=== PATIENT | male | born 1955 | race Caucasian/White ===

== ENCOUNTER 2021-12-18 15:57 | Emergency (ER) | payer OTHER, SELFPAY ==
--- NOTE | ~2021-12-18 | XR_ITS ---
EXAM: XR ankle RT min 3V DATE: 12/18/2021 16:31 HISTORY: twisted right ankle, pain and swelling distal fibula . COMPARISON: None available. FINDINGS: Normal mineralization. No fracture or dislocation. No lytic or blastic lesion. Joint space s are maintained. No erosion or periosteal change. Moderate ankle joint effusion. Lateral soft tissue swelling. IMPRESSION: No acute osseous finding in the right ankle. Reviewed, dictated and finalized at location K.
[2021-12-18 16:17] VITALS: BP 127/89; PULSE 75; RESP 18; TEMP 36.9; O2SAT 99
--- NOTE | 2021-12-18 16:22 | ED.LOWEXIN ---
HPI - Extremity Injury (Lower) General Stated Complaint: fall Time Seen by Provider: 12/18/21 16:33 Source: patient and RN notes reviewed Mode of arrival: ambulatory Limitations: no limitations History of Present Illness HPI Narrative: 66-year-old male presents with concern for right ankle pain and swelling. He reports prior to arrival he was laying on the couch and stood up, his foot was asleep and he rolled the ankle. He reports swelling, pain to the ankle. He denies that the pain radiates to the foot. He denies open skin. He reports he is getting a cardiac stress test tomorrow and he cannot take any medications such as Tylenol or ibuprofen until after that MD complaint: ankle injury Related Data Home Medications Medication Instructions Recorded Confirmed Klonopin 12/18/21 allopurinol 12/18/21 fluoxetine 12/18/21 tamsulosin 12/18/21 Allergies Allergy/AdvReac Type Severity Reaction Status Date / Time morphine Allergy Hallucinati Verified 12/18/21 16:24 ng Review of Systems Review of Systems: CONSTITUTIONAL: Denies malaise, chills, sweats, or fever. SKIN: Denies rash or itching, open skin, laceration, abrasion, redness, warmth MUSCULOSKELETAL: Reports right ankle pain and swelling NEUROLOGIC: Denies numbness, weakness All systems reviewed & are unremarkable except as noted in HPI and below PMFSH Comments At time of signature, agree with nursing past medical, surgical, social and family history. There is no relevant family history pertinent to the presenting complaint Exam Narrative: GENERAL: Well-appearing, well-nourished, and in no acute distress. HEAD: Normocephalic, atraumatic. EYES: PERRLA, conjunctivae clear NECK: Supple. CHEST: Speaks in full sentences. No respiratory distress. HEART: Regular rate and rhythm. Normal and equal peripheral pulses. EXTREMITIES: Right ankle, foot, digits normal strength and sensation, normal range of motion. Moderate ankle edema without erythema, warmth, or ecchymosis. 5/5 strength with ankle and digit flexion and extension. Normal sensation with sensitivity to light touch and pain. Lateral ankle tenderness. No open wounds, no skin tenting, no devitalized tissue or atrophy, no trophic changes, no obvious deformity, alignment normal, nearby joints and structures intact. Distal pulses palpable and equal bilaterally, skin warm, dry, pink. Capillary refill less than 3 seconds. SKIN: Warm, dry, no rash. NEURO: Alert and oriented x3. PSYCH: Normal mood and affect Course Course Emergency Course: Patient is aware of diagnosis, understands and agrees to treatment plan. Anticipatory guidance given. Patient agrees to follow-up as directed and is aware of reasons to seek care at the emergency department. Portions of this record may have been created with voice recognition software Level of Care: Express Care Visit Vital Signs Vital signs: Vital Signs Temperature 98.4 F 12/18/21 16:17 Pulse Rate 75 12/18/21 16:17 Respiratory Rate 18 12/18/21 16:17 Blood Pressure 127/89 12/18/21 16:17 Pulse Oximetry 99 12/18/21 16:17 Oxygen Delivery Room Air 12/18/21 16:17 Temperature 98.4 F 12/18/21 16:17 Pulse Rate 75 12/18/21 16:17 Respiratory Rate 18 12/18/21 16:17 Blood Pressure 127/89 12/18/21 16:17 Pulse Oximetry 99 12/18/21 16:17 Oxygen Delivery Room Air 12/18/21 16:17 Reviewed. MDM - Extremity Injury (Lower) MDM Narrative Medical decision making narrative: Patients injury and pain is consistent with musculoskeletal etiology. No signs of neurological or vascular compromise on exam. Compartments and tissues are soft without signs of compartment syndrome. Pain is felt appropriate for further evaluation on an outpatient basis. Imaging Data My impression: Images reviewed, interpreted by radiologist, agree, see report. Radiologist's impression: EXAM:? XR ankle RT min 3V DATE: 12/18/2021 16:31 HISTORY: twisted right ankle
== END 2021-12-18 16:48 | disposition home or self-care (01) ==
PROVIDERS: Emergency Provider Nurse Practitioner
DX: S93.401A Sprain of unspecified ligament of right ankle, initial encounter (principal); X50.9XXA Other and unspecified overexertion or strenuous movements or postures, initial encounter; I10 Essential (primary) hypertension; M10.9 Gout, unspecified
CPT/HCPCS: 73610; 99213; G0463

== ENCOUNTER 2022-05-06 16:01 | Emergency (ER) | payer MEDICARE, SELFPAY ==
[2022-05-06 16:06] VITALS: BP 127/88; PULSE 114; RESP 20; TEMP 35.4; O2SAT 100
--- NOTE | 2022-05-06 16:14 | ED.WOUNDLAC ---
HPI - Wound/Laceration General Chief Complaint: Wound/Laceration Stated Complaint: unknown Time Seen by Provider: 05/06/22 16:15 Source: patient, RN notes reviewed and old records reviewed Mode of arrival: ambulatory Limitations: no limitations History of Present Illness HPI narrative: 67-year-old male presents to the [facility] with a avulsion of skin to left anterior knee. Patient states that he was using a chainsaw when it caught his pants and cut his leg. Bleeding is controlled unknown last Tdap has full range of motion of the knee, ankle. Positive pedal pulse noted capillary refill under 2 seconds Related Data Home Medications Medication Instructions Recorded Confirmed colchicine 0.6 mg tablet 0.6 mg PO BID 04/07/22 05/06/22 Allergies Allergy/AdvReac Type Severity Reaction Status Date / Time morphine Allergy Hallucinati Verified 04/07/22 08:57 ng Review of Systems Review of Systems: All systems reviewed & are unremarkable except as noted in HPI and below Constitutional: Constitutional: Reports no additional constitutional complaints Eyes: Eyes: Reports no additional eye complaints ENT: Reports system reviewed and no additional complaints, except as documented Cardiovascular: Cardiovascular: Reports no additional cardiovascular complaints, Denies chest pain and Denies dyspnea Respiratory: Respiratory: Reports no additional respiratory complaints, Denies chest congestion, Denies cough and Denies dyspnea Gastrointestinal: Gastrointestinal: Reports no additional gastrointestinal complaints, Denies abdominal pain, Denies nausea and Denies vomiting Musculoskeletal: Musculoskeletal: Reports no additional musculoskeletal complaints Integumentary/Breasts: Skin/Breast: Reports as per HPI Neurologic: Reports system reviewed and no additional complaints, except as documented Psychiatric: Psychiatric: Reports no additional psychiatric complaints Allergic/Immunologic: Allergic/Immunologic: Reports no additional allergic/immunologic complaints [facility] Past Medical History Medical History Anxiety Hypertension Kidney disease Migraine OCD (obsessive compulsive disorder) Family History Family History Father Hypertension Heart disease Social History Social History Smoking status: Never smoker Alcohol intake: never Substance use: unknown Lack of Transportation: No Lack of Food: Never True Current Housing: I Have Housing Concerned About Future Housing: No Difficulty Paying Gas/Electric Bills: No Difficulty Paying for Meds: No Currently Unemployed: No Education: Bachelor's Degree Difficulty w/ Childcare or Family Care: No Comments At the time of my signature, I reviewed and agree with the nursing past medical, surgical, social, and family history. There is no relevant family history pertinent to the patient complaint. Exam Const: General: cooperative, healthy appearing, comfortable, no acute distress, well developed, alert and well nourished Nutritional Appearance: well nourished Orientation/consciousness: patient oriented x3 Limitations: no limitations HENMT: Head: normal to inspection Ears: hearing grossly normal bilaterally and external ears normal Face/Nose/Sinus: Normal external nose present, Normal nares present, Normal nasal mucous membranes and turbinates present and normal facial exam Face and sinus: normal facial exam Mouth: Yes Normal oral and palatal mucosa present, Yes lip normal and Yes moist mucous membranes Eyes: General: appearance normal, both eyes and all related structures Alignment and Position: alignment normal Periorbital: periorbital findings normal Conjunctivae: conjunctivae normal Pupils: Equal, round and reactive pupils present EOM: EOMs intact bilaterally Neck: Neck: norm
[2022-05-06] MEDS: TETANUS/DIPHTHERIA TOXOIDS ADSORB 0.5 ML VIAL (*BKC) IM (16:27)
== END 2022-05-06 16:53 | disposition home or self-care (01) ==
PROVIDERS: Emergency Provider Nurse Practitioner; PCP Internal Medicine
DX: S81.012A Laceration without foreign body, left knee, initial encounter (principal); W29.3XXA Contact with powered garden and outdoor hand tools and machinery, initial encounter; Z23 Encounter for immunization; I10 Essential (primary) hypertension; F41.9 Anxiety disorder, unspecified; F42.9 Obsessive-compulsive disorder, unspecified
CPT/HCPCS: 12001; 90471; 90714; 99212; G0463

== ENCOUNTER 2022-07-26 08:04 | Emergency (ER) | payer MEDICARE, SELFPAY ==
--- NOTE | 2022-07-26 08:15 | ED.GENADULT ---
HPI - General Adult General Chief complaint: Upper Respiratory Infection Stated complaint: . Time Seen by Provider: 07/26/22 08:15 Source: patient Mode of arrival: ambulatory Limitations: no limitations History of Present Illness HPI narrative: 67-year-old male patient presents to the [facility] with complaints of a sore throat, sneezing, runny nose and a mild cough that started about 2 days ago. Denies any fevers, body aches or chills. Denies any nausea, vomiting or diarrhea. Denies any abdominal pain. Denies any chest pain or shortness of breath. Patient states he has taken 1 Zyrtec yesterday has been taking some over the counter DayQuil and NyQuil for his symptoms. Patient states he went to come and get checked out because he is getting ready to leave out of town and will be flying. Patient states he usually does not get sick until usually takes vitamin-C to help prevent illness. Related Data Home Medications Medication Instructions Recorded Confirmed colchicine 0.6 mg tablet 0.6 mg PO BID 04/07/22 07/26/22 Allergies Allergy/AdvReac Type Severity Reaction Status Date / Time morphine Allergy Hallucinati Verified 07/26/22 08:24 ng Review of Systems Review of Systems: CONSTITUTIONAL: Denies fever, chills, or sweats. EYES: Denies visual changes, redness, or discharge. ENT: Positive clear rhinorrhea, congestion, sore throat, denies otalgia. positive sneezing CARDIOVASCULAR: Denies chest pain, palpitations, or edema. RESPIRATORY: positive mild nonproductive cough , denies dyspnea. GASTROINTESTINAL: Denies abdominal pain, nausea, vomiting, or diarrhea. GENITOURINARY: Denies dysuria or hematuria. SKIN: Denies rash or itching. MUSCULOSKELETAL: Denies back pain, joint pain, or myalgia. NEUROLOGIC: Denies headache, numbness, or weakness. PSYCHIATRIC: Denies anxiety or depression. [facility] Past Medical History Medical History Anxiety Hypertension Kidney disease Migraine OCD (obsessive compulsive disorder) Family History Family History Father Hypertension Heart disease Social History Social History Smoking status: Never smoker Alcohol intake: never Substance use: unknown Lack of Transportation: No Lack of Food: Never True Current Housing: I Have Housing Concerned About Future Housing: No Difficulty Paying Gas/Electric Bills: No Difficulty Paying for Meds: No Currently Unemployed: No Education: Bachelor's Degree Difficulty w/ Childcare or Family Care: No Comments At the time of my signature I agree with nursing past medical history, surgical, social, and family history. There is no relevant family history pertinent to the presenting complaint. Exam Narrative: GENERAL: Well-appearing, well-nourished, and in no acute distress. HEAD: Normocephalic, atraumatic. EYES: PERRLA and EOMI. ENT: Nares with erythema edema noted bilaterally, no rhinorrhea or epistaxis. Mucous membranes moist. posterior pharynx with no erythema, tonsillitis mint, exudates or lesions present. Bilateral TMs are clear no erythema or foreign bodies the canal. NECK: Supple. No lymphadenopathy CHEST: Clear to auscultation. No respiratory distress. HEART: Regular rate and rhythm. No murmur heard. Normal peripheral pulses. ABDOMEN: Soft, nontender, nondistended, normal active bowel sounds. EXTREMITIES: Normal range of motion. No edema. SKIN: Warm, dry, no rash. NEURO: No focal deficits. Alert and oriented x3. Course Course Level of Care: Express Care Visit Reevaluation(s) Reevaluation #1: re-evaluated patient notified him that all the swabs came back negative. Discussed with patient I think this is most likely due to some type of virus or most likely allergies. Continue to encourage him to take the Zyrtec daily we will also prescri
[2022-07-26 08:24] VITALS: BP 112/65; PULSE 65; RESP 18; TEMP 36.5; O2SAT 100
[2022-07-26 08:25] VITALS: BP 112/65; PULSE 65; RESP 18; TEMP 36.5; O2SAT 100
== END 2022-07-26 09:18 | disposition home or self-care (01) ==
PROVIDERS: Emergency Provider Nurse Practitioner Family; PCP Physician Assistant
DX: J06.9 Acute upper respiratory infection, unspecified (principal); R05.9 Cough, unspecified; Z20.822 Contact with and (suspected) exposure to COVID-19; F41.9 Anxiety disorder, unspecified; I10 Essential (primary) hypertension
CPT/HCPCS: 87081; 87426; 87804; 87880; 99213; C9803; G0463

== ENCOUNTER 2023-02-01 20:18 | Emergency (ER) | payer MEDICARE, SELFPAY ==
[2023-02-01] VITALS (16 sets, daily range): BP systolic 110–148; BP diastolic 80–112; PULSE 71–98; RESP 12–18; TEMP 36.6–36.8; O2SAT 92–98
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
--- NOTE | ~2023-02-01 | XR_ITS ---
Portable chest x-ray Comparison: 02/01/2023 Clinical History: Chest tube Findings: Right-sided chest tube is in place. Possible minimal residual right apical pneumothorax. T here is minimal right basilar atelectatic change. Left lung clear. Cardiomediastinal silhouette is s table. Bones and soft tissues are unremarkable. Impression: Status post right chest tube placement, with near complete resolution of right pneumothorax. Possible minimal residual right apical pneumothorax. Minimal right basilar atelectatic change. Reviewed, dictated and finalized at location M. HING MACHINE OPERATOR Impression: Status post right chest tube placement, with near complete resolution of right pneumothorax. Possible minimal residual right apical pneumothorax. Minimal right basilar atelectatic change.
--- NOTE | ~2023-02-01 | CT_ITS ---
EXAMINATION: CT brain wo con DATE: 02/01/2023 21:48 INDICATION: Head trauma TECHNIQUE: Computed tomography (CT) of the head was performed without intravenous contrast. Sagittal and coronal reconstructions were performed. The mA was adjusted according to patient size. Iterative reconstruction technique was employed. The dose-length product was 681.00 mGy-cm. COMPARISON: None FINDINGS: No fracture. No acute intracranial hemorrhage, acute infarction or abnormal extra axial fluid collect ion. Symmetric prominence of the sulci consistent with mild age-appropriate diffuse cerebral volume l oss. Ventricles are normal and symmetric. No mass/mass effect. The orbits, paranasal sinuses and mas toid air cells are normal. IMPRESSION: 1. Normal aging brain. No fracture or acute intracranial process. Reviewed, dictated and finalized at location A. ATION CLERK
--- NOTE | ~2023-02-01 | CT_ITS ---
EXAMINATION: CT chest abdomen pelvis w con DATE: 02/01/2023 21:48 INDICATION: Trauma with pneumothorax TECHNIQUE: Computed tomography (CT) of the chest, abdomen, and pelvis was performed with 100 mL Omnip aque-350 intravenous contrast. Automated exposure control and iterative reconstruction technique were employed. The dose-length product was 1065.05 mGy-cm. COMPARISON: None FINDINGS: CHEST CT: There are fractures of the posterior right fourth-11th ribs with moderate displacement of the 11th ri b fracture, mild displacement of the ninth rib fracture and the remaining nondisplaced. There is a sm all associated subpleural chest wall hematoma along with some soft tissue gas along the peripheral ma rgin of the ribs and intercostal spaces. Small low-density left pleural effusion. Groundglass opaciti es in the dependent aspect of the bilateral lower lobes and the right middle lobe and favor atelectas is over pulmonary hemorrhage, aspiration or pneumonia. No left-sided rib fractures, pneumothorax or p leural effusion. Heart size is normal. No pericardial effusion. Thoracic aorta is normal in caliber w ith no dissection or acute traumatic aortic injury. No pneumomediastinum. No pathologically enlarged thoracic lymphadenopathy. Small sliding-type hiatal hernia with suture lines consistent with prior Ni ssen fundoplication. ABDOMEN/PELVIS CT: Small gallstones at the dependent aspect of the normal-appearing gallbladder. Liver, spleen, pancreas and bilateral adrenal glands are normal. Bilateral kidneys are enlarged with numerous renal cysts me asuring up to 10.2 cm and the left kidney consistent with polycystic kidney disease. A few scattered colonic diverticula without adjacent from trace stranding to suggest diverticulitis. Bowels including the appendix are otherwise normal. There is prominent metallic streak artifact related to bilateral total hip arthroplasties which extends across the deep pelvis limiting assessment of the bladder. No evident free intraperitoneal gas or fluid. Postoperative change of prior right inguinal hernia repair . Mild thoracolumbar levoscoliosis with moderate to severe thoracic and severe lumbar spondylosis. IMPRESSION: 1. Posterior right fourth-11th rib fractures with small right pneumothorax and tiny right pleural eff usion. No pneumomediastinum. 2. No acute intra-abdominal/pelvic process. 3. Cholelithiasis. 4. Small sliding-type hiatal hernia with change of likely prior Maurisio fundoplication. 2. Numerous bilateral renal cysts consistent with autosomal dominant polycystic kidney disease. Reviewed, dictated and finalized at location A. CTURAL STEEL WORKER HELPER IMPRESSION: 1. Posterior right fourth-11th rib fractures with small right pneumothorax and tiny right pleural effusion. No pneumomediastinum. 2. No acute intra-abdominal/pelvic process. 3. Cholelithiasis. 4. Small sliding-type hiatal hernia with change of likely prior Maurisio fundopli cation. 2. Numerous bilateral renal cysts consistent with autosomal dominant polycystic kidney disease.
--- NOTE | ~2023-02-01 | XR_ITS ---
EXAMINATION: XR chest 1V portable DATE: 02/01/2023 21:19 INDICATION: Chest pain TECHNIQUE: frontal view of the chest was obtained. COMPARISON: None FINDINGS: Small right pneumothorax with 2 cm maximal pleural separation at the apex. Opacity at the bilateral l gabby bases and favor atelectasis over pneumonia. No pleural effusion or left-sided pneumothorax. The c ardiomediastinal silhouette is within normal limits conifer AP technique and slight rightward rotatio n of the patient. . There are some streaky lucencies projecting over the mediastinum with a curved hilaria cency extending along the aortic knob suspicious for associated pneumomediastinum. There are fracture s of the posterior right 4th-10th ribs. IMPRESSION: 1. Mildly displaced fracture of the right posterior fourth-10th ribs with small right pneumothorax an d likely pneumomediastinum. Dr. Haywood discussed these findings with Dr. Jaime at 9:25 PM. Reviewed, dictated and finalized at location A. K 9 HANDLER/ DEPUTY IMPRESSION: 1. Mildly displaced fracture of the right posterior fourth-10th ribs with small right pneumothorax and likely pneumomediastinum. Dr. Haywood discussed these findings with Dr. Jaime at 9:25 PM.
--- NOTE | 2023-02-01 20:49 | ECG_ITS ---
Measurements Intervals [place] Rate: 100 P: 40 HI: 152 QRS: 4 QRSD: 90 T: -8 QT: 339 QTc: 438 Interpretive Statements SINUS TACHYCARDIA LOW QRS VOLTAGE IN PRECORDIAL LEADS BORDERLINE ST-T WAVE ABNORMALITY- ANTEROLAT/INF LEADS BASELINE WANDER- III, AVR, AVL, AVF BORDERLINE ECG NO PREVIOUS ECG AVAILABLE FOR COMPARISON Electronically Signed On 02-02-2023 6:43:30 STATISTICAL FINANCIAL ANALYST by Freddy Rico D.O.
[2023-02-01] MEDS: HYDROmorphone HCL INJ (*CRX) 1 MG/ML SYR IV PUSH ×2 (21:06→22:35)
[2023-02-01 21:08] LABS: Basophils Absolute Auto 0.1 K/mm3 (0.0-0.1); Basophils Percent Auto 0.4 % (0.2-1.2); Eosinophils Absolute Auto 0.1 K/mm3 (0-0.3); Eosinophils Percent Auto 0.3 % (0-4.4); Hematocrit 53.8 % (42.0-52.0); Hemoglobin 17.1 g/dL (14.0-18.0); Immature Granulocyte Absolute 0.09 K/mm3 (0.00-0.031); Immature Granulocyte Percent A 0.6 % (0-0.5); Lymphocytes Absolute Auto 1.11 K/mm3 (0.9-3.2); Lymphocytes Percent Auto 7.6 % (18.3-44.2); Mean Corpuscular HGB Conc 31.8 g/dl (32-36); Mean Corpuscular Hemoglobin 29.2 pg (26-34); Monocytes Absolute Auto 1.3 K/mm3 (0.1-0.6); Monocytes Percent Auto 8.6 % (2.6-8.5); Neutrophils Percent Auto 82.5 % (45.5-73.1); Platelet Count Result 283 k/mm3 (150-375); Red Blood Count 5.85 M/mm3 (4.6-6.20); Red Cell Distribution Width 14.4 % (11.5-14.5); White Blood Count 14.6 K/mm3 (4.5-10.0)
[2023-02-01 21:19] LABS: Prothrombin Time 13.1 Seconds (11.1-14.7)
[2023-02-01 21:20] LABS: Alanine Aminotransferase 26 U/L (6-50); Albumin Level 4.5 g/dL (3.5-5.1); Alkaline Phosphatase 83 U/L (38-126); Anion Gap 10 mmol/L (8-16); Aspartate Amino Transferase 39 U/L (17-59); Bilirubin,Total 0.8 mg/dL (0.2-1.3); Blood Urea Nitrogen 32 mg/dL (9-20); Calcium 9.6 mg/dL (8.4-10.2); Carbon Dioxide 22 mmol/L (22-30); Chloride 108 mmol/L (98-107); Estimated CRCL calculation 41 ml/min; Estimated Glomerular Filt Rate 38; Glucose 100 mg/dL (65-110); Partial Thromboplastin Time 26.1 SECONDS (22.3-36.8); Potassium 4.5 mmol/L (3.4-5.0); Sodium 140 mmol/L (137-145)
[2023-02-01 21:32] LABS: Troponin I < 0.012 ng/mL (0.000-0.034)
[2023-02-02] VITALS (7 sets, daily range): BP systolic 113–159; BP diastolic 80–96; PULSE 75–82; RESP 12–15; TEMP 36.8; O2SAT 93–98
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
[2023-02-02 00:17] LABS: Appearance Urine Clear (Clear); Bacteria Urine None Seen /hpf; Bilirubin Urine Negative (Negative); Blood Urine Negative (Negative); Color Urine Yellow (Yellow); Glucose Urine UA Negative (Negative); Ketones Urine 1+ mg/dL (Negative); Leukocyte Esterase Ur Negative LEU/UL (Negative); Nitrate Urine Negative (Negative); Protein Urine 1+ mg/dL (Negative); RBC Urine 0-2 /hpf (0-2); Squamous Epithelial Cell Urine None seen /hpf (Few); Urobilinogen Urine 0.2 mg/dL (<2.0); WBC Urine 0-5 /hpf; pH Urine 5.5 (5.0-9.0)
[2023-02-02 00:32] LABS: Specific Grav Ur 1.042 (1.001-1.035)
[2023-02-02 00:33] LABS: Add Urine Microscopic? YES
--- NOTE | 2023-02-02 00:37 | PC.NURSE ---
2340 50 mcg fentanyl administered IV push by this RN. 2343 20 mg etomidate administered IV push by this RN.
--- NOTE | 2023-02-02 00:46 | PC.NURSE ---
2340 50 mcg fentanyl administered IV push by this RN. 2343 10 mg etomidate administered IV push by this RN.
--- NOTE | 2023-02-02 01:10 | PC.NURSE ---
2335 10 ml lidocaine 1% HCL subcutaneous administered by Dr. Fernandez.
[2023-02-02] MEDS: HYDROmorphone HCL INJ (*CRX) 1 MG/ML SYR IV PUSH (01:13)
[2023-02-02] MEDS: HYDROmorphone HCL INJ (*CRX) 1 MG/ML SYR 0.5 MG IV PUSH (01:29)
== END 2023-02-02 01:33 | disposition short-term general hospital (02) ==
PROVIDERS: Emergency Provider Emergency Medicine; PCP Physician Assistant
DX: S27.0XXA Traumatic pneumothorax, initial encounter (principal); S22.41XA Multiple fractures of ribs, right side, initial encounter for closed fracture; I10 Essential (primary) hypertension; W17.89XA Other fall from one level to another, initial encounter; Y93.89 Activity, other specified
CPT/HCPCS: 32551; 36415; 70450; 71045; 71260; 72125; 74177; 80053; 81001; 84484; 85025; 85610; 85730; 93005; 96374; 96376; 99285; C1729; J1170; Q9967

== ENCOUNTER 2023-02-23 08:11 | Emergency (ER) | payer MEDICARE, SELFPAY ==
--- NOTE | ~2023-02-23 | CT_ITS ---
EXAMINATION: CT abdomen pelvis w con DATE: 02/23/2023 12:21 INDICATION: Lower abdomen pain TECHNIQUE: Computed tomography (CT) of the abdomen and pelvis was performed with 100 cc Omnipaque 350 intravenous contrast. The dose-length product was 561.10 mGy-cm. Automated exposure control and iter ative reconstruction technique were employed. COMPARISON: CT dated 02/01/2023. FINDINGS: There is lingular and lower lobe airspace consolidation which may represent atelectasis and /or pneumonia. No pneumothorax identified. Heart size normal. No significant pleural effusion. No per icardial effusion. There is hiatal hernia. There are multiple renal cysts, consistent with autosomal dominant polycystic kidney disease. The liver, spleen, pancreas, adrenal glands are unremarkable. Non obstructive bowel gas pattern. There are bilateral hip arthroplasties. There is a Alexander catheter pres ent in the bladder. There are multiple healing right rib fractures with developing callus formation. Right eighth-11th rib fractures identified. IMPRESSION: 1. Healing right eighth-11th rib fractures visualized. Bibasilar consolidation may represent atelecta sis and/or pneumonia. No definite pneumothorax visualized. 2: Hiatal hernia with changes of prior Maurisio fundoplication. 3: Autosomal dominant polycystic kidney disease. Reviewed, dictated and finalized at location B. S OR SURVEYS INTERVIEWER IMPRESSION: 1. Healing right eighth-11th rib fractures visualized. Bibasilar consolidation may represent atelectasis and/or pneumonia. No definite pneumothorax visualized . 2: Hiatal hernia with changes of prior Maurisio fundoplication. 3: Autosomal dominant polycystic kidney disease.
[2023-02-23 08:15] VITALS: BP 102/81; PULSE 85; RESP 15; TEMP 36.3; O2SAT 97
[2023-02-23] MEDS: LIDOCAINE HCL 2% GEL UROJET 10 ML PKG ×2 (08:23→08:58)
--- NOTE | 2023-02-23 08:25 | PC.NURSE ---
Pt's catheter that was in place [employer] MAKER removed intact
--- NOTE | 2023-02-23 08:48 | PC.NURSE ---
Catheter removed intact, 3 way catheter placed
[2023-02-23 09:02] VITALS: BP 116/73; PULSE 56; RESP 16; O2SAT 99
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
[2023-02-23 10:03] VITALS: BP 109/79; PULSE 58; RESP 16; O2SAT 97
[2023-02-23 10:07] LABS: Basophils Absolute Auto 0.1 K/mm3 (0.0-0.1); Eosinophils Absolute Auto 0.5 K/mm3 (0-0.3); Eosinophils Percent Auto 5.3 % (0-4.4); Hematocrit 48.2 % (42.0-52.0); Hemoglobin 15.1 g/dL (14.0-18.0); Immature Granulocyte Absolute 0.05 K/mm3 (0.00-0.031); Immature Granulocyte Percent A 0.5 % (0-0.5); Lymphocytes Percent Auto 14.5 % (18.3-44.2); Mean Corpuscular HGB Conc 31.3 g/dl (32-36); Mean Corpuscular Hemoglobin 29.2 pg (26-34); Mean Corpuscular Volume 93.1 fl (80-100); Mean Platelet Volume 8.8 fl (7.4-10.4); Monocytes Absolute Auto 0.8 K/mm3 (0.1-0.6); Monocytes Percent Auto 8.2 % (2.6-8.5); Neutrophils Absolute Auto 6.8 K/mm3 (1.3-6.7); Neutrophils Percent Auto 70.5 % (45.5-73.1); Platelet Count Result 363 k/mm3 (150-375); Red Blood Count 5.18 M/mm3 (4.6-6.20); Red Cell Distribution Width 14.1 % (11.5-14.5); White Blood Count 9.7 K/mm3 (4.5-10.0)
[2023-02-23 10:17] LABS: Potassium 4.2 mmol/L (3.4-5.0)
[2023-02-23 10:19] LABS: Alanine Aminotransferase 27 U/L (6-50); Albumin Level 3.6 g/dL (3.5-5.1); Alkaline Phosphatase 130 U/L (38-126); Anion Gap 6 mmol/L (8-16); Aspartate Amino Transferase 33 U/L (17-59); Bilirubin,Total 0.4 mg/dL (0.2-1.3); Blood Urea Nitrogen 30 mg/dL (9-20); Calcium 9.3 mg/dL (8.4-10.2); Carbon Dioxide 25 mmol/L (22-30); Chloride 107 mmol/L (98-107); Estimated CRCL calculation 48 ml/min; Estimated Glomerular Filt Rate 47; Glucose 80 mg/dL (65-110); Sodium 138 mmol/L (137-145)
[2023-02-23 10:56] VITALS: BP 125/89; PULSE 57; RESP 16; O2SAT 100
[2023-02-23 11:46] VITALS: BP 121/89; PULSE 59; RESP 16; O2SAT 99
[2023-02-23 12:51] VITALS: BP 123/94; PULSE 59; RESP 16; O2SAT 99
[2023-02-23] MEDS: PHENAZOPYRIDINE HCL 100 MG TABLET 200 MG PO (13:26)
== END 2023-02-23 13:42 | disposition home or self-care (01) ==
PROVIDERS: Emergency Provider Emergency Medicine; PCP Physician Assistant
DX: T83.091A Other mechanical complication of indwelling urethral catheter, initial encounter (principal); N32.89 Other specified disorders of bladder; S22.41XD Multiple fractures of ribs, right side, subsequent encounter for fracture with routine healing; I10 Essential (primary) hypertension; K44.9 Diaphragmatic hernia without obstruction or gangrene; Q61.2 Polycystic kidney, adult type; Y84.6 Urinary catheterization as the cause of abnormal reaction of the patient, or of later complication, without mention of misadventure at the time of the procedure; X58.XXXD Exposure to other specified factors, subsequent encounter
CPT/HCPCS: 36415; 51700; 74177; 80053; 85025; 99284; A9270; Q9967

== ENCOUNTER 2023-04-16 13:57 | Outpatient (CLI) | payer MEDICARE, SELFPAY ==
[2023-04-16 14:20] LABS: Basophils Absolute Auto 0.1 K/mm3 (0.0-0.1); Basophils Percent Auto 0.9 % (0.2-1.2); Eosinophils Absolute Auto 0.2 K/mm3 (0-0.3); Eosinophils Percent Auto 3.1 % (0-4.4); Hematocrit 49.8 % (42.0-52.0); Hemoglobin 15.8 g/dL (14.0-18.0); Immature Granulocyte Absolute 0.03 K/mm3 (0.00-0.031); Immature Granulocyte Percent A 0.5 % (0-0.5); Lymphocytes Absolute Auto 1.63 K/mm3 (0.9-3.2); Lymphocytes Percent Auto 25.3 % (18.3-44.2); Mean Corpuscular HGB Conc 31.7 g/dl (32-36); Mean Corpuscular Hemoglobin 29.2 pg (26-34); Mean Corpuscular Volume 92.1 fl (80-100); Mean Platelet Volume 9.1 fl (7.4-10.4); Monocytes Absolute Auto 0.5 K/mm3 (0.1-0.6); Monocytes Percent Auto 8.2 % (2.6-8.5); Platelet Count Result 261 k/mm3 (150-375); Red Blood Count 5.41 M/mm3 (4.6-6.20); Red Cell Distribution Width 14.6 % (11.5-14.5); White Blood Count 6.4 K/mm3 (4.5-10.0)
[2023-04-16 16:25] LABS: Alanine Aminotransferase 21 U/L (6-50); Albumin Level 3.8 g/dL (3.5-5.1); Alkaline Phosphatase 89 U/L (38-126); Anion Gap 6 mmol/L (8-16); Aspartate Amino Transferase 29 U/L (17-59); Bilirubin,Total 0.5 mg/dL (0.2-1.3); Blood Urea Nitrogen 31 mg/dL (9-20); Calcium 9.1 mg/dL (8.4-10.2); Carbon Dioxide 24 mmol/L (22-30); Chloride 108 mmol/L (98-107); Cholesterol 132 mg/dL (0-200); Estimated Glomerular Filt Rate 51; Glucose 95 mg/dL (65-110); HDL Direct 60 mg/dL; Potassium 4.4 mmol/L (3.4-5.0); Sodium 138 mmol/L (137-145); Triglycerides 71 mg/dL (<150)
[2023-04-16 16:36] LABS: LDL Cholesterol Direct 52 mg/dL
[2023-04-16 17:52] LABS: Folic Acid > 20.0 ng/mL (2.76->20)
== END 2023-04-16 13:58 | disposition home or self-care (01) ==
LOC: ANHLAB 14:00
PROVIDERS: PCP Physician Assistant; Visit Provider Physician Assistant
DX: E78.5 Hyperlipidemia, unspecified (principal); N28.9 Disorder of kidney and ureter, unspecified; R53.83 Other fatigue; Z12.5 Encounter for screening for malignant neoplasm of prostate
CPT/HCPCS: 36415; 80053; 80061; 82607; 82746; 84153; 84443; 85025; G0103

== ENCOUNTER 2023-04-23 08:42 | Outpatient (CLI) | payer MEDICARE, SELFPAY ==
--- NOTE | ~2023-04-23 | MR_ITS ---
MRI of the lumbar spine Clinical History: Spondylosis Technique: Axial T2-weighted images, and sagittal T1-weighted, T2-weighted, and T2 fat-sat images wer e acquired. Findings: No fracture identified. There is 8mm retrolisthesis of L2 over L3. There is 4 mm retrolisth esis of L5 over S1. No suspicious bone marrow signal abnormality seen. At L1-L2, there is mild to moderate degenerative disc change. No disc bulge or herniation. No spinal canal stenosis or neural foraminal narrowing. At L2-L3, there is mild disc bulge and mild to moderate facet arthropathy. No central canal stenosis. There is moderate left neural foraminal narrowing, and severe right neural foraminal narrowing. At L3-L4, there is minimal disc bulge and moderate facet arthropathy. There is no central canal steno sis. There is mild right neural foraminal narrowing. Left neural foramen preserved. At L4-L5, there is minimal disc bulge and mild to moderate facet arthropathy. No central canal stenos is. There is moderate bilateral neural foraminal narrowing. At L5-S1, there is advanced degenerative disc narrowing. There is minimal disc bulge with mild to mod erate facet arthropathy. No central canal stenosis. There is severe bilateral neural foraminal compro mise. Paravertebral soft tissues are unremarkable. Multiple bilateral renal cysts are partially imaged. Impression: 8 mm retrolisthesis of L2 over L3. 4 mm retrolisthesis of L5 over S1. Moderate degenerative spondylosis, as above. Reviewed, dictated and finalized at [facility]. 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 4 mm retrolisthesis of L5 over S1. Moderate degenerative spondylosis, as above.
--- NOTE | ~2023-04-23 | MR_ITS ---
EXAMINATION: MR thoracic spine wo con DATE: 04/23/2023 10:25 INDICATION: Severe spondylosis. TECHNIQUE: Magnetic resonance imaging (MRI) of the thoracic spine was performed without intravenous c ontrast. COMPARISON: Chest CT 02/01/2023 FINDINGS: There is kyphosis of thoracic spine. Vertebral body heights are normal. There is mildly dec reased disc height at T4-T5 and T5-T6, moderately decreased disc height at T6-T7, mildly decreased di sc height at T7-T8, T8-T9, and T9-T10, severely decreased disc height at T10-T11, moderately decrease d disc height at T11-T12, and mildly decreased disc height at T12-L1. At T4-T5, there is a right cent ral protrusion with mild central canal stenosis. At T5-T6, there is a central protrusion with mild ce ntral canal stenosis. At T6-T7, there is a central extrusion with mild central canal stenosis. At T7- T8, there is a right central protrusion with mild central canal stenosis. At T8-T9, there is a right central protrusion with mild central canal stenosis. At T9-T10, there is a central extrusion with mil d central canal stenosis. At T10-T11 and T11-T12, there are left central extrusions with mild central canal stenosis. There is multilevel facet joint osteoarthritis, severe at multiple levels. There is multilevel mild neural foraminal stenosis bilaterally. On the right, there is moderate neural foramin al stenosis at T10-T11. The spinal cord signal intensity is normal. The conus medullaris is at L1. IMPRESSION: 1. Moderate thoracic spondylosis. 2. Thoracic kyphosis. Reviewed, dictated and finalized at location E. T WINDOW CASHIER
== END 2023-04-23 08:43 | disposition home or self-care (01) ==
PROVIDERS: PCP Physician Assistant; Visit Provider Physician Assistant
DX: M47.816 Spondylosis without myelopathy or radiculopathy, lumbar region (principal); M47.814 Spondylosis without myelopathy or radiculopathy, thoracic region; M40.204 Unspecified kyphosis, thoracic region; M43.17 Spondylolisthesis, lumbosacral region
CPT/HCPCS: 72146; 72148

== ENCOUNTER 2023-05-18 07:58 | Outpatient (CLI) | payer MEDICARE, SELFPAY ==
--- NOTE | ~2023-05-18 | XR_ITS ---
Left Shoulder Technique: AP and scapular Y views were obtained. Clinical History: Pain Findings: No fracture or dislocation is seen. Osseous alignment is anatomic. The glenohumeral and acr omioclavicular joint spaces are preserved. Soft tissues are unremarkable. Impression: Unremarkable left shoulder radiographs. Reviewed, dictated and finalized at [facility]. 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
== END 2023-05-18 07:59 | disposition home or self-care (01) ==
PROVIDERS: PCP Physician Assistant; Visit Provider Orthopaedic Surgery
DX: M25.512 Pain in left shoulder (principal)
CPT/HCPCS: 73030

== ENCOUNTER 2023-08-11 08:21 | Outpatient (CLI) | payer MEDICARE, SELFPAY ==
--- NOTE | ~2023-08-11 | XR_ITS ---
Lumbosacral Spine: AP and lateral views Clinical History: Pain Findings: The normal lordotic curve is maintained. There is 8mm retrolisthesis of L2 over L3. No defi nite instability on flexion or extension. There is severe degenerative disc narrowing at L2-L3 and L5 -S1. There is mild degenerative disc change at L4-L5. There is severe facet arthropathy at L5-S1. The re is mild to moderate facet arthropathy and the remainder of the lumbar spine. The sacroiliac joints are normally outlined. Impression: Moderate to advanced spondylosis, as above. 8 mm retrolisthesis of L2 over L3. Reviewed, dictated and finalized at location M. Impression: Moderate to advanced spondylosis, as above. 8 mm retrolisthesis of L2 over L3.
--- NOTE | ~2023-08-11 | MR_ITS ---
MRI of the cervical spine Clinical History: Disease of spinal cord, unspecified Technique: Axial T2-weighted and gradient images, and sagittal T1-weighted, T2-weighted, and STIR radha ges were acquired. Findings: There is no fracture of the cervical spine. There is 3-4 mm retrolisthesis of C5 over C6. N o suspicious bone marrow signal abnormality seen. At C2-C3, there is no significant disc bulge or herniation. No spinal canal stenosis, cord compressio n, or neural foraminal narrowing. There is mild left facet arthropathy. At C3-C4, there is mild disc osteophyte complex, most prominent at the left foraminal region. There i s prominent left facet arthropathy with significant left neural foraminal narrowing. There is minimal canal stenosis without sary cord compression. Right neural foramen preserved. At C4-C5, there is minimal disc osteophyte complex. No spinal canal stenosis, cord compression, or de finite right neural foraminal narrowing. There is left neural foraminal narrowing of left facet arthr opathy. At C5-C6, there is severe degenerative disc narrowing. There is mild disc osteophyte complex, with mi ld canal stenosis but no sary cord compression. There is bilateral neural foraminal narrowing with b ilateral facet arthropathy. At C6-C7, there is moderate to advanced degenerative disc narrowing. There is mild disc osteophyte co mplex, without sary canal stenosis or cord compression. There is bilateral neural foraminal narrowin g, right worse than left. No abnormal signal seen in the spinal cord. Paravertebral soft tissues are unremarkable. Impression: Moderate degenerative spondylosis, as detailed above. 3-4 mm retrolisthesis of C5 over C6. Reviewed, dictated and finalized at [facility]. Impression: Moderate degenerative spondylosis, as detailed above. 3-4 mm retrolisthesis of C5 over C6.
== END 2023-08-11 08:22 | disposition home or self-care (01) ==
PROVIDERS: PCP Physician Assistant; Visit Provider Neurological Surgery
DX: M47.816 Spondylosis without myelopathy or radiculopathy, lumbar region (principal); M47.892 Other spondylosis, cervical region; M43.12 Spondylolisthesis, cervical region; M43.16 Spondylolisthesis, lumbar region
CPT/HCPCS: 72110; 72141

== ENCOUNTER 2023-09-24 07:27 | Outpatient (CLI) | payer MEDICARE, SELFPAY ==
--- NOTE | ~2023-09-24 | MR_ITS ---
Procedure: MR thoracic spine wo con Ordering provider: Faith Lange MD History: . PREOP EXAMINATION . Comparison: None. Technique: MRI thoracic spine without contrast. FINDINGS: SPINAL CORD: Normal. VERTEBRAL BODIES: Normal height and alignment. No compression fracture. Normal marrow signal. DISK SPACES: Narrowing of the disc spaces T9- T10, T10-T11 and T11-T12. Disc bulges are seen at the s emelia levels. Disc bulges seen at the level of C6-C7. STENOSIS: None. PARASPINOUS SOFT TISSUES: Normal. Possible cystic changes in the right and left kidney. IMPRESSION: No compression fracture or stenosis of the thoracic spine. Multilevel disc bulges. Reviewed, dictated and finalized at location A.
== END 2023-09-24 07:28 | disposition home or self-care (01) ==
PROVIDERS: PCP Physician Assistant; Visit Provider Pain Medicine Pain Medicine
DX: Z01.818 Encounter for other preprocedural examination (principal); M50.323 Other cervical disc degeneration at C6-C7 level
CPT/HCPCS: 72146

== ENCOUNTER 2023-11-26 11:23 | Emergency (ER) | payer MEDICARE, OTHER, SELFPAY ==
[2023-11-26 11:24] VITALS: BP 130/100; PULSE 82; RESP 16; TEMP 36.6; O2SAT 100
[2023-11-26 12:12] LABS: Add Urine Microscopic? NO; Appearance Urine Clear (Clear); Bilirubin Urine Negative (Negative); Blood Urine Negative (Negative); Color Urine Yellow (Yellow); Glucose Urine UA Negative (Negative); Ketones Urine Negative (Negative); Leukocyte Esterase Ur Negative LEU/UL (Negative); Nitrate Urine Negative (Negative); Protein Urine Negative (Negative); Specific Grav Ur 1.017 (1.001-1.035)
--- NOTE | 2023-11-26 12:30 | ED.GENADULT ---
HPI - General Adult General Chief complaint: Urogenital-Male Stated complaint: I can't pee Time Seen by Provider: 11/26/23 11:33 History of Present Illness HPI narrative: 68-year-old male history of BPH presented to the emergency department for evaluation for increased difficulty with urination. Patient reports over the last few days he has had increased difficulty with his morning urination and then this morning he was unable to urinate at all. Patient had greater than 700 mL on his postvoid residual bladder scan. Related Data Allergies Allergy/AdvReac Type Severity Reaction Status Date / Time morphine Allergy Hallucinati Verified 11/05/23 11:34 ng Review of Systems Review of Systems: All systems reviewed & are unremarkable except as noted in HPI and below PMFSH Past Medical History Medical History (Updated 11/26/23 @ 12:33 by Palmer Doan MD) Anxiety Hypertension Kidney disease Migraine OCD (obsessive compulsive disorder) Family History Family History Father Hypertension Heart disease Social History Social History Smoking status: Former smoker Additional smoking assessment comments: Patient stated he smoked in his teens Alcohol intake: never Substance use: never Substance use type: does not use Do You Feel Safe in your Home?: Yes Lack of Transportation: No Lack of Food: Never True Current Housing: I Have Housing Concerned About Future Housing: No Difficulty Paying Gas/Electric Bills: No Difficulty Paying for Meds: No Currently Unemployed: No Education: Bachelor's Degree Difficulty w/ Childcare or Family Care: No Course Course Emergency Course: Patient had a Alexander catheter placed and patient was discharged home, no underlying evidence of urinary tract infection. Vital Signs Vital signs: Vital Signs Temperature 97.9 F 11/26/23 11:24 Pulse Rate 82 11/26/23 11:24 Respiratory Rate 16 11/26/23 11:24 Blood Pressure 130/100 H 11/26/23 11:24 Pulse Oximetry 100 11/26/23 11:24 Oxygen Delivery Room Air 11/26/23 11:24 Temperature 98.1 F 11/26/23 13:18 Pulse Rate 88 11/26/23 13:18 Respiratory Rate 16 11/26/23 13:18 Blood Pressure 134/96 H 11/26/23 13:18 Pulse Oximetry 98 11/26/23 13:18 Oxygen Delivery Room Air 11/26/23 11:24 Medical Decision Making MDM Narrative Medical decision making narrative: 68-year-old male presents To the emergency department for evaluation for urinary retention. Patient had significant postvoid residual urine on the bladder scan. Urine was negative for infection. Patient did feel improved after placement of Alexander catheter. Patient had previously been finasteride and tamsulosin but is only currently taking tamsulosin. patient will be started on finasteride overall also be started on Pyridium. Patient was encouraged close follow-up with Urology. Patient has previously been established with [facility] Differential Diagnosis Differential Diagnosis: urinary retention, bladder spasm, urinary tract infection Vital Signs Vital Signs: Vital Signs Temperature 97.9 F 11/26/23 11:24 Pulse Rate 82 11/26/23 11:24 Respiratory Rate 16 11/26/23 11:24 Blood Pressure 130/100 H 11/26/23 11:24 Pulse Oximetry 100 11/26/23 11:24 Oxygen Delivery Room Air 11/26/23 11:24 Temperature 98.1 F 11/26/23 13:18 Pulse Rate 88 11/26/23 13:18 Respiratory Rate 16 11/26/23 13:18 Blood Pressure 134/96 H 11/26/23 13:18 Pulse Oximetry 98 11/26/23 13:18 Oxygen Delivery Room Air 11/26/23 11:24 Lab Data Labs: Lab Results 11/26/23 Range/Units 12:02 Urine Color Yellow (Yellow) Urine Appearance Clear (Clear) Urine pH 7.0 (5.0-9.0) Ur Specific [place] 1.017 (1.001-1.035) Urine Protein Negative (Negative) mg/dL Urine Gluc
[2023-11-26] MEDS: FINASTERIDE 5 MG TABLET PO (13:17)
[2023-11-26 13:18] VITALS: BP 134/96; PULSE 88; RESP 16; TEMP 36.7; O2SAT 98
== END 2023-11-26 13:19 | disposition home or self-care (01) ==
PROVIDERS: Physician Assistant; Emergency Provider Emergency Medicine; PCP Internal Medicine
DX: N40.1 Benign prostatic hyperplasia with lower urinary tract symptoms (principal); R33.8 Other retention of urine; I10 Essential (primary) hypertension; N28.9 Disorder of kidney and ureter, unspecified; Z87.891 Personal history of nicotine dependence
CPT/HCPCS: 51702; 81003; 99282; 99283; A9270

== ENCOUNTER 2023-11-26 20:43 | Emergency (ER) | payer MEDICARE, OTHER, SELFPAY ==
[2023-11-26 20:55] VITALS: BP 100/84; PULSE 84; RESP 18; TEMP 36.6; O2SAT 99
--- NOTE | 2023-11-26 22:11 | PC.NURSE ---
This RN deflated balloon in catheter pt arrived in place then advanced catheter and inflated balloon again w 10ml NS. Additional amount of urine drained into leg bag. Pt attempted to urinate to see if there was further leaking and none present at this time.
--- NOTE | 2023-11-26 22:52 | ED.MALEGU ---
HPI - Male Genitourinary General Chief complaint: Urogenital-Male Stated complaint: urinary cath problems Time Seen by Provider: 11/26/23 22:18 Source: patient Mode of arrival: ambulatory Limitations: no limitations History of Present Illness [facility] Narrative: This is a 68-year-old male who presents to the ED with chief complaint of possible Alexander catheter problem. He was to be seen here earlier today and had a Alexander catheter placed for urinary retention. It was determined that his prostate is most likely causing this retention. Patient states that shortly after he left he felt that the catheter may not have been positioned correctly and felt like there may have been a kink. Today he felt the urge to urinate and there was urine leaking around the catheter at home. Nursing staff was able to deflate and repositioned the catheter. It is now draining clear yellow urine and he is feeling much better. Related Data Allergies Allergy/AdvReac Type Severity Reaction Status Date / Time morphine Allergy Hallucinati Verified 11/05/23 11:34 ng Review of Systems Review of Systems: All systems as dictated in [facility] Past Medical History Medical History (Updated 11/26/23 @ 22:54 by Akbar Chaney PA-C) Anxiety Hypertension Kidney disease Migraine OCD (obsessive compulsive disorder) Family History Family History Father Hypertension Heart disease Social History Social History Smoking status: Former smoker Additional smoking assessment comments: Patient stated he smoked in his teens Alcohol intake: never Substance use: never Substance use type: does not use Do You Feel Safe in your Home?: Yes Lack of Transportation: No Lack of Food: Never True Current Housing: I Have Housing Concerned About Future Housing: No Difficulty Paying Gas/Electric Bills: No Difficulty Paying for Meds: No Currently Unemployed: No Education: Bachelor's Degree Difficulty w/ Childcare or Family Care: No Exam Narrative: GENERAL: Well-appearing, well-nourished, and in no acute distress. HEAD: Normocephalic, atraumatic. EYES: PERRLA and EOMI. ENT: Nares clear, no rhinorrhea or epistaxis. Mucous membranes moist. Oropharynx without tonsillar hypertrophy exudate or other lesions. NECK: Supple. No adenopathy or masses. CHEST: No respiratory distress. Clear to auscultation. No wheezes rales or rhonchi HEART: Regular rate and rhythm. No murmur heard. Normal peripheral pulses. ABDOMEN: Soft, nontender, nondistended, normal active bowel sounds. MSK: Normal range of motion. No edema. SKIN: Warm, dry, no rash. NEURO: Alert and oriented x4. No focal deficits. PSYCH: Normal mood and affect. : Alexander catheter in place with clear yellow urine and the leg bag. No drainage of urine at the urethral meatus. Course Vital Signs Vital signs: Vital Signs Temperature 97.9 F 11/26/23 20:55 Pulse Rate 84 11/26/23 20:55 Respiratory Rate 18 11/26/23 20:55 Blood Pressure 100/84 11/26/23 20:55 Pulse Oximetry 99 11/26/23 20:55 Oxygen Delivery Room Air 11/26/23 20:55 Temperature 97.9 F 11/26/23 20:55 Pulse Rate 84 11/26/23 20:55 Respiratory Rate 18 11/26/23 20:55 Blood Pressure 100/84 11/26/23 20:55 Pulse Oximetry 99 11/26/23 20:55 Oxygen Delivery Room Air 11/26/23 20:55 MDM - Male Genitourinary MDM Narrative Medical decision making narrative: This is a 68-year-old male who presents to the ED for chief complaint of Alexander catheter problem after having a Alexander catheter placed earlier today. Vitals are normal. Exam is benign overall. Nursing staff was able to deflate the balloon and reinserted the catheter. It seems to be in a good position now patient has relief of his symptoms. the urine has been draining clear yellow without complication.
== END 2023-11-26 23:04 | disposition home or self-care (01) ==
PROVIDERS: Emergency Provider Physician Assistant; PCP Internal Medicine
DX: T83.038A Leakage of other urinary catheter, initial encounter (principal); I10 Essential (primary) hypertension; N28.9 Disorder of kidney and ureter, unspecified; Z87.891 Personal history of nicotine dependence; F41.9 Anxiety disorder, unspecified; F42.9 Obsessive-compulsive disorder, unspecified; Z79.899 Other long term (current) drug therapy
CPT/HCPCS: 99282

== ENCOUNTER 2023-11-29 13:21 | Emergency (ER) | payer MEDICARE, OTHER, SELFPAY ==
--- NOTE | ~2023-11-29 | XR_ITS ---
EXAMINATION: XR tibia fibula RT 2V, XR ankle RT min 3V, XR foot RT min 3V DATE: 11/29/2023 15:27 INDICATION: Right foot and lower leg injury presenting with pain and swelling TECHNIQUE: 1. Anteroposterior and lateral views of the right tibia and fibula were obtained. 2. Anteroposterior, oblique, mortise, and lateral views of the right ankle were obtained. 3. Dorsal plantar, lateral and oblique views of the right foot were obtained. COMPARISON: Right ankle radiographs dated 12/18/2021 FINDINGS: Normal alignment at the right foot, ankle and knee. No fracture. 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 Diffuse soft tissue swelling about the right foot, ankle and medial aspect of the distal lower leg. IMPRESSION: 1. No acute osseous abnormality the right foot, ankle or lower leg. Reviewed, dictated and finalized at location A. IMPRESSION: 1. No acute osseous abnormality the right foot, ankle or lower leg. IMPRESSION: 1. No acute osseous abnormality the right foot, ankle or lower leg.
[2023-11-29 13:31] VITALS: BP 104/78; PULSE 79; RESP 18; TEMP 36.4; O2SAT 99
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
[2023-11-29] MEDS: CEPHALEXIN 500 MG CAPSULE PO (16:09)
[2023-11-29 16:10] VITALS: BP 134/92; PULSE 78; RESP 16; O2SAT 99
== END 2023-11-29 16:11 | disposition home or self-care (01) ==
PROVIDERS: Emergency Provider Emergency Medicine; PCP Internal Medicine
DX: L03.115 Cellulitis of right lower limb (principal); F41.9 Anxiety disorder, unspecified; I12.9 Hypertensive chronic kidney disease with stage 1 through stage 4 chronic kidney disease, or unspecified chronic kidney disease; N18.9 Chronic kidney disease, unspecified
CPT/HCPCS: 73590; 73610; 73630; 99284; A9270

== ENCOUNTER 2023-12-09 08:16 | Outpatient (CLI) | payer MEDICARE, OTHER, SELFPAY ==
[2023-12-09 08:52] LABS: Basophils Absolute Auto 0.1 K/mm3 (0.0-0.1); Basophils Percent Auto 1.1 % (0.2-1.2); Eosinophils Absolute Auto 0.3 K/mm3 (0-0.3); Hematocrit 48.6 % (42.0-52.0); Hemoglobin 15.5 g/dL (14.0-18.0); Immature Granulocyte Absolute 0.14 K/mm3 (0.00-0.031); Immature Granulocyte Percent A 1.7 % (0-0.5); Lymphocytes Absolute Auto 1.52 K/mm3 (0.9-3.2); Lymphocytes Percent Auto 18.9 % (18.3-44.2); Mean Corpuscular HGB Conc 31.9 g/dl (32-36); Mean Corpuscular Hemoglobin 29.7 pg (26-34); Mean Corpuscular Volume 93.1 fl (80-100); Monocytes Absolute Auto 0.7 K/mm3 (0.1-0.6); Monocytes Percent Auto 8.1 % (2.6-8.5); Neutrophils Absolute Auto 5.3 K/mm3 (1.3-6.7); Neutrophils Percent Auto 66.2 % (45.5-73.1); Platelet Count Result 331 k/mm3 (150-375); Red Blood Count 5.22 M/mm3 (4.6-6.20); Red Cell Distribution Width 15.5 % (11.5-14.5)
[2023-12-09 09:05] LABS: Alanine Aminotransferase 23 U/L (6-50); Alkaline Phosphatase 85 U/L (38-126); Anion Gap 10 mmol/L (4-12); Aspartate Amino Transferase 38 U/L (17-59); Bilirubin,Total 0.3 mg/dL (0.2-1.3); Blood Urea Nitrogen 34 mg/dL (9-20); Calcium 9.5 mg/dL (8.4-10.2); Carbon Dioxide 26 mmol/L (22-30); Chloride 104 mmol/L (98-107); Estimated Glomerular Filt Rate 47; Glucose 88 mg/dL (65-110); Potassium 4.8 mmol/L (3.4-5.0); Sodium 140 mmol/L (137-145)
[2023-12-09 10:40] LABS: Vitamin D 25 Hydroxy 84.5 ng/mL
[2023-12-09 12:01] LABS: Folic Acid > 20.0 ng/mL (2.76->20)
== END 2023-12-09 08:17 | disposition home or self-care (01) ==
PROVIDERS: PCP Nurse Practitioner Family; Visit Provider Nurse Practitioner Family
DX: R33.9 Retention of urine, unspecified (principal); I10 Essential (primary) hypertension; N28.9 Disorder of kidney and ureter, unspecified; R41.89 Other symptoms and signs involving cognitive functions and awareness; E55.9 Vitamin D deficiency, unspecified; Z76.89 Persons encountering health services in other specified circumstances; G47.00 Insomnia, unspecified; Z91.81 History of falling; F41.9 Anxiety disorder, unspecified; G43.909 Migraine, unspecified, not intractable, without status migrainosus; G62.9 Polyneuropathy, unspecified; M10.9 Gout, unspecified
CPT/HCPCS: 36415; 80053; 82306; 82607; 82746; 84443; 84550; 85025

== ENCOUNTER 2023-12-18 15:16 | Outpatient (CLI) | payer MEDICARE, SELFPAY ==
--- NOTE | ~2023-12-18 | XR_ITS ---
XR tibia fibula RT 2V DATE: 12/18/2023 15:41 INDICATION: Injury TECHNIQUE: AP and lateral views of the right lower leg COMPARISON: None FINDINGS: No fracture or dislocation, periosteal reaction or bone destruction of the tibia or fibula. Normal alignment and preservation of joint spaces at the knee and ankle joints. IMPRESSION: Negative Reviewed, dictated and finalized at location A. IMPRESSION: Negative
--- NOTE | ~2023-12-18 | US_ITS ---
RIGHT LOWER EXTREMITY VENOUS ULTRASOUND Ordering provider: Sandra Bains APRN History: . M79.89 - Other specified soft tissue disorders . Comparison: None. FINDINGS: --COMMON FEMORAL: Patent and free of thrombus. Normal compressibility, phasic flow and augmentation. --PROXIMAL SUPERFICIAL FEMORAL: Patent and free of thrombus. Normal compressibility, phasic flow and augmentation. --DISTAL SUPERFICIAL FEMORAL: Patent and free of thrombus. Normal compressibility, phasic flow and au gmentation. --POPLITEAL: Patent and free of thrombus. Normal compressibility, phasic flow and augmentation. --POSTERIOR TIBIAL: Patent and free of thrombus. Normal compressibility, phasic flow and augmentation . Hypoechoic area is seen in the anterior to the right antecubital suggestive of a cyst. Differential i nclude hematoma and an abscess. Further evaluation advised. IMPRESSION: Negative right lower extremity venous US. No deep vein thrombosis. Hypoechoic area in the area of the ankle anteriorly which may indicate a cyst versus hematoma versus an abscess. Reviewed, dictated and finalized at location A. IMPRESSION: Negative right lower extremity venous US. No deep vein thrombosis. Hypoechoic area in the area of the ankle anteriorly which may indicate a cyst v ersus hematoma versus an abscess.
== END 2023-12-18 15:17 | disposition home or self-care (01) ==
LOC: ANHIMG 15:22
PROVIDERS: PCP Nurse Practitioner Family; Visit Provider Nurse Practitioner Family
DX: M79.89 Other specified soft tissue disorders (principal); R23.8 Other skin changes
CPT/HCPCS: 73590; 93971

== ENCOUNTER 2023-12-27 09:27 | Emergency (ER) | payer MEDICARE, SELFPAY ==
--- NOTE | ~2023-12-27 | US_ITS ---
EXAMINATION:US venous doppler LE RT INDICATION:Leg swelling TECHNIQUE: Multiple grayscale, color flow and Doppler images of the right lower extremity deep venous systems were obtained and reviewed. COMPARISON:No prior studies for comparison. FINDINGS: The common femoral, superficial femoral and popliteal veins demonstrate normal respiratory variation, augmentation and compressibility. Color flow is also seen within the posterior tibial, pe roneal, greater saphenous and profunda veins. IMPRESSION: 1: No lower extremity deep venous thrombosis. Reviewed, dictated and finalized at location B.
[2023-12-27 09:33] VITALS: BP 106/80; PULSE 78; RESP 16; TEMP 36.2; O2SAT 100
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
[2023-12-27 12:11] VITALS: BP 100/83; PULSE 58; RESP 16; O2SAT 100
[2023-12-27 12:15] LABS: Basophils Absolute Auto 0.1 K/mm3 (0.0-0.1); Eosinophils Absolute Auto 0.2 K/mm3 (0-0.3); Eosinophils Percent Auto 2.5 % (0-4.4); Hematocrit 47.6 % (42.0-52.0); Hemoglobin 15.3 g/dL (14.0-18.0); Immature Granulocyte Absolute 0.04 K/mm3 (0.00-0.031); Immature Granulocyte Percent A 0.6 % (0-0.5); Lymphocytes Absolute Auto 1.58 K/mm3 (0.9-3.2); Lymphocytes Percent Auto 22.4 % (18.3-44.2); Mean Corpuscular HGB Conc 32.1 g/dl (32-36); Mean Corpuscular Hemoglobin 29.9 pg (26-34); Mean Platelet Volume 9.9 fl (7.4-10.4); Monocytes Absolute Auto 0.7 K/mm3 (0.1-0.6); Monocytes Percent Auto 9.2 % (2.6-8.5); Neutrophils Absolute Auto 4.5 K/mm3 (1.3-6.7); Neutrophils Percent Auto 64.3 % (45.5-73.1); Platelet Count Result 242 k/mm3 (150-375); Red Blood Count 5.12 M/mm3 (4.6-6.20); Red Cell Distribution Width 15.5 % (11.5-14.5); White Blood Count 7.1 K/mm3 (4.5-10.0)
[2023-12-27 12:25] LABS: Alanine Aminotransferase 20 U/L (6-50); Albumin Level 3.8 g/dL (3.5-5.1); Alkaline Phosphatase 68 U/L (38-126); Anion Gap 7 mmol/L (4-12); Aspartate Amino Transferase 33 U/L (17-59); Bilirubin,Total 0.5 mg/dL (0.2-1.3); Blood Urea Nitrogen 38 mg/dL (9-20); Calcium 9.2 mg/dL (8.4-10.2); Carbon Dioxide 23 mmol/L (22-30); Chloride 107 mmol/L (98-107); Estimated CRCL calculation 42 ml/min; Estimated Glomerular Filt Rate 43; Glucose 79 mg/dL (65-110); INR 0.9; Potassium 4.7 mmol/L (3.4-5.0); Prothrombin Time 13.1 Seconds (11.1-14.7); Sodium 137 mmol/L (137-145)
[2023-12-27 12:26] LABS: Partial Thromboplastin Time 27.8 Seconds (22.3-36.8)
[2023-12-27 13:07] VITALS: BP 103/81; PULSE 60; RESP 16; TEMP 36.8; O2SAT 100
== END 2023-12-27 13:09 | disposition home or self-care (01) ==
PROVIDERS: Emergency Provider Emergency Medicine; PCP Nurse Practitioner Family
DX: R22.41 Localized swelling, mass and lump, right lower limb (principal); W22.8XXA Striking against or struck by other objects, initial encounter; I10 Essential (primary) hypertension; F42.9 Obsessive-compulsive disorder, unspecified
CPT/HCPCS: 36415; 80053; 85025; 85610; 85730; 93971; 99284

== ENCOUNTER 2023-12-31 13:26 | Emergency (ER) | payer MEDICARE, OTHER, SELFPAY ==
[2023-12-31 13:42] VITALS: BP 116/70; PULSE 72; RESP 16; TEMP 36.2; O2SAT 100
[2023-12-31 17:00] VITALS: BP 136/99; PULSE 63; RESP 20; TEMP 36.5; O2SAT 100
--- NOTE | 2023-12-31 17:48 | ED.MALEGU ---
HPI - Male Genitourinary General Chief complaint: Urogenital-Male Stated complaint: leaking catheter Time Seen by Provider: 12/31/23 16:58 Source: patient Mode of arrival: ambulatory Limitations: no limitations History of Present Illness HPI Narrative: This is a 68-year-old male with PMH of urinary retention, enlarged prostate, HTN, anxiety, OCD who presents to the ED for chief complaint of urinary urgency and leaking catheter. Reports that yesterday evening his Alexander catheter started leaking around the meatus. Reports urgency and irritation to the meatus. States that he is undergoing workup with Urology but was not getting any answer back after calling them so he came here. States that it is uncomfortable and is wondering if he can have the Alexander catheter taken out. Reports that it was placed for urinary retention several weeks ago and most likely due to prostate issues which they are planning to test and scope soon. Denies fevers, chills, abdominal pain, nausea, vomiting, hematuria. States the catheter has been flowing urine well. Related Data Allergies Allergy/AdvReac Type Severity Reaction Status Date / Time morphine Allergy Hallucinati Verified 12/31/23 17:17 ng Review of Systems Review of Systems: All systems as dictated in [facility] Past Medical History Medical History Anxiety Hypertension Kidney disease Migraine OCD (obsessive compulsive disorder) Family History Family History Father Hypertension Heart disease Social History Social History Smoking status: Former smoker Additional smoking assessment comments: Patient stated he smoked in his teens Alcohol intake: never Substance use: never Substance use type: does not use Do You Feel Safe in your Home?: Yes Lack of Transportation: No Lack of Food: Never True Current Housing: I Have Housing Concerned About Future Housing: No Difficulty Paying Gas/Electric Bills: No Difficulty Paying for Meds: No Currently Unemployed: No Education: Bachelor's Degree Difficulty w/ Childcare or Family Care: No Exam Narrative: GENERAL: Well-appearing, well-nourished, and in no acute distress. HEAD: Normocephalic, atraumatic. EYES: PERRLA and EOMI. ENT: Nares clear, no rhinorrhea or epistaxis. Mucous membranes moist. Oropharynx without tonsillar hypertrophy exudate or other lesions. NECK: Supple. No adenopathy or masses. CHEST: No respiratory distress. Clear to auscultation. No wheezes rales or rhonchi HEART: Regular rate and rhythm. No murmur heard. Normal peripheral pulses. ABDOMEN: Soft, nontender, nondistended, normal active bowel sounds. MSK: Normal range of motion. No edema. SKIN: Warm, dry, no rash. NEURO: Alert and oriented x4. No focal deficits. PSYCH: Normal mood and affect. : Fourteen Mauritian Alexander catheter in good position. No active leakage at the urethral meatus. Dark urine flowing into the bag. No gross hematuria Course Vital Signs Vital signs: Vital Signs Temperature 97.1 F L 12/31/23 13:42 Pulse Rate 72 12/31/23 13:42 Respiratory Rate 16 12/31/23 13:42 Blood Pressure 116/70 12/31/23 13:42 Pulse Oximetry 100 12/31/23 13:42 Oxygen Delivery Room Air 12/31/23 13:42 Temperature 97.7 F 12/31/23 17:00 Pulse Rate 52 L 12/31/23 19:11 Respiratory Rate 16 12/31/23 19:11 Blood Pressure 137/93 H 12/31/23 19:11 Pulse Oximetry 100 12/31/23 19:11 Oxygen Delivery Room Air 12/31/23 13:42 MDM - Male Genitourinary MDM Narrative Medical decision making narrative: This is a 68 yo M presents to the ED for Alexander catheter issue, leaking urine around the meatus. Vitals are normal. Exam shows 14 Mauritian Alexander catheter in good position. Balloon is fully inflated. There is no urinary leakage on exa
[2023-12-31 19:07] LABS: Add Urine Microscopic? YES; Appearance Urine Cloudy (Clear); Bacteria Urine 4+ /hpf; Bilirubin Urine Negative (Negative); Blood Urine Non-Hemolyzed Trace (Negative); Color Urine Dark Yellow (Yellow); Glucose Urine UA Negative (Negative); Ketones Urine Trace mg/dL (Negative); Leukocyte Esterase Ur 3+ LEU/UL (Negative); Need Manual Microscopic Reviewed; Nitrate Urine Positive (Negative); Protein Urine Trace mg/dL (Negative); Specific Grav Ur 1.022 (1.001-1.035); Squamous Epithelial Cell Urine None Seen /hpf (Few); WBC Urine >100 /hpf (0-3); pH Urine 6.5 (5.0-9.0)
[2023-12-31 19:11] VITALS: BP 137/93; PULSE 52; RESP 16; O2SAT 100
[2023-12-31] MEDS: CEFDINIR 300 MG CAPSULE PO (19:51)
== END 2023-12-31 19:50 | disposition home or self-care (01) ==
PROVIDERS: Emergency Provider Physician Assistant; PCP Nurse Practitioner Family
DX: N39.0 Urinary tract infection, site not specified (principal); I10 Essential (primary) hypertension; N40.0 Benign prostatic hyperplasia without lower urinary tract symptoms; N28.9 Disorder of kidney and ureter, unspecified; F41.9 Anxiety disorder, unspecified; F42.9 Obsessive-compulsive disorder, unspecified; Z87.891 Personal history of nicotine dependence; Z79.899 Other long term (current) drug therapy
CPT/HCPCS: 81001; 87077; 87086; 87186; 99283; A9270

== ENCOUNTER 2024-05-24 11:19 | Emergency (ER) | payer MEDICARE, OTHER, SELFPAY ==
--- NOTE | ~2024-05-24 | XR_ITS ---
EXAMINATION: XR hip BI 2V w AP pelvis DATE: 05/24/2024 12:30 INDICATION: Bilateral hip pain. TECHNIQUE: An anteroposterior view of the pelvis and 2 views of each hip were obtained. COMPARISON: CT abdomen and pelvis 02/23/2023 FINDINGS: There is lumbar levocurvature and severe spondylosis. No fracture. There is a total right h ip arthroplasty in near-anatomic alignment. There is a total left hip arthroplasty in near-anatomic a lignment. There are cables around proximal left femur. No periprosthetic lucency to suggest loosening or infection. No fracture. There are surgical clips from right inguinal hernia repair. IMPRESSION: 1. Bilateral total hip arthroplasties in near-anatomic alignment. Reviewed, dictated and finalized at location A. [facility]
[2024-05-24 11:30] VITALS: BP 119/75; PULSE 67; RESP 16; TEMP 36.2; O2SAT 100
--- OUTSIDE RECORDS SUMMARY | 2024-05-24 13:29 | XMS_ITS | Encounter Summary ---
Author Name [facility] [place] [facility] [place] Organization [facility] [place] Address [address] [place] [address] Care Team Providers Care Stamp Press Operator Name Role Phone LAKEISHA MCCORD Primary Care [...] Mason's Name Patient's Relationship to Policy Mason [facility] (WNR) MEDICARE ADVANTAGE [facility] (WNR) Mar 30, 2022 [id number] [phone] JAKE LOU HN PATIENT [facility] (WNR) MEDICARE ADVANTAGE [facility] (WNR) Mar 30, 2022 [id number] [phone] JAKE LOU PATIENT MEDICARE PART D (WNR) MEDICARE (M) PART D Mar 30, 2022 PART D [id number] [id number] ADRIEL LOU II PATIENT OFFICE OF REGIONAL COUNS [id number] LENO MCCAIN R Jul 07, 2007 TORT JOSSOR [id number] CARMINEJAKE SAMS PATIENT REGIONAL 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 Date/Time Encounter Type Encounter Description Reason Provider Source Jan 14, 2024 09:58 AM Outpatient Encounter GENERAL INTERNAL MEDICINE LAKEISHA MCCORD Encounter Template Text not used by [place] Plan of Treatment: Future Appointments (+ 6 months) and Future Tests (+/- 45 days) The Plan of Treatment section includes future care activities for the patient from all [place] treatmentfacilities. This section includes future appointments and future orders which are active, pending or scheduled. Future Appointments This section includes appointments that were scheduled to occur 6 months from the date of the Encounter, up to a maximum of 20 appointments. The data comes from all [place] treatment facilities. Appointment Date/Time Appointment Type Appointme nt Facility Name May 17, 2024 03:00 PM AMBULATORY - MEDICINE [facility] May 23, 2024 09:30 AM AMBULATORY - MEDICINE [facility] May 31, 2024 02:00 PM AMBULATORY - SURGERY [facility] Jun 06, 2024 08:30 AM AMBULATORY MEDICINE [facility] Advance Directives: All historical and current Section Date Range: From patient's date of to the date document was created. This section includes ALL of a patient's completed or amended [place] Advance and Rescinded Directives. The entries below indicate that a directive exists for the patient, but an actual copy is not included with this document. The data comes from all [place] facilities. Date Advance Directives Provider Source May 14, 2018 ADVANCE DIRECTIVE DISCUSSION COURTNEY HAZEL [facility] Apr 24, 2015 ADVANCE DIRECTIVE DISCUSSION MISTY POWELL [facility] Apr 21, 2012 ADVANCE DIRECTIVE EVERETT RODARTE [facility] Apr 21, 2012 ADVANCE DIRECTIVE DISCUSSION MERVAT FORTUNE [facility] Jul 03, 2011 ADVANCE DIRECTIVE DISCUSSION ELIU RICK [facility] Jun 28, 2010 ADMINISTRATIVE NOTE FLAKITA ZULETA [facility] Oct 03, 2008 ADVANCE DIRECTIVE CONNOR PAUL [facility] Encounter Notes: All associated encounter [...] Facility: Nov Method of Contact: Notified from [employer] worklist Notification ID: [id number] [facility] Referral #: [id number] [facility] Name: Hospital: [facility] Address: [address] [place] [address] [address] City: [place] State: [place] Zip Code: [address] [facility] Point of Contact: Name: Phone: Chief complaint: Swelling, mass in leg from dropping motocycle on legs few weeks ago. Primary Diagnosis: Disposition Unknown at time of intake note entry NOTICE: Follow-up care Outside the [place] related to this ER visit/Admission episode of care (EOC) is NOT COVERED under this ER Notification ID/Auth Number. Coverage for all follow-up care outside the [facility] requires pre-authorization, which must be initiated via consult by the PCP. Please initiate any follow-up referral/consult(s) at the time of patient's discharge. /kyle Presley RN, BSN REGISTERED NURSE Signed: 01/14/2024 10:15 01/14/2024 ADDENDUM STATUS: COMPLETED Left VM with Chel IRENE at [facility] and faxed records request to [facility]. /kyle Presley RN, BSN REGISTERED NURSE Signed: 01/14/2024 10:50 01/14/2024 ADDENDUM STATUS: COMPLETED Faxed record request via [employer] to the hospital above. /es/ Kathi Presley, RN, BSN REGISTERED NURSE Signed: 01/14/2024 12:03 KATHI PRESLEY [facility]
--- OUTSIDE RECORDS SUMMARY | 2024-05-24 13:29 | XMS_ITS | Clinical Summary ---
Author Organization [facility] [employer] Address [address] [place] [address] Care Team Providers Care Sports Team Marketing Intern Name Role Phone Unavailable Primary Care Provider Unavailabl e Source Comments [facility] [employer],non-owned Affiliates and Associated Physician Practices is amultiple site organization consisting of ambulatory clinics and hospital sitesin [place], [place], [place] and [place]. This disclosure is being madepursuant to the Care Everywhere program and may not contain all information available regarding this patient. Last updated 17.[facility] [employer] Social History Tobacco Use Types Packs/Day Years Used Date Smoking Tobacco: Never Assessed Sex and Gender Information Value Date Recorded Sex Assigned at Not on file Gender Identity Not on file Sexual Orientation Not on file Plan of Treatment Health Maintenance Due Date Last Done Comments COLOGUARD (AGES 45-75) - COL ON CA SCREENING 1957 COLON MONITORING 1957 COLONOSCOPY - COLON CA SCREENING 1957 CT COLONOGRAPHY - COLON CA SCREENING 1957 Colorectal Cancer Screening 1957 FIT - COLON CA SCREENING 1957 FLEX SIG - COLON CA SCREENING 1957 LIPID TESTING 1957 HEPATITIS C SCREENING 03/28/1975 DTAP/TDAP/TD VACCINES (1 - Tdap) 1976 PNEUMOCOCCAL VACCINE 50+ (1 of 1 - PCV) 2007 ZOSTER VACCINE (1 of 2) 2007 COVID-19 VACCINE ( - 2023-2 5 season) 2023 INFLUENZA VACCINE (#1) 2023 DEPRESSION SCREENING 03/30/2024 Respiratory Syncytial Virus (RSV) Vaccine Pt: or over 60 yrs (1 - 1-dose 75+ series) 2032 HEPATITIS B VACCINE Aged Out No longe r eligible based on patient's age to complete this topic HIB VACCINE Aged Out No longer eligi ble based on patient's age to complete this topic HPV VACCINE Aged Out No longer eligi ble based on patient's age to complete this topic MENINGOCOCCAL (Group B) VACCINE Aged Out No longer eligible based on patient's age to complete this topic MENINGOCOCCAL VACCINE Aged Out No tigist rayna eligible based on patient's age to complete this topic
--- OUTSIDE RECORDS SUMMARY | 2024-05-24 13:29 | XMS_ITS | Patient Health Summary ---
Author Organization [facility] Address [address] [place] [address] Care Team Providers Care Rebar Fabricator Name Role Phone Unavailable Primary Care Provider Unavailabl e Note from [facility],non-owned Affiliates and Associated Physician Practices is amultiple site organization consisting of ambulatory clinics and hospital sitesin [place], [place], [place] and [place]. This disclosure is being madepursuant to the Care Everywhere program and may not contain all information available regarding this patient. Last updated 17.[facility] Social History Tobacco Use Types Packs/Day Years Used Date Smoking Tobacco: Never Assessed Sex and Gender Information Value Date Recorded Sex Assigned at Not on file Gender Identity Not on file Sexual Orientation Not on file
--- OUTSIDE RECORDS SUMMARY | 2024-05-24 13:29 | XMS_ITS | Referral Summary ---
Author Organization [facility] Address [address] [place] [address] Care Team Providers Care Customer Advocate Name Role Phone Unavailable Primary Care Provider Unavailabl e Source Comments [facility],non-owned Affiliates and Associated Physician Practices is amultiple site organization consisting of ambulatory clinics and hospital sitesin [place], [place], [place] and [place]. This disclosure is being madepursuant to the Care Everywhere program and may not contain all information available regarding this patient. Last updated 17.[facility] Social History Tobacco Use Types Packs/Day Years Used Date Smoking Tobacco: Never Assessed Sex and Gender Information Value Date Recorded Sex Assigned at Not on file Gender Identity Not on file Sexual Orientation Not on file Plan of Treatment Not on file
--- OUTSIDE RECORDS SUMMARY | 2024-05-24 13:29 | XMS_ITS | Clinical Summary ---
Author Organization [facility] Address [address] [place] [address] Care Team Providers Care Drill Bit Sharpener Name Role Phone None, Provider MD Primary Care Provider Unavaila ble Allergies Active Allergy Reactions Criticality Noted Date Comments Morphine Hallucinations 12/24/2020 Medications gabapentin 600 MG tablet Take 600 mg by mouth nightly at bedtime. Active topiramate 25 MG tablet Take 25 mg by mouth 2 (two) times daily. Active clonazePAM 1 MG tablet Take 1 mg by mouth nightly at bedtime. Active FLUoxetine 20 MG capsule Take 120 mg by mouth daily. Active tamsulosin 0.4 MG Cap Take 0.4 mg by mouth daily. Active allopurinol 100 MG tablet Take 100 mg by mouth daily. Active colchicine 0.6 MG tablet Take 0.6 mg by mouth daily as needed. Active finasteride 5 MG tablet Take 1 tablet (5 mg total) by mouth daily. 30 tablet 12/28/2020 Active Active Problems Problem Noted Date Diagnosed Date Pneumothorax 12/24/2020 Family History Medical History Relation Comments Heart Disease Father Diabetes Maternal Grandmother Relation Status Comments Father Maternal Grandmother Mother Social History Tobacco Use Types Packs/Day Years Used Date Smoking Tobacco: Never Smokeless Tobacco: Never Alcohol Use Standard Drinks/Week Comments Not Currently 0 (1 standard drink = 0.6 oz pur e alcohol) Sex and Gender Information Value Date Recorded Sex Assigned at Not on file Legal Sex Male 11:16 AM CDT Gender Identity Not on file Sexual Orientation Not on file Last Filed Vital Signs Vital Sign Reading Time Taken Comments Blood Pressure 104/78 12/27/2020 12:19 PM CDT Pulse 81 12/27/2020 12:19 PM CDT Temperature 36.8 C (98.2 F) 12/27/2020 12:19 PM CDT Respiratory Rate 16 12/27/2020 12:19 PM CDT Oxygen Saturation 93% 12/27/2020 12:19 PM CDT Inhaled Oxygen Concentration - - Weight 79.9 kg (176 lb 1.6 oz) 12/27/2020 3:43 A M CDT Height 182.9 cm (6') 12/24/2020 2:28 PM CDT Body Mass Index 23.88 12/24/2020 2:28 PM CDT Plan of Treatment Health Maintenance Due Date Last Done Comments Colorectal Cancer Screening Colonoscopy (10 Years) 1957 Hepatitis C 1975 DTaP, Tdap and Td Vaccines ( 1 - Tdap) 1976 Zoster Vaccines (1 of 2) 2007 Pneumococcal Vaccine: 65+ Ye ars (1 of 1 - PCV) 2022 COVID-19 Vaccine (2023-2 5 season) 2023 Influenza Adult (#1) 2023 RSV Immunization or 60+ Years (1 - 1-dose 75+ series) 2032 Meningococcal B Vaccine Aged Out No l onger eligible based on patient's age to complete this topic Meningococcal Vaccine Aged Out No tigist rayna eligible based on patient's age to complete this topic RSV Immunizations Under 20 Months Aged Out No longer eligible based on patient's age to complete this topic Insurance [address] [place] [address] [facility] OFFICE OF COMMUNITY CARE [employer] Advance Directives * Full Code (Latest Code Status on File) Date Activated Date Inactivated Comments 12/24/2020 9:06 PM 12/27/2020 4:28 PM Care Teams Drill Bit Sharpener Relationship Specialty Start Date End Date None, Provider, PCP - General 12/24/20
--- OUTSIDE RECORDS SUMMARY | 2024-05-24 13:30 | XMS_ITS ---
Author Name [facility] [place] [facility] [place] [facility] [place] Address [address] [place] [address] Care Team Providers Care Rack Pusher Name Role Phone LAKEISHA MCCORD Primary Care [...] Mason's Name Patient's Relationship to Policy Mason [facility] (WNR) MEDICARE ADVANTAGE [facility] (WNR) Mar 30, 2022 [id number] [phone] JAKE LOU HN PATIENT [facility] (WNR) MEDICARE ADVANTAGE [facility] (WNR) Mar 30, 2022 [id number] JAKE LOU PATIENT MEDICARE PART D (WNR) MEDICARE (M) PART D Mar 30, 2022 PART D [id number] [id number] [id number] ADRIEL LOU II PATIENT OFFICE OF REGIONAL COUNS [id number] LENO MCCAIN R Jul 07, 2007 TORT FEASOR [id number] JAKE LOU PATIENT REGIONAL CORK MOLDER LENO MCCAIN R Dec 09, 2013 TORT FELIPE [id number] JAKE LOU PATIENT [facility] (WNR) MEDICARE ADVANTAGE [facility] (WNR) Mar 30, 2022 [id number] JAKE LOU PATIENT Selected Encounter This section includes the information on record at [place] for the Encounter. Date/Time Encounter Type Encounter Description Reason Provider Source May 23, 2024 12:20 AM Outpatient Encounter ADMIN PAT ACTIVTIES (MASNONCT) LAKEISHA MCCORD Encounter Template Text not used by [place] Plan of Treatment: Future Appointments (+ 6 months) and Future Tests (+/- 45 days) The Plan of Treatment section includes future care activities for the patient from all [place] treatmentfacilities. This section includes future appointments and future orders which are active, pending or scheduled. Future Appointments This section includes appointments that were scheduled to occur 6 months from the date of the Encounter, up to a maximum of 20 appointments. The data comes from all [place] treatment facilities. Appointment Date/Time Appointment Type Appointme nt Facility Name May 31, 2024 02:00 PM AMBULATORY - SURGERY [facility] Jun 06, 2024 08:30 AM AMBULATORY - MEDICINE [facility] Nov 15, 2024 10:00 AM AMBULATORY - MEDICINE [facility] Active, Pending, and Scheduled Orders This section includes a listing of several types of active, pending, and scheduled orders, including clinic medications orders, diagnostic test orders, procedure orders and consult orders; where the start date of the order is 45 days before the date of the Encounter or 45 days after the date of theEncounter. The data comes from all [place] treatment [facility]. Test Date/Time Test Type Test Details Facility Name May 12, 2024 12:00 AM Laboratory - Chemistry Order VITAMIN D, 25-HYDROXY GOLD/RED SST SERUM [facility] May 12, 2024 12:00 AM Laboratory - Chemistry Order TSH W/ REFLEX FT4 (STL) GREEN LI-HEP PLASMA [facility] May 12, 2024 12:00 AM Laboratory - Chemistry Order COMPREHENSIVE METABOLIC PANEL GREEN LI/HEP BLD/PLAS PLASMA SP [facility] May 12, 2024 12:00 AM Laboratory - Chemistry Order LIPID PANEL (STL) GREEN LI/HEP BLD/PLAS PLASMA SP ONCE [facility] May 12, 2024 12:00 AM Laboratory - Chemistry Order URINALYSIS (STL-PB) URINE SP [facility] May 12, 2024 12:00 AM Laboratory - Chemistry Order CBC BLOOD [facility] May 12, 2024 12:00 AM Laboratory - Chemistry Order HGA1C BLOOD [facility] May 17, 2024 12:00 AM Laboratory - Chemistry Order URINALYSIS (STL-PB) URINE [facility] May 23, 2024 10:32 AM Consult Order ORTHOPEDIC HIP/KNEE EVAL OUTPT STL Cons Integration Analyst's Choice [facility] Lab Results: +/- 30 days of the encounter This section includes the Chemistry and Hematology Lab Results on record with [place] for the patient. Radiology Reports and Pathology Reports are provided separately, in subsequent sections. Lab Results This section contains the Chemistry/Hematology Results that were resulted 30 days before or 30 daysafter the date of the Encounter. Date/Time Source Result Type Result - Unit Interpretation Reference Range Comment May 17, 2024 03:49 PM [facility] CRP Specimen Type: PLASMA Comment: No hemolysis noted. Ordering Provider: JEFERSON MCCORD Report Released Date/Time: May 17, 2024 03:17 PM Reporting Lab: [facility] [address] [facility] [address] Performing Lab: [facility] [address] [facility] [address] CRP 0.2 mg/dL 0-0.5 May 17, 2024 03:49 PM [facility] ESR ISED(STL) Specimen Type: BLOOD No comment entered. Ordering Provider: JEFERSON MCCORD Report Released Date/Time: May 17, 2024 03:17 PM Reporting Lab: [facility] [address] [facility] [address] Performing Lab: [facility] [address] [facility] [phone] ESR ISED(STL) 8 mm/h 0-19 May 17, 2024 03:49 PM [facility] VITAMIN D, 25-HYDROXY Specimen Type: SERUM No comment entered. Ordering Provider: JEFERSON MCCORD Report Released Date/Time: May 17, 2024 03:17 PM Reporting Lab: [facility] [address] [place] [phone] Performing Lab: [facility] [address] [place] [phone] VITAMIN D, 25-HYDROXY 100.1 ng/mL H 30-96 May 17, 2024 03:49 PM [facility] TSH W/ REFLEX FT4 (STL) Specimen Type: PLASMA No comment entered. Ordering Provider: JEFERSON MCCORD Report Released Date/Time: May 17, 2024 03:17 PM Reporting Lab: [address] [address] Performing Lab: [facility] [address] [place] [phone] TSH 1.402 u[IU]/mL 0.47-5 May 17, 2024 03:49 PM [facility] LIPID PANEL (L) Specimen Type: PLASMA Comment: No hemolysis noted. Ordering Provider: JEFERSON MCCORD Report Released Date/Time: May 17, 2024 03:17 PM Reporting Lab: [address] [address] Performing Lab: [address] [address] CHOLESTEROL 144 mg/dL 0-200 TRIGLYCERIDE 146 mg/dL 0-150 CALCULATED LDL 58 mg/dL HDL(New) 57 mg/dL >40 May 17, 2024 03:49 PM [facility] COMPREHENSIVE METABOLIC PANEL Specimen Type: PLASMA Comment: No hemolysis noted. Ordering Provider: JEFERSON MCCORD Report Released Date/Time: May 17, 2024 03:17 PM Reporting Lab: [facility] [address] [place] [phone] Performing Lab: [address] [place] [address] CREATININE 1.45 mg/dL H 0.7-1.3 UREA NITROGEN [...] 52.8 >60 May 17, 2024 03:49 PM [facility] CBC Specimen Type: BLOOD No comment entered. Ordering Provider: JEFERSON MCCORD Report Released Date/Time: May 17, 2024 03:17 PM Reporting Lab: [address] [address] Performing Lab: [address] [address] WBC 7.1 10*3/uL 3.6-11.2 RBC 5.61 10*6/uL [...] AUTO % 1 LYMPHOCYTES, ABSOLUTE 1.62 10*3/uL 0.77-4.50 MONOCYTES, ABSOLUTE 0.55 10*3/uL 0.19-0.80 NEUTROPHILS, ABSOLUTE 4.47 10*3/uL 2.10-8.00 EOSINOPHILS, ABSOLUTE 0.32 10*3/uL 0.00-0.60 BASOPHILS, ABSOLUTE 0.06 10*3/uL 0.00-0.20 Advance Directives: All historical and current Section Date Range: From patient's date of to the date document was created. This section includes ALL of a patient's completed or amended [place] Advance and Rescinded Directives. The entries below indicate that a directive exists for the patient, but an actual copy is not included with this document. The data comes from all [facility]. Date Advance Directives Provider Source May 14, 2018 ADVANCE DIRECTIVE DISCUSSION COURTNEY HAZEL [facility] Apr 24, 2015 ADVANCE DIRECTIVE DISCUSSION MISTY POWELL [facility] Apr 21, 2012 ADVANCE DIRECTIVE EVERETT RODARTE [facility] Apr 21, 2012 ADVANCE DIRECTIVE DISCUSSION MERVAT FORTUNE [facility] Jul 03, 2011 ADVANCE DIRECTIVE DISCUSSION ELIU RICK [facility] Jun 28, 2010 ADMINISTRATIVE NOTE FLAKITA ZULETA [facility] Oct 03, 2008 ADVANCE DIRECTIVE CONNOR PAUL [facility] Radiology Reports: +/- 30 days of [...] the Encounter. The data comes from all [place] treatment facilities. Date/Time Radiology Report Provider Source May 17, 2024 04:34 PM HIP W/PELVIS 2-3 V IEWS RIGHT: ADRIEL LOU [id number] -[id number] M Exm Date: MAY 17, 2024@16:34 Req Phys: LAKEISHA MCCORD Loc: -[facility] PACT B5 PCP (Req'g Loc) Img Loc: -MAIN RADIOLOGY SUITE Service: [facility] [place], [facility] [address] [place] [address] (Case [id number] COMPLETE) HIP W/PELVIS 2-3 VIEWS RIGHT (RAD Detailed) CPT:46255 Proc Modifiers : RIGHT, AP Pelvis, Frog Reason for Study: c/o right hip pain Clinical History: c/o right hip pain hx of Rt Hips surgery Report Status: Verified Date Reported: MAY 18, 2024 Date Verified: MAY 18, 2024 Wood Heel Attacher E-Sig:/ES/ZAC JAEGER Report: Case [id number]. HIP W/PELVIS 2-3 VIEWS RIGHT. Comparison: Right [...] replacements. Primary Interpreting Staff: ZAC JAEGER MD (Wood Heel Attacher) /ZAC JERONIMO [facility] Encounter Notes: All associated encounter notes This section contains the clinical notes associated to the Encounter. Date/Time Encounter Note(s) Provider Source May 23, 2024 12:20 AM PHYSICIAN LETTERS: LOCAL TITLE: TEST RESULT GENERAL LETTER STL STANDARD TITLE: PHYSICIAN LETTERS DATE OF NOTE: MAY 23, 2024@00:20 ENTRY DATE: MAY 23, 2024@00:20:44 AUTHOR: LAKEISHA MCCORD EXP COSIGNER: URGENCY: STATUS: COMPLETED [facility] [address] [place] [address] MAY 23, 2024 ADRIEL LOU [address] [place] [address] DR [place] [phone] Dear Adriel Lou, I would like to update you on your recent test results. OTHER TEST RESULTS RADIOLOGY (NON-INVASIVE TEST RESULTS): .Report: Case [id number]. HIP W/PELVIS 2-3 VIEWS RIGHT. Comparison: Right hip 08/19/2021 Findings: Postoperative changes related to right and left hip arthroplasty are noted. There are cerclage wires surrounding the left femoral stem. Surgical clips are noted superimposing the right lower pelvis. There is no evidence of fracture or dislocation. No bone destruction is present. Impression: No acute bone or joint process. Bilateral hip replacements. . PLAN Please continue your treatment as we discussed during your visit. If you have any questions please call your rifle case repairer. I look forward to seeing you at your next clinic appointment. Thank you for choosing the [facility] for your healthcare. FUTURE APPOINTMENTS: 06/06/2024 08:30 [facility] PACT PHONE B5 PCP 11/15/2024 10:00 [facility] PACT B5 PCP Sincerely, Lakeisha Mccord MD Staff Physician DARIEL LOU,LAKEISHA Juarez [facility]
--- OUTSIDE RECORDS SUMMARY | 2024-05-24 13:30 | XMS_ITS | Encounter Summary ---
Author Name [facility] [place] Organization [facility] [place] Address [address] [place] [address] Care Team Providers Care Reference Investigator Name Role Phone LAKEISHA MCCORD Primary Care [...] Mason's Name Patient's Relationship to Policy Mason [facility] (WNR) MEDICARE ADVANTAGE [facility] (WNR) Mar 30, 2022 [id number] JAKE LOU HN PATIENT [facility] (WNR) MEDICARE ADVANTAGE [facility] (WNR) Mar 30, 2022 [id number] JAKE LOU PATIENT MEDICARE PART D (WNR) MEDICARE (M) PART D Mar 30, 2022 PART D [id number] ADRIEL LOU II PATIENT OFFICE OF REGIONAL COUNS [id number] LENO [place]CCAIN R Jul 07, 2007 TORT JOSSOR [id number] CARMIENJAKE SAMS PATIENT REGIONAL 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 Date/Time Encounter Type Encounter Description Reason Provider Source Nov 27, 2023 04:36 PM Outpatient Encounter GENERAL INTERNAL MEDICINE LAKEISHA MCCORD Encounter Template Text not used by [place] Plan of Treatment: Future Appointments (+ 6 [...] 20 appointments. The data comes from all [place] treatment facilities. Appointment Date/Time Appointment Type Appointme nt Facility Name May 17, 2024 03:00 PM AMBULATORY - MEDICINE [facility] May 23, 2024 09:30 AM AMBULATORY - MEDICINE [facility] Advance Directives: All historical and current Section Date Range: From patient's date of to the date document was created. This section includes ALL of a patient's completed or amended [place] Advance and Rescinded Directives. The entries below indicate that a directive exists for the patient, but an actual copy is not included with this document. The data comes from all [facility]. Date Advance Directives Provider Source May 14, 2018 ADVANCE DIRECTIVE DISCUSSION COURTNEY HAZEL [facility] Apr 24, 2015 ADVANCE DIRECTIVE DISCUSSION MISTY POWELL [facility] Apr 21, 2012 ADVANCE DIRECTIVE EVERETT RODARTE [facility] Apr 21, 2012 ADVANCE DIRECTIVE DISCUSSION MERVAT FORTUNE [facility] Jul 03, 2011 ADVANCE DIRECTIVE DISCUSSION ELIU RICK [facility] Jun 28, 2010 ADMINISTRATIVE NOTE FLAKITA ZULETA [facility] Oct 03, 2008 ADVANCE DIRECTIVE [facility] Encounter Notes: All associated encounter notes This section contains the clinical notes associated to the Encounter. Date/Time Encounter Note(s) Provider Source Nov 26, 2023 04:36 PM NONVA NOTE: LOCAL TITLE: COMMUNITY CARE-SACHI SELF PRESENTING CARE COORD PLAN STANDARD TITLE: NONVA NOTE DATE OF NOTE: NOV 26, 2023@16:36 ENTRY DATE: NOV 27, 2023@16:36:44 AUTHOR: CHRIS DRUMMOND EXP COSIGNER: URGENCY: STATUS: COMPLETED COMMUNITY CARE-SACHI SELF PRESENTING CARE COORD PLAN 657 ST[address] Has ADDENDA Emergency Notification Intake Date Presenting to the Facility: Oct Method of Contact: Notified from [employer] worklist Notification ID: [id number] [facility] Referral #: [id number] Clinical Review [facility] Name: Hospital: [facility] Address: [address] [place] [address] City: [place] State: [place] Zip Code: [address] Community Facility Point of Contact: Name: Phone: Chief complaint: URINARY TRACT RETENTION PROBLEMS FOR AWHILE, GETTING SLOWER, CANNOT GO, TODAY SHUT OFF COMPLETELY Primary Diagnosis: Disposition Discharged Date of discharge: Oct Discharge to home No records available for this episode of care. Faxed request for records to [facility] /sung/ CHRIS DRUMMOND [facility] BEHAVIOUR SUPPORT TEACHER Signed: 11/27/2023 16:39 Receipt Acknowledged By: 12/01/2023 14:04 /sung/ STEPHANIE BREWSTERN RN REGISTERED NURSE 11/29/2023 18:19 /sung/ Lakeisha Mccord MD Staff Physician 12/01/2023 ADDENDUM STATUS: COMPLETED RECORDS REC'D and sent to [facility] for scanning. /sung/ PAUL SZYMANSKI FURNACE OPERATOR AND TENDER Signed: 12/01/2023 08:44 12/01/2023 ADDENDUM STATUS: COMPLETED Disregard prevois note no records have been sent to scanner /sung/ PAUL SZYMANSKI FURNACE OPERATOR AND TENDER Signed: 12/01/2023 08:51 01/25/2024 ADDENDUM STATUS: COMPLETED HSRM Referral ID: [id number] Status: Closed - Approved for 170 /sung/ SALEEM GUERRERO ADVANCED FURNACE OPERATOR AND TENDER Signed: 01/25/2024 17:10 CHRIS DRUMMOND [facility]
--- OUTSIDE RECORDS SUMMARY | 2024-05-24 13:30 | XMS_ITS | Encounter Summary ---
Author Name [facility] [place] Organization [place] Address [address] [place] [address] Care Team Providers Care Records Section Supervisor Name Role Phone LAKIESHA MCCORD Primary Care Provider XUAN Martines Primary [...] Mason's Name Patient's Relationship to Policy Mason [facility] (WNR) MEDICARE ADVANTAGE [facility] (WNR) Mar 30, 2022 [id number] JAKE LOU HN PATIENT [facility] (WNR) MEDICARE ADVANTAGE [facility] (WNR) Mar 30, 2022 [id number] JAKE LOU PATIENT MEDICARE PART D (WNR) MEDICARE (M) PART D Mar 30, 2022 PART D [id number] ADRIEL LOU II PATIENT OFFICE OF REGIONAL COUNS [id number] LENO MCCAIN R Jul 07, 2007 LENO COREASOR [id number] CARMINEJAKE SAMS PATIENT REGIONAL PARTY CHIEF LENO MCCAIN R Dec 09, 2013 LENO WANG [id number] CARMINEJAKE SAMS PATIENT [facility] (WNR) MEDICARE ADVANTAGE [facility] (WNR) Mar 30, 2022 [id number] JAKE LOU LATRELL PATIENT Selected Encounter This section includes the information on record at [place] for the Encounter. Date/Time Encounter Type Encounter Description Reason Pro vider Source Jan 04, 2024 09:06 AM Outpatient Encounter GENERAL INTERNAL MEDICINE [facility] Encounter Template Text not used by [place] [...] 17, 2024 03:00 PM AMBULATORY - MEDICINE [facility] May 23, 2024 09:30 AM AMBULATORY - MEDICINE [facility] May 31, 2024 02:00 PM AMBULATORY - SURGERY [facility] Jun 06, 2024 08:[address] [facility] Advance Directives: All historical and current Section Date Range: From patient's date of to the date document was created. This section includes ALL of a patient's completed or amended [place] Advance and Rescinded Directives. The entries below indicate that a directive exists for the patient, but an actual copy is not included with this document. The data comes from all [place] facilities. Date Advance Directives Provider Source May 14, 2018 ADVANCE DIRECTIVE DISCUSSION COURTNEY HAZEL [facility] Apr 24, 2015 ADVANCE DIRECTIVE DISCUSSION MISTY POWELL [facility] Apr 21, 2012 ADVANCE DIRECTIVE EVERETT RODARTE [facility] Apr 21, 2012 ADVANCE DIRECTIVE DISCUSSION MEVRAT FORTUNE [facility] Jul 03, 2011 ADVANCE DIRECTIVE DISCUSSION ELIU RICK [facility] Jun 28, 2010 ADMINISTRATIVE NOTE FLAKITA ZULETA [facility] Oct 03, [address] [facility] Encounter Notes: All associated encounter notes [...] Facility: Dec Method of Contact: Notified from [employer] worklist Notification ID: [id number] HSRM Referral #: [id number] Clinical Review Name: Hospital: [facility] Address: [address] [place] [address] City: [place] State: [place] Zip Code: [address] [facility] Facility Point of Contact: Name: CHYNA GAITAN Chief complaint: Leaking casillas catheter Primary Diagnosis: Disposition Discharged Date of discharge: Dec Discharge to home Records req'd by fax. /kyle GUERRERO ADVANCED FILM INSPECTOR Signed: 01/04/2024 09:10 Receipt Acknowledged By: 01/06/2024 10:31 /sung/ STEPHANIE BREWSTERN RN REGISTERED NURSE 01/04/2024 11:11 /sung/ Lakeisha Mccord MD Staff Physician 01/05/2024 ADDENDUM STATUS: COMPLETED Records r/t this episode of care sent to [facility] for scanning. /sung/ PAUL SZYMANSKI FILM INSPECTOR Signed: 01/05/2024 09:43 01/25/2024 ADDENDUM STATUS: COMPLETED HSRM Referral ID: [id number] Status: Closed - Approved for 1702 /kyle GUERRERO ADVANCED FILM INSPECTOR Signed: 01/25/2024 17:09 SALEEM GUERRERO [facility]
--- OUTSIDE RECORDS SUMMARY | 2024-05-24 13:30 | XMS_ITS ---
Author Organization [facility] [employer] [facility] Address [facility] [address] [facility] [address] [place] [address] Care Team Providers Care Residential Finish Carpenter Name Role Phone Sandra Bains APRN Primary Care Provider Unava Rona Talbot Unavailable [phone] Social History Sex Assigned At : Social History Observation Description Sex Assigned At Male Encounters Encounter Location Date Provider Diagnosis [facility] [employer] [place] [id number] [facility] [address] [facility] [address] [place] [address] 02/18/2024 Rona Bishop Plan Of Treatment No Information Progress Notes * ADRIEL LOUDOB:1955 (69 yo M)Acc No.[id number]:02/18/2024 Patient: Jarrell TITUS ADRIEL Cardoso :1955 A ge:68 Y S ex:Male [place], [address] * true * Date: Generated for Printi ng/Fazakg/eTransmitting on: 0 05/24/2024 01:[address]TE SERVICER
--- OUTSIDE RECORDS SUMMARY | 2024-05-24 13:30 | XMS_ITS | Encounter Summary ---
Author Name [facility] Organization [facility] Address [address] [place] [address] Care Team Providers Care Publications Editor Name Role Phone LAKEISHA MCCORD Primary Care [...] Mason's Name Patient's Relationship to Policy Mason [facility] (WNR) MEDICARE ADVANTAGE [facility] (WNR) Mar 30, 2022 [id number] JAKE LOU HN PATIENT [facility] (WNR) MEDICARE ADVANTAGE [facility] (WNR) Mar 30, 2022 [id number] JAKE LOU PATIENT MEDICARE PART D (WNR) MEDICARE (M) PART D Mar 30, 2022 PART D [id number] ADRIEL LOU II PATIENT OFFICE OF REGIONAL COUNS [id number] LENO MCCAIN R Jul 07, 2007 LENO COREASOR [id number] CARMINEJAKE SAMS PATIENT [facility] CHARGER INSULATION LENO MCCAIN R Dec 09, 2013 LENO WANG [id number] [id number] JAKE LOU PATIENT [facility] (WNR) MEDICARE ADVANTAGE [facility] (WNR) Mar 30, 2022 [id number] CARMINEJAKE SAMS PATIENT Selected Encounter This section includes the information on record at NE for the Encounter. Date/Time Encounter Type Encounter Description Reason Provider Source May 17, 2024 03:00 PM OFFICE O/P EST MOD 30 MIN PRIMARY CARE/MEDICINE ICD-10-CM M16.9 Osteoarthritis of hip, unspecified AGUSTIN FLORES Encounter Template Text not used by NE Assessments - Encounter Diagnoses This section includes the primary and secondary diagnoses documented for the Encounter. Date/Time Primary/Secondary Diagnosis Diagnosis Name Provider Source May 17, 2024 03:36 PM PRIMARY Osteoarthritis of hip, unspecified [facility] May 17, 2024 03:36 PM SECONDARY Chronic kidney disease, stage 1 [facility] May 17, 2024 03:36 PM SECONDARY Contact with and exposure to other hazardous substances [facility] May 17, 2024 03:36 PM SECONDARY Essential (primary) hypertension [facility] May 17, 2024 03:36 PM SECONDARY Gout, unspecified [facility] May 17, 2024 03:36 PM SECONDARY Major depressive disorder, recurrent, moderate [facility] May 17, 2024 03:36 PM SECONDARY Migraine, unsp, not intractable, without status migrainosus [facility] Plan of Treatment: Future Appointments (+ 6 months) and Future Tests (+/- 45 days) The Plan of Treatment section includes future care activities for the patient from all [place] treatmentfacilities. This section includes future appointments and future orders which are active, pending or scheduled. Future Appointments This section includes appointments that were scheduled to occur 6 months from the date of the Encounter, up to a maximum of 20 appointments. The data comes from all [facility]. Appointment Date/Time Appointment Type Appointme nt Facility Name May 23, 2024 09:30 AM AMBULATORY - MEDICINE [facility] May 31, 2024 02:00 PM AMBULATORY - SURGERY [facility] Jun 06, 2024 08:30 AM AMBULATORY - MEDICINE [facility] Active, Pending, and Scheduled Orders This section includes a listing of several types of active, pending, and scheduled orders, including clinic medications orders, diagnostic test orders, procedure orders and consult orders; where the start date of the order is 45 days before the date of the Encounter or 45 days after the date of theEncounter. The data comes from all [facility]. Test Date/Time Test Type Test Details Facility Name May 12, 2024 12:00 AM Laboratory - Chemistry Order TSH W/ REFLEX FT4 (STL) GREEN LI-HEP PLASMA [facility] May 12, 2024 12:00 AM Laboratory - Chemistry Order VITAMIN D, 25-HYDROXY GOLD/RED SST SERUM [facility] May 12, 2024 12:00 AM Laboratory - Chemistry Order COMPREHENSIVE METABOLIC PANEL GREEN LI/HEP BLD/PLAS PLASMA [facility] May 12, 2024 12:00 AM Laboratory - Chemistry Order LIPID PANEL (STL) GREEN LI/HEP BLD/PLAS PLASMA [facility] May 12, 2024 12:00 AM Laboratory - Chemistry Order CBC BLOOD [facility] May 12, 2024 12:00 AM Laboratory - Chemistry Order URINALYSIS (STL-PB) URINE [facility] May 12, 2024 12:00 AM Laboratory - Chemistry Order HGA1C BLOOD [facility] May 17, 2024 12:00 AM Laboratory - Chemistry Order URINALYSIS (STL-PB) URINE [facility] May 23, 2024 10:32 AM Consult Order ORTHOPEDIC HIP/KNEE EVAL OUTPT STL Cons Slaughterer Religious Ritual's Choice [facility] Lab Results: +/- 30 days of the encounter This section includes the Chemistry and Hematology Lab Results on record with NE for the patient. Radiology Reports and Pathology Reports are provided separately, in subsequent sections. Lab Results This section contains the Chemistry/Hematology Results that were resulted 30 days before or 30 daysafter the date of the Encounter. Date/Time Source Result Type Result - Unit Interpretation Reference Range Comment May 17, 2024 03:49 PM [facility] ESR ISED(STL) Specimen Type: BLOOD No comment entered. Ordering Provider: JEFERSON MCCORD Report Released Date/Time: May 17, 2024 03:17 PM Reporting Lab: [facility] [address] [facility] [facility] [address] Performing Lab: [facility] [address] [facility] [address] ESR ISED(STL) 8 mm/h 0-19 May 17, 2024 03:49 PM [facility] VITAMIN D, 25-HYDROXY Specimen Type: SERUM No comment entered. Ordering Provider: JEFERSON MCCORD Report Released Date/Time: May 17, 2024 03:17 PM Reporting Lab: [address] [address] Performing Lab: [facility] [address] [facility] [phone] VITAMIN D, 25-HYDROXY 100.1 ng/mL H 30-96 May 17, 2024 03:49 PM [facility] CRP Specimen Type: PLASMA Comment: No hemolysis noted. Ordering Provider: JEFERSON MCCORD Report Released Date/Time: May 17, 2024 03:17 PM Reporting Lab: [facility] [address] [place] [phone] Performing Lab: [facility] [address] [place] [phone] CRP 0.2 mg/dL 0-0.5 May 17, 2024 03:49 PM [facility] TSH W/ REFLEX FT4 (STL) Specimen Type: PLASMA No comment entered. Ordering Provider: JEFERSON MCCORD Report Released Date/Time: May 17, 2024 03:17 PM Reporting Lab: [facility] [address] [facility] [facility] [address] Performing Lab: [facility] [address] [facility] [address] TSH 1.402 u[IU]/mL 0.47-5 May 17, 2024 03:49 PM [facility] LIPID PANEL (STL) Specimen Type: PLASMA Comment: No hemolysis noted. Ordering Provider: JEFERSON MCCORD Report Released Date/Time: May 17, 2024 03:17 PM Reporting Lab: [address] [address] Performing Lab: [address] [address] CHOLESTEROL 144 mg/dL 0-200 TRIGLYCERIDE 146 mg/dL 0-150 CALCULATED LDL 58 mg/dL HDL(New) 57 mg/dL >40 May 17, 2024 03:49 PM [facility] COMPREHENSIVE METABOLIC PANEL Specimen Type: PLASMA Comment: No hemolysis noted. Ordering Provider: JEFERSON MCCORD Report Released Date/Time: May 17, 2024 03:17 PM Reporting Lab: [address] [address] Performing Lab: [address] [address] CREATININE 1.45 mg/dL H 0.7-1.3 UREA NITROGEN [...] 52.8 >60 May 17, 2024 03:49 PM [facility] CBC Specimen Type: BLOOD No comment entered. Ordering Provider: JEFERSON MCCORD Report Released Date/Time: May 17, 2024 03:17 PM Reporting Lab: [address] [place] [address] Performing Lab: [facility] [address] [facility] [address] WBC 7.1 10*3/uL 3.6-11.2 RBC 5.61 10*6/uL [...] 10*3/uL 0.00-0.60 BASOPHILS, ABSOLUTE 0.06 10*3/uL 0.00-0.20 Apr 23, 2024 12:00 PM [facility] OCCULT BLOOD FIT X1 SCREEN (MFP ONLY) Specimen Type: FECES No comment entered. Ordering Provider: JEFERSON MCCORD Report Released Date/Time: Mar 17, 2024 09:54 AM Reporting Lab: [facility] [address] [place] [phone] Performing Lab: [address] [address] OCCULT BLOOD (FIT) #1 OF 1 Negative Negative Vital Signs: All taken on the encounter date This section contains inpatient and outpatient Vital Signs collected on the date of the Encounter. Date/Time Temperature Pulse Blood Pressure Respiratory Rate SP02 Pain Height Weight Body Mass Index Source May 17, 2024 02:37 PM 97.3 76 127/85 [address] [facility] Social History: Smoking Status (Most current) and Tobacco Use (All prior to encounter date) This section includes the most current, and the historical, smoking and tobacco- related health factors from the NE facility where the Encounter took place. Current Smoking Status This section includes the most current smoking, or tobacco-related health factor, from the NE facility where the Encounter took place. Date/Time Current Smoking Status Comment Andreas ity May 17, 2024 03:00 PM VA-TOBACCO NEVER U SED CIGARETTES [facility] Tobacco Use History This section includes a history of the smoking, or tobacco-related health factors, that were collected on or before the date of the Encounter. The data comes from the NE facility where the Encounter took place. Date/Time Smoking Status/Tobacco Use Comment F acility May 17, 2024 03:00 PM VA-TOBACCO NEVER U SED OTHER TYPE [facility] August 05, 2021 09:00 AM VA-TOBACCO NEVER USED [facility] Advance Directives: All historical and current Section Date Range: From patient's date of to the date document was created. This section includes ALL of a patient's completed or amended NE Advance and Rescinded Directives. The entries below indicate that a directive exists for the patient, but an actual copy is not included with this document. The data comes from all [facility]. Date Advance Directives Provider Source May 14, 2018 ADVANCE DIRECTIVE DISCUSSION COURTNEY HAZEL [facility] Apr 24, 2015 ADVANCE DIRECTIVE DISCUSSION MISTY POWELL [facility] Apr 21, 2012 ADVANCE DIRECTIVE EVERETT RODARTE [facility] Apr 21, 2012 ADVANCE DIRECTIVE DISCUSSION MERVAT FORTUNE [facility] Jul 03, 2011 ADVANCE DIRECTIVE DISCUSSION ELIU RICK [facility] Jun 28, 2010 ADMINISTRATIVE NOTE FLAKITA ZULETA [facility] Oct 03, 2008 ADVANCE DIRECTIVE CONNOR PAUL [facility] Radiology Reports: +/- 30 days of [...] the Encounter. The data comes from all [place] treatment facilities. Date/Time Radiology Report Provider Source May 17, 2024 04:34 PM HIP W/PELVIS 2-3 V IEWS RIGHT: ADRIEL LOU [id number] -1955 M Exm Date: MAY 17, 2024@16:34 Req Phys: LAKEISHA MCCORD Pat Loc: [facility] PACT B5 PCP (Req'g Loc) Img Loc: -MAIN RADIOLOGY SUITE Service: Unknown [facility] [address] [place] [address] (Case [id number] COMPLETE) HIP W/PELVIS 2-3 VIEWS RIGHT (RAD Detailed) CPT:78939 Proc Modifiers : RIGHT, AP Pelvis, Frog Reason for Study: c/o right hip pain Clinical History: c/o right hip pain hx of Rt Hips surgery Report Status: Verified Date Reported: MAY 18, 2024 Date Verified: MAY 18, 2024 Managing Supervisor E-Sig:/ES/ZAC JAEGER Report: Case [id number]. HIP W/PELVIS 2-3 VIEWS RIGHT. Comparison: Right [...] replacements. Primary Interpreting Staff: ZAC JAEGER MD (Managing Supervisor) /ZAC JERONIMO [facility] Encounter Notes: All associated encounter notes [...] STATUS: COMPLETED PRIMARY CARE PROVIDER ESTABLISHED VISIT ST Has ADDENDA Patient is 69 and WHITE Self Identified Gender - Man Reason for visit:Scheduled follow-up Chief Complaint: Complain of right hip pain feel right hip prosthesis getting loose? History of Present Illness: Mr Lou is a 69 year old male Coming back after last seen on December 10, 2021 when he transferred his care from [facility] but since then he has been followed [...] his referred to the orthopedic at the NE for further evaluation He has history of depression previously getting treatment at the [place] with psychiatry now he followed at outside psychiatrist Wendi Parekh at [facility] and getting medication from outside pharmacy [...] started seeing nurse practitioner Sandra Bains at [facility] No other complaint today Previous hx as from previous record ED was on Sildenafil 1000mg Hcx of Polycystic kidney dxz with CKD He was followed at [facility] Dr Chely Fried was on severaql for Depression hx of fall with broken rt ribs, with Pneumothorax Sept end 2020 - treated in [place] close to [facility],Discharged 12/27 went back to [place] by train as not allowed to fly, [...] finding of a persistent origin of 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 Signed by Kory Liz on 02/02/2018 PROBLEMS:from [facility] Adjustment disorder with anxious mood (SCT 10914015) Headache (SCT 69436743) Hernia of abdominal cavity (SCT 13957136) Benign essential hypertension (SCT 3486854) Major depression in full remission (SCT 39040795) Benign hypertension (ICD-9-CM 401.1) Autosomal dominant polycystic kidney disease (SCT 973190099) Other and unspecified alcohol dependence, in remission (ICD-9-CM 303.93) Obsessive-compulsive disorder (SCT 716210004) Obsessive-Compulsive Disorder (ICD-9-CM 300.3) Problem List: 1) Depression (SNOMED CT 51593624) 2) Osteoarthritis 3) Inguinal hernia, without mention of obstruction or gangrene (ICD-9-CM 550.90) 4) Blood In Stool 5) Recurrent unilateral or unspecified inguinal hernia, without mention of obstruct 6) Obsessive-Compulsive Disorder 7) Proteinuria * (ICD-9-CM 791.0) 8) Hypertensive chronic kidney disease, unspecified, with chronic kidney disease St 9) Anemia due to chronic kidney disease stage 1 (SNOMED CT 379110477299350) 10) Chronic kidney disease (SNOMED CT 849544433) 11) Anxiety * (ICD-9-CM 300.00/300.09) 12) Benign [...] Reflexse Knee, ankle , Bicep 1-2+ symmetrical .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 The following connections were provided to the /caregiver: Station Examiner/Organization (VSO) [place]: RAINA MANSI [id number], TORIE Alcohol Use Screen (AUDIT-C) - V: [...] REFUSE TO SE P MEDICAL PSY AT NE HE IS ON MEDICATION FROM OUT SIDE [...] Not worried about housing near future The [place] reports the following: Within the past 12 [...] 23:52 05/19/2024 ADDENDUM STATUS: COMPLETED Report: Case [id number]. HIP W/PELVIS 2-3 VIEWS RIGHT. Comparison: Right [...] Staff Physician Signed: 05/23/2024 00:20 LAKEISHA MCCORD [facility] May 17, 2024 02:38 PM NURSING NOTE: LOCAL TITLE: V15 PACT FACE TO FACE NOTE ST STANDARD TITLE: NURSING NOTE DATE OF NOTE: [...] INVENTORY - MAP: 08/05/2021 Personal Health Plan [place], [place], Purpose (MAP) FARIDEH MAKES ME HAPPY. What matters most to you in your life right now? -- 's Response: [place] Would you like to discuss any personal problem, family problem, alcohol use, drug use, or a mental or emotional illness? No Contact provided Primary Care phone number and encouraged to call if any questions or concerns. Review that after hours nurse line [phone] and emergency room are available 20/10 for patient use. Contact verbalized good understanding. No notification required for this note. Suicide Screen - V: C-SSRS Screening [place] Suicide Severity Rating Scale (C-SSRS) screener 1. 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 Printed information was offered and provided if desired. No questions at this time /caregiver was informed of local points of contact. Contact information for local resources: [facility] Registry Exam Program: [phone] Eligibility: [phone] G44933 H41219 Toxic Exposure Screening Follow-Up reminder is needed. [...] PRACTICAL NURSE Signed: 05/17/2024 14:46 AGUSTIN FLORES [facility]
--- OUTSIDE RECORDS SUMMARY | 2024-05-24 13:31 | XMS_ITS ---
Author Organization [facility] [email or web address] [facility] Address [address] [place] [address] [address] [facility] [address] [place] [address] Care Team Providers Care Transformer Assembly Supervisor Name Role Phone Sandra Bains APRN Primary Care Provider Unava Rona Talbot Unavailable [phone] REASON FOR VISIT Billing question Social History Sex Assigned At : Social History Observation Description Sex Assigned At Male Encounters Encounter Location Date Provider Diagnosis [place] [address] [facility] [address] [address] 02/04/2024 Rona Bishop Plan Of Treatment No Information Progress Notes * ADRIEL LOUDOB:1955 (69 yo M)Acc No.[id number]:02/04/2024 Patient: Jarrell ADRIEL TITUS :1955 A ge:68 Y S ex:Male Address:[place], [address] * true * Date: Generated for Printi ng/Faxing/eTransmitting on: 0 05/24/2024 01:30 PM DIRECTORY COMPILER
--- OUTSIDE RECORDS SUMMARY | 2024-05-24 13:31 | XMS_ITS | Continuity of Care Document ---
Author Name [facility] Organization [facility] Care Team Providers Care Piping Design Specialist Name Role Phone [facility] Unavailable Unavailable Problems Combined list of problems from Department of Defense and [facility] Affairs facilities. It does not include entries that were removed or entered in error. Problem Status Onset Date Problem Type Date of Resolution Comments Source Adjustment disorder with anxious mood Active Condition [facility] Anemia due to chronic kidney disease stage 1 (SNOMED CT 160699590067534) Active Condition [facility] Anxiety * (ICD-9-CM 300.00/300.09) Active Condition [facility] Autosomal dominant polycystic kidney disease (SNOMED CT 826163373) Active Condition [facility] Benign essential hypertension Active Condition [facility] Benign hypertension (SNOMED CT 30819682) Active Condition [facility] Blood In Stool Active [facility] Chronic kidney disease (SNOMED CT 756338543) Active Condition [facility] Depression (SNOMED CT 52502628) Active Condition [facility] Erectile dysfunction Active Condition [facility] Exposure to potentially hazardous substance (SCT 026878852463713) Active Condition May 18 5 Entered By: NIDHI FREITAS Comment: Entered automatically through [facility] Problem List documentation program [facility] Gout Active Condition [facility] Headache Active Condition [facility] Hernia of abdominal cavity Active Condition [facility] Hypertensive chronic kidney disease, unspecified, with chronic kidney disease St Active Condition [facility] Inguinal hernia, without mention of obstruction or gangrene (ICD-9-CM 550.90) Active Condition [facility] Major depression in full remission Active Condition [facility] Migraine Active Condition [facility] Obsessive-Compuls wesley Disorder Active Condition [facility] Obsessive-compuls wesley disorder (SNOMED CT 107827003) Active Condition [facility] Obsessive-Compuls wesley Disorder * (ICD-9-CM 300.3) Active Condition [facility] Osteoarthritis of right hip joint (SNOMED CT 717099524900636) Active Condition [facility] Other and unspecified alcohol dependence, in remission (ICD-9-CM 303.93) Active Condition [facility] Proteinuria * (ICD-9-CM 791.0) Active Condition [facility] Recurrent unilateral or unspecified inguinal hernia, without mention of obstruct Active Condition [facility] Alcohol Dependence Inactive Condition 12/21/2014 May 10, 2010 Entered By: KYLE CHAVES Comment: in remission [facility] Blood in Stool (ICD-9-CM 578.1) Inactive Condition 12/21/2014 [facility] Chest pain Inactive Condition 12/21/2014 [facility] Elevated blood pressure reading without diagnosis of hypertension (ICD-9-CM 796. Inactive Condition 12/21/2014 [facility] Health Maint (ICD-9-CM V65.9) Inactive Condition 12/21/2014 [facility] Renal Cyst (ICD-9-CM 753.10) Inactive Condition 04/17/2015 [facility] Diagnosis: ICD-10-CM M25.551 Pain in right hip Active Diagnosis [facility] Diagnosis: ICD-10-CM M16.9 Osteoarthritis of hip, unspecified Active Diagnosis [facility] Diagnosis: ICD-10-CM R26.89 Other abnormalities of gait and mobility Active Diagnosis [facility] Medications Combined list of outpatient medications from Department of Defense and [facility] Affairs facilities.Medications provided include 1) outpatient medications from the last 15 months, and 2) patient-reported medications. Medication Details Route Status Patient Instructions Prescription Expires Prescription Number Last Dispense Date Ordering Provider Order Date Order Qty Source ACETAMINOPH EN 500MG/CAFFE INE 65MG TAB TAKE TWO TABLETS BY MOUTH EVERY DAY NEEDED ORAL ACTIVE Xu REA 2018 [facility] ASCORBIC ACID 500MG TAB TAKE ONE TABLET BY MOUTH ONCE A DAY ORAL ACTIVE ANDREW GARCIA 2008 [facility] ASPIRIN 81MG TAB,EC TAKE ONE TABLET BY MOUTH EVERY MORNING ORAL ACTIVE Xu REAKA Saran 2018 [facility] DULOXETINE HCL 60MG CAP,EC TAKE 1 CAPSULE BY MOUTH ONCE A DAY ORAL ACTIVE ANDREW GARCIA 2008 [facility] GARLIC OIL TAB,EC TAKE ONE TABLET BY MOUTH ONCE A DAY ORAL ACTIVE ANDREW GARCIA 2008 [facility] METHYLPREDN ISOLONE 4MG TAB DOSEPAK,21 TAKE TABLETS BY MOUTH DIRECTED TAKE 6 TABLETS BY MOUTH ON DAY ONE, THEN DECREASE BY ONE TABLET DAILY UNTIL GONE. TAKE WITH FOOD. (TAKE WITH FOOD) TAKE 6 TABLETS BY MOUTH ON DAY ONE, THEN DECREASE BY ONE TABLET DAILY UNTIL GONE. TAKE WITH FOOD. (TAKE WITH FOOD) ORAL ACTIVE 06/22/2024 [id number] KAYLA MCCORD T 2024 1 [facility] MULTIVITAMI NS CAP/TAB TAKE ONE TABLET BY MOUTH ONCE A DAY ORAL ACTIVE ANDREW GARCIA 2008 [facility] Juan Pablo TAMSULOSIN HCL 0.4MG CAP TAKE TWO CAPSULES BY MOUTH EVERY EVENING APPROXIM ATELY 30 MINUTES AFTER THE SAME MEAL EACH DAY (FOR PROSTATE ) ORAL 02/26/2024 [id number] KAYLA MCCORD AMMAD T 2022 180 [facility] N Allergies, Adverse Reactions, Alerts Combined list of allergies from Department of Defense and [facility] Affairs facilities. It does not include entries that were removed or entered in error. Substance Category Reaction Severity Reaction type Status Date Reported Comments Source AMLODIPINE Propensity to adverse reactions to drug (finding) Swelling active 5 [facility] HYDRALAZINE Propensity to adverse reactions to drug (finding) Tachycardia , Palpitation s active 8 [facility] MORPHINE Propensity to adverse reactions to drug (finding) Anxiety active 9 [facility] MORPHINE Propensity to adverse reactions to drug (finding) Hallucinati ons active 2 [facility] Immunizations Combined list of available immunizations from the Department of Defense and Veterans Affairs facilities. Immunization Series Date Given Administered By Site Reaction Lot Number CVX Code Drug Nutrition Aides Teacher Status Comments Source INFLUENZA, UNSPECIFIED FORMULATION 2011 88 complet ed [facility] FLU VACCINE NO PRESERV 3 & > (HISTORICAL) 2009 complet [facility] INFLUENZA, UNSPECIFIED FORMULATION 2009 NONE 88 complet [facility] DTAP, UNSPECIFIED FORMULATION 2009 DENI CASTANEDA 107 complet [facility] TD(ADULT) UNSPECIFIED FORMULATION 2009 SPENCERISATU Frost 139 complet ed [facility] TDAP 2009 115 complet ed [facility] INFLUENZA, UNSPECIFIED FORMULATION 2007 88 complet ed [facility] TDAP 2006 115 complet ed [facility] TETANUS TOXOID, UNSPECIFIED FORMULATION 2004 112 complet ed [facility] SPINAL CORD OUTCOME S Results Combined list of recent chemistry, hematology and other laboratory results from Department of Defense and Veterans Affairs, ranging from 15 months to all on record, depending upon the facility. Order Name Results Value Reference Range Date Interpretation Specimen Comments Source ESR ISED(STL) ERYTHROCYT E SEDIMENTAT ION RATE 8 mm/h 0 - 19 05/17 Specimen Type: BLOOD No comment entered. Ordering Provider: WALTER MCCORD MMAD Report Released Date/Time: May 17, 2024 03:17 PM Reporting Lab: [facility] [address] [place] [phone] Performing Lab: [facility] [address] [place] [phone] [facility] CRP C REACTIVE PROTEIN [MASS/VOLU ME] IN SERUM OR PLASMA BY HIGH SENSITIVIT Y METHOD 0.2 mg/dL 0 - 0.5 05/17 Specimen Type: PLASMA Comment: No hemolysis noted. Ordering Provider: WALTER MCCORD MMAD Report Released Date/Time: May 17, 2024 03:17 PM Reporting Lab: [facility] [address] [place] [phone] Performing Lab: [facility] [address] [place] [phone] [facility] VITAMIN D, 25-HYDROX Y 25-HYDROXY VITAMIN D3 [MASS/VOLU ME] IN SERUM OR PLASMA 100.1 ng/mL 30 - 96 05/17 H Specimen Type: SERUM No comment entered. Ordering Provider: WALTER MCCORD MMAD Report Released Date/Time: May 17, 2024 03:17 PM Reporting Lab: [facility] [address] [place], [place] [phone] Performing Lab: [address] [phone] TSH W/ REFLEX FT4 (STL) THYROTROPI N [UNITS/VOL UME] IN SERUM OR PLASMA 1.402 u[IU]/mL 0.47 - 5 05/17 Specimen Type: PLASMA No comment entered. Ordering Provider: WALTER MCCORD MMAD Report Released Date/Time: May 17, 2024 03:17 PM Reporting Lab: [facility] [address] [place] [phone] Performing Lab: [place] [phone] [place] [address] LIPID PANEL (STL) CHOLESTERO L [MASS/VOLU ME] IN SERUM OR PLASMA 144 mg/dL 0 - 200 05/17 Specimen Type: PLASMA Comment: No hemolysis noted. Ordering Provider: WALTER MCCORD MMAD Report Released Date/Time: May 17, 2024 03:17 PM Reporting Lab: [facility] [address] [place] [phone] Performing Lab: [address] [phone] [place] [address] LIPID PANEL (STL) TRIGLYCERI DE [MASS/VOLU ME] IN SERUM OR PLASMA 146 mg/dL 0 - 150 05/17 Specimen Type: PLASMA Comment: No hemolysis noted. Ordering Provider: WALTER MCCORD MMAD Report Released Date/Time: May 17, 2024 03:17 PM Reporting Lab: [facility] [address] [facility] [address] Performing Lab: [facility] [address] [facility] [phone] [facility] LIPID PANEL (STL) CHOLESTERO L IN LDL [MASS/VOLU ME] IN SERUM OR PLASMA BY CALCULATIO N 58 mg/dL 05/17 Specimen Type: PLASMA Comment: No hemolysis noted. Ordering Provider: WALTER MCCORD MMAD Report Released Date/Time: May 17, 2024 03:17 PM Reporting Lab: [facility] [address] [place] [phone] Performing Lab: [place] [address] [facility] [address] [facility] LIPID PANEL (STL) CHOLESTERO L IN HDL [MASS/VOLU ME] IN SERUM OR PLASMA 57 mg/dL 40 05/17 Specimen Type: PLASMA Comment: No hemolysis noted. Ordering Provider: WALTER MCCORD MMAD Report Released Date/Time: May 17, 2024 03:17 PM Reporting Lab: [address] [address] Performing Lab: [address] [phone] [facility] COMPREHEN SIVE METABOLIC PANEL CREATININE [MASS/VOLU ME] IN SERUM OR PLASMA 1.45 mg/dL 0.7 - 1.3 05/17 H Specimen Type: PLASMA Comment: No hemolysis noted. Ordering Provider: WALTER MCCORD MMAD Report Released Date/Time: May 17, 2024 03:17 PM Reporting Lab: [facility] [address] Performing Lab: [address] [phone] [facility] COMPREHEN SIVE METABOLIC PANEL UREA NITROGEN [MASS/VOLU ME] IN SERUM OR PLASMA 45.5 mg/dL 9.0 - 25.0 05/17 H Specimen Type: PLASMA Comment: No hemolysis noted. Ordering Provider: WALTER MCCORD MMAD Report Released Date/Time: May 17, 2024 03:17 PM Reporting Lab: [facility] [address] [place] [phone] Performing Lab: [facility] [address] [facility] [address] [facility] COMPREHEN SIVE METABOLIC PANEL GLUCOSE [MASS/VOLU ME] IN SERUM OR PLASMA 98 mg/dL 72 - 99 05/17 Specimen Type: PLASMA Comment: No hemolysis noted. Ordering Provider: WALTER MCCORD MMAD Report Released Date/Time: May 17, 2024 03:17 PM Reporting Lab: [facility] [address] [place] [phone] Performing Lab: [address] [phone] [facility] COMPREHEN SIVE METABOLIC PANEL SODIUM [MOLES/VOL UME] IN SERUM OR PLASMA 142 meq/L 136 - 145 05/17 Specimen Type: PLASMA Comment: No hemolysis noted. Ordering Provider: WALTER MCCORD MMAD Report Released Date/Time: May 17, 2024 03:17 PM Reporting Lab: [facility] [address] [place] [phone] Performing Lab: [address] [phone] [facility] COMPREHEN SIVE METABOLIC PANEL POTASSIUM [MOLES/VOL UME] IN SERUM OR PLASMA 4.4 meq/L 3.5 - 5 05/17 Specimen Type: PLASMA Comment: No hemolysis noted. Ordering Provider: WALTER MCCORD MMAD Report Released Date/Time: May 17, 2024 03:17 PM Reporting Lab: [facility] [address] [place] [phone] Performing Lab: [facility] [address] [place] [phone] [facility] COMPREHEN SIVE METABOLIC PANEL CHLORIDE [MOLES/VOL UME] IN SERUM OR PLASMA 109 meq/L 98 - 107 05/17 H Specimen Type: PLASMA Comment: No hemolysis noted. Ordering Provider: WALTER MCCORD MMAD Report Released Date/Time: May 17, 2024 03:17 PM Reporting Lab: [facility] [address] [facility] [address] Performing Lab: [address] [phone] [place] [address] COMPREHEN SIVE METABOLIC PANEL CARBON DIOXIDE, TOTAL [MOLES/VOL UME] IN SERUM OR PLASMA 22 meq/L 22 - 31 05/17 Specimen Type: PLASMA Comment: No hemolysis noted. Ordering Provider: WALTER MCCORD MMAD Report Released Date/Time: May 17, 2024 03:17 PM Reporting Lab: [address] [address] Performing Lab: [address] [address] [facility] COMPREHEN SIVE METABOLIC PANEL CALCIUM [MASS/VOLU ME] IN SERUM OR PLASMA 9.8 mg/dL 8.4 - 10.4 05/17 Specimen Type: PLASMA Comment: No hemolysis noted. Ordering Provider: WALTER MCCORD MMAD Report Released Date/Time: May 17, 2024 03:17 PM Reporting Lab: [address] [address] Performing Lab: [facility] [address] [place] [phone] [facility] COMPREHEN SIVE METABOLIC PANEL PROTEIN [MASS/VOLU ME] IN SERUM OR PLASMA 7.1 g/dL 6 - 8.6 05/17 Specimen Type: PLASMA Comment: No hemolysis noted. Ordering Provider: WALTER MCCORD MMAD Report Released Date/Time: May 17, 2024 03:17 PM Reporting Lab: [address] [address] Performing Lab: [facility] [address] [facility] [address] [facility] COMPREHEN SIVE METABOLIC PANEL ALBUMIN [MASS/VOLU ME] IN SERUM OR PLASMA 4.0 g/dL 3.4 - 5 05/17 Specimen Type: PLASMA Comment: No hemolysis noted. Ordering Provider: WALTER MCCORD MMAD Report Released Date/Time: May 17, 2024 03:17 PM Reporting Lab: [facility] [address] [place] [phone] Performing Lab: [address] [phone] [facility] COMPREHEN SIVE METABOLIC PANEL BILIRUBIN. TOTAL [MASS/VOLU ME] IN SERUM OR PLASMA 0.4 mg/dL 0.2 - 1.2 05/17 Specimen Type: PLASMA Comment: No hemolysis noted. Ordering Provider: WALTER MCCORD MMAD Report Released Date/Time: May 17, 2024 03:17 PM Reporting Lab: [facility] [address] [place] [phone] Performing Lab: [address] [address] [facility] COMPREHEN SIVE METABOLIC PANEL ALKALINE PHOSPHATAS E [ENZYMATIC ACTIVITY/V OLUME] IN SERUM OR PLASMA 85 U/L 40 - 150 05/17 Specimen Type: PLASMA Comment: No hemolysis noted. Ordering Provider: WALTER MCCORD MMAD Report Released Date/Time: May 17, 2024 03:17 PM Reporting Lab: [facility] [address] [place] [phone] Performing Lab: [facility] [address] [place] [phone] [facility] COMPREHEN SIVE METABOLIC PANEL ASPARTATE AMINOTRANS FERASE [ENZYMATIC ACTIVITY/V OLUME] IN SERUM OR PLASMA 47 U/L 5 - 34 05/17 H Specimen Type: PLASMA Comment: No hemolysis noted. Ordering Provider: WALTER MCCORD MMAD Report Released Date/Time: May 17, 2024 03:17 PM Reporting Lab: [facility] [address] [facility] [address] Performing Lab: [address] [address] [facility] COMPREHEN SIVE METABOLIC PANEL ALANINE AMINOTRANS FERASE [ENZYMATIC ACTIVITY/V OLUME] IN SERUM OR PLASMA 42 U/L 8 - 40 05/17 H Specimen Type: PLASMA Comment: No hemolysis noted. Ordering Provider: WALTER MCCORD MMAD Report Released Date/Time: May 17, 2024 03:17 PM Reporting Lab: [address] [address] Performing Lab: [address] [phone] [place] [address] COMPREHEN SIVE METABOLIC PANEL GLOMERULAR FILTRATION RATE/1.73 SQ M.PREDICTE D [VOLUME RATE/AREA] IN SERUM, PLASMA OR BLOOD BY CREATININE -BASED FORMULA (CKD-EPI 2020) 52.8 60 05/17 Specimen Type: PLASMA Comment: No hemolysis noted. Ordering Provider: WALTER MCCORD MMAD Report Released Date/Time: May 17, 2024 03:17 PM Reporting Lab: [facility] [address] [place] [phone] Performing Lab: [address] [address] [facility] CBC LEUKOCYTES [#/VOLUME] IN BLOOD BY AUTOMATED COUNT 7.1 10*3/uL 3.6 - 11.2 05/17 Specimen Type: BLOOD No comment entered. Ordering Provider: WALTER MCCORD MMAD Report Released Date/Time: May 17, 2024 03:17 PM Reporting Lab: [facility] [address] [place] [phone] Performing Lab: [address] [address] [facility] CBC ERYTHROCYT ES [#/VOLUME] IN BLOOD BY AUTOMATED COUNT 5.61 10*6/uL 4.10 - 5.70 05/17 Specimen Type: BLOOD No comment entered. Ordering Provider: WALTER MCCORD MMAD Report Released Date/Time: May 17, 2024 03:17 PM Reporting Lab: [address] [address] Performing Lab: [address] [phone] [place] [address] CBC HEMOGLOBIN [MASS/VOLU ME] IN BLOOD 16.3 g/dL 13.1 - 16.8 05/17 Specimen Type: BLOOD No comment entered. Ordering Provider: WALTER MCCORD MMAD Report Released Date/Time: May 17, 2024 03:17 PM Reporting Lab: [address] [address] Performing Lab: [address] [phone] CBC HEMATOCRIT [VOLUME FRACTION] OF BLOOD 51.0 38.2 - 48.4 05/17 H Specimen Type: BLOOD No comment entered. Ordering Provider: WALTER MCCORD MMAD Report Released Date/Time: May 17, 2024 03:17 PM Reporting Lab: [address] [address] Performing Lab: [address] [phone] [place] [address] CBC MCV [ENTITIC VOLUME] BY AUTOMATED COUNT 90.9 fL 80.0 - 100.0 05/17 Specimen Type: BLOOD No comment entered. Ordering Provider: WALTER MCCORD MMAD Report Released Date/Time: May 17, 2024 03:17 PM Reporting Lab: [address] [address] Performing Lab: [address] [address] [facility] CBC MCH [ENTITIC MASS] BY AUTOMATED COUNT 29.1 pg 27.0 - 34.0 05/17 Specimen Type: BLOOD No comment entered. Ordering Provider: WALTER MCCORD MMAD Report Released Date/Time: May 17, 2024 03:17 PM Reporting Lab: [address] [address] Performing Lab: [address] [address] [facility] CBC MCHC [MASS/VOLU ME] BY AUTOMATED COUNT 32.0 g/dL 33.0 - 36.0 05/17 L Specimen Type: BLOOD No comment entered. Ordering Provider: WALTER MCCORD MMAD Report Released Date/Time: May 17, 2024 03:17 PM Reporting Lab: [address] [address] Performing Lab: [address] [phone] [place] [address] CBC PLATELETS [#/VOLUME] IN BLOOD BY AUTOMATED COUNT 265 10*3/uL 150 - 400 05/17 Specimen Type: BLOOD No comment entered. Ordering Provider: WALTER MCCORD MMAD Report Released Date/Time: May 17, 2024 03:17 PM Reporting Lab: [address] [address] Performing Lab: [address] [phone] [place] [address] CBC PLATELET MEAN VOLUME [ENTITIC VOLUME] IN BLOOD BY AUTOMATED COUNT 9.3 fL 7.5 - 11.2 05/17 Specimen Type: BLOOD No comment entered. Ordering Provider: WALTER MCCORD MMAD Report Released Date/Time: May 17, 2024 03:17 PM Reporting Lab: [address] [address] Performing Lab: [address] [address] [facility] CBC ERYTHROCYT E DISTRIBUTI ON WIDTH [RATIO] BY AUTOMATED COUNT 15.0 11.8 - 15.1 05/17 Specimen Type: BLOOD No comment entered. Ordering Provider: WALTER MCCORD MMAD Report Released Date/Time: May 17, 2024 03:17 PM Reporting Lab: [facility] [address] [facility] [address] Performing Lab: [facility] [address] [place] [phone] [facility] CBC LYMPHOCYTE S/100 LEUKOCYTES IN BLOOD BY AUTOMATED COUNT 23 05/17 Specimen Type: BLOOD No comment entered. Ordering Provider: WALTER MCCORD MMAD Report Released Date/Time: May 17, 2024 03:17 PM Reporting Lab: [facility] [address] [place] [phone] Performing Lab: [facility] [address] [place] [phone] [facility] CBC MONOCYTES/ 100 LEUKOCYTES IN BLOOD BY AUTOMATED COUNT 8 05/17 Specimen Type: BLOOD No comment entered. Ordering Provider: WALTER MCCORD MMAD Report Released Date/Time: May 17, 2024 03:17 PM Reporting Lab: [facility] [address] [place] [phone] Performing Lab: [facility] [address] [place] [phone] [facility] CBC NEUTROPHIL S/100 LEUKOCYTES IN BLOOD BY AUTOMATED COUNT 63 05/17 Specimen Type: BLOOD No comment entered. Ordering Provider: WALTER MCCORD MMAD Report Released Date/Time: May 17, 2024 03:17 PM Reporting Lab: [facility] [address] [place] [phone] Performing Lab: [facility] [address] [place] [phone] [facility] CBC EOSINOPHIL S/100 LEUKOCYTES IN BLOOD BY AUTOMATED COUNT 5 05/17 Specimen Type: BLOOD No comment entered. Ordering Provider: WALTER MCCORD MMAD Report Released Date/Time: May 17, 2024 03:17 PM Reporting Lab: [facility] [address] [place] [phone] Performing Lab: [facility] [address] [place] [phone] [facility] CBC BASOPHILS/ 100 LEUKOCYTES IN BLOOD BY AUTOMATED COUNT 1 05/17 Specimen Type: BLOOD No comment entered. Ordering Provider: WALTER MCCORD MMAD Report Released Date/Time: May 17, 2024 03:17 PM Reporting Lab: [facility] [address] [place] [phone] Performing Lab: [place] [id number] CBC LYMPHOCYTE S [#/VOLUME] IN BLOOD BY AUTOMATED COUNT 1.62 10*3/uL 0.77 - 4.50 05/17 Specimen Type: BLOOD No comment entered. Ordering Provider: WALTER MCCORD MMAD Report Released Date/Time: May 17, 2024 03:17 PM Reporting Lab: [facility] [address] [place] [phone] Performing Lab: [facility] [address] [place] [phone] [facility] CBC MONOCYTES [#/VOLUME] IN BLOOD BY AUTOMATED COUNT 0.55 10*3/uL 0.19 - 0.80 05/17 Specimen Type: BLOOD No comment entered. Ordering Provider: WALTER MCCORD MMAD Report Released Date/Time: May 17, 2024 03:17 PM Reporting Lab: [facility] [address] [place] [phone] Performing Lab: [facility] [address] [place] [phone] [facility] CBC NEUTROPHIL S [#/VOLUME] IN BLOOD BY AUTOMATED COUNT 4.47 10*3/uL 2.10 - 8.00 05/17 Specimen Type: BLOOD No comment entered. Ordering Provider: WALTER MCCORD MMAD Report Released Date/Time: May 17, 2024 03:17 PM Reporting Lab: [facility] [address] [place], [place] [id number] Performing Lab: [facility] [address] [place] [address] CBC EOSINOPHIL S [#/VOLUME] IN BLOOD BY AUTOMATED COUNT 0.32 10*3/uL 0.00 - 0.60 05/17 Specimen Type: BLOOD No comment entered. Ordering Provider: WALTER MCCORD MMAD Report Released Date/Time: May 17, 2024 03:17 PM Reporting Lab: [place] [address] Performing Lab: [address] CBC BASOPHILS [#/VOLUME] IN BLOOD BY AUTOMATED COUNT 0.06 10*3/uL 0.00 - 0.20 05/17 Specimen Type: BLOOD No comment entered. Ordering Provider: WALTER MCCORD MMAD Report Released Date/Time: May 17, 2024 03:17 PM Reporting Lab: [place] [address] Performing Lab: [place] [id number] [place] [address] OCCULT BLOOD FIT X1 SCREEN (MFP ONLY) HEMOGLOBIN .GASTROINT ESTINAL.LO WER [PRESENCE] IN STOOL BY IMMUNOASSA Y Negative 04/23 Specimen Type: FECES No comment entered. Ordering Provider: WALTER MCCORD MMAD Report Released Date/Time: Mar 17, 2024 09:54 AM Reporting Lab: [place] [address] Performing Lab: [place] [id number] [place] [address] MICRAL/CR EAT PROFILE (STL) ALBUMIN [MASS/VOLU ME] IN URINE 75.0 mg/L 08/13 Specimen Type: URINE No comment entered. Ordering Provider: NIMA OSORIO Report Released Date/Time: July 29, 2022 02:59 PM Reporting Lab: [facility] [address] [place] [address] Performing Lab: [facility] [address] [place] [address] [facility] MICRAL/CR EAT PROFILE (STL) ALBUMIN/CR EATININE [MASS RATIO] IN URINE 71 ug/mL <20 - 20 08/13 H Specimen Type: URINE No comment entered. Ordering Provider: NIMA OSORIO Report Released Date/Time: July 29, 2022 02:59 PM Reporting Lab: [place] [address] [facility] [address] Performing Lab: [address] [phone] [place] [address] MICRAL/CR EAT PROFILE (STL) CREATININE [MASS/VOLU ME] IN URINE 105.9 mg/dL 63 - 166 08/13 Specimen Type: URINE No comment entered. Ordering Provider: NIMA OSORIO Report Released Date/Time: July 29, 2022 02:59 PM Reporting Lab: [place] [address] [facility] [address] Performing Lab: [place] [address] [facility] [address] [facility] PROTEIN URINE PROTEIN [MASS/VOLU ME] IN URINE 18.2 mg/dL 08/13 Specimen Type: URINE No comment entered. Ordering Provider: NIMA OSORIO Report Released Date/Time: July 29, 2022 02:59 PM Reporting Lab: [address] [address] Performing Lab: [address] [address] [facility] Vital Signs Combined list of inpatient and outpatient Vital Signs from Department of Defense and Veterans Affairs, ranging from 12 months to all on record, depending upon the facility. Vital Sign Value Date Comments Source SYSTOLIC BLOOD PRESSURE 127 05/17/19 25 14:37:02 [facility] DIASTOLIC BLOOD PRESSURE 85 025 14:37:02 [facility] PULSE OXIMETRY 96 05/17/2024 14:37:02 [facility] WEIGHT 168 05/17/2024 14:37:02 [facility] BMI 23 kg/m2 05/17/2024 14:37:02 [facility] PAIN 4 05/17/2024 14:37:02 [facility] TEMPERATURE 97.3 05/17/2024 14:37:02 [facility] PULSE 76 05/17/2024 14:37:02 [facility] RESPIRATION 18 05/17/2024 14:37:02 [facility] Encounters Combined list of: 1) Encounters from Department of Veterans Affairs facilities going backup to the last 18 months, not all [place] inpatient encounters are included; 2) Encounters from the Department of [facility] facilities going backup to 280 months. Location Location Details Encounter Type Encounter Number Reason For Visit Attending Provider ADM Date DC Date Status Disposition Source [facility] Outpatient Encounter [id number] [facility] Outpatient Encounter [id number] BENEDICTO BARRIOS VERDEANNE A 02/02 [facility] En[facility] [id number] WALTER MCCORD MMAD T 02/25 [facility] Outpatient Encounter [id number] 03/09 [facility] OFF/OP CONSLTJ NEW/[place] 55 [id number] Diagnos is: ICD-10- CM R26.89 Other abnorma lities of gait and mobilit y SARATH SNOW 04/16 [facility] Outpatient Encounter [id number] 04/24 [facility] Outpatient Encounter [id number] 05/13 [facility] Outpatient Encounter [id number] SURIWALTER Leone MMAD T 11/26 [facility] Outpatient Encounter [id number] SURIWALTER DUPREE MMAD T 11/28 [facility] Outpatient Encounter [id number] 01/03 [facility] Outpatient Encounter [id number] SURIKAYLA DUPREEA MMAD T 01/13 [facility] Outpatient Encounter [id number] DANIEL GUARDADO 01/13 [facility] OFFICE O/P EST MOD 30 MIN [id number] Diagnos is: ICD-10- CM M16.9 Osteoar thritis of hip, unspeci fied MARIS FLORES L 05/17 [facility] Outpatient Encounter [id number] SURIKAYLAA MMAD T 05/18 [facility] Outpatient Encounter [id number] SURIMOHA MMAD T 05/23 [facility] OFF[facility] O/P EST LOW 20 MIN [id number] Diagnos is: ICD-10- CM M25.551 Pain in right hip WALTER MCCORDD T 05/23 [facility] Social History Combined list of available smoking, tobacco, and other social history from Department of Defense and Veterans Affairs facilities. Social History Type Response Date Comment Sourc e Tobacco smoking status NHIS MI-TOBACCO NEVER USED CIGARETTES 05/17/2024 [facility] History of tobacco use MI-TOBACCO NEVER USED OTHER TYPE 05/17/2024 [facility] History of tobacco use MI-TOBACCO NEVER USED 08/05/2021 [facility] History of tobacco use MI-TOBACCO FORMER USER 01/11/2021 [facility] History of tobacco use MI-TOBACCO FORMER USER 12/20/2019 [facility] of [facility]2018 [facility] History of tobacco use LIFETIME NON-USER OF TOBACCO INPT 05/13/2018 [facility] History of tobacco use MI-TOBACCO NEVER USED 12/25/2017 [facility] History of tobacco use QUIT TOBACCO >7 YEARS AGO 03/24/2017 [facility] History of tobacco use LIFETIME NON-TOBACCO USER 02/28/2016 [facility] History of tobacco use QUIT TOBACCO >7 YEARS AGO INPT 11/02/2014 [facility] History of tobacco use QUIT TOBACCO >7 YEARS AGO 06/07/2014 [facility] History of tobacco use QUIT TOBACCO >7 YEARS AGO 12/10/2012 [facility] History of tobacco use LIFETIME NON-USER OF TOBACCO 03/03/2012 [facility] History of tobacco use QUIT TOBACCO >7 YEARS AGO 10/21/2010 [facility] History of tobacco use CURRENT TOBACCO USER 12/06/2009 [facility] History of tobacco use CURRENT TOBACCO USER 08/23/[address] [facility] Plan of Care List of future care activities from Department of Veterans Affairs facilities. Additional future care activities may be listed in the Assessment and Plan section. Date/Time Care Activity Care Activity Detail Facili ty 05/31/2024 AMBULATORY - SURGERY AMBULATORY - SURGERY [facility] 06/06/2024 AMBULATORY - MEDICINE AMBULATORY - MEDICI [facility] 11/15/2024 AMBULATORY - MEDICINE AMBULATORY - MEDICI NE [facility] 05/12/2024 Laboratory - Steel Barrel Reamer ry Order VITAMIN D, 25-HYDROXY GOLD/RED SST SERUM SP [facility] 05/12/2024 Laboratory - Steel Barrel Reamer ry Order TSH W/ REFLEX FT4 (STL) GREEN LI-HEP PLASMA SP [facility] 05/12/2024 Laboratory - Steel Barrel Reamer ry Order LIPID PANEL (STL) GREEN LI/HEP BLD/PLAS PLASMA SP ONCE [facility] 05/12/2024 Laboratory - Steel Barrel Reamer ry Order COMPREHENSIVE METABOLIC PANEL GREEN LI/HEP BLD/PLAS PLASMA SP [facility] 05/12/2024 Laboratory - Steel Barrel Reamer ry Order CBC BLOOD SP [facility] 05/12/2024 Laboratory - Steel Barrel Reamer ry Order URINALYSIS (STL-PB) URINE SP [facility] 05/12/2024 Laboratory - Steel Barrel Reamer ry Order HGA1C BLOOD SP [facility] 05/17/2024 Laboratory - Steel Barrel Reamer ry Order URINALYSIS (STL-PB) URINE SP [facility] 05/23/2024 Consult Order ORTHOPEDIC HIP/K NEE EVAL OUTPT STL Cons Energy Economist's Choice [facility] Advance Directives List of completed, amended, or rescinded Advance Directives on record at Department of [facility] Affairs facilities. An actual copy of the Directive is not included. Date Advance Directive Provider Source 05/14/2018 ADVANCE DIRECTIVE DISCUSSION COURTNEY HAZEL [facility] 04/24/2015 ADVANCE DIRECTIVE DISCUSSION MISTY POWELL [facility] 04/21/2012 ADVANCE DIRECTIVE EVERETT RODARTE [facility] 04/21/2012 ADVANCE DIRECTIVE DISCUSSION MERVAT FORTUNE [facility] 07/03/2011 ADVANCE DIRECTIVE DISCUSSION ELIU RICK [facility] 06/28/2010 ADMINISTRATIVE NOTE FLAKITA ZULETA [facility] 10/03/2008 ADVANCE DIRECTIVE CONNOR PAUL [facility]
--- OUTSIDE RECORDS SUMMARY | 2024-05-24 13:31 | XMS_ITS | Encounter Summary ---
Author Name [place] Address [address] [place] [address] Care Team Providers Care Industrial X Ray Operator Name Role Phone LAKEISHA MCCORD Primary [...] Mason's Name Patient's Relationship to Policy Mason [facility] (WNR) MEDICARE ADVANTAGE [facility] (WNR) Mar 30, 2022 [id number] [phone] JAKE LOU HN PATIENT [facility] (WNR) MEDICARE ADVANTAGE [facility] (WNR) Mar 30, 2022 [id number] JAKE LOU PATIENT MEDICARE PART D ([place]) MEDICARE ([place]) PART D Mar 30, 2022 PART D [id number] ADRIEL LOU II PATIENT OFFICE OF REGIONAL COUNS [id number] LENO MCCAIN R Jul 07, 2007 TORT JOSSOR [id number] JAKE LOU 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 Date/Time Encounter Type Encounter Description Reason Provider Source May 23, 2024 09:30 AM OFFICE O/P EST LOW 20 MIN PRIMARY CARE/MEDICINE ICD-10-CM M25.551 Pain in right hip LAKEISHA MCCORD Xu Encounter Template Text not used by [place] Assessments - Encounter Diagnoses This section includes the primary and secondary diagnoses documented for the Encounter. Date/Time Primary/Secondary Diagnosis Diagnosis Name Provider Source May 23, 2024 10:26 AM PRIMARY Pain in right hip LAKEISHA MCCORD [facility] Plan of Treatment: Future Appointments (+ 6 [...] The data comes from all [place] treatment [facility]. Appointment Date/Time Appointment Type Appointme nt Facility Name May 31, 2024 02:00 PM AMBULATORY - SURGERY [facility] Jun 06, 2024 08:30 AM AMBULATORY - MEDICINE [facility] Nov 15, 2024 10:00 AM AMBULATORY - MEDICINE [facility] Active, Pending, and Scheduled Orders This section includes a listing of several types of active, pending, and scheduled orders, including clinic medications orders, diagnostic test orders, procedure orders and consult orders; where the start date of the order is 45 days before the date of the Encounter or 45 days after the date of theEncounter. The data comes from all [place] treatment [facility]. Test Date/Time Test Type Test Details Facility Name May 12, 2024 12:00 AM Laboratory - Chemistry Order TSH W/ REFLEX FT4 (STL) GREEN LI-HEP PLASMA SP [facility] May 12, 2024 12:00 AM Laboratory - Chemistry Order COMPREHENSIVE METABOLIC PANEL GREEN LI/HEP BLD/PLAS PLASMA [facility] May 12, 2024 12:00 AM Laboratory - Chemistry Order VITAMIN D, 25-HYDROXY GOLD/RED SST SERUM [facility] May 12, 2024 12:00 AM Laboratory - Chemistry Order LIPID PANEL (STL) GREEN LI/HEP BLD/PLAS PLASMA SP ONCE [facility] May 12, 2024 12:00 AM Laboratory - Chemistry Order CBC BLOOD [facility] May 12, 2024 12:00 AM Laboratory - Chemistry Order HGA1C BLOOD [facility] May 12, 2024 12:00 AM Laboratory - Chemistry Order URINALYSIS (STL-PB) URINE [facility] May 17, 2024 12:00 AM Laboratory - Chemistry Order URINALYSIS (STL-PB) URINE [facility] May 23, 2024 10:32 AM Consult Order ORTHOPEDIC HIP/KNEE EVAL OUTPT STL Cons Hydraulic Lift Driver's Choice [facility] Lab Results: +/- 30 days of the encounter This section includes the Chemistry and Hematology Lab Results on record with [place] for the patient. Radiology Reports and Pathology Reports are provided separately, in subsequent sections. Lab Results This section contains the Chemistry/Hematology Results that were resulted 30 days before or 30 daysafter the date of the Encounter. Date/Time Source Result Type Result - Unit Interpretation Reference Range Comment May 17, 2024 03:49 PM [facility] ESR ISED(STL) Specimen Type: BLOOD No comment entered. Ordering Provider: JEFERSON MCCORD Report Released Date/Time: May 17, 2024 03:17 PM Reporting Lab: [facility] [address] [facility] [address] Performing Lab: [facility] [address] [facility] [address] ESR ISED(STL) 8 mm/h 0-19 May 17, 2024 03:49 PM [facility] CRP Specimen Type: PLASMA Comment: No hemolysis noted. Ordering Provider: JEFERSON MCCORD Report Released Date/Time: May 17, 2024 03:17 PM Reporting Lab: [facility] [address] [facility] [address] Performing Lab: [facility] [address] [facility] [address] CRP 0.2 mg/dL 0-0.5 May 17, 2024 03:49 PM [facility] TSH W/ REFLEX FT4 (STL) Specimen Type: PLASMA No comment entered. Ordering Provider: JEFERSON MCCORD Report Released Date/Time: May 17, 2024 03:17 PM Reporting Lab: [facility] [address] [facility] [address] Performing Lab: [facility] [address] [place] [address] TSH 1.402 u[IU]/mL 0.47-5 May 17, 2024 03:49 PM [facility] VITAMIN D, 25-HYDROXY Specimen Type: SERUM No comment entered. Ordering Provider: JEFERSON MCCORD Report Released Date/Time: May 17, 2024 03:17 PM Reporting Lab: [facility] [address] [place] [address] Performing Lab: [facility] [address] [facility] [address] VITAMIN D, 25-HYDROXY 100.1 ng/mL H 30-96 May 17, 2024 03:49 PM [facility] LIPID PANEL (STL) Specimen Type: PLASMA Comment: No hemolysis noted. Ordering Provider: JEFERSON MCCORD Report Released Date/Time: May 17, 2024 03:17 PM Reporting Lab: [facility] [address] [place] [address] Performing Lab: [facility] [address] [facility] [address] CHOLESTEROL 144 mg/dL 0-200 TRIGLYCERIDE 146 mg/dL 0-150 CALCULATED LDL 58 mg/dL HDL(New) 57 mg/dL >40 May 17, 2024 03:49 PM [facility] COMPREHENSIVE METABOLIC PANEL Specimen Type: PLASMA Comment: No hemolysis noted. Ordering Provider: JEFERSON MCCORD Report Released Date/Time: May 17, 2024 03:17 PM Reporting Lab: [address] [address] Performing Lab: [address] [address] CREATININE 1.45 mg/dL H 0.7-1.3 UREA NITROGEN [...] 52.8 >60 May 17, 2024 03:49 PM [facility] CBC Specimen Type: BLOOD No comment entered. Ordering Provider: JEFERSON MCCORD Report Released Date/Time: May 17, 2024 03:17 PM Reporting Lab: [address] [address] Performing Lab: [address] [address] WBC 7.1 10*3/uL 3.6-11.2 RBC 5.61 10*6/uL [...] 10*3/uL 0.00-0.60 BASOPHILS, ABSOLUTE 0.06 10*3/uL 0.00-0.20 Social History: Smoking Status (Most current) and Tobacco Use (All prior to encounter date) This section includes the most current, and the historical, smoking and tobacco- related health factors from the [place] facility where the Encounter took place. Current Smoking Status This section includes the most current smoking, or tobacco-related health factor, from the [place] facility where the Encounter took place. Date/Time Current Smoking Status Comment Andreas ity May 17, 2024 03:00 PM VA-TOBACCO NEVER U SED CIGARETTES [facility] Tobacco Use History This section includes a history of the smoking, or tobacco-related health factors, that were collected on or before the date of the Encounter. The data comes from the [place] facility where the Encounter took place. Date/Time Smoking Status/Tobacco Use Comment F acility May 17, 2024 03:00 PM VA-TOBACCO NEVER U SED OTHER TYPE [facility] August 05, 2021 09:00 AM VA-TOBACCO NEVER USED [facility] Advance Directives: All historical and current [...] 14, 2018 ADVANCE DIRECTIVE DISCUSSION COURTNEY HAZEL [facility] Apr 24, 2015 ADVANCE DIRECTIVE DISCUSSION MISTY POWELL [facility] Apr 21, 2012 ADVANCE DIRECTIVE EVERETT RODARTE [facility] Apr 21, 2012 ADVANCE DIRECTIVE DISCUSSION MERVAT FORTUNE [facility] Jul 03, 2011 ADVANCE DIRECTIVE DISCUSSION ELIU RICK [facility] Jun 28, 2010 ADMINISTRATIVE NOTE FLAKITA ZULETA [facility] Oct 03, 2008 ADVANCE DIRECTIVE CONNOR PAUL [facility] Radiology Reports: +/- 30 days of [...] the Encounter. The data comes from all [place] treatment facilities. Date/Time Radiology Report Provider Source May 17, 2024 04:34 PM HIP W/PELVIS 2-3 V IEWS RIGHT: ADRIEL LOU [id number] -[id number] M Exm Date: MAY 17, 2024@16:34 Req Phys: LAKEISHA MCCORD Loc: [facility] PACT B5 PCP (Req'g Loc) Img Loc: -MAIN RADIOLOGY SUITE Service: [address] [address] (Case [id number] COMPLETE) HIP W/PELVIS 2-3 VIEWS RIGHT (RAD Detailed) CPT:69824 Proc Modifiers : RIGHT, AP Pelvis, Frog Reason for Study: c/o right hip pain Clinical History: c/o right hip pain hx of Rt Hips surgery Report Status: Verified Date Reported: MAY 18, 2024 Date Verified: MAY 18, 2024 Alarm Mechanism Adjuster E-Sig:/ES/ZAC JAEGER Report: Case [id number]. HIP W/PELVIS 2-3 VIEWS RIGHT. Comparison: Right [...] replacements. Primary Interpreting Staff: ZAC JAEGER MD (Alarm Mechanism Adjuster) /ZAC JERONIMO [facility] Encounter Notes: All associated encounter notes This section contains the clinical notes associated to the Encounter. Date/Time Encounter Note(s) Provider Source May 23, 2024 10:12 AM TELEHEALTH NOTE: LOCAL TITLE: PRIMARY CARE VIDEO CONNECT STL STANDARD TITLE: TELEHEALTH NOTE DATE OF NOTE: MAY 23, 2024@10:12 ENTRY DATE: MAY 23, 2024@10:12:58 AUTHOR: LAKEISHA MCCORD EXP COSIGNER: URGENCY: STATUS: COMPLETED Medicine Provider Note Modality of Care: Clinical [...] History: Problem List 1) Depression (SNOMED CT 20847099) 2) Osteoarthritis of right hip joint (SNOMED CT 577660372017802) 3) Inguinal hernia, without mention of obstruction or gangrene (ICD-9-CM 550.90) 4) Blood In Stool 5) Recurrent unilateral or unspecified inguinal hernia, without mention of obstruct 6) Obsessive-Compulsive Disorder 7) Proteinuria * (ICD-9-CM 791.0) 8) Hypertensive chronic kidney disease, unspecified, with chronic kidney disease St 9) Anemia due to chronic kidney disease stage 1 (SNOMED CT 193178153671541) 10) Chronic kidney disease (SNOMED CT 547243781) 11) Anxiety * (ICD-9-CM 300.00/300.09) 12) Benign essential hypertension 13) Gout 14) Erectile dysfunction 15) Migraine 16) Exposure to potentially hazardous substance ([facility] 341570350387834) Comment: Allergies/Adverse Drug Reactions: MORPHINE Active and [...] pain he acknowledged understanding and agreed Follow-Up: /sung/ Lakeisha Mccord MD Staff Physician Signed: 05/23/2024 10:26 LAKEISHA MCCORD [facility] May 23, 2024 09:37 AM TELEHEALTH NOTE: LOCAL TITLE: PCS PACT [place] VIDEO CONNECT ST STANDARD TITLE: TELEHEALTH NOTE DATE OF NOTE: MAY 23, 2024@09:37 ENTRY DATE: MAY 23, 2024@09:38:01 AUTHOR: AGUSTIN FLORES EXP COSIGNER: URGENCY: STATUS: COMPLETED Patient Identifiers : Full Name Date of Visit conducted by Clinical Video Telehealth. V15 [facility] Video Connect/Video to Home VA Video Connect (VVC)/Video to home template v1.5 Visit conducted by synchronous telehealth. [facility] Location/emergency number confirmed. Environment surveyed and all [...] appropriate to conduct a VVC appointment. *Confirmed 's Non-VA location for this appointment: [facility] [address] [place] [address] [place], [place] [address] Address and phone number verified with . Address: Phone: does not have an emergency contact. * was notified of right to decline Telehealth services and eligibility for other options. [facility] consented to be seen via VVC. EMERGENCY PLAN In the event of an emergency, the [facility] or family will call emergency services, if capable. The Teleprovider will remain in the virtual medical room until emergency response arrives and handoff to emergency services is complete. If [facility] is unable to make emergency call, the Teleprovider is to call the national E911 service at [phone] and ask to be connected to emergency services for the 's location. 's Crisis Line: Dial 988 then press 1, or text [phone] Office of Connected Care Helpdesk ([facility]): [phone] or [phone] Verified Provider's location and contact information for this appointment: [address] [address] x Provider Visit: Reason for [...] INVENTORY - MAP: 05/17/2024 Personal Health Plan Tsaile, Aspiration, Purpose (MAP) SKYDIVING 08/05/2021 Personal Health Plan Tsaile, Aspiration, Purpose (MAP) SKYDIVING MAKES ME HAPPY. What matters most to you in your life right now? -- [facility] Response: BEING ABLE TO GET THROUGH THIS ELVIS DIVING SEASON WITHOUT SURGERY Would you like to discuss any personal problem, family problem, alcohol use, drug use, or a mental or emotional illness? No /es/ AGUSTIN FLORES LPN LICENSED PRACTICAL NURSE Signed: 05/23/2024 09:41 AGUSTIN FLORES [facility]
--- OUTSIDE RECORDS SUMMARY | 2024-05-24 13:31 | XMS_ITS | Patient Health Record ---
Author Organization [facility] As [employer] [facility] Address [address] [place] [address] Care Team Providers Care Community Relations Rep Name Role Phone Sandra Bains APRN Primary Care Provider Rona Ann Unavailable [phone] Ngozi Moncada Unavailable [phone] Migration, Provider Unavailable Unavailable Allergies Allergen (clinical drug ingredient) Drug/Non Drug Allergy documented on EMR Reaction Allergy Type Onset Date Status morphine Morphine Unknown Drug Allergy 06/12/2023 Active Results Component Value Reference Range Notes DRUG SCREEN, 14 DRUGS (DETEC TIMED), URINE Reviewed date:06/12/2023 12:00:00 AM Interpretation: Performing Lab: Notes/Report: Amphetamine negative Barbiturates negative Benzodiazipine positive Buprenorphine negative Cocaine negative MDMA/Ectasy negative Methadone negative Methamphetamine negative Morphine negative note +BZO Oxycodone negative Phenocyclidine negative THC negative Reason For Referral No Information Medications Medication SIG (Take, Route, Frequency, Duration) Notes Start Date End Date Status Cyclobenzaprine HCl 5 MG Oral 06/12/2023 Unknown Pantoprazole Sodium 40 MG Oral 06/12/2023 Unknown busPIRone HCl 7.5 MG 1 tablet Oral Twice a day for 90 days Active Sulfamethoxazole-Trimethopri m 800-160 MG Oral 06/12/2023 Unknown Tamsulosin HCl 0.4 MG Oral 06/12/2023 Unknown Lisinopril 10 MG Oral 06/12/2023 Un known FLUoxetine HCl 20 MG TAKE 6 CAPSULES BY MOUTH EVERY DAY for 90 Active Topiramate 25 MG Oral 06/12/2023 Un known clonazePAM 1 MG TAKE 1 TABLET BY ROSIE TH ONCE A DAY for 30 05/16/2024 Active Colchicine 0.6 MG Oral 06/12/2023 U nknown Gabapentin 300 MG Oral 06/12/2023 U nknown Allopurinol 100 MG Oral 06/12/2023 Unknown Social History Tobacco Use: Social History Observation Description Date Details (start date - stop date) Never Smoker NA - NA Sex Assigned At : Social History Observation Description Sex Assigned At Male Household Question Answer Notes Marital status: Number of children in household: 2 adult children Tobacco Control (Standard) Question Answer Notes Tobacco use: Nonsmoker Problems Problem Type SNOMED Code ICD Code Onset Dates Problem Status W/U Status Risk Notes Problem Severe recurrent major depression without psychotic features (23343761) Major depressive disorder, recurrent 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) Active confirmed Problem Generalized anxiety disorder (93324378) Generalized anxiety disorder (F41.1) Active confirmed Problem Obsessive-compul sive disorder (758664740) Obsessive-compu lsive disorder, unspecified (F42.9) Active confirmed Vital Signs Heart Rate 78 /min 06/12/2023 Height-cm 182.88 cm 06/12/2023 Blood pressure diastolic 69 mm Hg 06/12/2023 Weight-kg 74.84 kg 06/12/2023 Height 72.00 in 06/12/2023 Blood pressure systolic 104 mm Hg 06/12/2023 Weight 165.00 lbs 06/12/2023 BMI 22.4 kg/m2 06/12/2023 Encounters Encounter Location Date Provider Diagnosis [facility] [address] [facility] [address] [address] 06/12/2023 Rona Bishop Obsessive-compulsive disorder, unspecified F42.9 ; Major depressive disorder, recurrent severe without psychotic features F33.2 and Generalized anxiety disorder F41.1 [facility] [address] [address] 07/17/2023 Provider Migration Generalized anxiety disorder F41.1 [employer] [facility] [address] [email or web address] [address] [place] [address] 11/19/2023 Rona Bishop Generalized anxiety disorder F41.1 ; Obsessive-compulsive disorder, unspecified F42.9 and Major depressive disorder, recurrent severe without psychotic features F33.2 [employer] [facility] [address] [address] 02/18/2024 Rona Bishop Generalized anxiety disorder F41.1 ; Obsessive-compulsive disorder, unspecified F42.9 and Major depressive disorder, recurrent severe without psychotic features F33.2 [facility] [address] [facility] [address] [address] 06/10/2023 Provider Migration [place] [id number] [facility] [address] [address] 07/17/2023 Provider Migration [address] [address] 08/15/2023 Provider [facility] [address] [place] [address] [address] 08/16/2023 Provider [place] [id number] [facility] [address] [address] 01/20/2024 Rona Bishop [address] [address] 02/04/2024 Rona Bishop [place] [address] [address] 02/18/2024 Rona Bishop Assessments Encounter Date Diagnosis (ICD Code) Assessment Notes Treatment Notes Treatment Clinical Notes Section Notes 11/19/2023 Generalized anxiety disorder (ICD-10 - F41.1) 11/19/2023 Obsessive-compu lsive disorder, unspecified (ICD-10 - F42.9) 06/12/2023 Major depressive disorder, recurrent severe without psychotic features (ICD-10 - F33.2) 06/12/2023 Generalized anxiety disorder (ICD-10 - F41.1) 06/12/2023 Obsessive-compu lsive disorder, unspecified (ICD-10 - F42.9) 07/17/2023 Generalized anxiety disorder (ICD-10 - F41.1) 02/18/2024 Generalized anxiety disorder (ICD-10 - F41.1) 1. SEMAJ stable -cont BuSpar 7.5mg BID -cont clonazepam PRN -encourage non-pharmaceu tical treatments including deep breathing, grounding exercises, physical activity, healthy diet. 2. OCD chronically stable on fluoxetine for several years -cont fluoxetine 120mg daily --no s/s of serotonin syndrome; has been stable at this dose for several years per previous provider 3. MDD -off of Wellbutrin for past month; overall stable -cont fluoxetine -has been exercising, increasing social activity, isolating less often. 02/18/2024 Obsessive-compu lsive disorder, unspecified (ICD-10 - F42.9) SSRI/SNRI side effects discussed including but not limited to, gastric upset, nausea, vomiting, diarrhea and/or constipation, weight changes, sexual side effects including loss of libido, increased suicidal thoughts/behaviors in children and young adults, and serotonin syndrome. Serotonin syndrome is a potentially life threatening drug reaction that causes the body to have too much serotonin, a chemical produced by nerve cells. -Causes: Serotonin syndrome most often occurs when two or more drugs that affect the body's level of serotonin are taken together at the same time. The drugs cause too much serotonin to be released or to remain in the brain area. For example, you can develop this syndrome if you take migraine medicines called triptans together with antidepressants called selective serotonin reuptake inhibitors (SSRIs) and selective serotonin/norepine phrine reuptake inhibitors (SSNRIs). Talk to your doctor before stopping any medication. -Serotonin syndrome is more likely to occur when you first start or increase the medicine. -Drugs of abuse, such as ecstasy and LSD have also been associated with serotonin syndrome. -Symptoms: agitation or restlessness, diarrhea, fast heart rate and high blood pressure, hallucinations, loss of coordination, nausea, overactive reflexes, vomiting, sweating, tremor/shivering, fever. If you experience these symptoms, seek emergency care right away. 1. SEMAJ stable -cont BuSpar 7.5mg BID -cont clonazepam PRN -encourage non-pharmaceu tical treatments including deep breathing, grounding exercises, physical activity, healthy diet. 2. OCD chronically stable on fluoxetine for several years -cont fluoxetine 120mg daily --no s/s of serotonin syndrome; has been stable at this dose for several years per previous provider 3. MDD -off of Wellbutrin for past month; overall stable -cont fluoxetine -has been exercising, increasing social activity, isolating less often. 11/19/2023 Major depressive disorder, recurrent severe without psychotic features (ICD-10 - F33.2) 02/18/2024 Major depressive disorder, recurrent severe without psychotic features (ICD-10 - F33.2) 1. SEMAJ stable -cont BuSpar 7.5mg BID -cont clonazepam PRN -encourage non-pharmaceu tical treatments including deep breathing, grounding exercises, physical activity, healthy diet. 2. OCD chronically stable on fluoxetine for several years -cont fluoxetine 120mg daily --no s/s of serotonin syndrome; has been stable at this dose for several years per previous provider 3. MDD -off of Wellbutrin for past month; overall stable -cont fluoxetine -has been exercising, increasing social activity, isolating less often. 11/19/2023 Other Increase Wellbutrin to 300mg daily for mood. Patient educated on all medications including potential benefits, side effects, risks. Educated on proper dosing schedule and importance of compliance. [place] PDMP report checked and consistent with prescription history, no controlled substance prescriptions from other providers. 02/18/2024 Other Discontinue Wellbutrin due to side effects. Patient educated on all medications including potential benefits, side effects, risks. Educated on proper dosing schedule and importance of compliance. 1. SEMAJ stable -cont BuSpar 7.5mg BID -cont clonazepam PRN -encourage non-pharmaceu tical treatments including deep breathing, grounding exercises, physical activity, healthy diet. 2. OCD chronically stable on fluoxetine for several years -cont fluoxetine 120mg daily --no s/s of serotonin syndrome; has been stable at this dose for several years per previous provider 3. MDD -off of Wellbutrin for past month; overall stable -cont fluoxetine -has been exercising, increasing social activity, isolating less often. Plan Of Treatment No Information Insurance Providers Payer Name Payer Address Payer Phone Subscriber Number Group Number Insured Name Patient Relationship to Insured Coverage Start Date Coverage End Date [facility] Medicare Replacement/ [employer]vantage - Ppo [address] [address] [place] [address] [id number] ADRIEL LOU Self - patient is the insured Medical (General) History Medical History History ICD Code Problems: Generalized anxiety disorder Obsessive-compulsive disorder Severe recurrent major depression withou t psychotic features HTN Chronic back pain Surgical History Surgery Date(Month/Year) Any surgical history 05/29/2019
--- OUTSIDE RECORDS SUMMARY | 2024-05-24 13:32 | XMS_ITS ---
Author Organization [facility] Address [address] [place] [address] Care Team Providers Care Spa Director/Finance Name Role Phone Sandra Bains APRN Primary Care Provider Unaarlene snyder Edna Rona Unavailable [phone] Allergies Allergen (clinical drug ingredient) Drug/Non Drug Allergy documented on EMR Reaction Allergy Type Onset Date Status morphine Morphine Unknown Drug Allergy 06/12/2023 Active REASON FOR VISIT follow up Medications Medication SIG (Take, Route, Frequency, Duration) Notes Start Date End Date Status clonazePAM 1 MG 1 tablet Oral Once a day for 30 days As needed 02/18/2024 Active busPIRone HCl 7.5 MG 1 tablet Oral Twice a day for 90 days Active FLUoxetine HCl 20 MG TAKE 6 CAPSULES BY MOUTH EVERY DAY Orally for 90 days Active Colchicine 0.6 MG Oral 06/12/2023 U nknown Sulfamethoxazole-Trimethopri m 800-160 MG Oral 06/12/2023 Unknown Tamsulosin HCl 0.4 MG Oral 06/12/2023 Unknown Lisinopril 10 MG Oral 06/12/2023 Un known Gabapentin 300 MG Oral 06/12/2023 U nknown Allopurinol 100 MG Oral 06/12/2023 Unknown Cyclobenzaprine HCl 5 MG Oral 06/12/2023 Unknown Pantoprazole Sodium 40 MG Oral 06/12/2023 Unknown Topiramate 25 MG Oral 06/12/2023 Un known Social History Tobacco Use: Social History Observation Description Date Details (start date - stop date) Never Smoker NA - NA Sex Assigned At : Social History Observation Description Sex Assigned At Male Household Question Answer Notes Marital status: Number of children in household: 2 adult children Tobacco Control (Standard) Question Answer Notes Tobacco use: Nonsmoker Encounters Encounter Location Date Provider Diagnosis [email or web address] [address] [facility] [address] [place] [address] 02/18/2024 Rona Bishop Generalized anxiety disorder F41.1 ; Obsessive-compulsive disorder, unspecified F42.9 and Major depressive disorder, recurrent severe without psychotic features F33.2 Assessments Encounter Date Diagnosis (ICD Code) Assessment Notes Treatment Notes Treatment Clinical Notes Section Notes 02/18/2024 Generalized anxiety disorder (ICD-10 - F41.1) [...] increasing social activity, isolating less often. 02/18/2024 Major depressive disorder, recurrent severe without [...] increasing social activity, isolating less often. 02/18/2024 Other Discontinue Wellbutrin due to side [...] activity, isolating less often. Plan Of Treatment Medication Medication Name Sig Start Date Stop Date Notes buPROPion HCl ER (XL) 300 MG 1 tablet in the morning Oral Once a day for 90 days clonazePAM 1 MG 1 tablet Oral Once a day for 30 days 02/18/2024 busPIRone HCl 7.5 MG 1 tablet Oral Twice a day for 90 days FLUoxetine HCl 20 MG TAKE 6 CAPSULES BY MOUTH EVERY DAY Orally for 90 days Treatment Notes Assessment Notes Obsessive-compulsive disorde r, unspecified SSRI/SNRI side effects discussed including but not [...] selective serotonin reuptake inhibitors (SSRIs) and selective serotonin/norepinephrine reuptake inhibitors (SSNRIs). Talk to your doctor [...] these symptoms, seek emergency care right away. Other Discontinue Wellbutrin due to side effects. Patient educated on all medications including potential benefits, side effects, risks. Educated on proper dosing schedule and importance of compliance. Next Appt Details Follow Up: 3 Months, Reason: medication follow up Progress Notes * CARMINEADRIELDOB:1955 (68 yo M)Acc No.[id number]:02/18/2024 Patient: Jarrell RICCIISADRIEL J Provider: QUENTIN CALABRESE :1955 A ge:68 Y S ex:Male Date:02/18/2024 Address:[address] [place], [place] [address], [place] , [id number] Pcp:Sandra Bains APRN Subjective: * Chief Complaints: * F ollow up * HPI: D epression Screening: SEMAJ-7 (2018 Edition) F eeling nervous, anxious, or on edge?Several days, N ot being able to stop or control worrying S everal days, W orrying too much about different things S everal days, T rouble relaxing S everal days, B eing so restless that it is hard to sit still N ot at all, B ecoming easily annoyed or irritable S everal days, F eeling afraid as if something awful might happen N ot at all. C [place]-Suicide Severity Rating Scale: Suicide Risk (CSRS-screener) i n the past one month Have you wished you were or wished you could go to sleep and not wake up? N o, i n the past one month Have you actually had any thoughts of killing yourself? N o, H ave you ever done anything, started to do anything, or prepared to do anything to end your life? N o. D epression screening: PHQ-9 L ittle interest or pleasure in doing things S everal days, F eeling down, depressed, or hopeless S everal days, T rouble falling or staying asleep, or sleeping too much S everal days, F eeling tired or having little energy S everal days, P oor appetite or overeating N ot at all, F eeling bad about yourself or that you are a failure, or have let yourself or your family down N ot at all, T rouble concentrating on things, such as reading the newspaper or watching television N ot at all, M oving or speaking so slowly that other people could have noticed; or the opposite, being so fidgety or restless that you have been moving around a lot more than usual N ot at all, T houghts that you would be better off or of hurting yourself in some way N ot at all, T otal Score 4 , I nterpretation M inimal Depression. I ntervention D epression Screening Findings P ositsuman, F ollow-Up for Depression M ental health treatment assessment, Patient follow-up to return when and if necessary, S uicide Risk Assessment Performed 1 04/19/2023 csrs negative , A dditional Evaluation for Depression P sychiatric interview and evaluation, N emelia of the standardized tool used for adult depression screening: P atient Health Questionnaire (PHQ-9). H istory of Presenting Problem: Anxiety w ith excessive worry, with restlessness. D epression R ates depression 4/10 with 10 being most severe. . M ood lability n o hx avery. O bsessive thoughts O CD symptoms stable. P sychosis n o hx psychosis. S uicidal ideation d enies. P sychotherapy S aw Ngo[facility] once. Here for follow up. Wellbutrin increased last apt. Reports he stopped the Wellbutrin all together. He accidently took double dose, had a fall, so he stopped these. He went back to [place] for an appeal case, he is next appealing to the state court. Depression is overall stable, trying to get out and exercise more. Considering trying to find a partner, but worries about rejection. He is back into skydiving. States all in all, I am feeling good . Sleep is fair, getting about 6-7 hours nightly. Energy is good. Appetite is good. P ast Psychiatric Hospitalizations: Previous psychiatric hospitalizations P revious Psychiatric Hospitalization N o. P ast History of Suicidal attempt H ave you ever attempted suicide in the past N o. * ROS: P sychiatric: Patient denies s uicidal thoughts, avery, psychosis, auditory / visual hallucinations, depressed mood. P atient complains of a nxiety, depressed mood.?Comments S [facility] for details. * Medical History: * Surgical History: A ny surgical history 05/29/2019 * Hospitalization/Major Diagno stic Procedure: * Family History: M other: OCD. * Social History: T obacco Use: T obacco Control (Standard) T obacco use: N onsmoker. M igrated Social History: M igrated Social History: Alcohol Intake: None 12/12/2022,Tobacco Years: Never smoker 12/12/2022. H ousehold: H ousehold M arital status: d ivorced, N umber of children in household: 2 adult children. M iscellaneous: O ccupation: retired. completed degree in psychology. Advance Care Planning A re you your own decision-maker Y es, D o you have Power of Dry Plasterer for Health or Medical? N o. * Medications: T akingFLUoxetine HCl 20 MG Capsule TAKE 6 CAPSULES BY MOUTH EVERY DAY Orally busPIRone HCl 7.5 MG Tablet 1 tablet Oral Twice a day , stop date 5clonazePAM 1 MG Tablet 1 tablet Oral Once a day As needed, Notes to Pharmacist: please cancel 0.5mg scriptsTaking FLUoxetine HCl 20 MG Capsule TAKE 6 CAPSULES BY MOUTH EVERY DAY Orally Taking busPIRone HCl 7.5 MG Tablet 1 tablet Oral Twice a day , stop date 05/16/2024Taking clonazePAM 1 MG Tablet 1 tablet Oral Once a day As needed, Notes to Pharmacist: please cancel 0.5mg scriptsNot-TakingbuPROPion HCl ER (XL) 300 MG Tablet Extended Release 24 Hour 1 tablet in the morning Oral Once a day Not-Taking buPROPion HCl ER (XL) 300 MG Tablet Extended Release 24 Hour 1 tablet in the morning Oral Once a day UnknownPantoprazole Sodium 40 MG Tablet Delayed Release Oral Cyclobenzaprine HCl 5 MG Tablet Oral Topiramate 25 MG Tablet Oral Lisinopril 10 MG Tablet Oral Tamsulosin HCl 0.4 MG Capsule Oral Sulfamethoxazole-Trimethoprim 800-160 MG Tablet Oral Allopurinol 100 MG Tablet Oral Gabapentin 300 MG Capsule Oral Colchicine 0.6 MG Tablet Oral Medication List reviewed and reconciled with the patientUnknown Pantoprazole Sodium 40 MG Tablet Delayed Release Oral Unknown Cyclobenzaprine HCl 5 MG Tablet Oral Unknown Topiramate 25 MG Tablet Oral Unknown Lisinopril 10 MG Tablet Oral Unknown Tamsulosin HCl 0.4 MG Capsule Oral Unknown Sulfamethoxazole- Trimethoprim 800-160 MG Tablet Oral Unknown Allopurinol 100 MG Tablet Oral Unknown Gabapentin 300 MG Capsule Oral Unknown Colchicine 0.6 MG Tablet Oral Medication List reviewed and reconciled with the patient * Allergies: M orphine: Allergy - Onset Date 06/12/2023no[Allergies Verified] Objective: * Vitals: * Examination: P sychiatry: Appearance: w ell-groomed. Abnormal body movements: n one. Affect / mood: a ppropriate. Attention: g ood. Attitude: c ooperative. Homicidal ideation: n one. Suicidal ideation: n one. Degree of awareness of surroundings: w ithin normal limits.? Delusions: n o. Hallucinations: n o. Insight: g ood. Judgement: g ood. Orientation: a wake, alert and oriented x 3. Perceptual disorders: n o perceptual disorder noted. Psychomotor activity: w ithin normal range. Speech / language: n ormal rate, volume, and articulation (RVR), clear and coherent. Thought content: a ppropriate. Thought process: i ntact. Assessment: * Assessment: 1. G eneralized anxiety disorder - F41.1 (Primary) 2 . O bsessive-compulsive disorder, unspecified - F42.9 3 . M ajor depressive disorder, recurrent severe without psychotic features - F33.2 1. SEMAJ stable -cont BuSpar 7.5mg BID -cont clonazepam PRN -encourage non-pharmaceutical treatments including deep breathing, grounding exercises, physical activity, healthy diet. 2. OCD chronically stable on fluoxetine for several years -cont fluoxetine 120mg daily --no s/s of serotonin syndrome; has been stable at this dose for several years per previous provider 3. MDD -off of Wellbutrin for past month; overall stable -cont fluoxetine -has been exercising, increasing social activity, isolating less often. Plan: * Treatment: 2. O bsessive-compulsive disorder, unspecified Refill FLUoxetine HCl Capsule, 20 MG, TAKE 6 CAPSULES BY MOUTH EVERY DAY, Orally, 90 days, 540, Refills 0. Notes: SSRI/SNRI side effects discussed including but not [...] selective serotonin reuptake inhibitors (SSRIs) and selective serotonin/norepinephrine reuptake inhibitors (SSNRIs). Talk to your doctor [...] these symptoms, seek emergency care right away. 3. M ashwinor depressive disorder, recurrent severe without psychotic features Stop buPROPion HCl ER (XL) Tablet Extended Release 24 Hour, 300 MG, 1 tablet in the morning, Oral, Once a day, 90 days, 90 Tablet. 4. O thers Notes: Discontinue Wellbutrin due to side effects. Patient educated on all medications including potential benefits, side effects, risks. Educated on proper dosing schedule and importance of compliance. * Procedure Codes: 9 6127 BEHAV ASSMT W/SCORE & DOCD/STAND [id number] VISIT COMPLEXITY INHERENT TO ONGOING CARE RELATED TO A PATIENT'S SINGLE, SERIOUS CONDITION OR A COMPLEX [id number] CLIN DEPRESSION SCREEN DOC * Follow Up: 3 Months (Reason: medication follow up) * Billing Information: * Visit Code: 27964 OFFICE OUTPATIENT VISIT 25 MINUTES DETAILED HISTORY AND EXAM/MODERATE MEDICAL DECISION MAKING. * Procedure Codes: 94277 BEHAV ASSMT W/SCORE & DOCD/STAND INSTRUMENT. G2211 VISIT COMPLEXITY INHERENT TO ONGOING CARE RELATED TO A PATIENT'S SINGLE, SERIOUS CONDITION OR A COMPLEX CONDITION. G8431 CLIN DEPRESSION SCREEN DOC. * FOREMAN Sign off status: Completed true * Provider: QUENTIN CALABRESE Date: 04/19/2023 Generated for Fito sheehan/Jevon/Darienitting on: 0 05/24/2024 01:31 PM TEAM FOREMAN History and Physical Notes * HPI (History of Present Illness) Category Sub-Category Detail Notes Category Not es History of Presenting Problem Anxiety with excessive worry, with restlessness Here for follow up. Wellbutrin increased last apt. Reports he stopped the Wellbutrin all together. He accidently took double dose, had a fall, so he stopped these. He went back to [place] for an appeal case, he is next appealing to the state court. Depression is overall stable, trying to get out and exercise more. Considering trying to find a partner, but worries about rejection. He is back into skydiving. States all in all, I am feeling good . Sleep is fair, getting about 6-7 hours nightly. Energy is good. Appetite is good. Depression Rates depression 4/1 0 with 10 being most severe. Suicidal ideation denies Psychosis no hx psychosis Mood lability no hx avery Obsessive thoughts OCD symptoms stable Psychotherapy Saw Ngozi once Past Psychiatric Hospitalizations Previous psychiatric hospitalizations Previous Psychiatric Hospitalization: No Past History of Suicidal attempt Have yo u ever attempted suicide in the past: No Depression screening PHQ-9 Little inte rest or pleasure in doing things: Several days Feeling down, depressed, or hopeless: Se veral days Trouble falling or staying asleep, or sl eeping too much: Several days Feeling tired or having little energy: S everal days Poor appetite or overeating: Not at all Feeling bad about yourself o r that you are a failure, or have let yourself or your family down: Not at all Trouble concentrating on thi ngs, such as reading the newspaper or watching television: Not at all Moving or speaking so slowly that other people could have noticed; or the opposite, being so fidgety or restless that you have been moving around a lot more than usual: Not at all Thoughts that you would be b sandy off or of hurting yourself in some way: Not at all Total Score: 4 Interpretation: Minimal Depression Intervention Depression Screening Findings: P ositve Follow-Up for Depression: [facility] treatment assessment, Patient follow-up to return when and if necessary Suicide Risk Assessment Performed: 02/17 csrs negative Additional Evaluation for De pression: Psychiatric interview and evaluation Name of the standardized too l used for adult depression screening:: Patient Health Questionnaire (PHQ-9) Depression Screening SEMAJ-7 (2018 Edition) Feelin g nervous, anxious, or on edge: Several days Not being able to stop or control worryi ng: Several days Worrying too much about different things : Several days Trouble relaxing: Several days Being so restless that it is hard to sit still: Not at all Becoming easily annoyed or irritable: Se veral days Feeling afraid as if something awful lona ht happen: Not at all [place]-Suicide Severity Rating Scale Suicide Risk (CSRS-screener) in the past one month Have you wished you were or wished you could go to sleep and not wake up?: No in the past one month Have y ou actually had any thoughts of killing yourself?: No Have you ever done anything, started to do anything, or prepared to do anything to end your life?: No Examination Category Sub-Category Detail Notes Category Not es Psychiatry Appearance: well-groomed Attitude: cooperative Psychomotor activity: within normal rang e Abnormal body movements: none Attention: good Degree of awareness of surroundings: wit hin normal limits Orientation: awake, alert and martha ented x 3 Affect / mood: appropriate Speech / language: normal rate, volume, and articulation (RVR), clear and coherent Insight: good Judgement: good Thought process: intact Thought content: appropriate Perceptual disorders: no perceptual diso rder noted Suicidal ideation: none Homicidal ideation: none Delusions: no Hallucinations: no
--- NOTE | 2024-05-24 14:55 | ED_ITS ---
HPI - General Adult General Chief complaint: Extremity Problem,Nontraumatic Stated complaint: r hip pain Time Seen by Provider: 05/24/24 14:45 History of Present Illness HPI narrative: Patient is a 69-year-old gentleman presents emergency department with chief complaint of hip pain right side patient [facility] and reports that he has been having worsening pain in his right hip area the patient feels as though his hardware is given issues feels like this is similar to whenever he has had his hip replaced in the past. The patient denies paresthesias denies bowel or bladder incontinence Related Data Allergies Allergy/AdvReac Type Severity Reaction Status Date / Time morphine Allergy Hallucinati Verified 05/24/24 12:12 ng Review of Systems Review of Systems: A 10 system review of systems was completed on the patient and is negative except for what is stated in the HPI. Nursing and ancillary documentation was reviewed. PMFSH Past Medical History Medical History OCD (obsessive compulsive disorder) Kidney disease Hypertension Migraine Anxiety Family History Family History Father Hypertension Heart disease Social History Social History Smoking status: Former smoker Additional smoking assessment comments: Patient stated he smoked in his teens Alcohol intake: never Substance use: never Substance use type: does not use Do You Feel Safe in your Home?: Yes Lack of Transportation: No Lack of Food: Never True Current Housing: I Have Housing Concerned About Future Housing: No Difficulty Paying Gas/Electric Bills: No Difficulty Paying for Meds: No Currently Unemployed: No Education: Bachelor's Degree Difficulty w/ Childcare or Family Care: No Exam Narrative: GENERAL: Well-appearing, well-nourished, and in no acute distress. HEAD: Normocephalic, atraumatic. EYES: PERRLA and EOMI. ENT: Nares clear, no rhinorrhea or epistaxis. Mucous membranes moist. NECK: Supple. CHEST: Clear to auscultation. No respiratory distress. HEART: Regular rate and rhythm. No murmur heard. Normal peripheral pulses. ABDOMEN: Soft, nontender, nondistended, normal active bowel sounds. EXTREMITIES: Normal range of motion. No edema. SKIN: Warm, dry, no rash. NEURO: No focal deficits. Alert and oriented x3. No saddle anesthesia PSYCH: Normal mood and affect. Course Vital Signs Vital signs: Vital Signs Temperature 36.2 C L 05/24/24 11:30 Pulse Rate 67 05/24/24 11:30 Respiratory Rate 16 05/24/24 11:30 Blood Pressure 119/75 05/24/24 11:30 Pulse Oximetry 100 05/24/24 11:30 Oxygen Delivery Room Air 05/24/24 11:30 Temperature 36.2 C L 05/24/24 11:30 Pulse Rate 67 05/24/24 11:30 Respiratory Rate 16 05/24/24 11:30 Blood Pressure 119/75 05/24/24 11:30 Pulse Oximetry 100 05/24/24 11:30 Oxygen Delivery Room Air 05/24/24 11:30 Medical Decision Making MDM Narrative Medical decision making narrative: Plain film x-rays of the hips showed no evidence of hardware displacement The patient will be given a low-dose anti-inflammatory in the emergency department and the patient will be discharged on low-dose meloxicam as well as a muscle relaxer Vital Signs Vital Signs: Vital Signs Temperature 36.2 C L 05/24/24 11:30 Pulse Rate 67 05/24/24 11:30 Respiratory Rate 16 05/24/24 11:30 Blood Pressure 119/75 05/24/24 11:30 Pulse Oximetry 100 05/24/24 11:30 Oxygen Delivery Room Air 05/24/24 11:30 Temperature 36.2 C L 05/24/24 11:30 Pulse Rate 67 05/24/24 11:30 Respiratory Rate 16 05/24/24 11:30 Blood Pressure 119/75 05/24/24 11:30 Pulse Oximetry 100 05/24/24 11:30 Oxygen Delivery Room Air 05/24/24 11:30 Discharge Plan Discharge Clinical Impression: Acute right hip pain Patient Disposition: Home, Self-Care Condition: Stable Instructions: Antibiotic Form, Hip Pain (ED) Patient Language: Italian Prescriptions: New meloxicam 7.5 mg tablet 7.5 mg PO DAILY Qty: 7 0RF cyclobenzaprine 10 mg tablet 10 mg PO TID PRN (Reason: muscle spasm) Qty: 21 0RF No Action finasteride 5 mg tablet 5 mg PO DAILY Qty: 14 0RF cefpodoxime 200 mg tablet 200 mg PO BID Qty: 28 0RF Rx Instructions: must administer with a meal/food clonazepam 1 mg tablet 1 mg PO QHS Qty: 90 0RF Rx Instructions: administer 30 minutes before bedtime colchicine 0.6 mg tablet See Rx Instructions .ROUTE .COMPLEX Qty: 3 0RF Rx Instructions: take 2 tabs PO initially, then 1 tab 1 hr later tamsulosin 0.4 mg capsule 0.4 mg PO BID Qty: 180 1RF gabapentin 300 mg capsule See Rx Instructions .ROUTE .COMPLEX Qty: 270 0RF Dose Instruction: TAKE 3 CAPSULES BY MOUTH EVERY DAY AT BEDTIME Rx Instructions: TAKE 3 CAPSULES BY MOUTH EVERY DAY AT BEDTIME lisinopril 10 mg tablet 10 mg PO DAILY Qty: 90 2RF allopurinol 100 mg tablet See Rx Instructions .ROUTE .COMPLEX Qty: 90 0RF Dose Instruction: TAKE 1 TABLET BY MOUTH DAILY Rx Instructions: TAKE 1 TABLET BY MOUTH DAILY topiramate 25 mg tablet 25 mg PO BID Qty: 180 1RF fluoxetine 20 mg capsule 120 mg PO DAILY Qty: 540 1RF Follow-up/Referrals: Sandra Bains APRN [Primary Care Provider] - Time of Disposition: 15:00
[2024-05-24] MEDS: CYCLOBENZAPRINE HCL 10 MG TABLET PO (15:15)
[2024-05-24] MEDS: KETOROLAC 15 MG/ML VIAL (*BKC) IM (15:15)
--- OUTSIDE RECORDS SUMMARY | 2024-05-24 17:17 | XMS_ITS | Patient Health Summary ---
Author Organization [facility] Address [address] [place] [address] Care Team Providers Care Director Of Cardiopulmonary Services Name Role Phone Unavailable Primary Care Provider Unavailabl e Note from [facility],non-owned Affiliates and Associated Physician Practices is amultiple site organization consisting of ambulatory clinics and hospital sitesin [place], [place], [place] and [place]. This disclosure is being madepursuant to the Care Everywhere program and may not contain all information available regarding this patient. Last updated 17.[facility] Social History Tobacco Use Types Packs/Day Years Used Date Smoking Tobacco: Never Assessed Sex and Gender Information Value Date Recorded Sex Assigned at Not on file Gender Identity Not on file Sexual Orientation Not on file
--- OUTSIDE RECORDS SUMMARY | 2024-05-24 17:17 | XMS_ITS | Clinical Summary ---
Author Organization [facility] Address [address] [place] [address] Care Team Providers Care Mangle Tender Cloth Name Role Phone Unavailable Primary Care Provider Unavailabl e Source Comments [facility]non-owned Affiliates and Associated Physician Practices is amultiple site organization consisting of ambulatory clinics and hospital sitesin [place], [place], [place] and [place]. This disclosure is being madepursuant to the Care Everywhere program and may not contain all information available regarding this patient. Last updated 17.[facility] Social History Tobacco Use Types Packs/Day Years [...]
--- OUTSIDE RECORDS SUMMARY | 2024-05-24 17:17 | XMS_ITS | Referral Summary ---
Author Organization [facility] Address [address] [place] [address] Care Team Providers Care Pipe Line Inspector Name Role Phone Unavailable Primary Care Provider Unavailabl e Source Comments [facility],non-owned Affiliates and Associated Physician Practices is amultiple site organization consisting of ambulatory clinics and hospital sitesin [place]. This disclosure is being madepursuant to the Care Everywhere program and may not contain all information available regarding this patient. Last updated 17.[facility] Social History Tobacco Use Types Packs/Day Years Used Date Smoking Tobacco: Never Assessed Sex and Gender Information Value Date Recorded Sex Assigned at Not on file Gender Identity Not on file Sexual Orientation Not on file Plan of Treatment Not on file
--- OUTSIDE RECORDS SUMMARY | 2024-05-24 17:18 | XMS_ITS | Continuity of Care Document ---
Author Name [facility] Organization [facility] Care Team Providers Care Handle Sander Operator Name Role Phone [facility] Unavailable Unavailable Problems Combined list of problems from Department of Defense and [facility] Affairs facilities. It does not include entries that were removed or entered in error. Problem Status Onset Date Problem Type Date of Resolution Comments Source Adjustment disorder with anxious mood Active Condition [facility] Anemia due to chronic kidney disease stage 1 (SNOMED CT 885031350186974) Active Condition [facility] Anxiety * (ICD-9-CM 300.00/300.09) Active Condition [facility] Autosomal dominant polycystic kidney disease (SNOMED CT 536898524) Active Condition [facility] Benign essential hypertension Active Condition [facility] Benign hypertension (SNOMED CT 21508394) Active Condition [facility] Blood In Stool [facility] Chronic kidney disease (SNOMED CT 756429059) Active Condition [facility] Depression (SNOMED CT 71274784) Active Condition [facility] Erectile dysfunction Active Condition [facility] Exposure to potentially hazardous substance (SCT 369122687003974) Active Condition May 18 5 Entered By: NIDHI FREITAS Comment: Entered automatically through [facility] Problem List documentation program [facility] Gout Active Condition [facility] Headache Active Condition [facility] Hernia of abdominal cavity Active Condition [facility] Hypertensive chronic kidney disease, unspecified, with chronic kidney disease St Active Condition [facility] Inguinal hernia, without mention of obstruction or gangrene (ICD-9-CM 550.90) Active Condition [facility] Major depression in full remission Active Condition [facility] Migraine Active Condition [facility] Obsessive-Compuls wesley Disorder Active Condition [facility] Obsessive-compuls wesley disorder (SNOMED CT 854914229) Active Condition [facility] Obsessive-Compuls wesley Disorder * (ICD-9-CM 300.3) Active Condition [facility] Osteoarthritis of right hip joint (SNOMED CT 900693711066002) Active Condition [facility] Other and unspecified alcohol dependence, in remission (ICD-9-CM 303.93) Active Condition [facility] Proteinuria * (ICD-9-CM 791.0) Active Condition [facility] Recurrent unilateral or unspecified inguinal hernia, without mention of obstruct Active Condition [facility] Alcohol Dependence Inactive Condition 12/21/2014 May 10, 2010 Entered By: KYLE CHAVES Comment: in remission [facility] Blood in Stool (ICD-9-CM 578.1) Inactive Condition 12/21/2014 [facility] Chest pain Inactive Condition 12/21/2014 [facility] Elevated blood pressure reading without diagnosis of hypertension (ICD-9-CM 796. Inactive Condition 12/21/2014 [facility] Health Maint (ICD-9-CM V65.9) Inactive Condition 12/21/2014 [facility] Renal Cyst (ICD-9-CM 753.10) Inactive Condition 04/17/2015 [facility] Diagnosis: ICD-10-CM M25.551 Pain in right hip Active Diagnosis [facility] Diagnosis: ICD-10-CM M16.9 Osteoarthritis of hip, unspecified Active Diagnosis [facility] Diagnosis: ICD-10-CM R26.89 Other abnormalities of gait and mobility Active Diagnosis [facility] Medications Combined list of outpatient medications from Department of Defense and [facility] Affairs facilities.Medications provided include 1) outpatient medications from the last 15 months, and 2) patient-reported medications. Medication Details Route Status Patient Instructions Prescription Expires Prescription Number Last Dispense Date Ordering Provider Order Date Order Qty Source ACETAMINOPH EN 500MG/CAFFE INE 65MG TAB TAKE TWO TABLETS BY MOUTH EVERY DAY NEEDED ORAL ACTIVE Xu REA 2018 [facility] ASCORBIC ACID 500MG TAB TAKE ONE TABLET BY MOUTH ONCE A DAY ORAL ACTIVE ANDREW GARCIA 2008 [facility] ASPIRIN 81MG TAB,EC TAKE ONE TABLET BY MOUTH EVERY MORNING ORAL ACTIVE Xu REAKA Saran 2018 [facility] DULOXETINE HCL 60MG CAP,EC TAKE 1 CAPSULE BY MOUTH ONCE A DAY ORAL ACTIVE ANDREW GARCIA 2008 [facility] GARLIC OIL TAB,EC TAKE ONE TABLET BY MOUTH ONCE A DAY ORAL ACTIVE ANDREW GARCIA 2008 [facility] METHYLPREDN ISOLONE 4MG TAB DOSEPAK,21 TAKE TABLETS BY MOUTH DIRECTED TAKE 6 TABLETS BY MOUTH ON DAY ONE, THEN DECREASE BY ONE TABLET DAILY UNTIL GONE. TAKE WITH FOOD. (TAKE WITH FOOD) TAKE 6 TABLETS BY MOUTH ON DAY ONE, THEN DECREASE BY ONE TABLET DAILY UNTIL GONE. TAKE WITH FOOD. (TAKE WITH FOOD) ORAL ACTIVE 06/22/2024 [id number] KAYLA MCCORD T 2024 1 [facility] MULTIVITAMI NS CAP/TAB TAKE ONE TABLET BY MOUTH ONCE A DAY ORAL ACTIVE ANDREW GARCIA 2008 [facility] DEANISIO Juan Pablo TAMSULOSIN HCL 0.4MG CAP TAKE TWO CAPSULES BY MOUTH EVERY EVENING APPROXIM ATELY 30 MINUTES AFTER THE SAME MEAL EACH DAY (FOR PROSTATE ) ORAL 02/26/2024 [id number] 3 KAYLA MCCORD AMMAD T 2022 180 [facility] N Allergies, Adverse Reactions, Alerts Combined list of allergies from Department of Defense and [facility] Affairs facilities. It does not include entries that were removed or entered in error. Substance Category Reaction Severity Reaction type Status Date Reported Comments Source AMLODIPINE Propensity to adverse reactions to drug (finding) Swelling active 5 [facility] HYDRALAZINE Propensity to adverse reactions to drug (finding) Tachycardia , Palpitation s active 8 [facility] MORPHINE Propensity to adverse reactions to drug (finding) Anxiety active 9 [facility] MORPHINE Propensity to adverse reactions to drug (finding) Hallucinati ons active 2 [facility] Immunizations Combined list of available immunizations from the Department of Defense and Veterans Affairs facilities. Immunization Series Date Given Administered By Site Reaction Lot Number CVX Code Drug Office Machine Inspector Status Comments Source INFLUENZA, UNSPECIFIED FORMULATION 2011 88 complet ed [facility] FLU VACCINE NO PRESERV 3 & > (HISTORICAL) 2009 complet [facility] INFLUENZA, UNSPECIFIED FORMULATION 2009 NONE 88 complet [facility] DTAP, UNSPECIFIED FORMULATION 2009 DENI CASTANEDA 107 [facility] TD(ADULT) UNSPECIFIED FORMULATION 2009 ISATU PALMER 139 complet [facility] TDAP 2009 115 complet ed [facility] INFLUENZA, UNSPECIFIED FORMULATION 2007 88 complet ed [facility] TDAP 2006 115 complet ed [facility] TETANUS TOXOID, UNSPECIFIED FORMULATION 2004 112 complet ed [facility] S Results Combined list of recent chemistry, hematology and other laboratory results from Department of Defense and Veterans Affairs, ranging from 15 months to all on record, depending upon the facility. Order Name Results Value Reference Range Date Interpretation Specimen Comments Source CBC LEUKOCYTES [#/VOLUME] IN BLOOD BY AUTOMATED COUNT 7.1 10*3/uL 3.6 - 11.2 05/17 Specimen Type: BLOOD No comment entered. Ordering Provider: WALTER MCCORD MMAD Report Released Date/Time: May 17, 2024 03:17 PM Reporting Lab: [facility] [address] [place] [phone] Performing Lab: [facility] [address] [place] [phone] [facility] CBC ERYTHROCYT ES [#/VOLUME] IN BLOOD BY AUTOMATED COUNT 5.61 10*6/uL 4.10 - 5.70 05/17 Specimen Type: BLOOD No comment entered. Ordering Provider: WALTER MCCORD MMAD Report Released Date/Time: May 17, 2024 03:17 PM Reporting Lab: [facility] [address] [place] [phone] Performing Lab: [address] [address] [facility] CBC HEMOGLOBIN [MASS/VOLU ME] IN BLOOD 16.3 g/dL 13.1 - 16.8 05/17 Specimen Type: BLOOD No comment entered. Ordering Provider: WALTER MCCORD MMAD Report Released Date/Time: May 17, 2024 03:17 PM Reporting Lab: [address] [address] Performing Lab: [address] [address] [facility] CBC HEMATOCRIT [VOLUME FRACTION] OF BLOOD 51.0 38.2 - 48.4 05/17 H Specimen Type: BLOOD No comment entered. Ordering Provider: WALTER MCCORD MMAD Report Released Date/Time: May 17, 2024 03:17 PM Reporting Lab: [address] [address] Performing Lab: [address] [address] [facility] CBC MCV [ENTITIC VOLUME] BY AUTOMATED COUNT 90.9 fL 80.0 - 100.0 05/17 Specimen Type: BLOOD No comment entered. Ordering Provider: WALTER MCCORD MMAD Report Released Date/Time: May 17, 2024 03:17 PM Reporting Lab: [address] [address] Performing Lab: [address] [address] [facility] CBC MCH [ENTITIC MASS] BY AUTOMATED COUNT 29.1 pg 27.0 - 34.0 05/17 Specimen Type: BLOOD No comment entered. Ordering Provider: WALTER MCCORD MMAD Report Released Date/Time: May 17, 2024 03:17 PM Reporting Lab: [address] [address] Performing Lab: [address] [place] [address] [facility] CBC MCHC [MASS/VOLU ME] BY AUTOMATED COUNT 32.0 g/dL 33.0 - 36.0 05/17 L Specimen Type: BLOOD No comment entered. Ordering Provider: WALTER MCCORD MMAD Report Released Date/Time: May 17, 2024 03:17 PM Reporting Lab: [address] [address] Performing Lab: [address] [address] [facility] CBC PLATELETS [#/VOLUME] IN BLOOD BY AUTOMATED COUNT 265 10*3/uL 150 - 400 05/17 Specimen Type: BLOOD No comment entered. Ordering Provider: WALTER MCCORD MMAD Report Released Date/Time: May 17, 2024 03:17 PM Reporting Lab: [address] [address] Performing Lab: [address] [address] [facility] CBC PLATELET MEAN VOLUME [ENTITIC VOLUME] IN BLOOD BY AUTOMATED COUNT 9.3 fL 7.5 - 11.2 05/17 Specimen Type: BLOOD No comment entered. Ordering Provider: WALTER MCCORD MMAD Report Released Date/Time: May 17, 2024 03:17 PM Reporting Lab: [address] [address] Performing Lab: [address] [address] [facility] CBC ERYTHROCYT E DISTRIBUTI ON WIDTH [RATIO] BY AUTOMATED COUNT 15.0 11.8 - 15.1 05/17 Specimen Type: BLOOD No comment entered. Ordering Provider: WALTER MCCORD MMAD Report Released Date/Time: May 17, 2024 03:17 PM Reporting Lab: [address] [address] Performing Lab: [address] [place] [address] [facility] CBC LYMPHOCYTE S/100 LEUKOCYTES IN BLOOD BY AUTOMATED COUNT 23 05/17 Specimen Type: BLOOD No comment entered. Ordering Provider: WALTER MCCORD MMAD Report Released Date/Time: May 17, 2024 03:17 PM Reporting Lab: [facility] [address] [place] [phone] Performing Lab: [facility] [address] [place] [address] [facility] CBC MONOCYTES/ 100 LEUKOCYTES IN BLOOD BY AUTOMATED COUNT 8 05/17 Specimen Type: BLOOD No comment entered. Ordering Provider: WALTER MCCORD MMAD Report Released Date/Time: May 17, 2024 03:17 PM Reporting Lab: [facility] [address] [place] [phone] Performing Lab: [facility] [address] [place] [phone] [facility] CBC NEUTROPHIL S/100 LEUKOCYTES IN BLOOD BY AUTOMATED COUNT 63 05/17 Specimen Type: BLOOD No comment entered. Ordering Provider: WALTER MCCORD MMAD Report Released Date/Time: May 17, 2024 03:17 PM Reporting Lab: [facility] [address] [place] [phone] Performing Lab: [facility] [address] [place] [phone] [facility] CBC EOSINOPHIL S/100 LEUKOCYTES IN BLOOD BY AUTOMATED COUNT 5 05/17 Specimen Type: BLOOD No comment entered. Ordering Provider: WALTER MCCORD MMAD Report Released Date/Time: May 17, 2024 03:17 PM Reporting Lab: [facility] [address] [place] [phone] Performing Lab: [facility] [address] [place] [address] [facility] CBC BASOPHILS/ 100 LEUKOCYTES IN BLOOD BY AUTOMATED COUNT 1 05/17 Specimen Type: BLOOD No comment entered. Ordering Provider: WALTER MCCORD MMAD Report Released Date/Time: May 17, 2024 03:17 PM Reporting Lab: [facility] [address] [place], [place] [phone] Performing Lab: [facility] [address] [place], [place] [phone] CBC LYMPHOCYTE S [#/VOLUME] IN BLOOD BY AUTOMATED COUNT 1.62 10*3/uL 0.77 - 4.50 05/17 Specimen Type: BLOOD No comment entered. Ordering Provider: WALTER MCCORD MMAD Report Released Date/Time: May 17, 2024 03:17 PM Reporting Lab: [place] [address] Performing Lab: [place] [phone] CBC MONOCYTES [#/VOLUME] IN BLOOD BY AUTOMATED COUNT 0.55 10*3/uL 0.19 - 0.80 05/17 Specimen Type: BLOOD No comment entered. Ordering Provider: WALTER MCCORD MMAD Report Released Date/Time: May 17, 2024 03:17 PM Reporting Lab: [facility] [address] [place], [place] [phone] Performing Lab: [place] [phone] [place] [address] CBC NEUTROPHIL S [#/VOLUME] IN BLOOD BY AUTOMATED COUNT 4.47 10*3/uL 2.10 - 8.00 05/17 Specimen Type: BLOOD No comment entered. Ordering Provider: WALTER MCCORD MMAD Report Released Date/Time: May 17, 2024 03:17 PM Reporting Lab: [facility] [address] [place], [place] [phone] Performing Lab: [facility] [address] [place] [phone] [facility] CBC EOSINOPHIL S [#/VOLUME] IN BLOOD BY AUTOMATED COUNT 0.32 10*3/uL 0.00 - 0.60 05/17 Specimen Type: BLOOD No comment entered. Ordering Provider: WALTER MCCORD MMAD Report Released Date/Time: May 17, 2024 03:17 PM Reporting Lab: [facility] [address] [place] [phone] Performing Lab: [address] [phone] [place] [address] CBC BASOPHILS [#/VOLUME] IN BLOOD BY AUTOMATED COUNT 0.06 10*3/uL 0.00 - 0.20 05/17 Specimen Type: BLOOD No comment entered. Ordering Provider: WALTER MCCORD MMAD Report Released Date/Time: May 17, 2024 03:17 PM Reporting Lab: [address] [address] Performing Lab: [address] [phone] [place] [address] COMPREHEN SIVE METABOLIC PANEL CREATININE [MASS/VOLU ME] IN SERUM OR PLASMA 1.45 mg/dL 0.7 - 1.3 05/17 H Specimen Type: PLASMA Comment: No hemolysis noted. Ordering Provider: WALTER MCCORD MMAD Report Released Date/Time: May 17, 2024 03:17 PM Reporting Lab: [address] [address] Performing Lab: [address] [phone] [place] [address] COMPREHEN SIVE METABOLIC PANEL UREA NITROGEN [MASS/VOLU ME] IN SERUM OR PLASMA 45.5 mg/dL 9.0 - 25.0 05/17 H Specimen Type: PLASMA Comment: No hemolysis noted. Ordering Provider: WALTER MCCORD MMAD Report Released Date/Time: May 17, 2024 03:17 PM Reporting Lab: [address] [address] Performing Lab: [address] [address] [facility] COMPREHEN SIVE METABOLIC PANEL GLUCOSE [MASS/VOLU ME] IN SERUM OR PLASMA 98 mg/dL 72 - 99 05/17 Specimen Type: PLASMA Comment: No hemolysis noted. Ordering Provider: WALTER MCCORD MMAD Report Released Date/Time: May 17, 2024 03:17 PM Reporting Lab: [facility] [address] [facility] [address] Performing Lab: [facility] [address] [facility] [address] [facility] COMPREHEN SIVE METABOLIC PANEL SODIUM [MOLES/VOL UME] IN SERUM OR PLASMA 142 meq/L 136 - 145 05/17 Specimen Type: PLASMA Comment: No hemolysis noted. Ordering Provider: WALTER MCCORD MMAD Report Released Date/Time: May 17, 2024 03:17 PM Reporting Lab: [facility] [address] [facility] [address] Performing Lab: [facility] [address] [facility] [address] [facility] COMPREHEN SIVE METABOLIC PANEL POTASSIUM [MOLES/VOL UME] IN SERUM OR PLASMA 4.4 meq/L 3.5 - 5 05/17 Specimen Type: PLASMA Comment: No hemolysis noted. Ordering Provider: WALTER MCCORD MMAD Report Released Date/Time: May 17, 2024 03:17 PM Reporting Lab: [facility] [address] [facility] [address] Performing Lab: [facility] [address] [facility] [address] [facility] COMPREHEN SIVE METABOLIC PANEL CHLORIDE [MOLES/VOL UME] IN SERUM OR PLASMA 109 meq/L 98 - 107 05/17 H Specimen Type: PLASMA Comment: No hemolysis noted. Ordering Provider: WALTER MCCORD MMAD Report Released Date/Time: May 17, 2024 03:17 PM Reporting Lab: [facility] [address] [facility] [address] Performing Lab: [facility] [address] [facility] [address] [facility] COMPREHEN SIVE METABOLIC PANEL CARBON DIOXIDE, TOTAL [MOLES/VOL UME] IN SERUM OR PLASMA 22 meq/L 22 - 31 05/17 Specimen Type: PLASMA Comment: No hemolysis noted. Ordering Provider: WALTER MCCORD MMAD Report Released Date/Time: May 17, 2024 03:17 PM Reporting Lab: [facility] [address] [place] [phone] Performing Lab: [address] [phone] [place] [address] COMPREHEN SIVE METABOLIC PANEL CALCIUM [MASS/VOLU ME] IN SERUM OR PLASMA 9.8 mg/dL 8.4 - 10.4 05/17 Specimen Type: PLASMA Comment: No hemolysis noted. Ordering Provider: WALTER MCCORD MMAD Report Released Date/Time: May 17, 2024 03:17 PM Reporting Lab: [facility] [address] [facility] [address] Performing Lab: [facility] [address] [place] [phone] [facility] COMPREHEN SIVE METABOLIC PANEL PROTEIN [MASS/VOLU ME] IN SERUM OR PLASMA 7.1 g/dL 6 - 8.6 05/17 Specimen Type: PLASMA Comment: No hemolysis noted. Ordering Provider: WALTER MCCORD MMAD Report Released Date/Time: May 17, 2024 03:17 PM Reporting Lab: [facility] [address] [facility] [address] Performing Lab: [facility] [address] [facility] [address] [facility] COMPREHEN SIVE METABOLIC PANEL ALBUMIN [MASS/VOLU ME] IN SERUM OR PLASMA 4.0 g/dL 3.4 - 5 05/17 Specimen Type: PLASMA Comment: No hemolysis noted. Ordering Provider: WALTER MCCORD MMAD Report Released Date/Time: May 17, 2024 03:17 PM Reporting Lab: [facility] [address] [facility] [address] Performing Lab: [facility] [address] [facility] [address] [facility] COMPREHEN SIVE METABOLIC PANEL BILIRUBIN. TOTAL [MASS/VOLU ME] IN SERUM OR PLASMA 0.4 mg/dL 0.2 - 1.2 05/17 Specimen Type: PLASMA Comment: No hemolysis noted. Ordering Provider: WALTER MCCORD MMAD Report Released Date/Time: May 17, 2024 03:17 PM Reporting Lab: [facility] [address] [place] [address] Performing Lab: [facility] [address] [place] [phone] [place] [address] COMPREHEN SIVE METABOLIC PANEL ALKALINE PHOSPHATAS E [ENZYMATIC ACTIVITY/V OLUME] IN SERUM OR PLASMA 85 U/L 40 - 150 05/17 Specimen Type: PLASMA Comment: No hemolysis noted. Ordering Provider: WALTER MCCORD MMAD Report Released Date/Time: May 17, 2024 03:17 PM Reporting Lab: [facility] [address] [place] [phone] Performing Lab: [facility] [address] [place] [address] [facility] COMPREHEN SIVE METABOLIC PANEL ASPARTATE AMINOTRANS FERASE [ENZYMATIC ACTIVITY/V OLUME] IN SERUM OR PLASMA 47 U/L 5 - 34 05/17 H Specimen Type: PLASMA Comment: No hemolysis noted. Ordering Provider: WALTER MCCORD MMAD Report Released Date/Time: May 17, 2024 03:17 PM Reporting Lab: [facility] [address] [facility] [address] Performing Lab: [facility] [address] [place] [address] [facility] COMPREHEN SIVE METABOLIC PANEL ALANINE AMINOTRANS FERASE [ENZYMATIC ACTIVITY/V OLUME] IN SERUM OR PLASMA 42 U/L 8 - 40 05/17 H Specimen Type: PLASMA Comment: No hemolysis noted. Ordering Provider: WALTER MCCORD MMAD Report Released Date/Time: May 17, 2024 03:17 PM Reporting Lab: [facility] [address] [facility] [address] Performing Lab: [address] [phone] [place] [address] COMPREHEN SIVE METABOLIC PANEL GLOMERULAR FILTRATION RATE/1.73 SQ M.PREDICTE D [VOLUME RATE/AREA] IN SERUM, PLASMA OR BLOOD BY CREATININE -BASED FORMULA (CKD-EPI 2020) 52.8 60 05/17 Specimen Type: PLASMA Comment: No hemolysis noted. Ordering Provider: WALTER MCCORD MMAD Report Released Date/Time: May 17, 2024 03:17 PM Reporting Lab: [address] [address] Performing Lab: [address] [phone] [place] [address] CRP C REACTIVE PROTEIN [MASS/VOLU ME] IN SERUM OR PLASMA BY HIGH SENSITIVIT Y METHOD 0.2 mg/dL 0 - 0.5 05/17 Specimen Type: PLASMA Comment: No hemolysis noted. Ordering Provider: WALTER MCCORD MMAD Report Released Date/Time: May 17, 2024 03:17 PM Reporting Lab: [facility] [address] [place] [phone] Performing Lab: [facility] [address] [place] [phone] [place] [address] ESR ISED(STL) ERYTHROCYT E SEDIMENTAT ION RATE 8 mm/h 0 - 19 05/17 Specimen Type: BLOOD No comment entered. Ordering Provider: WALTER MCCORD MMAD Report Released Date/Time: May 17, 2024 03:17 PM Reporting Lab: [facility] [address] [place] [phone] Performing Lab: [facility] [address] [facility] [address] [facility] LIPID PANEL (STL) CHOLESTERO L [MASS/VOLU ME] IN SERUM OR PLASMA 144 mg/dL 0 - 200 05/17 Specimen Type: PLASMA Comment: No hemolysis noted. Ordering Provider: WALTER MCCORD MMAD Report Released Date/Time: May 17, 2024 03:17 PM Reporting Lab: [facility] [address] [facility] [address] Performing Lab: [place] [address] [facility] [address] [facility] LIPID PANEL (STL) TRIGLYCERI DE [MASS/VOLU ME] IN SERUM OR PLASMA 146 mg/dL 0 - 150 05/17 Specimen Type: PLASMA Comment: No hemolysis noted. Ordering Provider: WALTER MCCORD MMAD Report Released Date/Time: May 17, 2024 03:17 PM Reporting Lab: [place] [address] [facility] [address] Performing Lab: [place] [address] [facility] [address] [facility] LIPID PANEL (STL) CHOLESTERO L IN LDL [MASS/VOLU ME] IN SERUM OR PLASMA BY CALCULATIO N 58 mg/dL 05/17 Specimen Type: PLASMA Comment: No hemolysis noted. Ordering Provider: WALTER MCCORD MMAD Report Released Date/Time: May 17, 2024 03:17 PM Reporting Lab: [facility] [address] [facility] [address] Performing Lab: [place] [address] [facility] [address] [facility] LIPID PANEL (STL) CHOLESTERO L IN HDL [MASS/VOLU ME] IN SERUM OR PLASMA 57 mg/dL 40 05/17 Specimen Type: PLASMA Comment: No hemolysis noted. Ordering Provider: WALTER MCCORD MMAD Report Released Date/Time: May 17, 2024 03:17 PM Reporting Lab: [facility] [address] [place], [place] [id number] Performing Lab: [place] [id number] TSH W/ REFLEX FT4 (STL) THYROTROPI N [UNITS/VOL UME] IN SERUM OR PLASMA 1.402 u[IU]/mL 0.47 - 5 05/17 Specimen Type: PLASMA No comment entered. Ordering Provider: WALTER MCCORD MMAD Report Released Date/Time: May 17, 2024 03:17 PM Reporting Lab: [facility] [address] [place] [address] Performing Lab: [address] VITAMIN D, 25-HYDROX Y 25-HYDROXY VITAMIN D3 [MASS/VOLU ME] IN SERUM OR PLASMA 100.1 ng/mL 30 - 96 05/17 H Specimen Type: SERUM No comment entered. Ordering Provider: WALTER MCCORD MMAD Report Released Date/Time: May 17, 2024 03:17 PM Reporting Lab: [facility] [address] [place], [place] [id number] Performing Lab: [place] [id number] [place] [address] OCCULT BLOOD FIT X1 SCREEN (MFP ONLY) HEMOGLOBIN .GASTROINT ESTINAL.LO WER [PRESENCE] IN STOOL BY IMMUNOASSA Y Negative 04/23 Specimen Type: FECES No comment entered. Ordering Provider: WALTER MCCORD MMAD Report Released Date/Time: Mar 17, 2024 09:54 AM Reporting Lab: [place] [phone] Performing Lab: [address] [phone] [place] [address] MICRAL/CR EAT PROFILE (STL) ALBUMIN [MASS/VOLU ME] IN URINE 75.0 mg/L 08/13 Specimen Type: URINE No comment entered. Ordering Provider: NIMA OSORIO Report Released Date/Time: July 29, 2022 02:59 PM Reporting Lab: [facility] [address] [place] [phone] Performing Lab: [facility] [address] [place] [address] [facility] MICRAL/CR EAT PROFILE (STL) ALBUMIN/CR EATININE [MASS RATIO] IN URINE 71 ug/mL <20 - 20 08/13 H Specimen Type: URINE No comment entered. Ordering Provider: NIMA OSORIO Report Released Date/Time: July 29, 2022 02:59 PM Reporting Lab: [place] [address] [facility] [address] Performing Lab: [address] [phone] [place] [address] MICRAL/CR EAT PROFILE (STL) CREATININE [MASS/VOLU ME] IN URINE 105.9 mg/dL 63 - 166 08/13 Specimen Type: URINE No comment entered. Ordering Provider: NIMA OSORIO Report Released Date/Time: July 29, 2022 02:59 PM Reporting Lab: [place] [address] [facility] [address] Performing Lab: [place] [address] [facility] [address] [facility] PROTEIN URINE PROTEIN [MASS/VOLU ME] IN URINE 18.2 mg/dL 08/13 Specimen Type: URINE No comment entered. Ordering Provider: NIMA OSORIO Report Released Date/Time: July 29, 2022 02:59 PM Reporting Lab: [address] [phone] Performing Lab: [address] [address] [facility] Vital Signs Combined list of inpatient and outpatient Vital Signs from Department of Defense and Veterans Affairs, ranging from 12 months to all on record, depending upon the facility. Vital Sign Value Date Comments Source SYSTOLIC BLOOD PRESSURE 127 05/17/19 25 14:37:02 [facility] DIASTOLIC BLOOD PRESSURE 85 025 14:37:02 [facility] PULSE OXIMETRY 96 05/17/2024 14:37:02 [facility] WEIGHT 168 05/17/2024 14:37:02 [facility] BMI 23 kg/m2 05/17/2024 14:37:02 [facility] PAIN 4 05/17/2024 14:37:02 [facility] TEMPERATURE 97.3 05/17/2024 14:37:02 [facility] PULSE 76 05/17/2024 14:37:02 [facility] RESPIRATION 18 05/17/2024 14:37:02 [facility] Encounters Combined list of: 1) Encounters from Department of Veterans Affairs facilities going backup to the last 18 months, not all [place] inpatient encounters are included; 2) Encounters from the Department of [facility] facilities going backup to 280 months. Location Location Details Encounter Type Encounter Number Reason For Visit Attending Provider ADM Date DC Date Status Disposition Source [facility] Outpatient Encounter [id number] [facility] Outpatient Encounter [id number] BENEDICTO BARRIOS VERDEANNE A 02/02 [facility] En[facility] [id number] WALTER MCCORD MMAD T 02/25 [facility] Outpatient Encounter [id number] 03/09 [facility] OFF/[place] CONSLTJ [place] 55 [id number] Diagnos is: ICD-10- CM R26.89 Other abnorma lities of gait and mobilit y SARATH SNOW 04/16 [facility] Outpatient Encounter [id number] 04/24 [facility] Outpatient Encounter [id number] 05/13 [facility] Outpatient Encounter [id number] SURIWALTER Leone MMAD T 11/26 [facility] Outpatient Encounter [id number] SURIWALTER DUPREE MMAD T 11/28 [facility] Outpatient Encounter [id number] 01/03 [facility] Outpatient Encounter [id number] SURIKAYLA DUPREEA MMAD T 01/13 [facility] Outpatient Encounter [id number] DANIEL GUARDADO 01/13 [facility] O/P EST MOD 30 MIN [id number] Diagnos is: ICD-10- CM M16.9 Osteoar thritis of hip, unspeci fied MARIS FLORES L 05/17 [facility] Outpatient Encounter [id number] SURIKAYLAA MMAD T 05/18 [facility] Outpatient Encounter [id number] SURIMOHA MMAD T 05/23 [facility] OFF[facility] O/P EST LOW 20 MIN [id number] Diagnos is: ICD-10- CM M25.551 Pain in right hip WALTER MCCORDD T 05/23 [facility] Social History Combined list of available smoking, tobacco, and other social history from Department of Defense and Veterans Affairs facilities. Social History Type Response Date Comment Sourc e Tobacco smoking status NHIS [place]-TOBACCO NEVER USED CIGARETTES 05/17/2024 [facility] History of tobacco use [place]-TO[place]ACCO NEVER USED OTHER TYPE 05/17/2024 [facility] History of tobacco use [place]-TO[place]ACCO NEVER USED 08/05/2021 [facility] History of tobacco use [place]ACCO FORMER USER 01/11/2021 [facility] History of tobacco use [place] FORMER USER 12/20/2019 [facility] History of tobacco use LIFETIME NON-USER OF TOBACCO INPT 05/13/2018 [facility] History of tobacco use [place]-TO[place]ACCO NEVER USED 12/25/2017 [facility] History of tobacco use QUIT TOBACCO >7 YEARS AGO 03/24/2017 [facility] History of tobacco use LIFETIME NON-TOBACCO USER 02/28/2016 [facility] History of tobacco use QUIT TOBACCO >7 YEARS AGO INPT 11/02/2014 [facility] History of tobacco use QUIT TOBACCO >7 YEARS AGO 06/07/2014 [facility] History of tobacco use QUIT TOBACCO >7 YEARS AGO 12/10/2012 [facility] History of tobacco use LIFETIME NON-USER OF TOBACCO 03/03/2012 [facility] History of tobacco use QUIT TOBACCO >7 YEARS AGO 10/21/2010 [facility] History of tobacco use CURRENT TOBACCO USER 12/06/[address] [facility] History of tobacco use CURRENT TOBACCO USER 08/23/2008 [facility] Plan of Care List of future care activities from Department of Veterans Affairs facilities. Additional future care activities may be listed in the Assessment and Plan section. Date/Time Care Activity Care Activity Detail Facili ty 05/31/2024 AMBULATORY - SURGERY AMBULATORY - SURGERY [facility] 06/06/2024 AMBULATORY - MEDICINE AMBULATORY - MEDICI [facility] 11/15/2024 AMBULATORY - MEDICINE AMBULATORY - MEDICI NE [facility] 05/12/2024 Laboratory - Etymology Teacher ry Order VITAMIN D, 25-HYDROXY GOLD/RED SST SERUM SP [facility] 05/12/2024 Laboratory - Etymology Teacher ry Order TSH W/ REFLEX FT4 (STL) GREEN LI-HEP PLASMA SP [facility] 05/12/2024 Laboratory - Etymology Teacher ry Order LIPID PANEL (STL) GREEN LI/HEP BLD/PLAS PLASMA SP ONCE [facility] 05/12/2024 Laboratory - Etymology Teacher ry Order COMPREHENSIVE METABOLIC PANEL GREEN LI/HEP BLD/PLAS PLASMA SP [facility] 05/12/2024 Laboratory - Etymology Teacher ry Order CBC BLOOD SP [facility] 05/12/2024 Laboratory - Etymology Teacher ry Order URINALYSIS (STL-PB) URINE SP [facility] 05/12/2024 Laboratory - Etymology Teacher ry Order HGA1C BLOOD SP [facility] 05/17/2024 Laboratory - Etymology Teacher ry Order URINALYSIS (STL-PB) URINE SP [facility] 05/23/2024 Consult Order ORTHOPEDIC HIP/K NEE EVAL OUTPT STL Cons Potato Peeler's Choice [facility] Advance Directives List of completed, amended, or rescinded Advance Directives on record at Department of [facility] Affairs facilities. An actual copy of the Directive is not included. Date Advance Directive Provider Source 05/14/2018 ADVANCE DIRECTIVE DISCUSSION COURTNEY HAZEL [facility] 04/24/2015 ADVANCE DIRECTIVE DISCUSSION MISTY POWELL [facility] 04/21/2012 ADVANCE DIRECTIVE EVERETT RODARTE [facility] 04/21/2012 ADVANCE DIRECTIVE DISCUSSION MERVAT FORTUNE [facility] 07/03/2011 ADVANCE DIRECTIVE DISCUSSION ELIU RICK [facility] 06/28/2010 ADMINISTRATIVE NOTE FLAKITA ZULETA [facility] 10/03/2008 ADVANCE DIRECTIVE CONNOR PAUL [facility]
== END 2024-05-24 15:20 | disposition home or self-care (01) ==
PROVIDERS: Emergency Provider Emergency Medicine; PCP Nurse Practitioner Family
DX: M25.551 Pain in right hip (principal); F42.9 Obsessive-compulsive disorder, unspecified; I10 Essential (primary) hypertension
CPT/HCPCS: 73521; 96372; 99283; A9270; J1885

== ENCOUNTER 2024-06-23 08:15 | Outpatient (CLI) | payer MEDICARE, SELFPAY ==
--- OUTSIDE RECORDS SUMMARY | 2024-06-23 08:23 | XMS_ITS | Clinical Summary ---
Author Organization [facility] Address [address] [place] [address] Care Team Providers Care Real Estate Account Executive Name Role Phone None, Provider MD Primary [...] 12/24/2020 2:28 PM CDT Plan of Treatment Upcoming Encounters Date Type Department Care Team (Late st Contact Info) Description 07/05/2024 7:00 AM CDT Appointment [place] [address] Sangita Dotson MD [address] [facility] [place] [address] 07/05/2024 7:30 AM CDT Appointment [place] [address] Sangita Dotson MD [address] [facility] [place] [address] Health Maintenance Due Date Last Done Comments Colorectal Cancer Screening Colonoscopy (10 Years) 1955 Hepatitis C 1975 DTaP, Tdap and Td Vaccines ( 1 - Tdap) 1976 Zoster Vaccines (1 of 2) 2007 Pneumococcal Vaccine: 65+ Ye ars (1 of 1 - PCV) 2022 COVID-19 Vaccine ( - 2023-2 5 season) 2023 Influenza Adult (#1) 2023 [...] patient's age to complete this topic Insurance [address] [place], [place] [id number]ICE [facility] [employer] Advance Directives * Full Code (Latest Code Status on File) Date Activated Date Inactivated Comments 12/24/2020 9:06 PM 12/27/2020 4:28 PM Care Teams Real Estate Account Executive Relationship Specialty Start Date End Date None, Provider, PCP - General 12/24/20
--- OUTSIDE RECORDS SUMMARY | 2024-06-23 08:23 | XMS_ITS | Continuity of Care Document ---
Author Name [facility] Organization [facility] Care Team Providers Care Lot Associate Name Role Phone [facility] Unavailable Unavailable Problems Combined list of problems from Department of Defense and [facility] Affairs facilities. It does not include entries that were removed or entered in error. Problem Status Onset Date Problem Type Date of Resolution Comments Source Adjustment disorder with anxious mood Active Condition [facility] Anemia due to chronic kidney disease stage 1 (SNOMED CT 767324938258104) Active Condition [facility] Anxiety * (ICD-9-CM 300.00/300.09) Active Condition [facility] Autosomal dominant polycystic kidney disease (SNOMED CT 915134504) Active Condition [facility] Benign essential hypertension Active Condition [facility] Benign hypertension (SNOMED CT 79842799) Active Condition [facility] Blood In Stool Active [facility] Chronic kidney disease (SNOMED CT 840547225) Active Condition [facility] Depression (SNOMED CT 98840221) Active Condition [facility] Erectile dysfunction Active Condition [facility] Exposure to potentially hazardous substance (SCT 361590269911771) Active Condition May 18 5 Entered By: NIDHI FREITAS Comment: Entered automatically through [employer] Problem List documentation program [facility] Gout Active Condition [facility] Headache Active Condition [facility] Hernia of abdominal cavity Active Condition [facility] Hypertensive chronic kidney disease, unspecified, with chronic kidney disease St Active Condition [facility] Inguinal hernia, without mention of obstruction or gangrene (ICD-9-CM 550.90) Active Condition [facility] Major depression in full remission Active Condition [facility] Migraine Active Condition [facility] Obsessive-Compuls wesley Disorder Active Condition [facility] Obsessive-compuls wesley disorder (SNOMED CT 921325215) Active Condition [facility] Obsessive-Compuls wesley Disorder * (ICD-9-CM 300.3) Active Condition [facility] Osteoarthritis of right hip joint (SNOMED CT 655968167464551) Active Condition [facility] Other and unspecified alcohol dependence, in remission (ICD-9-CM 303.93) Active Condition [facility] Proteinuria * (ICD-9-CM 791.0) Active Condition [facility] Recurrent unilateral or unspecified inguinal hernia, without mention of obstruct Active Condition [facility] Alcohol Dependence Inactive Condition 12/21/2014 May 10, 2010 Entered By: KYLE CHAVES Comment: in remission [facility] Blood in Stool (ICD-9-CM 578.1) Inactive Condition 12/21/2014 [facility] Chest pain Inactive Condition 12/21/2014 [facility] Elevated blood pressure reading without diagnosis of hypertension (ICD-9-CM 796. Inactive Condition 12/21/2014 [facility] Health Maint (ICD-9-CM V65.9) Inactive Condition 12/21/2014 [facility] Renal Cyst (ICD-9-CM 753.10) Inactive Condition 04/17/2015 [facility] Diagnosis: ICD-10-CM M16.9 Osteoarthritis of hip, unspecified Active Diagnosis [facility] Diagnosis: ICD-10-CM M70.71 Other bursitis of hip, right hip Active Diagnosis [facility] Diagnosis: ICD-10-CM M25.551 Pain in right hip Active Diagnosis [facility] Diagnosis: ICD-10-CM R26.89 Other abnormalities of gait and mobility Active Diagnosis [facility] Medications Combined list of outpatient medications from Department of Defense and Veterans Affairs facilities.Medications provided include 1) outpatient medications from the last 15 months, and 2) patient-reported medications. Medication Details Route Status Patient Instructions Prescription Expires Prescription Number Last Dispense Date Ordering Provider Order Date Order Qty Source ACETAMINOPH EN 500MG/CAFFE INE 65MG TAB TAKE TWO TABLETS BY MOUTH EVERY DAY NEEDED ORAL ACTIVE Xu REA 2018 [facility] ASCORBIC ACID 500MG TAB TAKE ONE TABLET BY MOUTH ONCE A DAY ORAL ACTIVE ANDREW GARCIA 2008 [facility] [place] ASPIRIN 81MG TAB,EC TAKE ONE TABLET BY MOUTH EVERY MORNING ORAL ACTIVE Xu REA 2018 [facility] DULOXETINE HCL 60MG CAP,EC TAKE 1 CAPSULE BY MOUTH ONCE A DAY ORAL ACTIVE ANDREW GARCIA 2008 [facility] [place] GARLIC OIL TAB,EC TAKE ONE TABLET BY MOUTH ONCE A DAY ORAL ACTIVE ANDREW GARCIA 2008 [facility] [place] METHYLPREDN ISOLONE 4MG TAB DOSEPAK,21 TAKE TABLETS BY MOUTH DIRECTED TAKE 6 TABLETS BY MOUTH ON DAY ONE, THEN DECREASE BY ONE TABLET DAILY UNTIL GONE. TAKE WITH FOOD. (TAKE WITH FOOD) TAKE 6 TABLETS BY MOUTH ON DAY ONE, THEN DECREASE BY ONE TABLET DAILY UNTIL GONE. TAKE WITH FOOD. (TAKE WITH FOOD) ORAL 06/22/2024 [id number] KAYLA MCCORD AMMAD T 2024 1 [facility] MULTIVITAMI NS CAP/TAB TAKE ONE TABLET BY MOUTH ONCE A DAY ORAL ACTIVE ANDREW GARCIA 2008 [facility] DEANISALONSO N Allergies, Adverse Reactions, Alerts Combined list of allergies from Department of Defense and Veterans Affairs facilities. It does not include entries that were removed or entered in error. Substance Category Reaction Severity Reaction type Status Date Reported Comments Source AMLODIPINE Propensity to adverse reactions to drug (finding) Swelling active 5 [facility] HYDRALAZINE Propensity to adverse reactions to drug (finding) Tachycardia , Palpitation s active 8 [facility] MORPHINE Propensity to adverse reactions to drug (finding) Anxiety active 9 [facility] MORPHINE Propensity to adverse reactions to drug (finding) Hallucinati ons active 2 [facility] Immunizations Combined list of available immunizations from the Department of Defense and Veterans Affairs facilities. Immunization Series Date Given Administered By Site Reaction Lot Number CVX Code Drug Front Maker Lockstitch Status Comments Source INFLUENZA, UNSPECIFIED FORMULATION 2011 88 complet ed [facility] FLU VACCINE NO PRESERV 3 & > (HISTORICAL) 2009 complet ed [facility] INFLUENZA, UNSPECIFIED FORMULATION 2009 NONE 88 complet ed [facility] DTAP, UNSPECIFIED FORMULATION 2009 DENI CASTANEDA 107 complet ed [facility] TD(ADULT) UNSPECIFIED FORMULATION 2009 SPENCERISATU 139 complet ed [facility] TDAP 2009 115 complet ed [facility] INFLUENZA, UNSPECIFIED FORMULATION 2007 88 complet ed [facility] N TDAP 2006 115 complet ed [facility] N TETANUS TOXOID, UNSPECIFIED FORMULATION 2004 112 complet ed [facility] SPINAL CORD OUTCOME S Results [...] May 17, 2024 03:17 PM Reporting Lab: [facility] [address] [place] [phone] Performing Lab: [facility] [address] [place] [phone] [facility] CBC ERYTHROCYT ES [#/VOLUME] IN BLOOD BY AUTOMATED COUNT 5.61 10*6/uL 4.10 - 5.70 05/17 Specimen Type: BLOOD No comment entered. Ordering Provider: WALTER MCCORD MMAD Report Released Date/Time: May 17, 2024 03:17 PM Reporting Lab: [facility] [address] [place] [phone] Performing Lab: [facility] [address] [place] [phone] [facility] CBC HEMOGLOBIN [MASS/VOLU ME] IN BLOOD 16.3 g/dL 13.1 - 16.8 05/17 Specimen Type: BLOOD No comment entered. Ordering Provider: WALTER MCCORD MMAD Report Released Date/Time: May 17, 2024 03:17 PM Reporting Lab: [facility] [address] [place] [phone] Performing Lab: [address] [address] [facility] CBC HEMATOCRIT [VOLUME FRACTION] OF BLOOD 51.0 38.2 - 48.4 05/17 H Specimen Type: BLOOD No comment entered. Ordering Provider: WALTER MCCORD MMAD Report Released Date/Time: May 17, 2024 03:17 PM Reporting Lab: [address] [address] Performing Lab: [address] [phone] [place] [address] CBC MCV [ENTITIC VOLUME] BY AUTOMATED COUNT 90.9 fL 80.0 - 100.0 05/17 Specimen Type: BLOOD No comment entered. Ordering Provider: WALTER MCCORD MMAD Report Released Date/Time: May 17, 2024 03:17 PM Reporting Lab: [address] [address] Performing Lab: [address] [address] [facility] CBC MCH [ENTITIC MASS] BY AUTOMATED COUNT 29.1 pg 27.0 - 34.0 05/17 Specimen Type: BLOOD No comment entered. Ordering Provider: WALTER MCCORD MMAD Report Released Date/Time: May 17, 2024 03:17 PM Reporting Lab: [address] [phone] Performing Lab: [address] [phone] [facility] CBC MCHC [MASS/VOLU ME] BY AUTOMATED COUNT 32.0 g/dL 33.0 - 36.0 05/17 L Specimen Type: BLOOD No comment entered. Ordering Provider: WALTER MCCORD MMAD Report Released Date/Time: May 17, 2024 03:17 PM Reporting Lab: [facility] [address] [place] [phone] Performing Lab: [facility] [address] [place] [phone] [facility] CBC PLATELETS [#/VOLUME] IN BLOOD BY AUTOMATED COUNT 265 10*3/uL 150 - 400 05/17 Specimen Type: BLOOD No comment entered. Ordering Provider: WALTER MCCORD MMAD Report Released Date/Time: May 17, 2024 03:17 PM Reporting Lab: [facility] [address] [place], [place] [phone] Performing Lab: [address] [phone] CBC PLATELET MEAN VOLUME [ENTITIC VOLUME] IN BLOOD BY AUTOMATED COUNT 9.3 fL 7.5 - 11.2 05/17 Specimen Type: BLOOD No comment entered. Ordering Provider: WALTER MCCORD MMAD Report Released Date/Time: May 17, 2024 03:17 PM Reporting Lab: [facility] [address] [place] [phone] Performing Lab: [address] [address] [facility] CBC ERYTHROCYT E DISTRIBUTI ON WIDTH [RATIO] BY AUTOMATED COUNT 15.0 11.8 - 15.1 05/17 Specimen Type: BLOOD No comment entered. Ordering Provider: WALTER MCCORD MMAD Report Released Date/Time: May 17, 2024 03:17 PM Reporting Lab: [facility] [address] [place] [phone] Performing Lab: [facility] [address] [place] [phone] [facility] CBC LYMPHOCYTE S/100 LEUKOCYTES IN BLOOD BY AUTOMATED COUNT 23 05/17 Specimen Type: BLOOD No comment entered. Ordering Provider: WALTER MCCORD MMAD Report Released Date/Time: May 17, 2024 03:17 PM Reporting Lab: [facility] [address] [facility] [phone] Performing Lab: [facility] [address] [facility] [phone] [facility] CBC MONOCYTES/ 100 LEUKOCYTES IN BLOOD BY AUTOMATED COUNT 8 05/17 Specimen Type: BLOOD No comment entered. Ordering Provider: WALTER MCCORD MMAD Report Released Date/Time: May 17, 2024 03:17 PM Reporting Lab: [facility] [address] [place] [phone] Performing Lab: [facility] [address] [place] [phone] [facility] CBC NEUTROPHIL S/100 LEUKOCYTES IN BLOOD BY AUTOMATED COUNT 63 05/17 Specimen Type: BLOOD No comment entered. Ordering Provider: WALTER MCCORD MMAD Report Released Date/Time: May 17, 2024 03:17 PM Reporting Lab: [facility] [address] [facility] [phone] Performing Lab: [facility] [address] [place] [phone] [facility] CBC EOSINOPHIL S/100 LEUKOCYTES IN BLOOD BY AUTOMATED COUNT 5 05/17 Specimen Type: BLOOD No comment entered. Ordering Provider: WALTER MCCORD MMAD Report Released Date/Time: May 17, 2024 03:17 PM Reporting Lab: [facility] [address] [facility] [phone] Performing Lab: [facility] [address] [place] [phone] [facility] CBC BASOPHILS/ 100 LEUKOCYTES IN BLOOD BY AUTOMATED COUNT 1 05/17 Specimen Type: BLOOD No comment entered. Ordering Provider: WALTER MCCORD MMAD Report Released Date/Time: May 17, 2024 03:17 PM Reporting Lab: [facility] [address] [place] [phone] Performing Lab: [facility] [address] [place] [phone] [facility] CBC LYMPHOCYTE S [#/VOLUME] IN BLOOD BY AUTOMATED COUNT 1.62 10*3/uL 0.77 - 4.50 05/17 Specimen Type: BLOOD No comment entered. Ordering Provider: WALTER MCCORD MMAD Report Released Date/Time: May 17, 2024 03:17 PM Reporting Lab: [facility] [address] [place], [place] [phone] Performing Lab: [place] [phone] CBC MONOCYTES [#/VOLUME] IN BLOOD BY AUTOMATED COUNT 0.55 10*3/uL 0.19 - 0.80 05/17 Specimen Type: BLOOD No comment entered. Ordering Provider: WALTER MCCORD MMAD Report Released Date/Time: May 17, 2024 03:17 PM Reporting Lab: [facility] [address] [place], [place] [phone] Performing Lab: [place] [phone] CBC NEUTROPHIL S [#/VOLUME] IN BLOOD BY AUTOMATED COUNT 4.47 10*3/uL 2.10 - 8.00 05/17 Specimen Type: BLOOD No comment entered. Ordering Provider: WALTER MCCORD MMAD Report Released Date/Time: May 17, 2024 03:17 PM Reporting Lab: [facility] [address] [place] [phone] Performing Lab: [facility] [address] [place], [place] [phone] [address] CBC EOSINOPHIL S [#/VOLUME] IN BLOOD BY AUTOMATED COUNT 0.32 10*3/uL 0.00 - 0.60 05/17 Specimen Type: BLOOD No comment entered. Ordering Provider: WALTER MCCORD MMAD Report Released Date/Time: May 17, 2024 03:17 PM Reporting Lab: [facility] [address] [facility] [phone] Performing Lab: [facility] [address] [facility] [phone] [facility] CBC BASOPHILS [#/VOLUME] IN BLOOD BY AUTOMATED COUNT 0.06 10*3/uL 0.00 - 0.20 05/17 Specimen Type: BLOOD No comment entered. Ordering Provider: WALTER MCCORD MMAD Report Released Date/Time: May 17, 2024 03:17 PM Reporting Lab: [facility] [address] [facility] [phone] Performing Lab: [facility] [address] [place] [phone] [facility] COMPREHEN SIVE METABOLIC PANEL CREATININE [MASS/VOLU ME] IN SERUM OR PLASMA 1.45 mg/dL 0.7 - 1.3 05/17 H Specimen Type: PLASMA Comment: No hemolysis noted. Ordering Provider: WALTER MCCORD MMAD Report Released Date/Time: May 17, 2024 03:17 PM Reporting Lab: [facility] [address] [place] [phone] Performing Lab: [facility] [address] [place] [phone] [facility] COMPREHEN SIVE METABOLIC PANEL UREA NITROGEN [MASS/VOLU ME] IN SERUM OR PLASMA 45.5 mg/dL 9.0 - 25.0 05/17 H Specimen Type: PLASMA Comment: No hemolysis noted. Ordering Provider: WALTER MCCORD MMAD Report Released Date/Time: May 17, 2024 03:17 PM Reporting Lab: [facility] [address] [place] [phone] Performing Lab: [facility] [address] [place] [phone] [facility] COMPREHEN SIVE METABOLIC PANEL GLUCOSE [MASS/VOLU ME] IN SERUM OR PLASMA 98 mg/dL 72 - 99 05/17 Specimen Type: PLASMA Comment: No hemolysis noted. Ordering Provider: WALTER MCCORD MMAD Report Released Date/Time: May 17, 2024 03:17 PM Reporting Lab: [facility] [address] [facility] [phone] Performing Lab: [facility] [address] [facility] [phone] [facility] COMPREHEN SIVE METABOLIC PANEL SODIUM [MOLES/VOL UME] IN SERUM OR PLASMA 142 meq/L 136 - 145 05/17 Specimen Type: PLASMA Comment: No hemolysis noted. Ordering Provider: WALTER MCCORD MMAD Report Released Date/Time: May 17, 2024 03:17 PM Reporting Lab: [facility] [address] [facility] [phone] Performing Lab: [facility] [address] [place] [phone] [facility] COMPREHEN SIVE METABOLIC PANEL POTASSIUM [MOLES/VOL UME] IN SERUM OR PLASMA 4.4 meq/L 3.5 - 5 05/17 Specimen Type: PLASMA Comment: No hemolysis noted. Ordering Provider: WALTER MCCORD MMAD Report Released Date/Time: May 17, 2024 03:17 PM Reporting Lab: [facility] [address] [facility] [phone] Performing Lab: [facility] [address] [facility] [phone] [facility] COMPREHEN SIVE METABOLIC PANEL CHLORIDE [MOLES/VOL UME] IN SERUM OR PLASMA 109 meq/L 98 - 107 05/17 H Specimen Type: PLASMA Comment: No hemolysis noted. Ordering Provider: WALTER MCCORD MMAD Report Released Date/Time: May 17, 2024 03:17 PM Reporting Lab: [facility] [address] [facility] [phone] Performing Lab: [facility] [address] [facility] [phone] [facility] COMPREHEN SIVE METABOLIC PANEL CARBON DIOXIDE, TOTAL [MOLES/VOL UME] IN SERUM OR PLASMA 22 meq/L 22 - 31 05/17 Specimen Type: PLASMA Comment: No hemolysis noted. Ordering Provider: WALTER MCCORD MMAD Report Released Date/Time: May 17, 2024 03:17 PM Reporting Lab: [facility] [address] [facility] [phone] Performing Lab: [facility] [address] [facility] [phone] [place] [address] COMPREHEN SIVE METABOLIC PANEL CALCIUM [MASS/VOLU ME] IN SERUM OR PLASMA 9.8 mg/dL 8.4 - 10.4 05/17 Specimen Type: PLASMA Comment: No hemolysis noted. Ordering Provider: WALTER MCCORD MMAD Report Released Date/Time: May 17, 2024 03:17 PM Reporting Lab: [address] [phone] Performing Lab: [place] [address] [facility] [phone] [facility] COMPREHEN SIVE METABOLIC PANEL PROTEIN [MASS/VOLU ME] IN SERUM OR PLASMA 7.1 g/dL 6 - 8.6 05/17 Specimen Type: PLASMA Comment: No hemolysis noted. Ordering Provider: WALTER MCCORD MMAD Report Released Date/Time: May 17, 2024 03:17 PM Reporting Lab: [address] [address] Performing Lab: [facility] [address] [place] [phone] [facility] COMPREHEN SIVE METABOLIC PANEL ALBUMIN [MASS/VOLU ME] IN SERUM OR PLASMA 4.0 g/dL 3.4 - 5 05/17 Specimen Type: PLASMA Comment: No hemolysis noted. Ordering Provider: WALTER MCCORD MMAD Report Released Date/Time: May 17, 2024 03:17 PM Reporting Lab: [address] [address] Performing Lab: [place] [address] [facility] [phone] [facility] COMPREHEN SIVE METABOLIC PANEL BILIRUBIN. TOTAL [MASS/VOLU ME] IN SERUM OR PLASMA 0.4 mg/dL 0.2 - 1.2 05/17 Specimen Type: PLASMA Comment: No hemolysis noted. Ordering Provider: WALTER MCCORD MMAD Report Released Date/Time: May 17, 2024 03:17 PM Reporting Lab: [facility] [address] [place] [phone] Performing Lab: [address] [phone] [place] [address] COMPREHEN SIVE METABOLIC PANEL ALKALINE PHOSPHATAS E [ENZYMATIC ACTIVITY/V OLUME] IN SERUM OR PLASMA 85 U/L 40 - 150 05/17 Specimen Type: PLASMA Comment: No hemolysis noted. Ordering Provider: WALTER MCCORD MMAD Report Released Date/Time: May 17, 2024 03:17 PM Reporting Lab: [facility] [address] [place] [phone] Performing Lab: [address] [address] [facility] COMPREHEN SIVE METABOLIC PANEL ASPARTATE AMINOTRANS FERASE [ENZYMATIC ACTIVITY/V OLUME] IN SERUM OR PLASMA 47 U/L 5 - 34 05/17 H Specimen Type: PLASMA Comment: No hemolysis noted. Ordering Provider: WALTER MCCORD MMAD Report Released Date/Time: May 17, 2024 03:17 PM Reporting Lab: [facility] [address] [place] [phone] Performing Lab: [facility] [address] [place] [phone] [facility] COMPREHEN SIVE METABOLIC PANEL ALANINE AMINOTRANS FERASE [ENZYMATIC ACTIVITY/V OLUME] IN SERUM OR PLASMA 42 U/L 8 - 40 05/17 H Specimen Type: PLASMA Comment: No hemolysis noted. Ordering Provider: WALTER MCCORD MMAD Report Released Date/Time: May 17, 2024 03:17 PM Reporting Lab: [facility] [address] [facility] [phone] Performing Lab: [facility] [address] [place] [phone] [facility] COMPREHEN SIVE METABOLIC PANEL GLOMERULAR FILTRATION RATE/1.73 SQ M.PREDICTE D [VOLUME RATE/AREA] IN SERUM, PLASMA OR BLOOD BY CREATININE -BASED FORMULA (CKD-EPI 2020) 52.8 60 05/17 Specimen Type: PLASMA Comment: No hemolysis noted. Ordering Provider: WALTER MCCORD MMAD Report Released Date/Time: May 17, 2024 03:17 PM Reporting Lab: [facility] [address] [place] [phone] Performing Lab: [address] [address] [facility] CRP C REACTIVE PROTEIN [MASS/VOLU ME] IN SERUM OR PLASMA BY HIGH SENSITIVIT Y METHOD 0.2 mg/dL 0 - 0.5 05/17 Specimen Type: PLASMA Comment: No hemolysis noted. Ordering Provider: WALTER MCCORD MMAD Report Released Date/Time: May 17, 2024 03:17 PM Reporting Lab: [facility] [address] [facility] [phone] Performing Lab: [address] [address] [facility] ESR ISED(STL) ERYTHROCYT E SEDIMENTAT ION RATE 8 mm/h 0 - 19 05/17 Specimen Type: BLOOD No comment entered. Ordering Provider: WALTER MCCORD MMAD Report Released Date/Time: May 17, 2024 03:17 PM Reporting Lab: [facility] [address] [place] [phone] Performing Lab: [facility] [address] [place] [phone] [facility] LIPID PANEL (STL) CHOLESTERO L [MASS/VOLU ME] IN SERUM OR PLASMA 144 mg/dL 0 - 200 05/17 Specimen Type: PLASMA Comment: No hemolysis noted. Ordering Provider: WALTER MCCORD MMAD Report Released Date/Time: May 17, 2024 03:17 PM Reporting Lab: [facility] [address] [facility] [phone] Performing Lab: [facility] [address] [place] [phone] [facility] LIPID PANEL (STL) TRIGLYCERI DE [MASS/VOLU ME] IN SERUM OR PLASMA 146 mg/dL 0 - 150 05/17 Specimen Type: PLASMA Comment: No hemolysis noted. Ordering Provider: WALTER MCCORD MMAD Report Released Date/Time: May 17, 2024 03:17 PM Reporting Lab: [facility] [address] [place] [phone] Performing Lab: [address] [address] [facility] LIPID PANEL (STL) CHOLESTERO L IN LDL [MASS/VOLU ME] IN SERUM OR PLASMA BY CALCULAGIOO N 58 mg/dL 05/17 Specimen Type: PLASMA Comment: No hemolysis noted. Ordering Provider: WALTER MCCORD MMAD Report Released Date/Time: May 17, 2024 03:17 PM Reporting Lab: [facility] [address] [place] [id number] Performing Lab: [facility] [address] [place] [phone] [facility] LIPID PANEL (STL) CHOLESTERO L IN HDL [MASS/VOLU ME] IN SERUM OR PLASMA 57 mg/dL 40 05/17 Specimen Type: PLASMA Comment: No hemolysis noted. Ordering Provider: WALTER MCCORD MMAD Report Released Date/Time: May 17, 2024 03:17 PM Reporting Lab: [facility] [address] [facility] [address] Performing Lab: [facility] [address] [place] [phone] [facility] TSH W/ REFLEX FT4 (STL) THYROTROPI N [UNITS/VOL UME] IN SERUM OR PLASMA 1.402 u[IU]/mL 0.47 - 5 05/17 Specimen Type: PLASMA No comment entered. Ordering Provider: WALTER MCCORD MMAD Report Released Date/Time: May 17, 2024 03:17 PM Reporting Lab: [facility] [address] [place] [phone] Performing Lab: [address] [phone] [place] [address] VITAMIN D, 25-HYDROX Y 25-HYDROXY VITAMIN D3 [MASS/VOLU ME] IN SERUM OR PLASMA 100.1 ng/mL 30 - 96 05/17 H Specimen Type: SERUM No comment entered. Ordering Provider: WALTER MCCORD MMAD Report Released Date/Time: May 17, 2024 03:17 PM Reporting Lab: [facility] [address] [place] [phone] Performing Lab: [phone] [place] [address] OCCULT BLOOD FIT X1 SCREEN (MFP ONLY) HEMOGLOBIN .GASTROINT ESTINAL.LO WER [PRESENCE] IN STOOL BY IMMUNOASSA Y Negative 04/23 Specimen Type: FECES No comment entered. Ordering Provider: WALTER MCCORD MMAD Report Released Date/Time: Mar 17, 2024 09:54 AM Reporting Lab: [facility] [address] [facility] [address] Performing Lab: [facility] [address] [place] [phone] [place] [address] MICRAL/CR EAT PROFILE (STL) ALBUMIN [MASS/VOLU ME] IN URINE 75.0 mg/L 08/13 Specimen Type: URINE No comment entered. Ordering Provider: NIMA OSORIO Report Released Date/Time: July 29, 2022 02:59 PM Reporting Lab: [facility] [address] [facility] [address] Performing Lab: [facility] [address] [facility] [address] [facility] MICRAL/CR EAT PROFILE (STL) ALBUMIN/CR EATININE [MASS RATIO] IN URINE 71 ug/mL <20 - 20 08/13 H Specimen Type: URINE No comment entered. Ordering Provider: NIMA OSORIO Report Released Date/Time: July 29, 2022 02:59 PM Reporting Lab: [place] [address] [facility] [address] Performing Lab: [address] [address] [facility] MICRAL/CR EAT PROFILE (STL) CREATININE [MASS/VOLU ME] IN URINE 105.9 mg/dL 63 - 166 08/13 Specimen Type: URINE No comment entered. Ordering Provider: NIMA OSORIO Report Released Date/Time: July 29, 2022 02:59 PM Reporting Lab: [place] [address] [facility] [address] Performing Lab: [address] [address] [facility] PROTEIN URINE PROTEIN [MASS/VOLU ME] IN URINE 18.2 mg/dL 08/13 Specimen Type: URINE No comment entered. Ordering Provider: NIMA OSORIO Report Released Date/Time: July 29, 2022 02:59 PM Reporting Lab: [place] [address] [facility] [address] Performing Lab: [address] [address] [facility] Vital Signs Combined list of inpatient and outpatient Vital Signs from Department of Defense and Veterans Affairs, ranging from 12 months to all on record, depending upon the facility. Vital Sign Value Date Comments Source SYSTOLIC BLOOD PRESSURE 129 06/01/19 25 13:32:[address] [facility] DIASTOLIC BLOOD PRESSURE 83 025 13:32:[address] [facility] PULSE OXIMETRY 97 05/31/2024 13:32:47 [facility] WEIGHT 168.2 05/31/2024 13:32:47 [facility] BMI 24 kg/m2 05/31/2024 13:32:47 [facility] PAIN 7 05/31/2024 13:32:47 [facility] HEIGHT 70 05/31/2024 13:32:47 [facility] TEMPERATURE 98.2 05/31/2024 13:32:47 [facility] PULSE 81 05/31/2024 13:32:47 [facility] RESPIRATION 16 05/31/2024 13:32:47 [facility] SYSTOLIC BLOOD PRESSURE 127 05/17/19 25 14:37:02 [facility] DIASTOLIC BLOOD PRESSURE 85 025 14:37:02 [facility] PULSE OXIMETRY 96 05/17/2024 14:37:02 [facility] WEIGHT 168 05/17/2024 14:37:02 [facility] BMI 23 kg/m2 05/17/2024 14:37:02 [facility] PAIN 4 05/17/2024 14:37:02 [facility] TEMPERATURE 97.3 05/17/2024 14:37:02 [facility] PULSE 76 05/17/2024 14:37:02 [facility] RESPIRATION 18 05/17/2024 14:37:02 [facility] Encounters Combined list of: 1) Encounters from Department of Veterans Affairs facilities going backup to the last 18 months, not all VA inpatient encounters are included; 2) Encounters from the Department of [facility] facilities going backup to 280 months. Location Location Details Encounter Type Encounter Number Reason For Visit Attending Provider ADM Date DC Date Status Disposition Source [facility] Outpatient Encounter [id number] [facility] Encounter [id number] BENEDICTO BARRIOS A 02/02 [facility] Encounter [id number] SURIWALTER DUPREE MMAD T 02/25 [facility] Outpatient Encounter [id number] 03/09 [facility] OFF/OP CONSLTJ [place] 55 [id number] Diagnos is: ICD-10- CM R26.89 Other abnorma lities of gait and mobilit y SARATH SNOW 04/16 [facility] Outpatient Encounter [id number] 04/24 [facility] Outpatient Encounter [id number] 05/13 [facility] Outpatient Encounter [id number] WALTER MCCORD MMAD T 11/26 [facility] Outpatient Encounter [id number] WALTER MCCORD MMAD T 11/28 [facility] Outpatient Encounter [id number] 01/03 [facility] Outpatient Encounter [id number] WALTER MCCORD MMAD T 01/13 [facility] Outpatient Encounter [id number] D[facility]ARDADO [facility] OFFICE O/P EST MOD 30 MIN [id number] Diagnos is: ICD-10- CM M16.9 Osteoar thritis of hip, unspeci fied MARIS FLORES 05/17 [facility] Outpatient Encounter [id number] WALTER MCCROD MMAD T 05[facility]18 [facility] Outpatient Encounter [id number] SURIWALTER MELÉNDEZD T 05/23 [facility] OFFICE O/P EST LOW 20 MIN [id number] Diagnos is: ICD-10- CM M25.551 Pain in right hip WALTER MCCORD TANNER T 05/23 [facility] Outpatient Encounter [id number] BARBARA CARVER Juan Pablo 05/26 [facility] OFFICE O/P NEW LOW 30 MIN [id number] Diagnos is: ICD-10- CM M25.551 Pain in right hip JERMAINE DESOUZA 05/[facility] A[facility]ONLY EST MOD 30 [id number] Diagnos is: ICD-10- CM M70.71 Other bursiti s of hip, right hip WALTER MCCORD MEDHATD T 06/06 [facility] SYNCH AUDIO-ONLY EST MOD 30 [id number] Diagnos is: ICD-10- CM M16.9 Osteoar thritis of hip, unspeci fied WALTER MCCORD MEDHATD T 06/13 [facility] Social History Combined list of available smoking, tobacco, and other social history from Department of Defense and Veterans Affairs facilities. Social History Type Response Date Comment Sourc e Tobacco smoking status NHIS VA-TOBACCO NEVER USED CIGARETTES 05/17/2024 [facility] History of tobacco use VA-TOBACCO NEVER USED OTHER TYPE 05/17/2024 [facility] History of tobacco use VA-TOBACCO NEVER USED 08/05/2021 [facility] History of tobacco use [place]-TOBACCO FORMER USER 01/11/2021 [facility] History of tobacco use [place] FORMER USER 12/20/2019 [facility] of [facility] MORE 07/08/2018 [facility] History of tobacco use LIFETIME NON-USER OF TOBACCO INPT 05/13/2018 [facility] History of tobacco use [place]-TO[place]ACCO NEVER USED 12/25/2017 [facility] History of tobacco use QUIT TOBACCO >7 YEARS AGO 03/24/2017 [facility] History of tobacco use LIFETIME NON-TOBACCO USER 02/28/2016 [facility] History of tobacco use QUIT TOBACCO >7 YEARS AGO INPT 11/02/2014 [facility] History of tobacco use QUIT TOBACCO >7 YEARS AGO 06/07/2014 [facility] History of tobacco use QUIT TOBACCO >7 YEARS AGO 12/10/2012 [facility] History of tobacco use LIFETIME NON-USER OF TOBACCO 03/03/2012 [facility] History of tobacco use QUIT TOBACCO >7 YEARS AGO 10/21/2010 [facility] History of tobacco use CURRENT TOBACCO USER 12/06/2009 [facility] History of tobacco use CURRENT TOBACCO USER 08/23/2008 [facility] Plan of Care List of future care activities from Department [facility] Affairs facilities. Additional future care activities may be listed in the Assessment and Plan section. Date/Time Care Activity Care Activity Detail Facili ty 07/05/2024 AMBULATORY - NONE AMBULATORY - NONE [facility] Advance Directives List of completed, amended, or rescinded Advance Directives on record at [facility] facilities. An actual copy of the Directive is not included. Date Advance Directive Provider Source 05/14/2018 ADVANCE DIRECTIVE DISCUSSION COURTNEY HAZEL [facility] 04/24/2015 ADVANCE DIRECTIVE DISCUSSION MSITY POWELL [facility] 04/21/2012 ADVANCE DIRECTIVE EVERETT RODARTE [facility] 04/21/2012 ADVANCE DIRECTIVE DISCUSSION MERVAT FORTUNE [facility] 07/03/2011 ADVANCE DIRECTIVE DISCUSSION ELIU RICK [facility] 06/28/2010 ADMINISTRATIVE NOTE FLAKITA ZULETA [facility] 10/03/2008 ADVANCE DIRECTIVE CONNOR PAUL [facility]
--- OUTSIDE RECORDS SUMMARY | 2024-06-23 08:23 | XMS_ITS | Clinical Summary ---
Author Organization [facility] [employer] Address [address] [place] [address] Care Team Providers Care Front Office Secretary Name Role Phone Unavailable Primary Care Provider Unavailabl e Source Comments [facility] [employer],non-owned Affiliates and Associated Physician Practices is amultiple site organization consisting of ambulatory clinics and hospital sitesin [place], [place], [place] and [place]. This disclosure is being madepursuant to the Care Everywhere program and may not contain all information available regarding this patient. Last updated 17.[facility] [employer] Social History Tobacco Use Types Packs/Day Years [...] to complete this topic MENINGOCOCCAL (Group B) VACC INE SHARED DECISION-MAKING Aged Out No longer eligibl e based on patient's age to complete this topic MENINGOCOCCAL GROUPS A/C/Y/W VACCINE Aged Out No longer eligible b ased on patient's age to complete this topic
[2024-06-23 08:48] LABS: Hematocrit 54.2 % (42.0-52.0); Hemoglobin 17.1 g/dL (14.0-18.0); Mean Corpuscular HGB Conc 31.5 g/dl (32-36); Mean Corpuscular Hemoglobin 28.7 pg (26-34); Mean Corpuscular Volume 91.1 fl (80-100); Mean Platelet Volume 9.3 fl (7.4-10.4); Platelet Count Result 272 k/mm3 (150-375); Red Blood Count 5.95 M/mm3 (4.6-6.20); White Blood Count 6.9 K/mm3 (4.5-10.0)
[2024-06-23 08:56] LABS: Add Urine Microscopic? YES; Appearance Urine Clear (Clear); Bacteria Urine None Seen /hpf; Bilirubin Urine Negative (Negative); Blood Urine 1+ (Negative); Color Urine Dark Yellow (Yellow); Glucose Urine UA Negative (Negative); Ketones Urine Trace mg/dL (Negative); Leukocyte Esterase Ur Trace LEU/UL (Negative); Nitrate Urine Negative (Negative); Non Pathogenic Casts 0-2; Protein Urine Trace mg/dL (Negative); RBC Urine 21-50 /hpf (0-2); Specific Grav Ur 1.024 (1.001-1.035); Squamous Epithelial Cell Urine None Seen /hpf (Few); WBC Urine 0-5 /hpf (0-3); pH Urine 5.5 (5.0-9.0)
[2024-06-23 09:01] LABS: Alanine Aminotransferase 40 U/L (6-50); Albumin Level 4.4 g/dL (3.5-5.1); Alkaline Phosphatase 100 U/L (38-126); Anion Gap 13 mmol/L (4-12); Aspartate Amino Transferase 52 U/L (17-59); Bilirubin,Total 0.7 mg/dL (0.2-1.3); Blood Urea Nitrogen 36 mg/dL (9-20); Calcium 10.9 mg/dL (8.4-10.2); Carbon Dioxide 25 mmol/L (22-30); Chloride 105 mmol/L (98-107); Cholesterol 150 mg/dL (0-200); Estimated Glomerular Filt Rate 43; Glucose 97 mg/dL (65-110); HDL Direct 54 mg/dL; Potassium 4.7 mmol/L (3.4-5.0); Sodium 143 mmol/L (137-145); Triglycerides 113 mg/dL (<150); Uric Acid 5.2 mg/dL (3.5-8.5)
[2024-06-23 09:12] LABS: LDL Cholesterol Direct 53 mg/dL
== END 2024-06-23 08:16 | disposition home or self-care (01) ==
PROVIDERS: PCP Nurse Practitioner Family; Visit Provider Nurse Practitioner Family
DX: N39.0 Urinary tract infection, site not specified (principal); I10 Essential (primary) hypertension; R41.89 Other symptoms and signs involving cognitive functions and awareness; R33.9 Retention of urine, unspecified; N28.9 Disorder of kidney and ureter, unspecified; F41.9 Anxiety disorder, unspecified; Z91.81 History of falling
CPT/HCPCS: 36415; 80053; 80061; 81001; 84550; 85027; 87086

== ENCOUNTER 2024-10-02 08:01 | Emergency (ER) | payer MEDICARE, OTHER, SELFPAY ==
--- NOTE | ~2024-10-02 | XR_ITS ---
HISTORY: pain, injury COMPARISON: 11/29/2023 TECHNIQUE: 3 views of the right foot were performed. FINDINGS: Hallux valgus deformity of the first metatarsophalangeal joint Acute displaced fracture of the base of the fifth metatarsal with 3 mm of separation and 4 mm of medi al and plantar dislocation of the distal fracture fragments. Lateral soft tissue swelling is noted. IMPRESSION: Acute fracture involving the base of the fifth metatarsal with 3 mm of separation and 4 mm of medial and plantar dislocation of the distal fracture fragments. Reviewed, dictated and finalized at location A. IMPRESSION: Acute fracture involving the base of the fifth metatarsal with 3 m m of separation and 4 mm of medial and plantar dislocation of the distal fractu re fragments.
--- NOTE | ~2024-10-02 | XR_ITS ---
HISTORY: pain injury COMPARISON: 11/29/2023 TECHNIQUE: 3 views of the right ankle were performed FINDINGS: Irregular lucency along the base of the fibula, an interval change from examination performed in Nov, likely an acute/subacute fracture. Lateral soft tissue swelling. The ankle mortise is preserved. Bone mineralization is age-appropriate. IMPRESSION: Likely acute/subacute fracture of the base of the fibula with overlying soft tissue swel ling, as detailed above. Reviewed, dictated and finalized at location A. IMPRESSION: Likely acute/subacute fracture of the base of the fibula with over lying soft tissue swelling, as detailed above.
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
--- OUTSIDE RECORDS SUMMARY | 2024-10-02 08:04 | XMS_ITS | Continuity of Care Document ---
Author Name [facility] Organization [facility] Care Team Providers Care Instructional Supervisor Name Role Phone [facility] Unavailable Unavailable Problems Combined list of problems from Department of Defense and [facility] Affairs facilities. It does not include entries that were removed or entered in error. Problem Status Onset Date Problem Type Date of Resolution Comments Source Adjustment disorder with anxious mood Active Condition [facility] Anemia due to chronic kidney disease stage 1 (SNOMED CT 009425647612872) Active Condition [facility] Anxiety * (ICD-9-CM 300.00/300.09) Active Condition [facility] Autosomal dominant polycystic kidney disease (SNOMED CT 124967980) Active Condition [facility] Benign essential hypertension Active Condition [facility] Benign hypertension (SNOMED CT 81141510) Active Condition [facility] Blood In Stool [facility] Chronic kidney disease (SNOMED CT 716979471) Active Condition [facility] Depression (SNOMED CT 60251101) Active Condition [facility] Erectile dysfunction Active Condition [facility] Exposure to potentially hazardous substance (SCT 676817694195306) Active Condition May 18 5 Entered By: NIDHI FREITAS Comment: Entered automatically through [employer] Problem List documentation program [facility] Gout Active Condition [facility] Headache Active Condition [facility] Hernia of abdominal cavity Active Condition [facility] Hypertensive chronic kidney disease, unspecified, with chronic kidney disease St Active Condition [facility] Inguinal hernia, without mention of obstruction or gangrene (ICD-9-CM 550.90) Active Condition [facility] Major depression in full remission Active Condition [facility] Migraine Active Condition [facility] Obsessive-Compuls wesley Disorder Active Condition [facility] Obsessive-compuls wesley disorder (SNOMED CT 342493032) Active Condition [facility] Obsessive-Compuls wesley Disorder * (ICD-9-CM 300.3) Active Condition [facility] Osteoarthritis of right hip joint (SNOMED CT 528336207699460) Active Condition [facility] Other and unspecified alcohol dependence, in remission (ICD-9-CM 303.93) Active Condition [facility] Proteinuria * (ICD-9-CM 791.0) Active Condition [facility] Recurrent unilateral or unspecified inguinal hernia, without mention of obstruct Active Condition [facility] Alcohol Dependence Inactive Condition 12/21/2014 May 10, 2010 Entered By: KYLE CHAVES Comment: in remission [facility] Blood in Stool (ICD-9-CM 578.1) Inactive Condition 12/21/2014 [facility] Chest pain Inactive Condition 12/21/2014 [facility] Elevated blood pressure reading without diagnosis of hypertension (ICD-9-CM 796. Inactive Condition 12/21/2014 [facility] Health Maint (ICD-9-CM V65.9) Inactive Condition 12/21/2014 [facility] Renal Cyst (ICD-9-CM 753.10) Inactive Condition 04/17/2015 [facility] Diagnosis: ICD-10-CM Z96.641 Presence of right artificial hip joint Active Diagnosis [facility] Diagnosis: ICD-10-CM M16.9 Osteoarthritis of hip, unspecified Active Diagnosis [facility] Diagnosis: ICD-10-CM M70.71 Other bursitis of hip, right hip Active Diagnosis [facility] Diagnosis: ICD-10-CM M25.551 Pain in right hip Active Diagnosis [facility] Diagnosis: ICD-10-CM R26.89 Other abnormalities of gait and mobility Active Diagnosis [facility] Medications Combined list of outpatient medications from [...] DAY NEEDED ORAL ACTIVE Xu REA 2018 [facility] ASCORBIC ACID 500MG TAB TAKE ONE TABLET BY MOUTH ONCE A DAY ORAL ACTIVE ANDREW GARCIA 2008 [facility] [place] ASPIRIN 81MG TAB,EC TAKE ONE TABLET BY MOUTH EVERY MORNING ORAL ACTIVE Xu REA M 2018 [facility] DULOXETINE HCL 60MG CAP,EC TAKE 1 CAPSULE BY MOUTH ONCE A DAY ORAL ACTIVE ANDREW GARCIA 2008 [facility] [place] GARLIC OIL TAB,EC TAKE ONE TABLET BY MOUTH ONCE A DAY ORAL ACTIVE ANDREW GARCIA 2008 [facility] RICK Almeida METHYLPREDN ISOLONE 4MG TAB DOSEPAK,21 TAKE TABLETS BY MOUTH DIRECTED TAKE 6 TABLETS BY MOUTH ON DAY ONE, THEN DECREASE BY ONE TABLET DAILY UNTIL GONE. TAKE WITH FOOD. (TAKE WITH FOOD) TAKE 6 TABLETS BY MOUTH ON DAY ONE, THEN DECREASE BY ONE TABLET DAILY UNTIL GONE. TAKE WITH FOOD. (TAKE WITH FOOD) ORAL 06/22/2024 [id number] KAYLA MCCORD AMMAD T 2024 1 [facility] MULTIVITAMI NS CAP/TAB TAKE ONE TABLET BY MOUTH ONCE A DAY ORAL ACTIVE ANDREW GARCIA 2008 [facility] DEANISIO N Allergies, Adverse Reactions, Alerts Combined list of allergies from Department of Defense and Veterans Affairs facilities. It does not include entries that were removed or entered in error. Substance Category Reaction Severity Reaction type Status Date Reported Comments Source AMLODIPINE Propensity to adverse reactions to drug (finding) Swelling active 5 [facility] HYDRALAZINE Propensity to adverse reactions to drug (finding) Tachycardia , Palpitation s active 8 [facility] MORPHINE Propensity to adverse reactions to drug (finding) Anxiety active 9 [facility] MORPHINE Propensity to adverse reactions to drug (finding) Hallucinati ons active 2 [facility] Immunizations Combined list of available immunizations from the Department of Defense and Veterans Affairs facilities. 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 Status Comments Source INFLUENZA, UNSPECIFIED FORMULATION 2011 88 complet ed [facility] FLU VACCINE NO PRESERV 3 & > (HISTORICAL) 2009 complet ed [facility] INFLUENZA, UNSPECIFIED FORMULATION 2009 NONE 88 complet ed [facility] DTAP, UNSPECIFIED FORMULATION 2009 DENI CASTANEDA 107 complet [facility] TD(ADULT) UNSPECIFIED FORMULATION 2009 ISATU PALMER 139 complet ed [facility] TDAP 2009 115 complet ed [facility] INFLUENZA, UNSPECIFIED FORMULATION 2007 88 complet ed [facility] TDAP 2006 115 complet ed [facility] N TETANUS TOXOID, UNSPECIFIED FORMULATION 2004 112 complet ed [facility] SPINAL CORD OUTCOME S Results Combined [...] May 17, 2024 03:17 PM Reporting Lab: [facility] [address] [place] [phone] Performing Lab: [address] [address] [facility] CRP C REACTIVE PROTEIN [MASS/VOLU ME] IN SERUM OR PLASMA BY HIGH SENSITIVIT Y METHOD 0.2 mg/dL 0 - 0.5 05/17 Specimen Type: PLASMA Comment: No hemolysis noted. Ordering Provider: WALTER MCCORD MMAD Report Released Date/Time: May 17, 2024 03:17 PM Reporting Lab: [facility] [address] [place] [phone] Performing Lab: [facility] [address] [place] [phone] [facility] VITAMIN D, 25-HYDROX Y 25-HYDROXY VITAMIN D3 [MASS/VOLU ME] IN SERUM OR PLASMA 100.1 ng/mL 30 - 96 05/17 H Specimen Type: SERUM No comment entered. Ordering Provider: WLATER MCCORD MMAD Report Released Date/Time: May 17, 2024 03:17 PM Reporting Lab: [facility] [address] [place] [phone] Performing Lab: [address] [address] [facility] TSH W/ REFLEX FT4 (STL) THYROTROPI N [UNITS/VOL UME] IN SERUM OR PLASMA 1.402 u[IU]/mL 0.47 - 5 05/17 Specimen Type: PLASMA No comment entered. Ordering Provider: WALTER MCCORD MMAD Report Released Date/Time: May 17, 2024 03:17 PM Reporting Lab: [facility] [address] [place] [phone] Performing Lab: [address] [address] [facility] LIPID PANEL (STL) CHOLESTERO L [MASS/VOLU ME] IN SERUM OR PLASMA 144 mg/dL 0 - 200 05/17 Specimen Type: PLASMA Comment: No hemolysis noted. Ordering Provider: WALTER MCCORD MMAD Report Released Date/Time: May 17, 2024 03:17 PM Reporting Lab: [facility] [address] Performing Lab: [address] [address] [facility] LIPID PANEL (STL) TRIGLYCERI DE [MASS/VOLU ME] IN SERUM OR PLASMA 146 mg/dL 0 - 150 05/17 Specimen Type: PLASMA Comment: No hemolysis noted. Ordering Provider: WALTER MCCORD MMAD Report Released Date/Time: May 17, 2024 03:17 PM Reporting Lab: [facility] [address] [facility] [address] Performing Lab: [facility] [address] [facility] [address] [facility] LIPID PANEL (STL) CHOLESTERO L IN LDL [MASS/VOLU ME] IN SERUM OR PLASMA BY CALCLUIS N 58 mg/dL 05/17 Specimen Type: PLASMA Comment: No hemolysis noted. Ordering Provider: WALTER MCCORD MMAD Report Released Date/Time: May 17, 2024 03:17 PM Reporting Lab: [facility] [address] [place] [phone] Performing Lab: [address] [phone] [place] [address] LIPID PANEL (STL) CHOLESTERO L IN HDL [MASS/VOLU ME] IN SERUM OR PLASMA 57 mg/dL 40 05/17 Specimen Type: PLASMA Comment: No hemolysis noted. Ordering Provider: WALTER MCCORD MMAD Report Released Date/Time: May 17, 2024 03:17 PM Reporting Lab: [facility] [address] [place] [phone] Performing Lab: [address] [address] [facility] COMPREHEN SIVE METABOLIC PANEL CREATININE [MASS/VOLU ME] IN SERUM OR PLASMA 1.45 mg/dL 0.7 - 1.3 05/17 H Specimen Type: PLASMA Comment: No hemolysis noted. Ordering Provider: WALTER MCCORD MMAD Report Released Date/Time: May 17, 2024 03:17 PM Reporting Lab: [facility] [address] [place] [phone] Performing Lab: [facility] [address] [place] [phone] [facility] COMPREHEN SIVE METABOLIC PANEL UREA NITROGEN [MASS/VOLU ME] IN SERUM OR PLASMA 45.5 mg/dL 9.0 - 25.0 05/17 H Specimen Type: PLASMA Comment: No hemolysis noted. Ordering Provider: WALTER MCCORD MMAD Report Released Date/Time: May 17, 2024 03:17 PM Reporting Lab: [facility] [address] [facility] [phone] Performing Lab: [facility] [address] [facility] [phone] [facility] COMPREHEN SIVE METABOLIC PANEL GLUCOSE [MASS/VOLU ME] IN SERUM OR PLASMA 98 mg/dL 72 - 99 05/17 Specimen Type: PLASMA Comment: No hemolysis noted. Ordering Provider: WALTER MCCORD MMAD Report Released Date/Time: May 17, 2024 03:17 PM Reporting Lab: [facility] [address] [place] [phone] Performing Lab: [facility] [address] [place] [phone] [place] [address] COMPREHEN SIVE METABOLIC PANEL SODIUM [MOLES/VOL UME] IN SERUM OR PLASMA 142 meq/L 136 - 145 05/17 Specimen Type: PLASMA Comment: No hemolysis noted. Ordering Provider: WALTER MCCORD MMAD Report Released Date/Time: May 17, 2024 03:17 PM Reporting Lab: [facility] [address] [place] [phone] Performing Lab: [facility] [address] [place] [phone] [facility] COMPREHEN SIVE METABOLIC PANEL POTASSIUM [MOLES/VOL UME] IN SERUM OR PLASMA 4.4 meq/L 3.5 - 5 05/17 Specimen Type: PLASMA Comment: No hemolysis noted. Ordering Provider: WALTER MCCORD MMAD Report Released Date/Time: May 17, 2024 03:17 PM Reporting Lab: [facility] [address] [place] [phone] Performing Lab: [facility] [address] [place] [phone] [facility] COMPREHEN SIVE METABOLIC PANEL CHLORIDE [MOLES/VOL UME] IN SERUM OR PLASMA 109 meq/L 98 - 107 02/18 /2025 H Specimen Type: PLASMA Comment: No hemolysis noted. Ordering Provider: WALTER MCCORD MMAD Report Released Date/Time: May 17, 2024 03:17 PM Reporting Lab: [facility] [address] [facility] [phone] Performing Lab: [facility] [address] [place] [phone] [facility] COMPREHEN SIVE METABOLIC PANEL CARBON DIOXIDE, TOTAL [MOLES/VOL UME] IN SERUM OR PLASMA 22 meq/L 22 - 31 05/17 Specimen Type: PLASMA Comment: No hemolysis noted. Ordering Provider: WALTER MCCORD MMAD Report Released Date/Time: May 17, 2024 03:17 PM Reporting Lab: [address] [phone] Performing Lab: [address] [phone] [facility] COMPREHEN SIVE METABOLIC PANEL CALCIUM [MASS/VOLU ME] IN SERUM OR PLASMA 9.8 mg/dL 8.4 - 10.4 05/17 Specimen Type: PLASMA Comment: No hemolysis noted. Ordering Provider: WALTER MCCORD MMAD Report Released Date/Time: May 17, 2024 03:17 PM Reporting Lab: [address] [address] Performing Lab: [facility] [address] [place] [phone] [facility] COMPREHEN SIVE METABOLIC PANEL PROTEIN [MASS/VOLU ME] IN SERUM OR PLASMA 7.1 g/dL 6 - 8.6 05/17 Specimen Type: PLASMA Comment: No hemolysis noted. Ordering Provider: WALTER MCCORD MMAD Report Released Date/Time: May 17, 2024 03:17 PM Reporting Lab: [facility] [address] [place] [phone] Performing Lab: [facility] [address] [place] [phone] [facility] COMPREHEN SIVE METABOLIC PANEL ALBUMIN [MASS/VOLU ME] IN SERUM OR PLASMA 4.0 g/dL 3.4 - 5 05/17 Specimen Type: PLASMA Comment: No hemolysis noted. Ordering Provider: WALTER MCCORD MMAD Report Released Date/Time: May 17, 2024 03:17 PM Reporting Lab: [facility] [address] [facility] [address] Performing Lab: [facility] [address] [place] [phone] [place] [address] COMPREHEN SIVE METABOLIC PANEL BILIRUBIN. TOTAL [MASS/VOLU ME] IN SERUM OR PLASMA 0.4 mg/dL 0.2 - 1.2 05/17 Specimen Type: PLASMA Comment: No hemolysis noted. Ordering Provider: WALTER MCCORD MMAD Report Released Date/Time: May 17, 2024 03:17 PM Reporting Lab: [facility] [address] [facility] [address] Performing Lab: [facility] [address] [facility] [phone] [place] [address] COMPREHEN SIVE METABOLIC PANEL ALKALINE PHOSPHATAS E [ENZYMATIC ACTIVITY/V OLUME] IN SERUM OR PLASMA 85 U/L 40 - 150 05/17 Specimen Type: PLASMA Comment: No hemolysis noted. Ordering Provider: WALTER MCCORD MMAD Report Released Date/Time: May 17, 2024 03:17 PM Reporting Lab: [facility] [address] [facility] [address] Performing Lab: [facility] [address] [facility] [phone] [facility] COMPREHEN SIVE METABOLIC PANEL ASPARTATE AMINOTRANS FERASE [ENZYMATIC ACTIVITY/V OLUME] IN SERUM OR PLASMA 47 U/L 5 - 34 05/17 H Specimen Type: PLASMA Comment: No hemolysis noted. Ordering Provider: WALTER MCCORD MMAD Report Released Date/Time: May 17, 2024 03:17 PM Reporting Lab: [facility] [address] [place] [phone] Performing Lab: [address] [phone] [facility] COMPREHEN [facility] METABOLIC PANEL ALANINE AMINOTRANS FERASE [ENZYMATIC ACTIVITY/V OLUME] IN SERUM OR PLASMA 42 U/L 8 - 40 05/17 H Specimen Type: PLASMA Comment: No hemolysis noted. Ordering Provider: WALTER MCCORD MMAD Report Released Date/Time: May 17, 2024 03:17 PM Reporting Lab: [address] [address] Performing Lab: [address] [phone] COMPREHEN SIVE METABOLIC PANEL GLOMERULAR FILTRATION RATE/1.73 SQ M.PREDICTE D [VOLUME RATE/AREA] IN SERUM, PLASMA OR BLOOD BY CREATININE -BASED FORMULA (CKD-EPI 2020) 52.8 60 05/17 Specimen Type: PLASMA Comment: No hemolysis noted. Ordering Provider: WALTER MCCORD MMAD Report Released Date/Time: May 17, 2024 03:17 PM Reporting Lab: [address] [address] Performing Lab: [address] [address] [facility] CBC LEUKOCYTES [#/VOLUME] IN BLOOD BY AUTOMATED COUNT 7.1 10*3/uL 3.6 - 11.2 05/17 Specimen Type: BLOOD No comment entered. Ordering Provider: WALTER MCCORD MMAD Report Released Date/Time: May 17, 2024 03:17 PM Reporting Lab: [facility] [address] [place] [phone] Performing Lab: [address] [address] [facility] CBC ERYTHROCYT ES [#/VOLUME] IN BLOOD BY AUTOMATED COUNT 5.61 10*6/uL 4.10 - 5.70 05/17 Specimen Type: BLOOD No comment entered. Ordering Provider: WALTER MCCORD MMAD Report Released Date/Time: May 17, 2024 03:17 PM Reporting Lab: [facility] [address] [place] [phone] Performing Lab: [facility] [address] [place] [phone] [place] [address] CBC HEMOGLOBIN [MASS/VOLU ME] IN BLOOD 16.3 g/dL 13.1 - 16.8 05/17 Specimen Type: BLOOD No comment entered. Ordering Provider: WALTER MCCORD MMAD Report Released Date/Time: May 17, 2024 03:17 PM Reporting Lab: [place] [address] Performing Lab: [address] [phone] [address] CBC HEMATOCRIT [VOLUME FRACTION] OF BLOOD 51.0 38.2 - 48.4 05/17 H Specimen Type: BLOOD No comment entered. Ordering Provider: WALTER MCCORD MMAD Report Released Date/Time: May 17, 2024 03:17 PM Reporting Lab: [facility] [address] [place] [phone] Performing Lab: [address] [phone] [place] [address] CBC MCV [ENTITIC VOLUME] BY AUTOMATED COUNT 90.9 fL 80.0 - 100.0 05/17 Specimen Type: BLOOD No comment entered. Ordering Provider: WALTER MCCORD MMAD Report Released Date/Time: May 17, 2024 03:17 PM Reporting Lab: [address] [phone] Performing Lab: [address] [phone] CBC MCH [ENTITIC MASS] BY AUTOMATED COUNT 29.1 pg 27.0 - 34.0 05/17 Specimen Type: BLOOD No comment entered. Ordering Provider: WALTER MCCORD MMAD Report Released Date/Time: May 17, 2024 03:17 PM Reporting Lab: [facility] [address] [place] [phone] Performing Lab: [facility] [address] [place] [address] [phone] [place] [address] CBC MCHC [MASS/VOLU ME] BY AUTOMATED COUNT 32.0 g/dL 33.0 - 36.0 05/17 L Specimen Type: BLOOD No comment entered. Ordering Provider: WALTER MCCORD MMAD Report Released Date/Time: May 17, 2024 03:17 PM Reporting Lab: [address] [phone] Performing Lab: [address] [phone] [address] CBC PLATELETS [#/VOLUME] IN BLOOD BY AUTOMATED COUNT 265 10*3/uL 150 - 400 05/17 Specimen Type: BLOOD No comment entered. Ordering Provider: WALTER MCCORD MMAD Report Released Date/Time: May 17, 2024 03:17 PM Reporting Lab: [address] [address] Performing Lab: [address] [phone] [place] [address] CBC PLATELET MEAN VOLUME [ENTITIC VOLUME] IN BLOOD BY AUTOMATED COUNT 9.3 fL 7.5 - 11.2 05/17 Specimen Type: BLOOD No comment entered. Ordering Provider: WALTER MCCORD MMAD Report Released Date/Time: May 17, 2024 03:17 PM Reporting Lab: [address] [address] Performing Lab: [address] [phone] [place] [address] CBC ERYTHROCYT E DISTRIBUTI ON WIDTH [RATIO] BY AUTOMATED COUNT 15.0 11.8 - 15.1 05/17 Specimen Type: BLOOD No comment entered. Ordering Provider: WALTER MCCORD MMAD Report Released Date/Time: May 17, 2024 03:17 PM Reporting Lab: [facility] [address] [facility] [phone] Performing Lab: [facility] [address] [facility] [phone] [facility] CBC LYMPHOCYTE S/100 LEUKOCYTES IN BLOOD BY AUTOMATED COUNT 23 05/17 Specimen Type: BLOOD No comment entered. Ordering Provider: WALTER MCCORD MMAD Report Released Date/Time: May 17, 2024 03:17 PM Reporting Lab: [facility] [address] [place] [phone] Performing Lab: [facility] [address] [place] [phone] [facility] CBC MONOCYTES/ 100 LEUKOCYTES IN BLOOD BY AUTOMATED COUNT 8 05/17 Specimen Type: BLOOD No comment entered. Ordering Provider: WALTER MCCORD MMAD Report Released Date/Time: May 17, 2024 03:17 PM Reporting Lab: [facility] [address] [place] [phone] Performing Lab: [facility] [address] [place] [phone] [facility] CBC NEUTROPHIL S/100 LEUKOCYTES IN BLOOD BY AUTOMATED COUNT 63 05/17 Specimen Type: BLOOD No comment entered. Ordering Provider: WALTER MCCORD MMAD Report Released Date/Time: May 17, 2024 03:17 PM Reporting Lab: [facility] [address] [facility] [address] Performing Lab: [facility] [address] [place] [phone] [facility] CBC EOSINOPHIL S/100 LEUKOCYTES IN BLOOD BY AUTOMATED COUNT 5 05/17 Specimen Type: BLOOD No comment entered. Ordering Provider: WALTER MCCORD MMAD Report Released Date/Time: May 17, 2024 03:17 PM Reporting Lab: [facility] [address] [facility] [phone] Performing Lab: [facility] [address] [place] [phone] [facility] CBC BASOPHILS/ 100 LEUKOCYTES IN BLOOD BY AUTOMATED COUNT 1 05/17 Specimen Type: BLOOD No comment entered. Ordering Provider: WALTER MCCORD MMAD Report Released Date/Time: May 17, 2024 03:17 PM Reporting Lab: [facility] [address] [place] [phone] Performing Lab: [address] [phone] [place] [address] CBC LYMPHOCYTE S [#/VOLUME] IN BLOOD BY AUTOMATED COUNT 1.62 10*3/uL 0.77 - 4.50 05/17 Specimen Type: BLOOD No comment entered. Ordering Provider: WALTER MCCORD MMAD Report Released Date/Time: May 17, 2024 03:17 PM Reporting Lab: [facility] [address] [place] [phone] Performing Lab: [address] [address] [facility] CBC MONOCYTES [#/VOLUME] IN BLOOD BY AUTOMATED COUNT 0.55 10*3/uL 0.19 - 0.80 05/17 Specimen Type: BLOOD No comment entered. Ordering Provider: WALTER MCCORD MMAD Report Released Date/Time: May 17, 2024 03:17 PM Reporting Lab: [facility] [address] [place] [phone] Performing Lab: [address] [phone] [facility] CBC NEUTROPHIL S [#/VOLUME] IN BLOOD BY AUTOMATED COUNT 4.47 10*3/uL 2.10 - 8.00 05/17 Specimen Type: BLOOD No comment entered. Ordering Provider: WALTER MCCORD MMAD Report Released Date/Time: May 17, 2024 03:17 PM Reporting Lab: [facility] [address] [place] [phone] Performing Lab: [address] [phone] [facility] CBC EOSINOPHIL S [#/VOLUME] IN BLOOD BY AUTOMATED COUNT 0.32 10*3/uL 0.00 - 0.60 05/17 Specimen Type: BLOOD No comment entered. Ordering Provider: WALTER MCCORD MMAD Report Released Date/Time: May 17, 2024 03:17 PM Reporting Lab: [address] [address] Performing Lab: [address] CBC BASOPHILS [#/VOLUME] IN BLOOD BY AUTOMATED COUNT 0.06 10*3/uL 0.00 - 0.20 05/17 Specimen Type: BLOOD No comment entered. Ordering Provider: WALTER MCCORD MMAD Report Released Date/Time: May 17, 2024 03:17 PM Reporting Lab: [address] [address] Performing Lab: [place] [id number] [place] [address] OCCULT BLOOD FIT X1 SCREEN (MFP ONLY) HEMOGLOBIN .GASTROINT ESTINAL.LO WER [PRESENCE] IN STOOL BY IMMUNOASSA Y Negative 04/23 Specimen Type: FECES No comment entered. Ordering Provider: WALTER MCCORD MMAD Report Released Date/Time: Mar 17, 2024 09:54 AM Reporting Lab: [address] [address] Performing Lab: [address] [address] [facility] Vital Signs Combined list of inpatient and outpatient Vital Signs from Department of Defense and Veterans Affairs, ranging from 12 months to all on record, depending upon the facility. Vital Sign Value Date Comments Source SYSTOLIC BLOOD PRESSURE 105 08/31/19 25 13:13:45 [facility] DIASTOLIC BLOOD PRESSURE 73 025 13:13:45 [facility] PULSE OXIMETRY 97 08/30/2024 13:13:45 [facility] WEIGHT 158.5 08/30/2024 13:13:45 [facility] BMI 23 kg/m2 08/30/2024 13:13:45 [facility] PAIN 0 08/30/2024 13:13:45 [facility] TEMPERATURE 97 08/30/2024 13:13:45 [facility] PULSE 72 08/30/2024 13:13:45 [facility] RESPIRATION 18 08/30/2024 13:13:45 [facility] SYSTOLIC BLOOD PRESSURE 129 06/01/19 25 13:32:47 [facility] DIASTOLIC BLOOD PRESSURE 83 025 13:32:47 [facility] PULSE OXIMETRY 97 05/31/2024 13:32:47 [facility] WEIGHT 168.2 05/31/2024 13:32:47 [facility] BMI 24 kg/m2 05/31/2024 13:32:47 [facility] PAIN 7 05/31/2024 13:32:47 [facility] HEIGHT 70 05/31/2024 13:32:47 [facility] TEMPERATURE 98.2 05/31/2024 13:32:47 [facility] PULSE 81 05/31/2024 13:32:47 [facility] RESPIRATION 16 05/31/2024 13:32:47 [facility] SYSTOLIC BLOOD PRESSURE 127 05/17/19 25 14:37:02 [facility] DIASTOLIC BLOOD PRESSURE 85 025 14:37:02 [facility] PULSE OXIMETRY 96 05/17/2024 14:37:02 [facility] WEIGHT 168 05/17/2024 14:37:02 [facility] BMI 23 kg/m2 05/17/2024 14:37:02 [facility] PAIN 4 05/17/2024 14:37:02 [facility] TEMPERATURE 97.3 05/17/2024 14:37:02 [facility] PULSE 76 05/17/2024 14:37:02 [facility] RESPIRATION 18 05/17/2024 14:37:02 [facility] Encounters Combined list of: 1) Encounters from Department of Veterans Affairs facilities going backup to the last 18 months, not all VA inpatient encounters are included; 2) Encounters from the Department of Defense facilities going backup to 280 months. Location Location Details Encounter Type Encounter Number Reason For Visit Attending Provider ADM Date DC Date Status Disposition Source [facility] OFF/OP CONSLTJ [place] 55 [id number] Diagnos is: ICD-10- CM R26.89 Other abnorma lities of gait and mobilit y SARATH SNOW 04/16 [facility] Outpatient Encounter [id number] 04/24 [facility] Outpatient Encounter [id number] 05/13 [facility] Outpatient Encounter [id number] WALTER MCCORDD T 11/26 [facility] Outpatient Encounter [id number] WALTER MCCORD MMAMargot T 11/28 [facility] Outpatient Encounter [id number] 01/03 [facility] Outpatient Encounter [id number] WALTER MCCORD MMAD T 01/13 [facility] Outpatient Encounter [id number] DANIEL GUARDADO M 01/13 [facility] EST MOD 30 MIN [id number] Diagnos is: ICD-10- CM M16.9 Osteoar thritis of hip, unspeci fied MARIS FLORES 05/17 [facility] Outpatient Encounter [id number] WALTER MCCORD MMAD T 05/18 [facility] En[facility] [id number] WALTER MCCORD MMAD T 05/23 [facility] OFFICE O/P EST LOW 20 MIN [id number] Diagnos is: ICD-10- CM M25.551 Pain in right hip WALTER MCCORD MMAD T 05/23 [facility] Outpatient Encounter [id number] BARBARA CARVER N 05/26 [facility] OFF[facility] O/P NEW LOW 30 MIN [id number] Diagnos is: ICD-10- CM M25.551 Pain in right hip JERMAINE DESOUZA A 05/31 [facility] SYNCH AUDIO-ONLY EST MOD 30 [id number] Diagnos is: ICD-10- CM M70.71 Other bursiti s of hip, right hip WALTER MCCORD MMAD T 06/06 [facility] SYNCH AUDIO-ONLY EST MOD 30 [id number] Diagnos is: ICD-10- CM M16.9 Osteoar thritis of hip, unspeci fied SURI,MOHA MMAD T 06/13 [facility] Outpatient Encounter [id number] 07/05 [facility] Outpatient Encounter [id number] 07/21 [facility] OFFICE O/P EST LOW 20 MIN [id number] Diagnos is: ICD-10- CM 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 Social History Type Response Date Comment Sourc e Tobacco smoking status NHIS VA-TOBACCO NEVER USED OTHER TYPE 05/17/2024 [facility] History of tobacco use AR-TOBACCO NEVER USED CIGARETTES 05/17/2024 [facility] History of tobacco use VA-TOBACCO NEVER USED 08/05/2021 [facility] History of tobacco use VA-TOBACCO FORMER USER 01/11/2021 [facility] History of tobacco use VA-TOBACCO FORMER USER 12/20/2019 [facility] History of tobacco use VA-TOBACCO QUIT 15 YRS OR MORE 07/08/2018 [facility] History of tobacco use LIFETIME NON-USER OF TOBACCO INPT 05/13/2018 [facility] History of tobacco use VA-TOBACCO NEVER USED 12/25/2017 [facility] History of tobacco use QUIT TOBACCO >7 YEARS AGO 03/24/2017 [facility] History of tobacco use LIFETIME NON-TOBACCO USER 02/28/2016 [facility] History of tobacco use QUIT TOBACCO >7 YEARS AGO INPT 11/02/2014 [facility] History of tobacco use QUIT TOBACCO >7 YEARS AGO 06/07/2014 [facility] History of tobacco use QUIT TOBACCO >7 YEARS AGO 12/10/2012 [facility] History of tobacco use LIFETIME NON-USER OF TOBACCO 03/03/2012 [facility] History of tobacco use QUIT TOBACCO >7 YEARS AGO 10/21/2010 [facility] History of tobacco use CURRENT TOBACCO USER 12/06/2009 [facility] History of tobacco use CURRENT TOBACCO USER 08/23/2008 [facility] Plan of Care List of future care activities from [facility] facilities. Additional future care activities may be listed in the Assessment and Plan section. Date/Time Care Activity Care Activity Detail Facili ty 11/15/2024 AMBULATORY - MEDICINE AMBULATORY - MEDICI [facility] Advance Directives List of completed, amended, or rescinded Advance Directives on record at [facility] facilities. An actual copy of the Directive is not included. Date Advance Directive Provider Source 05/14/2018 ADVANCE DIRECTIVE DISCUSSION COURTNEY HAZEL [facility] 04/24/2015 ADVANCE DIRECTIVE DISCUSSION MISTY POWELL [facility] 04/21/2012 ADVANCE DIRECTIVE EVERETT RODARTE [facility] 04/21/2012 ADVANCE DIRECTIVE DISCUSSION MERVAT FORTUNE [facility] 07/03/2011 ADVANCE DIRECTIVE DISCUSSION ELIU RICK [facility] 06/28/2010 ADMINISTRATIVE NOTE FLAKITA ZULETA [facility] 10/03/2008 ADVANCE DIRECTIVE CONNOR PAUL [facility]
--- OUTSIDE RECORDS SUMMARY | 2024-10-02 08:04 | XMS_ITS | Encounter Summary ---
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 Name Role Phone LAKEISHA MCCORD Primary [...] Mason's Name Patient's Relationship to Policy Mason [facility] (WNR) MEDICARE ADVANTAGE [facility] (WNR) Mar 30, 2022 [id number] [phone] JAKE LOU HN PATIENT [facility] (WNR) MEDICARE ADVANTAGE [facility] (WNR) Mar 30, 2022 [id number] [phone] JAKE LOU PATIENT MEDICARE PART D (WNR) MEDICARE (M) PART D Mar 30, 2022 PART D [id number] ADRIEL LOU II PATIENT OFFICE OF REGIONAL COUNS [id number] [place] MCCAIN R Jul 07, 2007 TORT JOSSOR [id number] CARMINEJAKE SAMS PATIENT REGIONAL 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 Date/Time Encounter Type Encounter Description Reason Provider Source Nov 27, 2023 04:36 PM Outpatient Encounter GENERAL INTERNAL MEDICINE LAKEISHA MCCORD Encounter Template Text not used by [place] [...] 17, 2024 03:00 PM AMBULATORY - MEDICINE [facility] May 23, 2024 09:30 AM AMBULATORY - MEDICINE [facility] Advance Directives: All historical and current Section Date Range: From patient's date of to the date document was created. This section includes ALL of a patient's completed or amended [place] Advance and Rescinded Directives. The entries below indicate that a directive exists for the patient, but an actual copy is not included with this document. The data comes from all Veterans Affairs [facility]. Date Advance Directives Provider Source May 14, 2018 ADVANCE DIRECTIVE DISCUSSION COURTNEY HAZEL [facility] Apr 24, 2015 ADVANCE DIRECTIVE DISCUSSION MISTY POWELL [facility] Apr 21, 2012 ADVANCE DIRECTIVE EVERETT RODARTE [facility] Apr 21, 2012 ADVANCE DIRECTIVE DISCUSSION MERVAT FORTUNE [facility] Jul 03, 2011 ADVANCE DIRECTIVE DISCUSSION ELIU RICK [facility] Jun 28, 2010 ADMINISTRATIVE NOTE FLAKITA ZULETA [facility] Oct 03, 2008 ADVANCE DIRECTIVE CONNOR PAUL [facility] Encounter Notes: All associated encounter [...] Facility: Oct Method of Contact: Notified from [employer] worklist Notification ID: [id number] [facility] Referral #: [id number] Clinical Review [facility] Name: Hospital: [facility] Address: [address] [place] [address] City: [place] State: [place] Zip Code: [address] Community Facility Point of Contact: Name: Phone: Chief complaint: URINARY TRACT RETENTION PROBLEMS FOR AWHILE, GETTING SLOWER, CANNOT GO, TODAY SHUT OFF COMPLETELY Primary Diagnosis: Disposition Discharged Date of discharge: Oct Discharge to home No records available for this episode of care. Faxed request [facility] records to [facility] /sung/ CHRIS DRUMMOND [facility] TRAY CHECKER Signed: 11/27/2023 16:39 Receipt Acknowledged By: 12/01/2023 14:04 /sung/ STEPHANIE BREWSTERN RN REGISTERED NURSE 11/29/2023 18:19 /sung/ Lakeisha Mccord MD Staff Physician 12/01/2023 ADDENDUM STATUS: COMPLETED RECORDS REC'D and sent to [facility] for scanning. /sung/ PAUL SZYMANSKI CISCO CONSULTANT Signed: 12/01/2023 08:44 12/01/2023 ADDENDUM STATUS: COMPLETED Disregard prevois note no records have been sent to scanner /sung/ PAUL SZYMANSKI CISCO CONSULTANT Signed: 12/01/2023 08:51 01/25/2024 ADDENDUM STATUS: COMPLETED HSRM Referral ID: [id number] Status: Closed - Approved for 170 /sung/ SALEEM GUERRERO ADVANCED CISCO CONSULTANT Signed: 01/25/2024 17:10 [facility] DRUMMOND [facility]
--- OUTSIDE RECORDS SUMMARY | 2024-10-02 08:04 | XMS_ITS | Clinical Summary ---
Author Organization [facility] Address [address] [place] [address] Care Team Providers Care Staff Research Associate Name Role Phone Unavailable Primary Care Provider Unavailabl e Source Comments [facility],non-owned Affiliates and Associated Physician Practices is amultiple site organization consisting of ambulatory clinics and hospital sitesin [place], [place], [place] and [place]. This disclosure is being madepursuant to the Care Everywhere program and may not contain all information available regarding this patient. 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
--- OUTSIDE RECORDS SUMMARY | 2024-10-02 08:04 | XMS_ITS | Encounter Summary ---
Author Name [facility] [place] Organization [facility] [place] Address [address] [place] [address] Care Team Providers Care Concert Promoter Name Role Phone LAKEISHA MCCORD Primary Care [...] Mason's Name Patient's Relationship to Policy Mason [facility] (WNR) MEDICARE ADVANTAGE [facility] (WNR) Mar 30, 2022 [id number] [phone] JAKE LOU HN PATIENT [facility] (WNR) MEDICARE ADVANTAGE [facility] (WNR) Mar 30, 2022 [id number] [phone] JAKE LOU PATIENT MEDICARE PART D (WNR) MEDICARE (M) PART D Mar 30, 2022 PART D [id number] ADRIEL LOU II PATIENT OFFICE OF REGIONAL COUNS [id number] LENO MCCAIN R Jul 07, 2007 LENO WANG [id number] JAKE LOU LATRELL PATIENT 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 Date/Time Encounter Type Encounter Description Reason Pro vider Source Jan 04, 2024 09:06 AM Outpatient Encounter GENERAL INTERNAL MEDICINE [facility] Encounter Template Text not used by [place] Plan of Treatment: Future Appointments (+ 6 months) and Future Tests (+/- 45 days) The Plan of Treatment section includes future care activities for the patient from all [place] treatmentfacilities. This section includes future appointments and future orders which are active, pending or scheduled. Future Appointments This section includes appointments that were scheduled to occur 6 months from the date of the Encounter, up to a maximum of 20 appointments. The data comes from all [place] treatment facilities. Appointment Date/Time Appointment Type Appointme nt Facility Name May 17, 2024 03:00 PM AMBULATORY - MEDICINE [facility] May 23, 2024 09:30 AM AMBULATORY - MEDICINE [facility] May 31, 2024 12:30 PM AMBULATORY - NONE [facility] May 31, 2024 02:00 PM AMBULATORY - SURGERY [facility] Jun 06, 2024 08:30 AM AMBULATORY - MEDICINE [facility] Jun 13, 2024 08:30 AM AMBULATORY - MEDICINE [facility] Advance Directives: All historical and current Section Date Range: From patient's date of to the date document was created. This section includes ALL of a patient's completed or amended [place] Advance and Rescinded Directives. The entries below indicate that a directive exists for the patient, but an actual copy is not included with this document. The data comes from all [place] facilities. Date Advance Directives Provider Source May 14, 2018 ADVANCE DIRECTIVE DISCUSSION COURTNEY HAZEL [facility] Apr 24, 2015 ADVANCE DIRECTIVE DISCUSSION MISTY POWELL [facility] Apr 21, 2012 ADVANCE DIRECTIVE CAYDENADRIENNEEVERETT [facility] Apr 21, 2012 ADVANCE DIRECTIVE DISCUSSION MERVAT FORTUNE [facility] Jul 03, 2011 ADVANCE DIRECTIVE DISCUSSION ELIU RICK [facility] Jun 28, 2010 ADMINISTRATIVE NOTE FLAKITA ZULETA [facility] Oct 03, 2008 ADVANCE DIRECTIVE CONNOR PAULGarcia [facility] Encounter Notes: All associated encounter notes [...] Facility: Dec Method of Contact: Notified from [employer] worklist Notification ID: [id number] HSRM Referral #: [id number] Clinical Review [facility] Hospital Name: Hospital: [facility] Address: [address] [place] [address] [address] City: [place] State: [place] Zip Code: [address] Community Facility Point of Contact: Name: CHYNA GAITAN Chief complaint: Leaking casillas catheter Primary Diagnosis: Disposition Discharged Date of discharge: Dec Discharge to home Records req'd by fax. /kyle GUERRERO ADVANCED FINANCIAL ASSISTANT Signed: 01/04/2024 09:10 Receipt Acknowledged By: 01/06/2024 10:31 /es/ STEPHANIE BREWSTERN RN REGISTERED NURSE 01/04/2024 11:11 /es/ Lakeisha Mccord MD Staff Physician 01/05/2024 ADDENDUM STATUS: COMPLETED Records r/t this episode of care sent to [facility] for scanning. /kyle SZYMANSKI FINANCIAL ASSISTANT Signed: 01/05/2024 09:43 01/25/2024 ADDENDUM STATUS: COMPLETED HSRM Referral ID: [id number] Status: Closed - Approved for 1702 /es/ SALEEM GUERRERO ADVANCED FINANCIAL ASSISTANT Signed: 01/25/2024 17:09 SALEEM GUERRERO [facility]
--- OUTSIDE RECORDS SUMMARY | 2024-10-02 08:04 | XMS_ITS | Encounter Summary ---
Author Name [facility] [place] Organization [place] Address [address] [place] [address] Care Team Providers Care Atg Java Developer Name Role Phone LAKEISHA MCCORD Primary Care [...] Mason's Name Patient's Relationship to Policy Mason [facility] (WNR) MEDICARE ADVANTAGE [facility] (WNR) Mar 30, 2022 [id number] JAKE LOU HN PATIENT [facility] (WNR) MEDICARE ADVANTAGE [facility] (WNR) Mar 30, 2022 [id number] JAKE LOU PATIENT MEDICARE PART D (WNR) MEDICARE (M) PART D Mar 30, 2022 PART D [id number] [phone] ADRIEL LOU II PATIENT OFFICE OF REGIONAL COUNS [id number] LENO MCCAIN R Jul 07, 2007 LENO COREASOR [id number] JAKE LOU LATRELL PATIENT 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 Date/Time Encounter Type Encounter Description Reason Provider Source Jan 14, 2024 09:58 AM Outpatient Encounter GENERAL INTERNAL MEDICINE LAKEISHA MCCORD Encounter Template Text not used by [place] Plan of Treatment: Future Appointments (+ 6 months) and Future Tests (+/- 45 days) The Plan of Treatment section includes future care activities for the patient from all [place] treatmentfacilities. This section includes future appointments and future orders which are active, pending or scheduled. Future Appointments This section includes appointments that were scheduled to occur 6 months from the date of the Encounter, up to a maximum of 20 appointments. The data comes from all [place] treatment facilities. Appointment Date/Time Appointment Type Appointme nt Facility Name May 17, 2024 03:00 PM AMBULATORY - MEDICINE [facility] May 23, 2024 09:30 AM AMBULATORY - MEDICINE [facility] May 31, 2024 12:30 PM AMBULATORY - NONE [facility] May 31, 2024 02:00 PM AMBULATORY - SURGERY [facility] Jun 06, 2024 08:30 AM AMBULATORY - MEDICINE [facility] Jun 13, 2024 08:30 AM AMBULATORY - MEDICINE [facility] Jul 05, 2024 06:45 AM AMBULATORY - NONE [facility] Advance Directives: All historical and current Section Date Range: From patient's date of to the date document was created. This section includes ALL of a patient's completed or amended [place] Advance and Rescinded Directives. The entries below indicate that a directive exists for the patient, but an actual copy is not included with this document. The data comes from all [place] facilities. Date Advance Directives Provider Source May 14, 2018 ADVANCE DIRECTIVE DISCUSSION COURTNEY HAZEL LEAHBoston Je [facility] Apr 24, 2015 ADVANCE DIRECTIVE DISCUSSION MISTY POWELL [facility] Apr 21, 2012 ADVANCE DIRECTIVE CAYDENADRIENNEEVERETT [facility] Apr 21, 2012 ADVANCE DIRECTIVE DISCUSSION TONGMERVAT Sulema [facility] Jul 03, 2011 ADVANCE DIRECTIVE DISCUSSION ELIU RICK [facility] Jun 28, 2010 ADMINISTRATIVE NOTE FLAKITA ZULETA [facility] Oct 03, 2008 ADVANCE DIRECTIVE CONNOR PAUL [facility] Encounter Notes: All associated encounter notes This section contains the clinical notes associated to the Encounter. Date/Time Encounter Note(s) Provider Source Dec 27, 2023 09:58 AM NONVA NOTE: LOCAL TITLE: COMMUNITY CARE-SACHI SELF PRESENTING CARE COORD PLAN STANDARD TITLE: NONVA NOTE DATE OF NOTE: DEC 27, 2023@09:58 ENTRY DATE: JAN 14, 2024@09:59:10 AUTHOR: KATHI VO COSIGNER: URGENCY: STATUS: COMPLETED COMMUNITY CARE-SACHI SELF PRESENTING CARE COORD PLAN 657 STL Has ADDENDA Emergency Notification Intake Date Presenting to the Facility: Nov Method of Contact: Notified from ECR worklist Notification ID: [id number] [facility] Referral #: [id number] [facility] Name: Hospital: [facility] Address: [address] [place] [address] City: [place] State: [place] Zip Code: [address] [facility] Facility Point of Contact: Name: Phone: Chief complaint: Swelling, mass in leg from dropping motocycle on legs few weeks ago. Primary Diagnosis: Disposition Unknown at time of intake note entry NOTICE: Follow-up care Outside the [facility] related to this ER visit/Admission episode of care (EOC) is NOT COVERED under this ER Notification ID/Auth Number. Coverage for all follow-up care outside the [facility] requires pre-authorization, which must be initiated via consult by the PCP. Please initiate any follow-up referral/consult(s) at the time of patient's discharge. /sung/ Kathi Vo RN, BSN REGISTERED NURSE Signed: 01/14/2024 10:15 01/14/2024 ADDENDUM STATUS: COMPLETED Left VM with Chel IRENE at [facility] and faxed records request to [facility]. /es/ Kathi Vo, RN, BSN REGISTERED NURSE Signed: 01/14/2024 10:50 01/14/2024 ADDENDUM STATUS: COMPLETED Faxed record request via [employer] to the hospital above. /sung/ Kathi Vo RN, BSN REGISTERED NURSE Signed: 01/14/2024 12:03 KATHI VO [facility]
--- OUTSIDE RECORDS SUMMARY | 2024-10-02 08:04 | XMS_ITS ---
Author Name [facility] [place] Organization [place] Address [address] [place] [address] Care Team Providers Care Patrol Lady Name Role Phone LAKEISHA MCCORD Primary Care [...] Name Patient's Relationship to Policy Mason [facility] (WNR) MEDICARE ADVANTAGE [facility] (WNR) Mar 30, 2022 [id number] [phone] JAKE LOU HN PATIENT [facility] (WNR) MEDICARE ADVANTAGE [facility] (WNR) Mar 30, 2022 [id number] JAKE LOU PATIENT MEDICARE PART D (WNR) MEDICARE (M) PART D Mar 30, 2022 PART D [id number] ADRIEL LOU II PATIENT OFFICE OF REGIONAL COUNS [id number] LENO MCCAIN R Jul 07, 2007 TORT JOSSOR [id number] JAKE LOU 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 This section includes future appointments and future orders which are active, pending or scheduled. Future Appointments This section includes appointments that were scheduled to occur 6 months from the date of the Encounter, up to a maximum of 20 appointments. The data comes from all [place] treatment [facility]. Appointment Date/Time Appointment Type Appointme nt Facility Name May 31, 2024 12:30 PM AMBULATORY - NONE [facility] May 31, 2024 02:00 PM AMBULATORY - SURGERY . [facility] Jun 06, 2024 08:30 AM AMBULATORY - MEDICINE [facility] Jun 13, 2024 08:30 AM AMBULATORY - MEDICINE [facility] Jul 05, 2024 06:45 AM AMBULATORY - NONE [facility] Aug 30, 2024 02:00 PM AMBULATORY - [facility] . [facility] Nov 15, 2024 10:00 AM AMBULATORY - MEDICINE [facility] Active, Pending, and Scheduled Orders This section includes a listing of several types of active, pending, and scheduled orders, including clinic medications orders, diagnostic test orders, procedure orders and consult orders; where the start date of the order is 45 days before the date of the Encounter or 45 days after the date of theEncounter. The data comes from all [facility]. Test Date/Time Test Type Test Details Facility Name May 12, 2024 12:00 AM Laboratory - Chemistry Order VITAMIN D, 25-HYDROXY GOLD/RED SST SERUM [facility] May 12, 2024 12:00 AM Laboratory - Chemistry Order TSH W/ REFLEX FT4 (STL) GREEN LI-HEP PLASMA [facility] May 12, 2024 12:00 AM Laboratory - Chemistry Order LIPID PANEL (STL) GREEN LI/HEP BLD/PLAS PLASMA [facility] May 12, 2024 12:00 AM Laboratory - Chemistry Order COMPREHENSIVE METABOLIC PANEL GREEN LI/HEP BLD/PLAS PLASMA [facility] May 12, 2024 12:00 AM Laboratory - Chemistry Order CBC BLOOD [facility] May 12, 2024 12:00 AM Laboratory - Chemistry Order URINALYSIS (STL-PB) URINE [facility] May 12, 2024 12:00 AM Laboratory - Chemistry Order HGA1C BLOOD [facility] May 17, 2024 12:00 AM Laboratory - Chemistry Order URINALYSIS (STL-PB) URINE [facility] Jun 13, 2024 12:00 AM Laboratory - Chemistry Order COBALT (QUEST) BLOOD [facility] Jun 13, 2024 12:00 AM Laboratory - Chemistry Order CHROMIUM BLOOD PLASMA [facility] Lab Results: +/- 30 days of the encounter This section includes the Chemistry and Hematology Lab Results on record with [place] for the patient. Radiology Reports and Pathology Reports are provided separately, in subsequent sections. Lab Results This section contains the Chemistry/Hematology Results that were resulted 30 days before or 30 daysafter the date of the Encounter. Date/Time Source Result Type Result - Unit Interpretation Reference Range Specimen Type Comment May 17, 2024 03:49 PM [facility] ESR ISED(STL) BLOOD Specimen Type: BLOOD No comment entered. Ordering Provider: LAKEISHA MCCORD Report Released Date/Time: May 17, 2024 03:17 PM Reporting Lab: [facility] [address] [facility] [phone] Performing Lab: [facility] [address] [facility] [phone] ESR ISED(STL) 8 mm/h 0-19 May 17, 2024 03:49 PM [facility] CRP PLASMA Specimen Type: PLASM A Comment: No hemolysis noted. Ordering Provider: LAKEISHA MCCORD Report Released Date/Time: May 17, 2024 03:17 PM Reporting Lab: [facility] [address] [place] [phone] Performing Lab: [facility] [address] [place] [phone] CRP 0.2 mg/dL 0-0.5 May 17, 2024 03:49 PM [facility] VITAMIN D, 25-HYDROXY SERUM Specimen Type: SE RUM No comment entered. Ordering Provider: LAKEISHA MCCORD Report Released Date/Time: May 17, 2024 03:17 PM Reporting Lab: [facility] [address] [place] [phone] Performing Lab: [address] [phone] VITAMIN D, 25-HYDROXY 100.1 ng/mL H 30-96 May 17, 2024 03:49 PM [facility] TSH W/ REFLEX FT4 (STL) PLASMA Specimen Type: PLASMA No comment entered. Ordering Provider: LAKEISHA MCCORD Report Released Date/Time: May 17, 2024 03:17 PM Reporting Lab: [facility] [address] [place] [phone] Performing Lab: [address] [address] TSH 1.402 u[IU]/mL 0.47-5 May 17, 2024 03:49 PM [facility] LIPID PANEL (STL) PLASMA Specimen Type: PLASM A Comment: No hemolysis noted. Ordering Provider: LAKEISHA MCCORD Report Released Date/Time: May 17, 2024 03:17 PM Reporting Lab: [facility] [address] [place] [phone] Performing Lab: [facility] [address] [place] [phone] CHOLESTEROL 144 mg/dL 0-200 TRIGLYCERIDE 146 mg/dL 0-150 CALCULATED LDL 58 mg/dL HDL(New) 57 mg/dL >40 May 17, 2024 03:49 PM [facility] COMPREHENSIVE METABOLIC PANEL PLASMA Specimen Type: PLASMA Comment: No hemolysis noted. Ordering Provider: LAKEISHA MCCORD Report Released Date/Time: May 17, 2024 03:17 PM Reporting Lab: [facility] [address] [place] [phone] Performing Lab: [address] [phone] CREATININE 1.45 mg/dL H 0.7-1.3 UREA NITROGEN [...] 52.8 >60 May 17, 2024 03:49 PM [facility] CBC BLOOD Specimen Type: BLOOD No comment entered. Ordering Provider: LAKEISHA MCCORD Report Released Date/Time: May 17, 2024 03:17 PM Reporting Lab: [facility] [address] [place] [phone] Performing Lab: [address] [address] WBC 7.1 10*3/uL 3.6-11.2 RBC 5.61 10*6/uL [...] ALL of a patient's completed or amended [place] Advance and Rescinded Directives. The entries below indicate that a directive exists for the patient, but an actual copy is not included with this document. The data comes from all [place] facilities. Date Advance Directives Provider Source May 14, 2018 ADVANCE DIRECTIVE DISCUSSION COURTNEY HAZEL [facility] Apr 24, 2015 ADVANCE DIRECTIVE DISCUSSION MISTY POWELL [facility] Apr 21, 2012 ADVANCE DIRECTIVE EVERETT RODARTE [facility] Apr 21, 2012 ADVANCE DIRECTIVE DISCUSSION MERVAT [facility] Jul 03, 2011 ADVANCE DIRECTIVE DISCUSSION ELIU RICK [facility] Jun 28, 2010 ADMINISTRATIVE NOTE FLAKITA ZULETA [facility] Oct 03, 2008 ADVANCE DIRECTIVE CONNOR PAUL [facility] Radiology Reports: +/- 30 [...] the Encounter. The data comes from all [place] treatment facilities. Date/Time Radiology Report Provider Source May 31, 2024 11:[address] PELVIS W/O CONT : CARMINEADRIEL ADRIENNE [id number] -1955 M Exm Date: MAY 31, 2024@11:37 Req Phys: LAKEISHA MCCORD Pat Loc: [facility] PACT B5 PCP (Ifeanyi'g Img Loc: [facility] Service: Unknown [facility], [address] [place] [address] (Case [id number] COMPLETE) CT PELVIS W/O CONT (CT Detailed) CPT:32694 Reason for Study: Right hip pain Clinical History: Responsible Attending: lindsay Attending Contact Number: [phone] Resident Contact Number: Mr. Lou is a [...] 31, 2024 Date Verified: MAY 31, 2024 [employer] E-Sig:/ES/JORDAN CHAKRABORTY MD Report: Spiral axial imaging [...] Primary Interpreting Staff: JORDAN CHAKRABORTY MD, Radiologist ([employer]) /[facility] JORDAN CHAKRABORTY [facility] May 17, 2024 04:34 PM HIP W/PELVIS 2-3 V IEWS RIGHT: ADRIEL LOU [id number] -1955 M Exm Date: MAY 17, 2024@16:34 Req Phys: LAKEISHA MCCORD Pat Loc: [facility] PACT B5 PCP (Req'g Loc) Img Loc: [facility] RADIOLOGY SUITE Service: Unknown [facility], [address] [place] [address] (Case [id number] COMPLETE) HIP W/PELVIS 2-3 VIEWS RIGHT (RAD Detailed) CPT:23852 Proc Modifiers : RIGHT, AP Pelvis, Frog Reason for Study: c/o right hip pain Clinical History: c/o right hip pain hx of Rt Hips surgery Report Status: Verified Date Reported: MAY 18, 2024 Date Verified: MAY 18, 2024 [employer] E-Sig:/ES/ZAC JAEGER Report: Case [id number]. HIP W/PELVIS 2-3 VIEWS RIGHT. Comparison: Right [...] replacements. Primary Interpreting Staff: ZAC JAEGER MD ([employer]) /ZAC JERONIMO [facility] Encounter Notes: All associated [...] Submitted to Centralized Call Center Notification ID: [id number] [facility] Referral #: [id number] Clinical Review [facility] Name: Hospital: [facility] Address: [facility]: [place] State: [place] Zip Code: Phone : Community Facility Point of Contact: Name: Phone: Chief complaint: RIGHT HIP PAIN, LOWER BACK PAIN, BARELY ABLE TO WALK Primary Diagnosis: Disposition Unknown at time of intake note entry [place] records sent securely to [place] PCP and RNCM. Records sent to [facility] for expedited upload. [facility] alerted via ECR Tool for eligibility review. No further records available. Alerting PCP team to this note for continuity of care. Discharge Summary Records:SHARED SECURELY WITH PACT RN AND SENT TO [facility] Hospital/discharge Summary (per discharge note): 69 year old presents to ER with c/o hippain on right side. Pt reports that he has been followed by the [place] and reports that he has been having [...] place the below consults:N/A ([facility] or [place] internal consults needed for ALL follow up care) /kyle BREWSTERN RN REGISTERED NURSE Signed: 05/26/2024 08:28 Receipt Acknowledged By: 06/01/2024 14:55 /sung/ STEPHANIE BREWSTERN RN REGISTERED NURSE 05/30/2024 17:41 /kyle Mccord MD Staff Physician 05/30/2024 ADDENDUM STATUS: COMPLETED Ortho consult was previously placed and he is scheduled to see them at the [place] on May 31, 2024 /kyle Mccord MD Staff Physician Signed: 05/30/2024 17:42 BARBARA CARVER [facility]
--- OUTSIDE RECORDS SUMMARY | 2024-10-02 08:04 | XMS_ITS | Clinical Summary ---
Author Organization [facility] Address formerly [facility] [place] [address] Care Team Providers Care Motor Vehicle Parts Interpreter Name Role Phone Non-Staff, Provider Primary Care Provider Tyravatara lable Allergies Active Allergy Reactions Criticality Noted Date [...] Problem Noted Date Diagnosed Date Pneumothorax 12/24/2020 Encounters Date Type Department Care Team Description 07/05/2024 6:24 AM CDT - 07/05/2024 11:59 PM CDT Hospital Encounter [facility] MRI [address] [place] [address] Jermaine Dotson MD Discharge Disposition: Home or Self Care (Routine Discharge) 07/05/2024 Travel from Last 3 Months Family History Medical History Relation Comments Heart Disease Father Diabetes Maternal Grandmother Relation Status Comments Father Maternal Grandmother Mother Social History Tobacco Use Types Packs/Day Years Used Date Smoking Tobacco: Never Smokeless Tobacco: Never Alcohol Use Standard Drinks/Week Comments Not Currently 0 (1 standard drink = 0.6 oz pur e alcohol) Sex and Gender Information Value Date Recorded Sex Assigned at Male 07/05/2024 6:22 AM CDT Legal Sex Male 11:16 AM CDT Gender [...] Colonoscopy (10 Years) 1955 Hepatitis C 1975 Pneumococcal Vaccine: 50+ Years (1 of 1 - PCV) 2007 Zoster Vaccines (1 of 2) 2007 DTaP, Tdap and Td Vaccines (5 - Td or Tdap) 01/27/2020 01/26/2010, 01/26/2010, 12/28/2009, Additional history exists COVID-19 Vaccine ( - 2023- season) 2023 RSV Immunization or 60+ Years (1 - 1-dose 75+ series) 2032 Meningococcal B Vaccine Aged Out No l onger eligible based on patient's age to complete this topic Meningococcal Vaccine Aged Out No tigist rayna eligible based on patient's age to complete this topic RSV Immunizations Under 20 Months Aged Out No longer eligible based on patient's age to complete this topic Procedures Procedure Name Priority Date/Time Associated Diagnosis Comments MRI HIP RT WO CON Routine 07/05/2024 8:3 8 AM CDT Pain in unspecified hip MRI HIP LT WO CON Routine 07/05/2024 8:3 8 AM CDT Pain in unspecified hip from Last 3 Months Results * MRI HIP RT WO CON (07/05/2024 8:38 AM CDT) Anatomical Region Laterality Modality Hip Magnetic Resonan ce 07/20/2024 10:0 8 AM CDT Impressions 07/20/2024 10:56 AM CDT IMPRESSION: 1. Hardware artifact of right total [...] and without contrast renal mass protocol recommended. Referred By: JERMAINE DOTSON Interpreted By: Patrick Lo MD, 07/20/2024 10:08 AM Narrative 07/20/2024 10:56 AM CDT [address] [address] EXAMINATION: MRI RIGHT HIP WITHOUT CONTRAST EXAM DATE: 07/05/2024 7:03 AM REASON FOR EXAM: Pain in unspecified hip Post hip replacement pain. COMPARISON: None TECHNIQUE: Multiplanar multisequence imaging of the right hip without intravenous contrast. FINDINGS: In the partially imaged upper pelvis, [...] muscular atrophy. No clear marrow signal abnormality. Procedure Note Patrick Lo MD - 07/20/[address] [address] EXAMINATION: MRI RIGHT HIP WITHOUT CONTRAST EXAM DATE: 07/05/2024 7:03 AM REASON FOR EXAM: Pain in unspecified hip Post hip replacement pain. COMPARISON: None TECHNIQUE: Multiplanar multisequence imaging of the right hip withoutintravenous contrast. FINDINGS: In the partially imaged upper pelvis, T2 hyperintense lesions of thebilateral retroperitoneum. On the left this measures up to 9.7 cm.Possibly renal cysts. Malignancy not excluded. Abscess, lymphaticcollection, or other etiology possible as well. No prior imaging forcomparison. Limited evaluation of lower lumbar spine demonstrates degenerativedisease. Hamstring origins demonstrate no evidence of tear. Dedicated images of the right hip: Hardware artifact of right total hip arthroplasty obscures theexamination. No abnormal fluid collection. Iliopsoas insertion withinnormal limits. Gluteus medius and minimus insertions intact. Surroundingperitendinitis. No significant muscular atrophy. No clear marrow signal abnormality. IMPRESSION: 1. Hardware artifact of right total hip arthroplasty obscures theexamination. 2. No abnormal fluid collection. 3. Gluteus medius and minimus insertions intact. Surroundingperitendinitis. No significant muscular atrophy. 4. No clear marrow signal abnormality. 5. In the partially imaged upper pelvis, T2 hyperintense lesions of thebilateral retroperitoneum. On the left this measures up to 9.7 cm.Possibly renal cysts. Malignancy not excluded. Abscess, lymphaticcollection, or other etiology possible as well. No prior imaging forcomparison. Follow-up CT abdomen pelvis with and without contrast renalmass protocol recommended. Referred By: JERMAINE DOTSON Interpreted By: Patrick Lo MD, 07/20/2024 10:08 AM us Jermaine Dotson MD MRI Final Result * MRI HIP LT WO CON (07/05/2024 8:38 AM CDT) Anatomical Region Laterality Modality Hip Magnetic Resonan ce 07/20/2024 10:5 7 AM CDT Impressions 07/20/2024 11:03 AM CDT IMPRESSION: Status post left total hip arthroplasty, metallic artifact limits the examination. No obvious marrow signal abnormality to indicate fracture within the [id number]. No abnormal fluid collection surrounding the hip. Referred By: JERMAINE DOTSON Interpreted By: Patrick Lo MD, 07/20/2024 10:57 AM Narrative 07/20/2024 11:03 AM CDT [place] [address] EXAMINATION: MRI LEFT HIP WITHOUT CONTRAST EXAM DATE: 07/05/2024 7:02 AM REASON FOR EXAM: Pain in unspecified hip Right hip pain, prior replacement. COMPARISON: None TECHNIQUE: Multiplanar multisequence imaging of the hip without intravenous contrast. FINDINGS: Status post left total hip arthroplasty, metallic artifact limits the examination. No obvious marrow signal abnormality to indicate fracture within the [id number]. No abnormal fluid collection surrounding the hip. No significant muscular atrophy. Iliopsoas and gluteus medius and minimus insertions within normal limits. Hamstring origins within normal limits. Procedure Note Patrick Lo MD - 07/20/2024 [place] [address] EXAMINATION: MRI LEFT HIP WITHOUT CONTRAST EXAM DATE: 07/05/2024 7:02 AM REASON FOR EXAM: Pain in unspecified hip Right hip pain, prior replacement. COMPARISON: None TECHNIQUE: Multiplanar multisequence imaging of the hip withoutintravenous contrast. FINDINGS: Status post left total hip arthroplasty, metallic artifact limits theexamination. No obvious marrow signal abnormality to indicate fracture within [id number]. No abnormal fluid collection surrounding the hip. No significant muscularatrophy. Iliopsoas and gluteus medius and minimus insertions within normal limits.Hamstring origins within normal limits. IMPRESSION: Status post left total hip arthroplasty, metallic artifact limits theexamination. No obvious marrow signal abnormality to indicate fracturewithin the gnbuo-kp-[id number]. No abnormal fluid collection surrounding thehip. Referred By: JERMAINE DOTSON Interpreted By: Patrick Lo MD, 07/20/2024 10:57 AM Jermaine Dotson MD MRI Final Result from Last [address] [place] [address] [facility] OFFICE OF COMMUNITY CARE [facility] Advance Directives * Full Code (Latest Code Status on File) Date Activated Date Inactivated Comments 12/24/2020 9:06 PM 12/27/2020 4:28 PM Care Teams Motor Vehicle Parts Interpreter Relationship Specialty Start Date End Date Non-Staff, Provider PCP - General UNKNOWN PHYSICIAN SPECIALTY 07/05/24
--- OUTSIDE RECORDS SUMMARY | 2024-10-02 08:04 | XMS_ITS ---
Author Name [facility] [facility] Address [address] [place] [address] Care Team Providers Care Human Resource Advisor Name Role Phone LAKEISHA MCCORD Primary Care [...] Mason [facility] (WNR) MEDICARE ADVANTAGE [facility] (WNR) Mar 30, 2022 [id number] JAKE LOU HN PATIENT [facility] (WNR) MEDICARE ADVANTAGE [facility] (WNR) Mar 30, 2022 [id number] JAKE LOU PATIENT MEDICARE PART D (WNR) MEDICARE (M) PART D Mar 30, 2022 PART D [id number] ADRIEL LOU II PATIENT OFFICE OF REGIONAL COUNS [id number] LENO MCCAIN R Jul 07, 2007 LENO WANG [id number] JAKE LOU PATIENT [facility] TECHNICIAN LENO MCCAIN R Dec 09, 2013 LENO WANG [id number] JAKE LOU PATIENT [facility] (WNR) MEDICARE ADVANTAGE [facility] (WNR) Mar 30, 2022 [id number] JAKE LOU PATIENT Selected Encounter This section includes the information on record at [place] for the Encounter. Date/Time Encounter Type Encounter Description Reason Pro vider Source Jul 21, 2024 10:42 AM Outpatient Encounter GENERAL INTERNAL MEDICINE [facility] Encounter Template Text not used by [place] Plan of Treatment: Future Appointments (+ 6 months) and Future Tests (+/- 45 days) The Plan of Treatment section includes future care activities for the patient from all [place] treatmentfacilities. This section includes future appointments and future orders which are active, pending or scheduled. Future Appointments This section includes appointments that were scheduled to occur 6 months from the date of the Encounter, up to a maximum of 20 appointments. The data comes from all [place] treatment facilities. Appointment Date/Time Appointment Type Appointme nt Facility Name Aug 30, 2024 02:00 PM AMBULATORY - SURGERY [facility] Nov 15, 2024 10:00 AM AMBULATORY - MEDICINE [facility] Active, Pending, and Scheduled Orders This section includes a listing of several types of active, pending, and scheduled orders, including clinic medications orders, diagnostic test orders, procedure orders and consult orders; where the start date of the order is 45 days before the date of the Encounter or 45 days after the date of theEncounter. The data comes from all [place] treatment [facility]. Test Date/Time Test Type Test Details Facility Name Jun 13, 2024 12:00 AM Laboratory - Chemi stry Order COBALT (QUEST) BLOOD [facility] Jun 13, 2024 12:00 AM Laboratory - Chemi stry Order CHROMIUM BLOOD PLASMA [facility] Advance Directives: All historical and current Section Date Range: From patient's date of to the date document was created. This section includes ALL of a patient's completed or amended [place] Advance and Rescinded Directives. The entries below indicate that a directive exists for the patient, but an actual copy is not included with this document. The data comes from all [place] facilities. Date Advance Directives Provider Source May 14, 2018 ADVANCE DIRECTIVE DISCUSSION COURTNEY HAZEL [facility] Apr 24, 2015 ADVANCE DIRECTIVE DISCUSSION MISTY POWELL [facility] Apr 21, 2012 ADVANCE DIRECTIVE RODARTE,EVERETT [facility] Apr 21, 2012 ADVANCE DIRECTIVE DISCUSSION HALEY FORTUNENIXu Leone [facility] Jul 03, 2011 ADVANCE DIRECTIVE DISCUSSION ELIU RICK [facility] Jun 28, 2010 ADMINISTRATIVE NOTE FLAKITA ZULETA [facility] Oct 03, 2008 ADVANCE DIRECTIVE CONNOR PAUL [facility] Radiology Reports: +/- 30 days [...] the Encounter. The data comes from all [place] treatment facilities. Date/Time Radiology Report Provider Source Jul 05, 2024 06:01 AM MRI HIP LEFT: ADRIEL LOU [id number] -[id number] M Exm Date: JUL 05, 2024@06:01 Req Phys: JERMAINE DOTSON [facility] PCP 1 (Re Img Loc: OUTSIDE -MRI Service: Unknown (Case [id number] COMPLETE) MRI HIP LEFT (MRI Detailed) CPT:50518 Reason for Study: OUTSIDE STUDY Clinical History: Report Status: Electronically Filed Date Reported: AUGUST 09, 2024 Report: This study was performed outside the [place] in another facility and images were uploaded into [employer]. The report has been scanned into [employer]. In order to upload images a case number was needed, therefore this is an administrative report. Impression: This study was performed outside the [place] in another facility and images were uploaded into [employer]. The report has been scanned into [employer]. In order to upload images a case number was needed, therefore this is an administrative report VERIFIED BY: / *ELECTRONICALLY FILED* [facility] Jul 05, 2024 06:00 AM MRI HIP RIGHT: ADRIEL LOU [id number] -1955 M Exm Date: JUL 05, 2024@06:00 Req Phys: JERMAINE DOTSON [facility] PCP 1 (Re Img Loc: OUTSIDE -MRI Service: Unknown (Case [id number] COMPLETE) MRI HIP RIGHT (MRI Detailed) CPT:04490 Reason for Study: OUTSIDE STUDY Clinical History: Report Status: Electronically Filed Date Reported: AUGUST 09, 2024 Report: This study was performed outside the [place] in another facility and images were uploaded into [employer]. The report has been scanned into [employer]. In order to upload images a case number was needed, therefore this is an administrative report. Impression: This study was performed outside the [place] in another facility and images were uploaded into [employer]. The report has been scanned into [employer]. In order to upload images a case number was needed, therefore this is an administrative report VERIFIED BY: / *ELECTRONICALLY FILED* [facility] Encounter Notes: All associated encounter [...] prior to Ortho appt scheduled on 08/30/24. /sung/ KIRAN GO MD Staff Physician, Orthopedics Signed: 07/26/2024 12:32 Receipt Acknowledged By: 07/28/2024 09:18 /sung/ FROY LAM, RN Registered Nurse --- Original Document --- 07/21/24 ADMINISTRATIVE COMMUNITY CARE REQUEST [facility]: MRI FINDINGS: In the [...] to EPS. Request for images faxed to [phone]. Alerting Dr. Dotson. /es/ PITA QUEEN Registered Nurse Signed: 07/21/2024 10:53 Receipt Acknowledged By: 07/26/2024 12:33 /es/ KIRAN GO MD Staff Physician, Orthopedics for JERMAINE DOTSON 07/28/2024 ADDENDUM STATUS: COMPLETED Spoke with pt, pt will obtain imaging on disc and bring to me in clinic for uploading. Pt can contact me at ext. for any questions/concerns. /sung/ FROY LAM, RN Registered Nurse Signed: 07/28/2024 09:17 KIRAN GO [facility] Jul 21, 2024 10:42 AM ADMINISTRATIVE NOT E: LOCAL TITLE: ADMINISTRATIVE COMMUNITY CARE REQUEST [facility] STANDARD TITLE: ADMINISTRATIVE NOTE DATE OF NOTE: JUL 21, 2024@10:42 ENTRY DATE: JUL 21, 2024@10:42:42 AUTHOR: PITA QUEEN EXP COSIGNER: URGENCY: STATUS: COMPLETED ADMINISTRATIVE COMMUNITY CARE [...] to EPSI. Request for images faxed to [phone]. [address] Dotson. /sung/ PITA QUEEN Registered Nurse Signed: 07/21/2024 10:53 Receipt Acknowledged By: 07/26/2024 12:33 /sung/ KIRAN GO MD Staff Physician, Orthopedics for JERMAINE DOTSON 07/26/2024 ADDENDUM STATUS: COMPLETED Images will need [...] uploading. Pt can contact me at ext. [phone] for any questions/concerns. /sung/ FROY LAM, RN Registered Nurse Signed: 07/28/2024 09:17 PITA QUEEN [facility]
--- OUTSIDE RECORDS SUMMARY | 2024-10-02 08:04 | XMS_ITS | Patient Health Record ---
Author Organization [facility] As [facility] Address [address] [place] [address] Care Team Providers Care Shipping Track Supervisor Name Role Phone Boone RILEY, Tee Primary Care Provider UnavailRona Long Unavailable [phone] Allergies Allergen (clinical drug ingredient) Drug/Non Drug Allergy documented on EMR Reaction Allergy Type Onset Date Status morphine Morphine Unknown Drug Allergy 06/12/2023 Active Results Component Value Reference Range Notes UDT Reviewed date:09/20/2024 11:48:48 AM Interpretation: Performing Lab: Notes/Report: THC n 0 - 50 ng/ml Cocaine n 0 - 300 ng/ml Amphetamine n 0 - 1000 ng/ml Buprenorphine (BUP) n 0 - 10 ng/ml Secobarbital (Bar) n 0 - 300 ng/ml Oxazepam (BZO) p 0 - 300 ng/ml 6-dpmstiypkh-4,4-sepqmadx-6,3-diphenylpyrrolidine (EMILY P) n 0 - 300 ng/ml Methamphetamine (MET) n 0 - 1000 ng/ml Methylenedioxymethamphetamine (MDMA) n 0 - 500 ng/ml Morphine (MOP 300/[id number]) n 0 - 300 ng/ml Methadone (MTD) n 0 - 300 ng/ml Phencyclidine (PCP) n 0 - 25 ng/ml Nortriptyline (TCA) n 0 - 1000 ng/ml Oxycodone n 0 - 300 ng/ml x n 0 - 300 ng/ml Reason For Referral No Information Medications Medication SIG (Take, Route, Fr equency, Duration) Notes Start Date End Date Status Topiramate 25 MG Oral 06/12/2023 Ac tive FLUoxetine HCl 20 MG TAKE 6 CAPSULES BY MOUTH EVERY DAY Orally; Duration: 90 days Ac tive Allopurinol 100 MG Oral 06/12/2023 Active Gabapentin 300 MG Oral 06/12/2023 A ctive busPIRone HCl 7.5 MG 1 tablet Oral Twice a day; Duration: 90 days Active Lisinopril 10 MG Oral 06/12/2023 Ac tive clonazePAM 1 MG 1 tablet Oral Once a day; Duration: 30 days As needed Active Tamsulosin HCl 0.4 MG Oral 06/12/2023 Active clonazePAM 1 MG 1 tablet Oral Once a day; Duration: 30 days As needed 09/16/2024 Active Finasteride 5 MG Oral; Duration: 90 Days Active busPIRone HCl 7.5 MG TAKE 1 TABLET BY [facility] TWICE DAILY; Duration: 90 Active Social History Tobacco Use: Social History Observation [...] Severe recurrent major depression without psychotic features ([id number]) Major depressive disorder, recurrent 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) Active confirmed Problem Generalized anxiety disorder ([id number]) Generalized anxiety disorder (F41.1) Active confirmed Problem Obsessive-compu lsive disorder, unspecified (F42.9) Active confirmed Vital Signs Heart Rate 87 /min 09/20/2024 Height-cm 182.88 cm 09/20/2024 Blood pressure diastolic 68 mm Hg 09/20/2024 Weight-kg 73.48 kg 09/20/2024 Height 72.00 in 09/20/2024 Blood pressure systolic 97 mm Hg 09/20/2024 Weight 162 lbs 09/20/2024 BMI 21.97 kg/m2 09/20/2024 Encounters Encounter Location Date Provider Diagnosis [facility] [address] [address] 11/19/2023 Rona Elliott Generalized anxiety disorder F41.1 ; Obsessive-compulsive disorder, unspecified F42.9 and Major depressive disorder, recurrent severe without psychotic features F33.2 [place] [id number] [facility] [address] [place] [address] 02/18/2024 Rona Kurilla Generalized anxiety disorder F41.1 ; Obsessive-compulsive disorder, unspecified F42.9 and Major depressive disorder, recurrent severe without psychotic features F33.2 [place] [address] [facility] [address] [place] [address] 06/21/2024 Rona Kurilla Generalized anxiety disorder F41.1 ; Obsessive-compulsive disorder, unspecified F42.9 ; Major depressive disorder, recurrent severe without psychotic features F33.2 ; Encounter for screening for depression Z13.31 and Encounter for screening for cardiovascular disorders Z13.6 [place] [address] [facility] [address] [place] [address] 09/20/2024 Rona Kurilla Generalized anxiety disorder F41.1 ; Obsessive-compulsive disorder, unspecified F42.9 ; Major depressive disorder, recurrent severe without psychotic features F33.2 ; Encounter for screening for depression Z13.31 and Encounter for screening for cardiovascular disorders Z13.6 [place] [address] [facility] [address] [place] [address] 01/20/2024 Rona Kurilla [place] [address] [address] 02/04/2024 Ronalindy Elliott [place] [address] [address] 02/18/2024 Rona Kurilla [place] [address] [address] 06/17/2024 Rona Kurilla Generalized anxiety disorder F41.1 [place] [address] [address] 06/27/2024 Rona Kurilla Generalized anxiety disorder F41.1 Assessments Encounter Date Diagnosis (ICD Code) Assessment Notes Treatment Notes Treatment Clinical Notes Section Notes 11/19/2023 Generalized anxiety disorder (ICD-10 - F41.1) 11/19/2023 Obsessive-compuls wesley disorder, unspecified (ICD-10 - F42.9) 06/27/2024 Generalized anxiety disorder (ICD-10 - F41.1) 02/18/2024 Generalized anxiety disorder (ICD-10 - F41.1) 1. SEMAJ stable -cont BuSpar 7.5mg BID -cont clonazepam PRN -encourage non-pharmace utical treatments including deep breathing, grounding exercises, physical activity, healthy diet. 2. OCD chronically stable on fluoxetine for several years -cont fluoxetine 120mg daily --no s/s of serotonin syndrome; has been stable at this dose for several years per previous provider 3. MDD -off of Wellbutrin for past month; overall stable -cont fluoxetine -has been exercising, increasing social activity, isolating less often. 09/20/2024 Generalized anxiety disorder (ICD-10 - F41.1) 09/20/2024 Obsessive-compuls wesley disorder, unspecified (ICD-10 - F42.9) SSRI/SNRI side effects discussed including but not limited to, gastric upset, nausea, vomiting, diarrhea and/or constipation, weight changes, sexual side effects including loss of libido, increased suicidal thoughts/behavior s in children and young adults, and serotonin [...] selective serotonin reuptake inhibitors (SSRIs) and selective serotonin/norepin ephrine reuptake inhibitors (SSNRIs). Talk to your doctor [...] these symptoms, seek emergency care right away. 06/21/2024 Generalized anxiety disorder (ICD-10 - F41.1) 06/17/2024 Generalized anxiety disorder (ICD-10 - F41.1) 06/21/2024 Obsessive-compuls wesley disorder, unspecified (ICD-10 - F42.9) SSRI/SNRI side effects discussed including but not limited to, gastric upset, nausea, vomiting, diarrhea and/or constipation, weight changes, sexual side effects including loss of libido, increased suicidal thoughts/behavior s in children and young adults, and serotonin [...] selective serotonin reuptake inhibitors (SSRIs) and selective serotonin/norepin ephrine reuptake inhibitors (SSNRIs). Talk to your doctor [...] these symptoms, seek emergency care right away. 02/18/2024 Obsessive-compuls wesley disorder, unspecified (ICD-10 - F42.9) SSRI/SNRI side effects discussed including but not limited to, gastric upset, nausea, vomiting, diarrhea and/or constipation, weight changes, sexual side effects including loss of libido, increased suicidal thoughts/behavior s in children and young adults, and serotonin [...] selective serotonin reuptake inhibitors (SSRIs) and selective serotonin/norepin ephrine reuptake inhibitors (SSNRIs). Talk to your doctor [...] BuSpar 7.5mg BID -cont clonazepam PRN -encourage non-pharmace utical treatments including deep breathing, grounding exercises, physical [...] severe without psychotic features (ICD-10 - F33.2) 09/20/2024 Major depressive disorder, recurrent severe without psychotic features (ICD-10 - F33.2) 02/18/2024 Major depressive disorder, recurrent severe without psychotic features (ICD-10 - F33.2) 1. SEMAJ stable -cont BuSpar 7.5mg BID -cont clonazepam PRN -encourage non-pharmace utical treatments including deep breathing, grounding exercises, physical activity, healthy diet. 2. OCD chronically stable on fluoxetine for several years -cont fluoxetine 120mg daily --no s/s of serotonin syndrome; has been stable at this dose for several years per previous provider 3. MDD -off of Wellbutrin for past month; overall stable -cont fluoxetine -has been exercising, increasing social activity, isolating less often. 09/20/2024 Encounter for screening for depression (ICD-10 - Z13.31) 06/21/2024 Major depressive disorder, recurrent severe without psychotic features (ICD-10 - F33.2) 09/20/2024 Encounter for screening for cardiovascular disorders (ICD-10 - Z13.6) 06/21/2024 Encounter for screening for depression (ICD-10 - Z13.31) 06/21/2024 Encounter for screening for cardiovascular disorders (ICD-10 - Z13.6) 11/19/2023 Other Increase Wellbutrin to 300mg daily [...] BuSpar 7.5mg BID -cont clonazepam PRN -encourage non-pharmace utical treatments including deep breathing, grounding exercises, physical activity, healthy diet. 2. OCD chronically stable on fluoxetine for several years -cont fluoxetine 120mg daily --no s/s of serotonin syndrome; has been stable at this dose for several years per previous provider 3. MDD -off of Wellbutrin for past month; overall stable -cont fluoxetine -has been exercising, increasing social activity, isolating less often. 06/21/2024 Other Decrease clonazepam to 0.5mg daily, intent to eventually taper off- could contrubute dizziness, brain fog, memory. Reporting increase in depression, largely situational. Discussed can not increase fluoxetine, if we augment with other medication will need to decrease fluoxetine due to increased risk of serotonin syndrome. Declined medication changes at this time. Patient educated on all medications including potential benefits, side effects, risks. Educated on proper dosing schedule and importance of compliance. [place] report checked and consistent with prescription history, no controlled substance prescriptions from other providers. -Assessment and treatment plan reviewed with patient. -Compliance with treatment plan importance discussed. -Discussed the risks/benefits of this medication -Discussed medication side effects. -Contact office if symptoms worsen. -Discussed that it can take up to 6-8 weeks to see full therapeutic effects of psychotropic medications. -Crisis prevention hotline 988. 09/20/2024 Other Chronically stable on current medication, continue as is. Feels current symptoms situational, declines medication change today Patient educated on all medications including potential benefits, side effects, risks. Educated on proper dosing schedule and importance of compliance. [place] report checked and consistent with prescription history, no controlled substance prescriptions from other providers. Supportive therapy provided -Assessment and treatment plan reviewed with patient. -Compliance with treatment plan importance discussed. -Discussed the risks/benefits of this medication -Discussed medication side effects. -Contact office if symptoms worsen. -Discussed that it can take up to 6-8 weeks to see full therapeutic effects of psychotropic medications. -Crisis prevention hotline 988. Plan Of Treatment Next Appt Details Provider Name:Rona Beatriz hendricks, 12/20/2024 08:30:00 AM, [address], [address], [place], [address], Insurance Providers Payer Name Payer Address Payer Phone Subscriber Number Group Number Insured Name Patient Relationship to Insured Coverage Start Date Coverage End Date [employer] Medicare Replacement/ Advantage - Ppo [address] [address] [place] [phone] [id number] ADRIEL LOU Self - patient is the insured Medical (General) History Medical History History ICD Code Problems: Generalized anxiety disorder Obsessive-compulsive disorder Severe recurrent major depression withou t psychotic features HTN Chronic back pain Surgical History Surgery Date(Month/Year) Any surgical history 05/29/2019
--- OUTSIDE RECORDS SUMMARY | 2024-10-02 08:04 | XMS_ITS | Encounter Summary ---
Author Name [facility] Organization [facility] Address [address] [place] [address] Care Team Providers Care Professional Security Officer Name Role Phone LAKEISHA MCCORD Primary Care [...] Mason's Name Patient's Relationship to Policy Mason [facility] (WNR) MEDICARE ADVANTAGE [facility] (WNR) Mar 30, 2022 [id number] JAKE LOU PATIENT 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 Date/Time Encounter Type Encounter Description Reason Provider Source Aug 30, 2024 02:00 PM OFFICE O/P EST LOW 20 MIN ORTHO/JOINT SURG ICD-10-CM Z96.641 Presence of right artificial hip joint KIRAN GO Xu Encounter Template Text not used by [place] Assessments - Encounter Diagnoses This section includes the primary and secondary diagnoses documented for the Encounter. Date/Time Primary/Secondary Diagnosis Diagnosis Name Provider Source Aug 30, 2024 04:04 PM PRIMARY Presence of right artificial hip joint KIRAN GO [facility] Aug 30, 2024 04:04 PM SECONDARY Presence of left artificial hip joint KIRAN GO BETHANY [facility] Aug 30, 2024 04:04 PM SECONDARY Unsp comp of internal orthopedic prosth dev/grft, laya [facility] Plan of Treatment: Future Appointments (+ 6 months) and Future Tests (+/- 45 days) The Plan of Treatment section includes future care activities for the patient from all [place] treatmentfacilities. This section includes future appointments and future orders which are active, pending or scheduled. Future Appointments This section includes appointments that were scheduled to occur 6 months from the date of the Encounter, up to a maximum of 20 appointments. The data comes from all [place] treatment facilities. Appointment Date/Time Appointment Type Appointme nt Facility Name Nov 15, 2024 10:00 AM AMBULATORY - MEDICINE [facility] Advance Directives: All historical and current Section Date Range: From patient's date of to the date document was created. This section includes ALL of a patient's completed or amended [place] Advance and Rescinded Directives. The entries below indicate that a directive exists for the patient, but an actual copy is not included with this document. The data comes from all [place] facilities. Date Advance Directives Provider Source May 14, 2018 ADVANCE DIRECTIVE DISCUSSION ILIRCOURTNEY REX Je [facility] Apr 24, 2015 ADVANCE DIRECTIVE DISCUSSION MISTY POWELL ANDRESSA Wooten [facility] Apr 21, 2012 ADVANCE DIRECTIVE EVERETT RODARTE [facility] Apr 21, 2012 ADVANCE DIRECTIVE DISCUSSION MERVAT [facility] Jul 03, 2011 ADVANCE DIRECTIVE DISCUSSION ELIU RICK [facility] Jun 28, 2010 ADMINISTRATIVE NOTE FLAKITA ZULETA [facility] Oct 03, 2008 ADVANCE DIRECTIVE CONNOR PAUL [facility] Encounter Notes: All associated encounter notes This section contains the clinical notes associated to the Encounter. Date/Time Encounter Note(s) Provider Source Aug 30, 2024 02:29 PM ORTHOPEDIC SURGERY NOTE: LOCAL TITLE: ORTHOPEDIC STL STANDARD TITLE: ORTHOPEDIC SURGERY NOTE DATE OF [...] much improved. He has gone back to [employer]. He is doing strength training at the [...] Physician, Orthopedics Signed: 08/30/2024 16:04 KIRAN GO [facility]
--- OUTSIDE RECORDS SUMMARY | 2024-10-02 08:04 | XMS_ITS | Encounter Summary ---
Author Name [facility] [place] [facility] [place] Address [address] [place] [address] Care Team Providers Care Mortgage Protection Sales Name Role Phone LAKEISHA MCCORD Primary Care [...] Mason's Name Patient's Relationship to Policy Mason [facility] (WNR) MEDICARE ADVANTAGE [facility] (WNR) Mar 30, 2022 [id number] JAKE LOU PATIENT [facility] (WNR) MEDICARE ADVANTAGE [facility] (WNR) Mar 30, 2022 [id number] JAKE LOU PATIENT MEDICARE PART D (WNR) MEDICARE (M) PART D Mar 30, 2022 PART D [id number] ADRIEL LOU II PATIENT OFFICE OF REGIONAL COUNS [id number] LENO MCCAIN R Jul 07, 2007 TORT FEASOR [id number] JAKE LOU PATIENT [employer] T[employer]ATER TORT FELIPE MCCAIN R Dec 09, 2013 TORT FEASOR [id number] JAKE LOU PATIENT [facility]CR (WNR) MEDICARE ADVANTAGE [facility] (WNR) Mar 30, 2022 [id number] JAKE LOU PATIENT Selected Encounter This section includes the information on record at [place] for the Encounter. Date/Time Encounter Type Encounter Description Reason Provider Source May 31, 2024 02:00 PM OFFICE O/P NEW LOW 30 MIN ORTHO/JOINT SURG ICD-10-CM M25.551 Pain in right hip ALEJANDRO DESOUZA [facility] Encounter Template Text not used by [place] Assessments - Encounter Diagnoses This section includes the primary and secondary diagnoses documented for the Encounter. Date/Time Primary/Secondary Diagnosis Diagnosis Name Provider Source Jun 05, 2024 09:01 PM PRIMARY Pain in right hip SHERRY STEVENSON [facility] Plan of Treatment: Future Appointments (+ 6 months) and Future Tests (+/- 45 days) The Plan of Treatment section includes future care activities for the patient from all [place] treatmentfacilities. This section includes future appointments and future orders which are active, pending or scheduled. Future Appointments This section includes appointments that were scheduled to occur 6 months from the date of the Encounter, up to a maximum of 20 appointments. The data comes from all [place] treatment facilities. Appointment Date/Time Appointment Type Appointme nt Facility Name Jun 06, 2024 08:30 AM AMBULATORY - MEDICINE [facility] Jun 13, 2024 08:30 AM [facility]BULATORY - MEDICINE [facility] Jul 05, 2024 06:45 AM AMBULATORY - NONE [facility] Aug 30, 2024 02:00 PM AMBULATORY - SURGERY [facility] Nov 15, 2024 10:00 AM AMBULATORY - MEDICINE [facility] Active, Pending, and Scheduled Orders This section includes a listing of several types of active, pending, and scheduled orders, including clinic medications orders, diagnostic test orders, procedure orders and consult orders; where the start date of the order is 45 days before the date of the Encounter or 45 days after the date of theEncounter. The data comes from all [facility]. Test Date/Time Test Type Test Details Facility Name May 12, 2024 12:00 AM Laboratory - Chemistry Order VITAMIN D, 25-HYDROXY GOLD/RED SST SERUM [facility] May 12, 2024 12:00 AM Laboratory - Chemistry Order TSH W/ REFLEX FT4 (STL) GREEN LI-HEP PLASMA [facility] May 12, 2024 12:00 AM Laboratory - Chemistry Order COMPREHENSIVE METABOLIC PANEL GREEN LI/HEP BLD/PLAS PLASMA [facility] May 12, 2024 12:00 AM Laboratory - Chemistry Order LIPID PANEL (STL) GREEN LI/HEP BLD/PLAS PLASMA [facility] May 12, 2024 12:00 AM Laboratory - Chemistry Order CBC BLOOD [facility] May 12, 2024 12:00 AM Laboratory - Chemistry Order URINALYSIS (STL-PB) URINE [facility] May 12, 2024 12:00 AM Laboratory - Chemistry Order HGA1C BLOOD [facility] May 17, 2024 12:00 AM Laboratory - Chemistry Order URINALYSIS (STL-PB) URINE [facility] Jun 13, 2024 12:00 AM Laboratory - Chemistry Order COBALT (QUEST) BLOOD [facility] Jun 13, 2024 12:00 AM Laboratory - Chemistry Order CHROMIUM BLOOD [facility]AS[facility] Lab Results: +/- 30 days of the encounter This section includes the Chemistry and Hematology Lab Results on record with [place] for the patient. Radiology Reports and Pathology Reports are provided separately, in subsequent sections. Lab Results This section contains the Chemistry/Hematology Results that were resulted 30 days before or 30 daysafter the date of the Encounter. Date/Time Source Result Type Result - Unit Interpretation Reference Range Specimen Type Comment May 17, 2024 03:49 PM [facility] ESR ISED(STL) BLOOD Specimen Type: BLOOD No comment entered. Ordering Provider: LAKEISHA MCCORD Report Released Date/Time: May 17, 2024 03:17 PM Reporting Lab: [facility] [address] [facility] [phone] Performing Lab: [facility] [address] [facility] [phone] ESR ISED(STL) 8 mm/h 0-19 May 17, 2024 03:49 PM [facility] CRP PLASMA Specimen Type: PLASM A Comment: No hemolysis noted. Ordering Provider: LAKEISHA MCCORD Report Released Date/Time: May 17, 2024 03:17 PM Reporting Lab: [facility] [address] [facility] [phone] Performing Lab: [facility] [address] [facility] [phone] CRP 0.2 mg/dL 0-0.5 May 17, 2024 03:49 PM [facility] VITAMIN D, 25-HYDROXY SERUM Specimen Type: SE RUM No comment entered. Ordering Provider: LAKEISHA MCCORD Report Released Date/Time: May 17, 2024 03:17 PM Reporting Lab: [place] [address] [facility] [address] Performing Lab: [facility] [address] [facility] [address] VITAMIN D, 25-HYDROXY 100.1 ng/mL H 30-96 May 17, 2024 03:49 PM [facility] TSH W/ REFLEX FT4 (STL) PLASMA Specimen Type: PLASMA No comment entered. Ordering Provider: LAKEISHA MCCORD Report Released Date/Time: May 17, 2024 03:17 PM Reporting Lab: [facility] [phone] Performing Lab: [facility] [address] [facility] [address] TSH 1.402 u[IU]/mL 0.47-5 May 17, 2024 03:49 PM [facility] LIPID PANEL (STL) PLASMA Specimen Type: PLASM A Comment: No hemolysis noted. Ordering Provider: LAKEISHA MCCORD Report Released Date/Time: May 17, 2024 03:17 PM Reporting Lab: [facility] [address] [place] [phone] Performing Lab: [facility] [address] [place] [phone] CHOLESTEROL 144 mg/dL 0-200 TRIGLYCERIDE 146 mg/dL 0-150 CALCULATED LDL 58 mg/dL HDL(New) 57 mg/dL >40 May 17, 2024 03:49 PM [facility] COMPREHENSIVE METABOLIC PANEL PLASMA Specimen Type: PLASMA Comment: No hemolysis noted. Ordering Provider: LAKEISHA MCCORD Report Released Date/Time: May 17, 2024 03:17 PM Reporting Lab: [facility] [address] [place] [phone] Performing Lab: [address] [address] CREATININE 1.45 mg/dL H 0.7-1.3 UREA NITROGEN [...] 52.8 >60 May 17, 2024 03:49 PM [facility] CBC BLOOD Specimen Type: BLOOD No comment entered. Ordering Provider: LAKEISHA MCCORD Report Released Date/Time: May 17, 2024 03:17 PM Reporting Lab: [facility] [address] [facility] [address] Performing Lab: [address] [address] WBC 7.1 10*3/uL 3.6-11.2 RBC 5.61 10*6/uL [...] ALL of a patient's completed or amended [place] Advance and Rescinded Directives. The entries below indicate that a directive exists for the patient, but an actual copy is not included with this document. The data comes from all [facility]. Date Advance Directives Provider Source May 14, 2018 ADVANCE DIRECTIVE DISCUSSION COURTNEY HAZEL [facility] Apr 24, 2015 ADVANCE DIRECTIVE DISCUSSION MISTY POWELL [facility] Apr 21, 2012 ADVANCE DIRECTIVE EVERETT RODARTE [facility] Apr 21, 2012 ADVANCE DIRECTIVE DISCUSSION MERVAT FORTUNE [facility] Jul 03, 2011 ADVANCE DIRECTIVE DISCUSSION ELIU RICK [facility] Jun 28, 2010 ADMINISTRATIVE NOTE FLAKITA ZULETA [facility] Oct 03, 2008 ADVANCE DIRECTIVE CONNOR PAUL [facility] Radiology Reports: +/- 30 days [...] the Encounter. The data comes from all [place] treatment facilities. Date/Time Radiology Report Provider Source May 31, 2024 11:[address] PELVIS W/O CONT : ADRIEL LOU [id number] -[id number] M Exm Date: MAY 31, 2024@11:37 Req Phys: LAKEISHA MCCORD Loc: [facility] PACT B5 PCP (Req'g Img Loc: [facility] Service: Unknown [facility] [address] [place] [address] (Case [id number] COMPLETE) CT PELVIS W/O CONT (CT Detailed) CPT:16833 Reason for Study: Right hip pain Clinical History: Responsible Attending: lindsay Attending Contact Number: [id number] Resident Contact Number: Mr. Lou is a [...] 31, 2024 Date Verified: MAY 31, 2024 Mental Health Orderly E-Sig:/ES/JORDAN CHAKRABORTY MD Report: Spiral axial imaging [...] Primary Interpreting Staff: JORDAN CHAKRABORTY MD, Radiologist (Mental Health Orderly) /JORDAN PLASENCIA [facility] May 17, 2024 04:34 PM HIP W/PELVIS 2-3 V IEWS RIGHT: ADRIEL LOU [id number] -1955 M Exm Date: MAY 17, 2024@16:34 Req Phys: LAKEISHA MCCORD Pat Loc: [facility] PACT B5 PCP (Shannonq'g Loc) Img Loc: -[facility] RADIOLOGY SUITE Service: Unknown [facility] [address] [place] [address] (Case [id number] COMPLETE) HIP W/PELVIS 2-3 VIEWS RIGHT (RAD Detailed) CPT:72139 Proc Modifiers : RIGHT, AP Pelvis, Frog Reason for Study: c/o right hip pain Clinical History: c/o right hip pain hx of Rt Hips surgery Report Status: Verified Date Reported: MAY 18, 2024 Date Verified: MAY 18, 2024 Mental Health Orderly E-Sig:/SUNG/ZAC JAEGER Report: Case [id number]. HIP W/PELVIS 2-3 VIEWS RIGHT. Comparison: Right [...] replacements. Primary Interpreting Staff: ZAC JAEGER MD (Mental Health Orderly) /ZAC JERONIMO [facility] Encounter Notes: All [...] Metal on Metal NIDIA done privately in [facility] followed by multiple revisions (1 on the right, 4 on the left). Left revised for metal on metal and subseequent infection. 1 dislocation on the left but no instability or infection history on the right. All revisions done in [place] and he is unsure which hospital. He would like to start skydiving again and wants to make sure this is not going to harm his leg. Also known back issues and was due to get a stimulator placed but did not undergo this given his poor course from his hips. Has not had hip surgery since 2015 (right hip revision). PMH: 1) Depression (SNOMED CT 83763230) 2) Osteoarthritis of right hip joint (SNOMED CT 634918582509591) 3) Inguinal hernia, without mention of obstruction or gangrene (ICD-9-CM 550.90) 4) Blood In Stool 5) Recurrent unilateral or unspecified inguinal hernia, without mention of obstruct 6) Obsessive-Compulsive Disorder 7) Proteinuria * (ICD-9-CM 791.0) 8) Hypertensive chronic kidney disease, unspecified, with chronic kidney disease St 9) Anemia due to chronic kidney disease stage 1 (SNOMED CT 916180940341933) 10) Chronic kidney disease (SNOMED CT 491128881) 11) Anxiety * (ICD-9-CM 300.00/300.09) 12) Benign essential hypertension 13) Gout 14) Erectile dysfunction 15) Migraine 16) Exposure to potentially hazardous substance ([facility] [id number]) Active Outpatient Medications (including Supplies): Active Outpatient [...] operative reports and cannot recall where in [place] his most recent right hip revision was [...] clinic after the MARS-MRI is done and [place] Chromium levels are resulted. It is unlikely [...] Physician, Orthopedics Signed: 06/14/2024 08:35 YANCI CORDOVA [facility] May 31, 2024 02:15 PM ORTHOPEDIC SURGERY CONSULT: LOCAL TITLE: ORTHOPEDIC CONSULT [facility] STANDARD TITLE: ORTHOPEDIC SURGERY CONSULT DATE OF NOTE: MAY 31, 2024@14:15 ENTRY DATE: MAY 31, 2024@14:15:52 AUTHOR: JERMAINE DESOUZA EXP COSIGNER: URGENCY: STATUS: COMPLETED ORTHOPEDIC CONSULT STL Has ADDENDA CC: Right lateral hip pain HPI: 69 yo M with right lateral hip pain worst when he stands or lays on it. Prior BL Metal on Metal NIDIA done privately in [facility] followed by multiple revisions (1 on the right, 4 on the left). Left revised for metal on metal and subseequent infection. 1 dislocation on the left but no instability or infection history on the right. All revisions done in [place] and he is unsure which hospital. He would like to start skydiving again and wants to make sure this is not going to harm his leg. Also known back issues and was due to get a stimulator placed but did not undergo this given his poor course from his hips. Has not had hip surgery since 2015 (right hip revision). PMH: 1) Depression (SNOMED CT 02087405) 2) Osteoarthritis of right hip joint (SNOMED CT 622887325384845) 3) Inguinal hernia, without mention of obstruction or gangrene (ICD-9-CM 550.90) 4) Blood In Stool 5) Recurrent unilateral or unspecified inguinal hernia, without mention of obstruct 6) Obsessive-Compulsive Disorder 7) Proteinuria * (ICD-9-CM 791.0) 8) Hypertensive chronic kidney disease, unspecified, with chronic kidney disease St 9) Anemia due to chronic kidney disease stage 1 (SNOMED CT 248871539988389) 10) Chronic kidney disease (SNOMED CT 316841466) 11) Anxiety * (ICD-9-CM 300.00/300.09) 12) Benign essential hypertension 13) Gout 14) Erectile dysfunction 15) Migraine 16) Exposure to potentially hazardous substance ([facility] [id number]) Active Outpatient Medications (including Supplies): Active Outpatient [...] operative reports and cannot recall where in [place] his most recent right hip revision was [...] clinic after the MARS-MRI is done and [place] Chromium levels are resulted. It is unlikely [...] AWAITING SIGNATURE * KIRAN CHURCH KIMBERLY A [facility]
--- OUTSIDE RECORDS SUMMARY | 2024-10-02 08:04 | XMS_ITS | Encounter Summary ---
Author Name [facility] [place] [facility] [place] Address [address] [place] [address] Care Team Providers Care Oil Gauger Name Role Phone LAKEISHA MCCORD Primary Care [...] Mason's Name Patient's Relationship to Policy Mason [facility] (WNR) MEDICARE ADVANTAGE [facility] (WNR) Mar 30, 2022 [id number] JAKE LOU HN PATIENT [facility] (WNR) MEDICARE ADVANTAGE [facility] (WNR) Mar 30, 2022 [id number] JAKE LOU PATIENT MEDICARE PART D (WNR) MEDICARE (M) PART D Mar 30, 2022 PART D [id number] [phone] [id number] ADRIEL LOU II PATIENT OFFICE OF REGIONAL COUNS [id number] [place] R Jul 07, 2007 TORT JOSSOR [id number] CARMINEJAKE SAMS PATIENT [facility] TECH [place] R Dec 09, 2013 TORT FELIPE [id number] JAKE LOU PATIENT [facility] MCR (WNR) MEDICARE ADVANTAGE [facility] (WNR) Mar 30, 2022 [id number] JAKE LOU PATIENT Selected Encounter This [...] PRIMARY Pain in right hip LAKEISHA MCCORD [facility] Plan of Treatment: Future Appointments (+ [...] 2024 12:30 PM AMBULATORY - NONE [facility] May 31, 2024 02:00 PM AMBULATORY - SURGERY [facility] Jun 06, 2024 08:30 AM AMBULATORY - MEDICINE [facility] Jun 13, 2024 08:30 AM AMBULATORY - MEDICINE [facility] Jul 05, 2024 06:45 AM AMBULATORY - NONE [facility] Aug 30, 2024 02:00 PM AMBULATORY - SURGERY [facility] Nov 15, 2024 10:00 AM AMBULATORY - MEDICINE [facility] Active, Pending, and Scheduled Orders This section includes a listing of several types of active, pending, and scheduled orders, including clinic medications orders, diagnostic test orders, procedure orders and consult orders; where the start date of the order is 45 days before the date of the Encounter or 45 days after the date of theEncounter. The data comes from all [facility]. Test Date/Time Test Type Test Details Facility Name May 12, 2024 12:00 AM Laboratory - Chemistry Order VITAMIN D, 25-HYDROXY GOLD/RED SST SERUM [facility] May 12, 2024 12:00 AM Laboratory - Chemistry Order TSH W/ REFLEX FT4 (STL) GREEN LI-HEP PLASMA [facility] May 12, 2024 12:00 AM Laboratory - Chemistry Order COMPREHENSIVE METABOLIC PANEL GREEN LI/HEP BLD/PLAS PLASMA [facility] May 12, 2024 12:00 AM Laboratory - Chemistry Order LIPID PANEL (STL) GREEN LI/HEP BLD/PLAS PLASMA [facility] May 12, 2024 12:00 AM Laboratory - Chemistry Order CBC BLOOD [facility] May 12, 2024 12:00 AM Laboratory - Chemistry Order URINALYSIS (STL-PB) URINE [facility] May 12, 2024 12:00 AM Laboratory - Chemistry Order HGA1C BLOOD [facility] May 17, 2024 12:00 AM Laboratory - Chemistry Order URINALYSIS (STL-PB) URINE [facility] Jun 13, 2024 12:00 AM Laboratory - Chemistry Order COBALT (QUEST) BLOOD [facility] Jun 13, 2024 12:00 AM Laboratory - Chemistry Order CHROMIUM BLOOD PLASMA [facility] Lab Results: +/- 30 days of the [...] Type Comment May 17, 2024 03:49 PM [facility] ESR ISED(STL) BLOOD Specimen Type: BLOOD No comment entered. Ordering Provider: LAKEISHA MCCORD Report Released Date/Time: May 17, 2024 03:17 PM Reporting Lab: [facility] [address] [facility] [address] Performing Lab: [facility] [address] [address] ESR ISED(STL) 8 mm/h 0-19 May 17, 2024 03:49 PM [facility] CRP PLASMA Specimen Type: PLASM A Comment: No hemolysis noted. Ordering Provider: LAKEISHA MCCORD Report Released Date/Time: May 17, 2024 03:17 PM Reporting Lab: [facility] [address] [address] Performing Lab: [facility] [address] [address] CRP 0.2 mg/dL 0-0.5 May 17, 2024 03:49 PM [facility] VITAMIN D, 25-HYDROXY SERUM Specimen Type: SE RUM No comment entered. Ordering Provider: LAKEISHA MCCORD Report Released Date/Time: May 17, 2024 03:17 PM Reporting Lab: [facility] [address] [address] Performing Lab: [facility] [address] [address] VITAMIN D, 25-HYDROXY 100.1 ng/mL H 30-96 May 17, 2024 03:49 PM [facility] TSH W/ REFLEX FT4 (STL) PLASMA Specimen Type: PLASMA No comment entered. Ordering Provider: LAKEISHA MCCORD Report Released Date/Time: May 17, 2024 03:17 PM Reporting Lab: [facility] [address] [facility] [address] Performing Lab: [facility] [address] [address] TSH 1.402 u[IU]/mL 0.47-5 May 17, 2024 03:49 PM [facility] LIPID PANEL (STL) PLASMA Specimen Type: PLASM A Comment: No hemolysis noted. Ordering Provider: LAKEISHA MCCORD Report Released Date/Time: May 17, 2024 03:17 PM Reporting Lab: [facility] [address] [facility] [address] Performing Lab: [address] [address] CHOLESTEROL 144 mg/dL 0-200 TRIGLYCERIDE 146 mg/dL 0-150 CALCULATED LDL 58 mg/dL HDL(New) 57 mg/dL >40 May 17, 2024 03:49 PM [facility] COMPREHENSIVE METABOLIC PANEL PLASMA Specimen Type: PLASMA Comment: No hemolysis noted. Ordering Provider: LAKEISHA MCCORD Report Released Date/Time: May 17, 2024 03:17 PM Reporting Lab: [address] [address] Performing Lab: [address] [address] CREATININE 1.45 mg/dL H 0.7-1.3 UREA NITROGEN [...] 52.8 >60 May 17, 2024 03:49 PM [facility] CBC BLOOD Specimen Type: BLOOD No comment entered. Ordering Provider: LAKEISHA MCCORD Report Released Date/Time: May 17, 2024 03:17 PM Reporting Lab: [facility] [address] [place] [phone] Performing Lab: [address] [address] WBC 7.1 10*3/uL 3.6-11.2 RBC 5.61 10*6/uL [...] and tobacco- related health factors from the [place] facility where the Encounter took place. Current Smoking Status This section includes the most current smoking, or tobacco-related health factor, from the [place] facility where the Encounter took place. Date/Time Current Smoking Status Comment Andreas zacarias May 17, 2024 03:00 PM VA-TOBACCO NEVER U SED CIGARETTES [facility] Tobacco Use History This section includes a history of the smoking, or tobacco-related health factors, that were collected on or before the date of the Encounter. The data comes from the [place] facility where the Encounter took place. Date/Time Smoking Status/Tobacco Use Comment Coleen davidson May 17, 2024 03:00 PM VA-TOBACCO NEVER U SED OTHER TYPE [facility] August 05, 2021 09:00 AM VA-TOBACCO NEVER USED [facility] Advance Directives: All historical and current [...] 14, 2018 ADVANCE DIRECTIVE DISCUSSION COURTNEY HAZEL [facility] Apr 24, 2015 ADVANCE DIRECTIVE DISCUSSION SHERRYOUMOUELIANA ANDRESSA Wooten [facility] Apr 21, 2012 ADVANCE DIRECTIVE EVERETT RODARTE [facility] Apr 21, 2012 ADVANCE DIRECTIVE DISCUSSION MERVAT FORTUNE [facility] Jul 03, 2011 ADVANCE DIRECTIVE DISCUSSION ELIU RICK [facility] Jun 28, 2010 ADMINISTRATIVE NOTE FLAKITA ZULETA [facility] Oct 03, 2008 ADVANCE DIRECTIVE CONNOR PAUL Garcia [facility] Radiology Reports: +/- 30 days of [...] CT PELVIS W/O CONT : ADRIEL LOU [id number] -1955 M Exm Date: MAY 31, 2024@11:37 Req Phys: LAKEISHA MCCORD Loc: -[facility] PACT B5 PCP (Req'g Img Loc: -CT IMAGING Service: Unknown [facility], [address] [address] (Case [id number] COMPLETE) CT PELVIS W/O CONT (CT Detailed) CPT:02705 Reason for Study: Right hip pain Clinical History: Responsible Attending: lindsay Attending Contact Number: [phone] Resident Contact Number: Mr. Lou is a [...] 2024 Date Verified: MAY 31, 2024 Manager Scientific E-Sig:/ES/JORDAN CHAKRABORTY MD Report: Spiral axial imaging [...] Interpreting Staff: JORDAN CHAKRABORTY MD, Radiologist (Manager Scientific) /JORDAN PLASENCIA [facility] May 17, 2024 04:34 PM HIP W/PELVIS 2-3 V IEWS RIGHT: ADRIEL LOU [id number] -1955 M Exm Date: MAY 17, 2024@16:34 Req Phys: LAKEISHA MCCORD Pat Loc: [facility] PACT B5 PCP (Req'g Loc) Img Loc: -MAIN RADIOLOGY SUITE Service: [address] [address] (Case [id number] COMPLETE) HIP W/PELVIS 2-3 VIEWS RIGHT (RAD Detailed) CPT:15638 Proc Modifiers : RIGHT, AP Pelvis, Frog Reason for Study: c/o right hip pain Clinical History: c/o right hip pain hx of Rt Hips surgery Report Status: Verified Date Reported: MAY 18, 2024 Date Verified: MAY 18, 2024 Manager Scientific E-Sig:/ES/ZAC JAEGER Report: Case [id number]. HIP W/PELVIS 2-3 VIEWS RIGHT. Comparison: Right [...] Primary Interpreting Staff: ZAC JAEGER MD (Manager Scientific) /ZAC JERONIMO [facility] Encounter Notes: All associated encounter [...] History: Problem List 1) Depression (SNOMED CT 23976990) 2) Osteoarthritis of right hip joint (SNOMED CT 895970470791284) 3) Inguinal hernia, without mention of obstruction or gangrene (ICD-9-CM 550.90) 4) Blood In Stool 5) Recurrent unilateral or unspecified inguinal hernia, without mention of obstruct 6) Obsessive-Compulsive Disorder 7) Proteinuria * (ICD-9-CM 791.0) 8) Hypertensive chronic kidney disease, unspecified, with chronic kidney disease St 9) Anemia due to chronic kidney disease stage 1 (SNOMED CT 587640211338184) 10) Chronic kidney disease (SNOMED CT 788834952) 11) Anxiety * (ICD-9-CM 300.00/300.09) 12) Benign essential hypertension 13) Gout 14) Erectile dysfunction 15) Migraine 16) Exposure to potentially hazardous substance ([facility] 213833957560966) Comment: Allergies/Adverse Drug Reactions: MORPHINE Active and [...] follow with Ortho construction reconstructive surgery /es/ Lakesiha Mccord MD Staff Physician Signed: 06/02/2024 11:05 LAKEISHA MCCORD [facility] May 23, 2024 09:37 AM TELEHEALTH [...] template v1.5 Visit conducted by synchronous telehealth. [place] Location/emergency number confirmed. Environment surveyed and all [...] appropriate to conduct a VVC appointment. *Confirmed [place]'s Non-VA location for this appointment: 's Home [address] [place] [address] [place] [phone] Address and phone number verified with . [...] the Teleprovider is to call the national 11 service at [phone] and ask to be connected to emergency services for the 's location. 's Crisis Line: Dial 988 then press 1, or text [phone] Office of Connected Care Helpdesk ([facility]): [phone] or [phone] Verified Provider's location and contact information for this appointment: [address] [address] x Provider Visit: Reason for [...] INVENTORY - MAP: 05/17/2024 Personal Health Plan [place], [place], Purpose (MAP) SKYDIVING 08/05/2021 Personal Health Plan [place], [place], Purpose (MAP) SKYDIVING MAKES ME HAPPY. [...] PRACTICAL NURSE Signed: 05/23/2024 09:41 AGUSTIN FLORES [facility]
[2024-10-02 08:06] VITALS: BP 125/90; PULSE 75; RESP 19; TEMP 36.7; O2SAT 100
--- OUTSIDE RECORDS SUMMARY | 2024-10-02 08:31 | XMS_ITS | Clinical Summary ---
Author Organization [facility] Address [facility] [place] [address] Care Team Providers Care Senior Web Designer Name Role Phone Non-Staff, Provider Primary Care [...] - 07/05/2024 11:59 PM CDT Hospital Encounter [facility] [address] [place] [address] Jermaine Dotson MD Discharge Disposition: Home or [...] 10:08 AM Narrative 07/20/2024 10:56 AM CDT [address] [address] EXAMINATION: MRI RIGHT HIP WITHOUT CONTRAST EXAM [...] Procedure Note Patrick Lo MD - 07/20/[address] [address] EXAMINATION: MRI RIGHT HIP WITHOUT CONTRAST EXAM [...] signal abnormality to indicate fracture within the ehatl-zr-umxs. No abnormal fluid collection surrounding the hip. Referred By: JERMAINE DOTSON Interpreted By: Patrick Lo MD, 07/20/2024 10:57 AM Narrative 07/20/2024 11:03 AM CDT [place] [address] EXAMINATION: MRI LEFT HIP WITHOUT CONTRAST EXAM DATE: 07/05/2024 7:02 AM REASON FOR EXAM: Pain in unspecified hip Right hip pain, prior replacement. COMPARISON: None TECHNIQUE: Multiplanar multisequence imaging of the hip without intravenous contrast. FINDINGS: Status post left total hip arthroplasty, metallic artifact limits the examination. No obvious marrow signal abnormality to indicate fracture within the jkeyw-gj-elkb. No abnormal fluid collection surrounding the hip. No significant muscular atrophy. Iliopsoas and gluteus medius and minimus insertions within normal limits. Hamstring origins within normal limits. Procedure Note Patrick Lo MD - 07/20/2024 [place] [address] EXAMINATION: MRI LEFT HIP WITHOUT CONTRAST EXAM DATE: 07/05/2024 7:02 AM REASON FOR EXAM: Pain in unspecified hip Right hip pain, prior replacement. COMPARISON: None TECHNIQUE: Multiplanar multisequence imaging of the hip withoutintravenous contrast. FINDINGS: Status post left total hip arthroplasty, metallic artifact limits theexamination. No obvious marrow signal abnormality to indicate fracture within dvctibyt-ce-ghbb. No abnormal fluid collection surrounding the hip. No significant muscularatrophy. Iliopsoas and gluteus medius and minimus insertions within normal limits.Hamstring origins within normal limits. IMPRESSION: Status post left total hip arthroplasty, metallic artifact limits theexamination. No obvious marrow signal abnormality to indicate fracturewithin the jjxit-io-owgb. No abnormal fluid collection surrounding thehip. Referred By: JERMAINE DOTSON Interpreted By: Patrick Lo MD, 07/20/2024 10:57 AM Jermaine Dotson MD MRI Final Result from Last [address] [place] [address] [facility] OFFICE OF COMMUNITY CARE [facility] Advance Directives * Full Code (Latest Code Status on File) Date Activated Date Inactivated Comments 12/24/2020 9:06 PM 12/27/2020 4:28 PM Care Teams Senior Web Designer Relationship Specialty Start Date End Date Non-Staff, Provider PCP - General UNKNOWN PHYSICIAN SPECIALTY 07/05/24
--- OUTSIDE RECORDS SUMMARY | 2024-10-02 08:31 | XMS_ITS | Clinical Summary ---
Author Organization [facility] Address [address] [place] [address] Care Team Providers Care Epoxy Coatings Installer Name Role Phone Unavailable Primary Care Provider Unavailabl e Source Comments [facility],non-owned Affiliates and Associated Physician Practices is amultiple site organization consisting of ambulatory clinics and hospital sitesin [place] and [place]. This disclosure is being madepursuant to the Care Everywhere program and may not contain all information available regarding this patient. 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
[2024-10-02 10:01] VITALS: BP 112/96; PULSE 65; RESP 95; O2SAT 100
--- NOTE | 2024-10-02 10:06 | ED_ITS ---
HPI - General Adult General Chief complaint: Extremity Injury, Lower Stated complaint: I busted my right foot Time Seen by Provider: 10/02/24 08:05 History of Present Illness HPI narrative: 69-year-old male presenting to the emergency department for evaluation for a right foot injury. Patient was skydiving yesterday and took a hard landing injuring his right foot. Patient denies striking his head denies any loss of consciousness. Patient did notice some swelling of his left knee but states that has since improved patient denies any pain associated with the left knee. Patient did notice some tenderness to the right foot with the initial injury but that the ecchymosis pain and difficulty ambulating progressed through the evening. Related Data Allergies Allergy/AdvReac Type Severity Reaction Status Date / Time morphine Allergy Hallucinati Verified 10/02/24 08:11 ng Review of Systems Review of Systems: All systems reviewed & are unremarkable except as noted in HPI and below PMFSH Past Medical History Medical History OCD (obsessive compulsive disorder) Kidney disease Hypertension Migraine Anxiety Family History Family History Father Hypertension Heart disease Social History Social History Smoking status: Former smoker Additional smoking assessment comments: Patient stated he smoked in his teens Alcohol intake: never Substance use: never Substance use type: does not use Do You Feel Safe in your Home?: Yes Lack of Transportation: No Lack of Food: Never True Current Housing: I Have Housing Concerned About Future Housing: No Difficulty Paying Gas/Electric Bills: No Difficulty Paying for Meds: No Currently Unemployed: No Education: Bachelor's Degree Difficulty w/ Childcare or Family Care: No Exam Narrative: APPEARANCE: Well appearing, no pain, no distress, well-nourished. HEAD: normocephalic, atraumatic. EYES: PERRLA/EOMI, conjunctivae clear. NOSE: Normal no drainage EARS:TMS clear with good light reflex. THROAT: Pharynx clear, no exudate. NECK: Supple. No adenopathy, no masses. RESPIRATORY: Airway patent, respirations nonlabored. Clear to auscultation bilaterally, no rales, rhonchi, wheezing. CARDIOVASCULAR: Regular rate and rhythm without murmurs rubs or gallops. ABDOMINAL: Soft, nontender, nondistended, normal bowel sounds MUSCULOSKELETAL: Lateral malleolus and lateral midfoot tenderness to palpation NEURO: Alert. Cranial nerves II through XII intact. Grossly intact SKIN: Warm, dry. Normal Color Course Vital Signs Vital signs: Vital Signs Temperature 98.0 F 10/02/24 08:06 Pulse Rate 75 10/02/24 08:06 Respiratory Rate 19 10/02/24 08:06 Blood Pressure 125/90 10/02/24 08:06 Pulse Oximetry 100 10/02/24 08:06 Oxygen Delivery Room Air 10/02/24 08:06 Temperature 98.0 F 10/02/24 08:06 Pulse Rate 65 10/02/24 10:01 Respiratory Rate 95 H 10/02/24 10:01 Blood Pressure 112/96 H 10/02/24 10:01 Pulse Oximetry 100 10/02/24 10:01 Oxygen Delivery Room Air 10/02/24 08:06 Medical Decision Making MDM Narrative Medical decision making narrative: 69-year-old male presenting to the emergency department for evaluation for foot and ankle pain after a skydiving injury. X-ray does show possible distal fibular injury along with a 5th metatarsal injury. Patient was placed in a short-leg posterior splint provided crutches for ambulation assistance. Differential Diagnosis Differential Diagnosis: Ankle fracture, ankle dislocation, foot fracture, foot dislocation, foot strain, ankle sprain Vital Signs Vital Signs: Vital Signs Temperature 98.0 F 10/02/24 08:06 Pulse Rate 75 10/02/24 08:06 Respiratory Rate 19 10/02/24 08:06 Blood Pressure 125/90 10/02/24 08:06 Pulse Oximetry 100 10/02/24 08:06 Oxygen Delivery Room Air 10/02/24 08:06 Temperature 98.0 F 10/02/24 08:06 Pulse Rate 65 10/02/24 10:01 Respiratory Rate 95 H 10/02/24 10:01 Blood Pressure 112/96 H 10/02/24 10:01 Pulse Oximetry 100 10/02/24 10:01 Oxygen Delivery Room Air 10/02/24 08:06 Imaging Data Radiologist's impression: Impressions Ankle X-Ray 10/02/24 09:29 IMPRESSION: Likely acute/subacute fracture of the base of the fibula with overlying soft tissue swelling, as detailed above. Foot X-Ray 10/02/24 09:31 IMPRESSION: Acute fracture involving the base of the fifth metatarsal with 3 mm of separation and 4 mm of medial and plantar dislocation of the distal fracture fragments. Discharge Plan Discharge Clinical Impression: Closed fibular fracture, Closed fracture of fifth metatarsal bone Patient Disposition: Home Condition: Stable Instructions: Antibiotic Form, Ankle Fracture (DC), Crutch Instructions (ED), Foot Fracture in Adults (ED), Splint Care (ED) Additional Instructions: Splint care as directed. Crutches or walker for nonweightbearing on right foot. Have close follow-up with Orthopedics. If you have any worsening symptoms then please call or return to the emergency department. Tylenol ibuprofen for pain control. Patient Language: Korean Prescriptions: New hydrocodone-acetaminophen 5-325 mg tablet 1 tablet PO Q12H PRN (Reason: pain) Qty: 14 0RF No Action hydrocodone-acetaminophen 5-325 mg tablet 1 tablet PO Q8H PRN (Reason: pain) Qty: 21 0RF finasteride 5 mg tablet 5 mg PO DAILY Qty: 14 0RF clonazepam 1 mg tablet 1 mg PO QHS Qty: 90 0RF Rx Instructions: administer 30 minutes before bedtime colchicine 0.6 mg tablet See Rx Instructions .ROUTE .COMPLEX Qty: 3 0RF Rx Instructions: take 2 tabs PO initially, then 1 tab 1 hr later lisinopril 10 mg tablet 10 mg PO DAILY Qty: 90 2RF fluoxetine 20 mg capsule 120 mg PO DAILY Qty: 540 1RF allopurinol 100 mg tablet See Rx Instructions .ROUTE .COMPLEX Qty: 90 0RF Dose Instruction: TAKE 1 TABLET BY MOUTH DAILY Rx Instructions: TAKE 1 TABLET BY MOUTH DAILY tamsulosin 0.4 mg capsule 0.4 mg PO BID Qty: 180 1RF topiramate 25 mg tablet 25 mg PO BID Qty: 180 1RF cyclobenzaprine 10 mg tablet 10 mg PO TID PRN (Reason: muscle spasm) Qty: 90 1RF gabapentin 300 mg capsule See Rx Instructions .ROUTE .COMPLEX Qty: 270 0RF Dose Instruction: TAKE 3 CAPSULES BY MOUTH EVERY DAY AT BEDTIME Rx Instructions: TAKE 3 CAPSULES BY MOUTH EVERY DAY AT BEDTIME Follow-up/Referrals: Mike Story MD [Physician] - Tee Shook MD [Primary Care Provider] -
--- NOTE | 2024-10-18 15:09 | PC.NURSE ---
LATE ENTRY This note is being entered to document information to the patient's record. The following information was omitted on [10/02/24], by [Addis GUPTA]. Short posterior splint applied to Right lower leg.
== END 2024-10-02 10:37 | disposition home or self-care (01) ==
PROVIDERS: Emergency Provider Emergency Medicine; PCP Family Medicine
DX: S82.831A Other fracture of upper and lower end of right fibula, initial encounter for closed fracture (principal); S92.351A Displaced fracture of fifth metatarsal bone, right foot, initial encounter for closed fracture; V97.22XA Parachutist injured on landing, initial encounter; F42.9 Obsessive-compulsive disorder, unspecified; I10 Essential (primary) hypertension; Z87.891 Personal history of nicotine dependence
CPT/HCPCS: 29515; 73610; 73630; 99284

== ENCOUNTER 2024-11-27 14:15 | Emergency (ER) | payer MEDICARE, SELFPAY ==
--- OUTSIDE RECORDS SUMMARY | 2024-01-04 04:06 | XMS_ITS | Encounter Summary ---
Author Name [facility] Organization [facility] Address [address] [place] [address] Care Team Providers Care Swine Nutritionist Name Role Phone LAKEISHA MCCORD Primary Care Provider XUAN Martines Primary Care Provider Tacho elder Insurance Providers: All historical and current Section Date Range: From patient's date of to the date document was created. This section includes the names of all active insurance providers for the patient. Insurance Provider Type of Coverage Plan Name Start of Policy Coverage End of Policy Coverage Group Number Member ID Insurance Provider's Telephone Number Policy Mason's Name Patient's Relationship to Policy Mason [facility] (WNR) MEDICARE ADVANTAGE [facility] (WNR) Mar 30, 2022 [id number] [phone] JAKE LOU HN PATIENT [facility] (WNR) MEDICARE ADVANTAGE [facility] (WNR) Mar 30, 2022 [id number] JAKE LOU PATIENT MEDICARE PART D (WNR) MEDICARE (M) PART D Mar 30, 2022 PART D [id number] ADRIEL LOU II PATIENT OFFICE OF REGIONAL COUNS [id number] [place] R Jul 07, 2007 TORT JOSSOR [id number] JAKE LOU PATIENT [facility] [employer] SALES [place] R Dec 09, 2013 LENO WANG [id number] JAKE LOU PATIENT [facility] MCR (WNR) MEDICARE ADVANTAGE [facility] (WNR) Mar 30, 2022 [id number] JAKE LOU PATIENT Selected Encounter This section includes the information on record at [place] for the Encounter. Date/Time Encounter Type Encounter Description Reason Pro vider Source Jan 04, 2024 09:06 AM Outpatient Encounter GENERAL INTERNAL MEDICINE [facility] Encounter Template Text not used by [place] Plan of Treatment: Future Appointments (+ 6 months) and Future Tests (+/- 45 days) The Plan of Treatment section includes future care activities for the patient from all [place] treatmentfacilities. This section includes future appointments and future orders which are active, pending or scheduled. Future Appointments This section includes appointments that were scheduled to occur 6 months from the date of the Encounter, up to a maximum of 20 appointments. The data comes from all [place] treatment facilities. Appointment Date/Time Appointment Type Appointme nt Facility Name May 17, 2024 03:00 PM AMBULATORY - MEDICINE [facility] May 23, 2024 09:30 AM AMBULATORY - MEDICINE [facility] May 31, 2024 12:30 PM AMBULATORY - NONE [facility] May 31, 2024 02:00 PM AMBULATORY - SURGERY [facility] Jun 06, 2024 08:30 AM AMBULATORY - MEDICINE [facility] Jun 13, 2024 08:30 AM AMBULATORY - MEDICINE [facility] Advance Directives: All historical and current Section Date Range: From patient's date of to the date document was created. This section includes ALL of a patient's completed or amended [place] Advance and Rescinded Directives. The entries below indicate that a directive exists for the patient, but an actual copy is not included with this document. The data comes from all [place] facilities. Date Advance Directives Provider Source May 14, 2018 ADVANCE DIRECTIVE DISCUSSION COURTNEY HAZEL [facility] Apr 24, 2015 ADVANCE DIRECTIVE DISCUSSION MISTY POWELL [facility] Apr 21, 2012 ADVANCE DIRECTIVE CAYDENADRIENNEEVERETT [facility] Apr 21, 2012 ADVANCE DIRECTIVE DISCUSSION MERVAT FORTUNE [facility] Jul 03, 2011 ADVANCE DIRECTIVE DISCUSSION ELIU RICK [facility] Jun 28, 2010 ADMINISTRATIVE NOTE FLAKITA ZULETA [facility] Oct 03, 2008 ADVANCE DIRECTIVE CONNOR PAULGarcia [facility] Encounter Notes: All associated encounter notes This section contains the clinical notes associated to the Encounter. Date/Time Encounter Note(s) Provider Source Dec 31, 2023 09:06 AM NONVA NOTE: LOCAL TITLE: COMMUNITY CARE-[facility]ACHI SELF PRESENTING CARE COORD PLAN STANDARD TITLE: NONVA NOTE DATE OF NOTE: DEC 31, 2023@09:06 ENTRY DATE: JAN 04, 2024@09:06:20 AUTHOR: SALEEM GUERRERO EXP COSIGNER: URGENCY: STATUS: COMPLETED COMMUNITY CARE-[facility]ACHI SELF PRESENTING CARE COORD PLAN [address] Has ADDENDA Emergency Notification Intake Date Presenting to the Facility: Dec Method of Contact: Notified from [employer] worklist Notification ID: [id number] HSRM Referral #: [id number] Clinical Review [facility] Name: Hospital: [facility] Address: [address] [place] [address] [address] City: [place] State: [place] Zip Code: [address] Community Facility Point of Contact: Name: CHYNA GAITAN Chief complaint: Leaking casillas catheter Primary Diagnosis: Disposition Discharged Date of discharge: Dec Discharge to home Records req'd by fax. /kyle GUERRERO ADVANCED TECHNICAL CUSTOMER SUPPORT SPECIALIST Signed: 01/04/2024 09:10 Receipt Acknowledged By: 01/06/2024 10:31 /es/ STEPHANIE BREWSTERN RN REGISTERED NURSE 01/04/2024 11:11 /es/ Lakeisha Mccord MD Staff Physician 01/05/2024 ADDENDUM STATUS: COMPLETED Records r/t this episode of care sent to [facility] for scanning. /kyle SZYMANSKI TECHNICAL CUSTOMER SUPPORT SPECIALIST Signed: 01/05/2024 09:43 01/25/2024 ADDENDUM STATUS: COMPLETED HSRM Referral ID: [id number] Status: Closed - Approved for 1702 /es/ SALEEM GUERRERO ADVANCED TECHNICAL CUSTOMER SUPPORT SPECIALIST Signed: 01/25/2024 17:09 SALEEM GUERRERO [facility]
--- OUTSIDE RECORDS SUMMARY | 2024-01-14 04:58 | XMS_ITS | Encounter Summary ---
Author Name [facility] [place] [facility] Address [address] [place] [address] Care Team Providers Care Processor Grain Name Role Phone LAKEISHA MCCORD Primary Care [...] Mason's Name Patient's Relationship to Policy Mason [facility] (WNR) MEDICARE ADVANTAGE [facility] (WNR) Mar 30, 2022 [id number] [phone] JKAE LOU HN PATIENT [facility] (WNR) MEDICARE ADVANTAGE [facility] (WNR) Mar 30, 2022 [id number] JAKE LOU PATIENT MEDICARE PART D (WNR) MEDICARE (M) PART D Mar 30, 2022 PART D [id number] ADRIEL LOU II PATIENT OFFICE OF REGIONAL COUNS [id number] LENO MCCAIN R Jul 07, 2007 TORT JOSSOR [id number] CARMINEJAKE SAMS PATIENT [employer] 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 Date/Time Encounter Type Encounter Description Reason Provider Source Jan 14, 2024 09:58 AM Outpatient Encounter GENERAL INTERNAL MEDICINE LAKEISHA MCCORD Encounter Template Text not used by [place] Plan of Treatment: Future Appointments (+ 6 months) and Future Tests (+/- 45 days) The Plan of Treatment section includes future care activities for the patient from all [place] treatmentfacilities. This section includes future appointments and future orders which are active, pending or scheduled. Future Appointments This section includes appointments that were scheduled to occur 6 months from the date of the Encounter, up to a maximum of 20 appointments. The data comes from all [place] treatment facilities. Appointment Date/Time Appointment Type Appointme nt Facility Name May 17, 2024 03:00 PM AMBULATORY - MEDICINE [facility] May 23, 2024 09:30 AM AMBULATORY - MEDICINE [facility] May 31, 2024 12:30 PM AMBULATORY - NONE [facility] May 31, 2024 02:00 PM AMBULATORY - SURGERY [facility] Jun 06, 2024 08:30 AM AMBULATORY - MEDICINE [facility] Jun 13, 2024 08:30 AM AMBULATORY - MEDICINE [facility] Jul 05, 2024 06:45 AM AMBULATORY - NONE . [facility] Advance Directives: All historical and current Section Date Range: From patient's date of to the date document was created. This section includes ALL of a patient's completed or amended [place] Advance and Rescinded Directives. The entries below indicate that a directive exists for the patient, but an actual copy is not included with this document. The data comes from all [place] facilities. Date Advance Directives Provider Source May 14, 2018 ADVANCE DIRECTIVE DISCUSSION HAZELCOURTNEY [facility] Apr 24, 2015 ADVANCE DIRECTIVE DISCUSSION MISTY POWELL [facility] Apr 21, 2012 ADVANCE DIRECTIVE CAYDENADRIENNEEVERETT [facility] Apr 21, 2012 ADVANCE DIRECTIVE DISCUSSION MERVAT FORTUNE [facility] Jul 03, 2011 ADVANCE DIRECTIVE DISCUSSION ELIU RICK [facility] Jun 28, 2010 ADMINISTRATIVE NOTE FLAKITA ZULETA [facility] Oct 03, 2008 ADVANCE DIRECTIVE CONNOR PAUL [facility] Encounter Notes: All associated encounter notes This section contains the clinical notes associated to the Encounter. Date/Time Encounter Note(s) Provider Source Dec 27, 2023 09:58 AM NONVA NOTE: LOCAL TITLE: COMMUNITY CARE-SACHI SELF PRESENTING CARE COORD PLAN STANDARD TITLE: NONVA NOTE DATE OF NOTE: DEC 27, 2023@09:58 ENTRY DATE: JAN 14, 2024@09:59:10 AUTHOR: KATHI PRESLEY COSIGNER: URGENCY: STATUS: COMPLETED COMMUNITY CARE-SACHI SELF PRESENTING CARE COORD PLAN [address] Has ADDENDA Emergency Notification Intake Date Presenting to the Facility: Nov Method of Contact: Notified from ECR worklist Notification ID: [id number] [facility] Referral #: [id number] [facility] [place] Hospital: [facility] Address: [address] [place] [address] City: [place] State: [place] Zip Code: [address] Community Facility Point of Contact: Name: Phone: Chief complaint: Swelling, mass in leg from dropping motocycle on legs few weeks ago. Primary Diagnosis: Disposition Unknown at time of intake note entry NOTICE: Follow-up care Outside the [place] related to this ER visit/Admission episode of care (EOC) is NOT COVERED under this ER Notification ID/Auth Number. Coverage for all follow-up care outside the [place] requires pre-authorization, which must be initiated via consult by the PCP. Please initiate any follow-up referral/consult(s) at the time of patient's discharge. /sung/ Kathi Presley RN, BSN REGISTERED NURSE Signed: 01/14/2024 10:15 01/14/2024 ADDENDUM STATUS: COMPLETED Left VM with Chel IRENE at [facility] and faxed records request to [facility]. /es/ Kathi Presley, RN, BSN REGISTERED NURSE Signed: 01/14/2024 10:50 01/14/2024 ADDENDUM STATUS: COMPLETED Faxed record request via [employer] to the hospital above. /sung/ Kathi Presley RN, BSN REGISTERED NURSE Signed: 01/14/2024 12:03 KATHI PRESLEY [facility]
--- OUTSIDE RECORDS SUMMARY | 2024-05-17 10:00 | XMS_ITS | Encounter Summary ---
Author Name [facility] [place] [facility] [place] Organization [facility] [place] [place] Address [address] [place] [address] Care Team Providers Care Repairer Shoe Sticks Name Role Phone LAKEISHA MCCORD Primary Care [...] Mason's Name Patient's Relationship to Policy Mason [facility] (WNR) MEDICARE ADVANTAGE [facility] (WNR) Mar 30, 2022 [id number] JAKE LOU HN PATIENT [facility] (WNR) MEDICARE ADVANTAGE [facility] (WNR) Mar 30, 2022 [id number] JAKE LOU PATIENT MEDICARE PART D (WNR) MEDICARE (M) PART D Mar 30, 2022 PART D [id number] ADRIEL LOU II PATIENT OFFICE OF REGIONAL COUNS [id number] LENO MCCAIN R Jul 07, 2007 TORT JOSSOR [id number] HORTENCIAELIANAJAKE SAMS PATIENT [facility] CANE PUSHER LENO MCCAIN R Dec 09, 2013 LENO WANG [id number] CARMINEJAKE SAMS PATIENT [facility] (WNR) MEDICARE ADVANTAGE [facility] (WNR) Mar 30, 2022 [id number] CARMINEJAKE SAMS PATIENT Selected Encounter This section includes the information on record at [place] for the Encounter. Date/Time Encounter Type Encounter Description Reason Provider Source May 17, 2024 03:00 PM OFFICE O/P EST MOD 30 MIN PRIMARY CARE/MEDICINE ICD-10-CM M16.9 Osteoarthritis of hip, unspecified AGUSTIN FLORES Encounter Template Text not used by PA Assessments - Encounter Diagnoses This section includes the primary and secondary diagnoses documented for the Encounter. Date/Time Primary/Secondary Diagnosis Diagnosis Name Provider Source May 17, 2024 03:36 PM PRIMARY Osteoarthritis of hip, unspecified [facility] May 17, 2024 03:36 PM SECONDARY Chronic kidney disease, stage 1 [facility] May 17, 2024 03:36 PM SECONDARY Contact with and exposure to other hazardous substances [facility] May 17, 2024 03:36 PM SECONDARY Essential (primary) hypertension [facility] May 17, 2024 03:36 PM SECONDARY Gout, unspecified [facility] May 17, 2024 03:36 PM SECONDARY Major depressive disorder, recurrent, moderate [facility] May 17, 2024 03:36 PM SECONDARY Migraine, unsp, not intractable, without status migrainosus [facility] Plan of Treatment: Future Appointments (+ 6 months) and Future Tests (+/- 45 days) The Plan of Treatment section includes future care activities for the patient from all [place] treatmentfacilities. This section includes future appointments and future orders which are active, pending or scheduled. Future Appointments This section includes appointments that were scheduled to occur 6 months from the date of the Encounter, up to a maximum of 20 appointments. The data comes from all [facility]. Appointment Date/Time Appointment Type Appointme nt Facility Name May 23, 2024 09:30 AM AMBULATORY - MEDICINE [facility] May 31, 2024 12:30 PM AMBULATORY - NONE [facility] May 31, 2024 02:00 PM AMBULATORY - SURGERY [facility] Jun 06, 2024 08:30 AM AMBULATORY - MEDICINE [facility] Jun 13, 2024 08:30 AM AMBULATORY - MEDICINE [facility] Jul 05, 2024 06:45 AM AMBULATORY - NONE [facility] Aug 30, 2024 02:00 PM AMBULATORY - SURGERY [facility] Active, Pending, and Scheduled Orders This section includes a listing of several types of active, pending, and scheduled orders, including clinic medications orders, diagnostic test orders, procedure orders and consult orders; where the start date of the order is 45 days before the date of the Encounter or 45 days after the date of theEncounter. The data comes from all [facility]. Test Date/Time Test Type Test Details Facility Name May 12, 2024 12:00 AM Laboratory - Chemistry Order VITAMIN D, 25-HYDROXY GOLD/RED SST SERUM [facility] May 12, 2024 12:00 AM Laboratory - Chemistry Order TSH W/ REFLEX FT4 (STL) GREEN LI-HEP PLASMA [facility] May 12, 2024 12:00 AM Laboratory - Chemistry Order LIPID PANEL (STL) GREEN LI/HEP BLD/PLAS PLASMA [facility] May 12, 2024 12:00 AM Laboratory - Chemistry Order CBC BLOOD [facility] May 12, 2024 12:00 AM Laboratory - Chemistry Order COMPREHENSIVE METABOLIC PANEL GREEN LI/HEP BLD/PLAS PLASMA [facility] May 12, 2024 12:00 AM Laboratory - Chemistry Order URINALYSIS (STL-PB) URINE [facility] May 12, 2024 12:00 AM Laboratory - Chemistry Order HGA1C BLOOD [facility] May 17, 2024 12:00 AM Laboratory - Chemistry Order URINALYSIS (STL-PB) URINE [facility] Jun 13, 2024 12:00 AM Laboratory - Chemistry Order COBALT (QUEST) BLOOD [facility] Jun 13, 2024 12:00 AM Laboratory - Chemistry Order CHROMIUM BLOOD PLASMA [facility] Lab Results: +/- 30 days of the encounter This section includes the Chemistry and Hematology Lab Results on record with PA for the patient. Radiology Reports and Pathology Reports are provided separately, in subsequent sections. Lab Results This section contains the Chemistry/Hematology Results that were resulted 30 days before or 30 daysafter the date of the Encounter. Date/Time Source Result Type Result - Unit Interpretation Reference Range Specimen Type Comment May 17, 2024 03:[address] [facility] ESR ISED(STL) BLOOD Specimen Type: BLOOD No comment entered. Ordering Provider: LAKEISHA MCCORD Report Released Date/Time: May 17, 2024 03:17 PM Reporting Lab: [facility] [address] [facility] [address] Performing Lab: [facility] [address] [place] [phone] ESR ISED(STL) 8 mm/h 0-19 May 17, 2024 03:[address] [facility] CRP PLASMA Specimen Type: PLASM A Comment: No hemolysis noted. Ordering Provider: LAKEISHA MCCORD Report Released Date/Time: May 17, 2024 03:17 PM Reporting Lab: [facility] [address] [facility] [address] Performing Lab: [facility] [address] [facility] [address] CRP 0.2 mg/dL 0-0.5 May 17, 2024 03:[address] [facility] VITAMIN D, 25-HYDROXY SERUM Specimen Type: SE RUM No comment entered. Ordering Provider: LAKEISHA MCCORD Report Released Date/Time: May 17, 2024 03:17 PM Reporting Lab: [facility] [address] [facility] [address] Performing Lab: [facility] [address] [facility] [address] VITAMIN D, 25-HYDROXY 100.1 ng/mL H 30-96 May 17, 2024 03:[address] [facility] TSH W/ REFLEX FT4 (STL) PLASMA Specimen Type: PLASMA No comment entered. Ordering Provider: LAKEISHA MCCORD Report Released Date/Time: May 17, 2024 03:17 PM Reporting Lab: [facility] [address] [facility] [address] Performing Lab: [address] [address] TSH 1.402 u[IU]/mL 0.47-5 May 17, 2024 03:[address] [facility] LIPID PANEL (STL) PLASMA Specimen Type: PLASM A Comment: No hemolysis noted. Ordering Provider: LAKEISHA MCCORD Report Released Date/Time: May 17, 2024 03:17 PM Reporting Lab: [address] [address] Performing Lab: [address] [address] CHOLESTEROL 144 mg/dL 0-200 TRIGLYCERIDE 146 mg/dL 0-150 CALCULATED LDL 58 mg/dL HDL(New) 57 mg/dL >40 May 17, 2024 03:[address] [facility] COMPREHENSIVE METABOLIC PANEL PLASMA Specimen Type: PLASMA Comment: No hemolysis noted. Ordering Provider: LAKEISHA MCCORD Report Released Date/Time: May 17, 2024 03:17 PM Reporting Lab: [address] [address] Performing Lab: [address] [address] CREATININE 1.45 mg/dL H 0.7-1.3 UREA NITROGEN 45.5 mg/dL H 9.0-25.0 GLUCOSE 98 mg/dL 72-99 SODIUM 142 meq/L 136-145 POTASSIUM 4.4 meq/L 3.5-5 CHLORIDE 109 meq/L H 98-107 CARBON DIOXIDE 22 meq/L 22-31 CALCIUM 9.8 mg/dL 8.4-10.4 PROTEIN 7.1 g/dL 6-8.6 ALBUMIN 4.0 g/dL 3.4-5 TOTAL BILIRUBIN 0.4 mg/dL 0.2-1.2 ALKALINE PHOSPHATASE 85 U/L 40-150 AST/SGOT 47 U/L H 5-34 ALT/SGPT 42 U/L H 8-40 EGFR (CKD-EPI 2020) 52.8 >60 May 17, 2024 03:[address] [facility] CBC BLOOD Specimen Type: BLOOD No comment entered. Ordering Provider: LAKEISHA MCCORD Report Released Date/Time: May 17, 2024 03:17 PM Reporting Lab: [facility] [address] [facility] [address] Performing Lab: [facility] [address] [facility] [address] WBC 7.1 10*3/uL 3.6-11.2 RBC 5.61 10*6/uL 4.10-5.70 HGB 16.3 g/dL 13.1-16.8 HCT 51.0 H 38.2-48.4 MCV 90.9 fL 80.0-100.0 MCH 29.1 pg 27.0-34.0 MCHC 32.0 g/dL L 33.0-36.0 PLT 265 10*3/uL 150-400 MPV 9.3 fL 7.5-11.2 RDW 15.0 11.8-15.1 LYMPHOCYTES, AUTO % 23 MONOCYTES, AUTO % 8 NEUTROPHILS, AUTO % 63 EOSINOPHILS, AUTO % 5 BASOPHILS, AUTO % 1 LYMPHOCYTES, ABSOLUTE 1.62 10*3/uL 0.77- 4.50 MONOCYTES, ABSOLUTE 0.55 10*3/uL 0.19-0. 80 NEUTROPHILS, ABSOLUTE 4.47 10*3/uL 2.10- 8.00 EOSINOPHILS, ABSOLUTE 0.32 10*3/uL 0.00- 0.60 BASOPHILS, ABSOLUTE 0.06 10*3/uL 0.00-0. 20 Apr 23, 2024 12:[address] [facility] OCCULT BLOOD FIT X1 SCREEN (MFP ONLY) FECES S pecimen Type: FECES No comment entered. Ordering Provider: LAKEISHA MCCORD Report Released Date/Time: Mar 17, 2024 09:54 AM Reporting Lab: [facility] [address] [facility] [address] Performing Lab: [facility] [phone] OCCULT BLOOD (FIT) #1 OF 1 Negative Nega tive Vital Signs: All taken on the encounter date This section contains inpatient and outpatient Vital Signs collected on the date of the Encounter. Date/Time Temperature Pulse Blood Pressure Respiratory Rate SP02 Pain Height Weight Body Mass Index Source May 17, 2024 02:37 PM 97.3 76 127/85 18 96 4 168 23 [facility] Social History: Smoking Status (Most current) and Tobacco Use (All prior to encounter date) This section includes the most current, and the historical, smoking and tobacco- related health factors from the PA facility where the Encounter took place. Current Smoking Status This section includes the most current smoking, or tobacco-related health factor, from the PA facility where the Encounter took place. Date/Time Current Smoking Status Comment Facil ity May 17, 2024 03:00 PM VA-TOBACCO NEVER U SED CIGARETTES [facility] Tobacco Use History This section includes a history of the smoking, or tobacco-related health factors, that were collected on or before the date of the Encounter. The data comes from the [place] facility where the Encounter took place. Date/Time Smoking Status/Tobacco Use Comment F acility May 17, 2024 03:00 PM VA-TOBACCO NEVER U SED OTHER TYPE [facility] August 05, 2021 09:00 AM VA-TOBACCO NEVER USED [facility] Advance Directives: All historical and current Section Date Range: From patient's date of to the date document was created. This section includes ALL of a patient's completed or amended PA Advance and Rescinded Directives. The entries below indicate that a directive exists for the patient, but an actual copy is not included with this document. The data comes from all [place] facilities. Date Advance Directives Provider Source May 14, 2018 ADVANCE DIRECTIVE DISCUSSION COURTNEY HAZEL [facility] Apr 24, 2015 ADVANCE DIRECTIVE DISCUSSION MISTY POWELL [facility] Apr 21, 2012 ADVANCE DIRECTIVE EVERETT RODARTE [facility] Apr 21, 2012 ADVANCE DIRECTIVE DISCUSSION MERVAT FORTUNE [facility] Jul 03, 2011 ADVANCE DIRECTIVE DISCUSSION ELIU RICK [facility] Jun 28, 2010 ADMINISTRATIVE NOTE FLAKITA ZULETA [facility] Oct 03, 2008 ADVANCE DIRECTIVE HUMBERTO,[facility] Radiology Reports: +/- 30 days of the encounter Radiology Reports For cases when an order for radiology services may have been completed prior to the date of the Encounter, the report list includes the Radiology Reports that were completed up to 30 days before dateof the Encounter. For cases when an order for radiology services may have been completed after the date of the Encounter, the report list also includes the Radiology Reports that were completed up to30 days after date of the Encounter. The data comes from all [place] treatment facilities. Date/Time Radiology Report Provider Source May 31, 2024 11:[address] PELVIS W/O CONT : ADRIEL LOU [id number] -[id number] M Exm Date: MAY 31, 2024@11:37 Req Phys: LAKEISHA MCCORD Loc: [facility] PACT B5 PCP (Req'g Img Loc: -CT IMAGING Service: [address] [address] (Case [id number] COMPLETE) CT PELVIS W/O CONT (CT Detailed) CPT:72786 Reason for Study: Right hip pain Clinical History: Responsible Attending: lindsay Attending Contact Number: [phone] Resident Contact Number: Mr. Lou is a 69-year-old male complaining of severe right hip pain worsening over the last few weeks walking with limp has history of bilateral hip replacement left 2 times and right 5 times last right hip region was done on 10 years ago He cannot do MRI with prosthesis Allergies listed in CPRS chart: MORPHINE Creatinine/eGFR: STL EGFR (within one year). CREATININE 1.45 mg/dL H (05/17/24 15:49) Wt: 168 lb [76.20 kg] (05/17/2024 14:37) History of: Renal failure, chronic or acute renal disease: YES Report Status: Verified Date Reported: MAY 31, 2024 Date Verified: MAY 31, 2024 Safety Leader E-Sig:/ES/JORDAN CHAKRABORTY MD Report: Spiral axial imaging through the pelvis was performed without contrast. Comparison: none Bilateral total hip replacement, no obvious mechanical failure. Examination is limited by metal artifact from hip prostheses There are multiple cysts in the lower abdomen bilaterally that are incompletely visualized, almost certainly renal cysts with some small wall calcifications. There are no suspicious features that would require further imaging workup or follow-up. 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 Impression: Bilateral total hip replacement Primary Interpreting Staff: JORDAN CHAKRABORTY MD, Radiologist (Safety Leader) /JORDAN PLASENCIA [facility] May 17, 2024 04:34 PM HIP W/PELVIS 2-3 V IEWS RIGHT: ADRIEL LOU [id number] -1955 M Exm Date: MAY 17, 2024@16:34 Req Phys: LAKEISHA MCCORD Pat Loc: [facility] PACT B5 PCP (Req'g Loc) Img Loc: -[facility] RADIOLOGY SUITE Service: [address] [address] (Case [id number] COMPLETE) HIP W/PELVIS 2-3 VIEWS RIGHT (RAD Detailed) CPT:01230 Proc Modifiers : RIGHT, AP Pelvis, Frog Reason for Study: c/o right hip pain Clinical History: c/o right hip pain hx of Rt Hips surgery Report Status: Verified Date Reported: MAY 18, 2024 Date Verified: MAY 18, 2024 Safety Leader E-Sig:/ES/ZAC JAEGER Report: Case [id number]. HIP W/PELVIS 2-3 VIEWS RIGHT. Comparison: Right hip 08/19/2021 Findings: Postoperative changes related to right and left hip arthroplasty are noted. There are cerclage wires surrounding the left femoral stem. Surgical clips are noted superimposing the right lower pelvis. There is no evidence of fracture or dislocation. No bone destruction is present. Impression: No acute bone or joint process. Bilateral hip replacements. Primary Interpreting Staff: ZAC JAEGER MD (Safety Leader) /ZAC JERONIMO [facility] Encounter Notes: All associated encounter notes This section contains the clinical notes associated to the Encounter. Date/Time Encounter Note(s) Provider Source May 17, 2024 03:04 PM PRIMARY CARE NOTE: LOCAL TITLE: PRIMARY CARE PROVIDER ESTABLISHED VISIT ST STANDARD TITLE: PRIMARY CARE NOTE DATE OF NOTE: MAY 17, 2024@15:04 ENTRY DATE: MAY 17, 2024@15:04:45 AUTHOR: LAKEISHA MCCORD EXP COSIGNER: URGENCY: STATUS: COMPLETED PRIMARY CARE PROVIDER ESTABLISHED VISIT STL Has ADDENDA Patient is 69 and WHITE Self Identified Gender - Man Reason for visit:Scheduled follow-up Chief Complaint: Complain of right hip pain feel right hip prosthesis getting loose? History of Present Illness: Mr Lou is a 69 year old male Coming back after last seen on December 10, 2021 when he transferred his care from [facility] but since then he has been followed in the community with several private providers including psychiatrist and getting all his medication from outside pharmacy He came today complaining of right hip pain and feel like his right hip prosthetic joint may be getting loose with pain increasing during walking as he walk with a limp H as well feel lower back pain has tried several medication and seeing out side pain management in the community as well as they were thinking about surgical interb vention placing neurotransmitter for pain management for his back pain which he was declining with concern of surgery He has complaint of right hip pain report over yrs he had atleast 5 weeks surgeries on his right hip and last done on 2014 with a prosthetic hip joint that he now feels getting loose with the pain , aggrevate during walking as he some time walk with a limp he also mention had left hip surgery 2 times He like to be his referred to the orthopedic at the PA for further evaluation He has history of depression previously getting treatment at the [facility] with psychiatry now he followed at outside psychiatrist Wendi Parekh at [facility] and getting medication from outside pharmacy 1.busprion 7.5mg twice a day 2. Fluoxetine 20 mg 6 capsules a day 3. Lorazepam 1 mg a day 4. gabapentin 300 mg 3 times a day He feels doing well denies any suicide or homicidal ideation BPH with LUTS taking tamsulosin 0.4 mg a day and finasteride 5 mg a day- urologist Dr. Ramos Gout takes allopurinol 100 mg a day Migraine headaches-takes Topiramate 25 mg twice a day Hypertension takes lisinopril 10 mg a day-used to see Dr. Sewell recently started seeing nurse practitioner Sandra Bains at [facility] No other complaint today Previous hx as from previous record ED was on Sildenafil 1000mg Hcx of Polycystic kidney dxz with CKD He was followed at [facility] Dr Chely Fried was on severaql for Depression hx of fall with broken rt ribs, with Pneumothorax Sept end 2020 - treated in [place] close to [facility],Discharged 12/27 went back to [place] by train as not allowed to fly, R kidney cyst. CT of abd 05/2016-> multiple simple cysts. Next MRI 11/2019 followed then by urology MRI 11/2017: Numerous bilateral renal cysts demonstrating no enhancement are again noted, some of which contain a few internal septations with calcification or enhancement. (Bosniak II and IIF) Chronic renal insufficiency/proteinuria-f ollow up Father had kidney cysts, but he was from heart disease History of chronic headaches, had seen Neurology -was then on Topamax and on sumatriptan, Impression: 1. Unremarkable MRI of brain without contrast. Signed by Dc Henry on 06/06/2019 Impression:MRA 1. No abnormality in the intracranial vasculature of both anterior and posterior circulation on MRA. No demonstrable intracranial aneurysm. 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 Signed by Kory Liz on 02/02/2018 PROBLEMS:from [facility] Adjustment disorder with anxious mood (SCT 94547609) Headache (SCT 48700069) Hernia of abdominal cavity (SCT 68575730) Benign essential hypertension (SCT 6637648) Major depression in full remission (SCT 80183847) Benign hypertension (ICD-9-CM 401.1) Autosomal dominant polycystic kidney disease (SCT 339952912) Other and unspecified alcohol dependence, in remission (ICD-9-CM 303.93) Obsessive-compulsive disorder (SCT 837914786) Obsessive-Compulsive Disorder (ICD-9-CM 300.3) Problem List: 1) Depression (SNOMED CT 07758219) 2) Osteoarthritis 3) Inguinal hernia, without mention of obstruction or gangrene (ICD-9-CM 550.90) 4) Blood In Stool 5) Recurrent unilateral or unspecified inguinal hernia, without mention of obstruct 6) Obsessive-Compulsive Disorder 7) Proteinuria * (ICD-9-CM 791.0) 8) Hypertensive chronic kidney disease, unspecified, with chronic kidney disease St 9) Anemia due to chronic kidney disease stage 1 (SNOMED CT 831148449282324) 10) Chronic kidney disease (SNOMED CT 994551502) 11) Anxiety * (ICD-9-CM 300.00/300.09) 12) Benign essential hypertension 13) Gout 14) Erectile dysfunction Immunization: ADMINISTERED Immunization Series Date Facility Reaction Info INFLUENZA, UNSPECIFIED FORMULATI* [facility] [facility]* TDAP Mo Bap Ho* CONTRAINDICATED No data available REFUSED ======= Immunization Date Facility Info INFLUENZA, UNSPECIFIED FORMULATI* 06/13/2022 No Site <I> <I> See the Detailed Immunizations Health Summary Component[DIM] for Additional Information * Value is truncated; see the Detailed Immunizations Health Summary Component[DIM] for complete text Medication Review: The essential med list for review which includes the patient's active VA prescriptions and if applicable, remote VA prescriptions, non-VA prescriptions, and discontinued VA prescriptions within the last 90 days and known allergies including local and remote allergies have been reviewed. Allergies:MORPHINE Active and Recently Outpatient Medications (excluding Supplies): Active Non-VA Medications Status 1) Non-VA ASCORBIC ACID 500MG TAB 500MG BY MOUTH ONCE A DAY ACTIVE 2) Non-VA DULOXETINE HCL 60MG EC CAP 60MG BY MOUTH ONCE A DAY ACTIVE 3) Non-VA GARLIC OIL EC TAB 1 TABLET BY MOUTH ONCE A DAY ACTIVE 4) Non-VA MULTIVITAMIN CAP/TAB 1 TABLET BY MOUTH ONCE A DAY ACTIVE Physical Exam VITALS (most recent, as listed in the electronic record): B/P: 127/85 (05/17/2024 14:37) Pulse: 76 (05/17/2024 14:37) Temperature: 97.3 F [36.3 C] (05/17/2024 14:37) Weight: 168 lb [76.20 kg] (05/17/2024 14:37) Height: 72 in [182.9 cm] (12/31/2021 10:58) BMI: 22.8 Pain: 4 (05/17/2024 14:37) (0-10 scale) Physical findings: Averge built male walk w/o gait dist in NAD HEENT:nc, at [place] ,[place] , Scler/conj clear ,OP clear Neck:Supple no jvd, no bruit Heart:S1 S2 ,, RRR , No m/g/r appreciated Lungs:clear to auscultate no wheezing or rale , Abdomen:soft nt no HSM BS+ Ext:no leg edema Neuro:A & O x3 , no focal deficit Sensation grossly intact , Motor Strenght 5/5 all four ext Reflexse Knee, ankle , Bicep 1-2+ symmetrical .Title Investigator equal, dt reflexes +2 Musculoskeletal: LS spine FROM ,SLR Neagitve ,David hip FROM no pain on ad bductionand internal rotaion right hip Assessment/Plan: 1) chronic right hip pain s/p multiple right hip surgery last more than 15 years ago with prosthetic joint complain of increased pain and limping walking Will get x-ray of right hip , ESR C-reactive protein before Ortho consult We will continue with outside pain management 2) hypertension stable on lisinopril managed by PMD Avoid salt and salty food like underlying processed meat 3) history of chronic kidney disease, polycystic kidney Avoid NSAIDs nephrotoxic drug get chemistry and renal function Managed by outside 4) gout stable on allopurinol 100 mg a day managed by PMD Avoid diet high in purine and alcohol, red meat 5) migraine headaches stable on Topiramate 6) BPH with lower urinary symptoms Flomax 4 0.4 mg a day Finasteride 5 mg a day Managed by outside urologist Dr. Ramos 7)depression with multiple medication managed by primary psychiatrist as above CLINICAL REMINDERS COMPLETED Toxic Exposure Screening Follow-Up - NS,P: Exposure Concern(s): 05/17/2024 Agent Cotton - Toxic Exposure Concern Follow-up Question(s): 05/17/2024 No Questions - Toxic Exposure Concern [place]/caregiver has no health or medical concerns related to their concern of environmental exposure. The following connections were provided to the [place]/caregiver: Quality Controller/Organization (VSO) [place]: [place] [address], T[place] Alcohol Use Screen (AUDIT-C) - V: Alcohol Screen: SCREEN FOR ALCOHOL (AUDIT-C) An alcohol screening test (AUDIT-C) was negative (score=0). 1. How often did you have a drink containing alcohol in the past year? Consider a drink to be a 12 ounce can or bottle of regular beer, 8 ounces of malt liquor, a 5 ounce glass of table wine, or a 1.5 ounce shot of liquor (like scotch, gin, or vodka). Never 2. How many drinks containing alcohol did you have on a typical day when you were drinking in the past year? Response not required due to responses to other questions. 3. How often did you have six or more drinks on one occasion in the past year? Response not required due to responses to other questions. Follow-Up Pos PTSD/Depression - M,P,PH,PS,R,S,T: I have reviewed the results of the Mental Health screens and have evaluated the patient. Based on the evaluation, the following disposition plan will be implemented: Already receiving needed treatment. Contact information and instructions for accessing emergency services provided. Comment: FOLLOWED OUT SIDE PSY REFUSE TO [facility] HE IS ON MEDICATION FROM OUT SIDE PHARMACY [facility] Homelessness/Food Insecurity Screen - DI,L,N,P,PH,PS,S,U: In the past 2 months, have you been living in stable housing that you own, rent, or stay in as part of a household? Yes - Living in stable housing. Are you worried or concerned that in the next 2 months you may NOT have stable housing that you own, rent, or stay in as part of a household? No - Not worried about housing near future The reports the following: Within the past 12 months, you worried whether your food would run out before you got money to buy more. Never true Within the past 12 months, the food you bought just didn't last and you didn't have money to get more. Never true Influenza Immunization - L,N,P,PH,U: Deferral / Refusal The patient declines to receive the recommended dose of seasonal influenza vaccine. Immunization: INFLUENZA, UNSPECIFIED FORMULATION Refusal Reason: PATIENT DECISION Patient refuses all immunization(s) in the FLU group Date Documented: 05/17/24 15:30 Herpes Zoster (Shingles) Vaccine - L,N,P,PH,U: The patient declines to receive the recommended dose of zoster (shingles) vaccine. Immunization: ZOSTER RECOMBINANT Refusal Reason: PATIENT DECISION Patient refuses all immunization(s) in the ZOSTER group Date Documented: 05/17/24 15:30 Td / Tdap Immunization - L,N,P,PH,U: The patient declines to receive the recommended dose of Td/Tdap vaccine. Immunization: TD(ADULT) UNSPECIFIED FORMULATION Refusal Reason: PATIENT DECISION Patient refuses all immunization(s) in the Td group Date Documented: 05/17/24 15:31 RTC: 6 months /sung/ Lakeisha Mccord MD Staff Physician Signed: 05/17/2024 23:52 05/19/2024 ADDENDUM STATUS: COMPLETED Report: Case [id number]. HIP W/PELVIS 2-3 VIEWS RIGHT. Comparison: Right hip 08/19/2021 Findings: Postoperative changes related to right and left hip arthroplasty are noted. There are cerclage wires surrounding the left femoral stem. Surgical clips are noted superimposing the right lower pelvis. There is no evidence of fracture or dislocation. No bone destruction is present. Impression: No acute bone or joint process. Bilateral hip replacements. /kyle Mccord MD Staff Physician Signed: 05/23/2024 00:[address] [facility] May 17, 2024 02:38 PM NURSING NOTE: LOCAL TITLE: V15 PACT FACE TO FACE NOTE STL STANDARD TITLE: NURSING NOTE DATE OF NOTE: MAY 17, 2024@14:38 ENTRY DATE: MAY 17, 2024@14:38:36 AUTHOR: AGUSTIN FLORES EXP COSIGNER: URGENCY: STATUS: COMPLETED Provider Visit: Patient Identifiers : Full Name Date of Reason for visit: Established Follow-Up Mode of Arrival: Ambulatory Allergy Review: MORPHINE Allergy list reviewed and remains current. Recent Vital Signs: Temperature: 97.3 F [36.3 C] (05/17/2024 14:37) Pulse: 76 (05/17/2024 14:37) Respiration: 18 (05/17/2024 14:37) B/P: 127/85 (05/17/2024 14:37) Pain: 4 (05/17/2024 14:37) Wt: 168 lb [76.20 kg] (05/17/2024 14:37) Ht: 72 in [182.9 cm] (12/31/2021 10:58) BMI: 22.8 POX: 96% (05/17/2024 14:37) Blood sugar glucometer reading: N/A PERSONAL HEALTH INVENTORY Notes: No data available for PHI note titles PERSONAL HEALTH INVENTORY - MAP: 08/05/2021 Personal Health Plan [place], Aspiration, Purpose (MAP) SKYDIVING MAKES ME HAPPY. What matters most to you in your life right now? -- [place]'s Response: SKYDIVING Would you like to discuss any personal problem, family problem, alcohol use, drug use, or a mental or emotional illness? No Contact provided Primary Care phone number and encouraged to call if any questions or concerns. Review that after hours nurse line [phone] and emergency room are available 20/10 for patient use. Contact verbalized good understanding. No notification required for this note. Suicide Screen - V: C-SSRS Screening [place] Suicide Severity Rating Scale (C-SSRS) screener 1. Over the past month, have you wished you were or wished you could go to sleep and not wake up? No 2. Over the past month, have you had any actual thoughts of killing yourself? No 3. Over the past month, have you been thinking about how you might do this? Response not required due to responses to other questions. 4. Over the past month, have you had these thoughts and had some intention of acting on them? Response not required due to responses to other questions. 5. Over the past month, have you started to work out or worked out the details of how to kill yourself? Response not required due to responses to other questions. 6. If yes, at any time in the past month did you intend to carry out this plan? Response not required due to responses to other questions. 7. In your lifetime, have you ever done anything, started to do anything, or prepared to do anything to end your life (for example, collected pills, obtained a gun, gave away valuables, went to the roof but didn't jump)? No 8. If YES, was this within the past 3 months? Response not required due to responses to other questions. Toxic Exposure Screening - CP,DI,L,NS,P,PH,S,U: The /caregiver was asked if they believe the [place] experienced any toxic exposure(s), such as Airborne Hazards and Open Burn Pit, [place] War related exposures, Agent Cotton, Radiation, contaminated water at [place] or other such exposures, while serving in the Armed Forces. [place]/caregiver believes the [place] was exposed to the following while serving in the Armed Forces: Agent Cotton: [place]/caregiver was made aware of educational resources that includes information on the Registry Program, presumptive conditions and how to file a claim. Printed information was offered and provided if desired. No questions at this time /caregiver was informed of local points of contact. Contact information for local resources: [facility] Registry Exam Program: [phone] Eligibility: [phone] [id number] Toxic Exposure Screening Follow-Up reminder is needed. Name of person notified: [facility] Depression Screening - V: Perform PHQ-2 A PHQ-2 screen was performed. The score was 3 which is a positive screen for depression. Over the past two weeks, how often have you been bothered by the following problems? 1. Little interest or pleasure in doing things Several days 2. Feeling down, depressed, or hopeless More than half the days Licensed Independent Provider notified of positive screen and need for follow-up. Name of provider notified: [facility] Tobacco Use Screening - AT,DE,L,M,N,P,PH,PS,RT,S,U: The patient has never smoked cigarettes. The patient has never used other types of tobacco. /sung/ AGUSTIN FLORES LPN LICENSED PRACTICAL NURSE Signed: 05/17/2024 14:[address] [facility]
--- OUTSIDE RECORDS SUMMARY | 2024-05-23 04:30 | XMS_ITS | Encounter Summary ---
Author Name [facility] Organization [facility] Address [address] [place] [address] Care Team Providers Care Water Project Manager Name Role Phone LAKEISHA MCCORD Primary Care [...] Mason's Name Patient's Relationship to Policy Mason [facility] (WNR) MEDICARE ADVANTAGE [facility] (WNR) Mar 30, 2022 [id number] JAKE LOU HN PATIENT [facility] (WNR) MEDICARE ADVANTAGE [facility] (WNR) Mar 30, 2022 [id number] JAKE LOU PATIENT MEDICARE PART D (WNR) MEDICARE (M) PART D Mar 30, 2022 PART D [id number] ADRIEL LOU II PATIENT OFFICE OF REGIONAL COUNS [id number] LENO MCCAIN R Jul 07, 2007 TORT FEASOR [id number] JAKE LOU LATRELL PATIENT REGIONAL INDUSTRIAL REGISTERED 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 Date/Time Encounter Type Encounter Description Reason Provider Source May 23, 2024 09:30 AM OFFICE O/P EST LOW 20 MIN PRIMARY CARE/MEDICINE ICD-10-CM M25.551 Pain in right hip LAKEISHA MCCORD Xu Encounter Template Text not used by NH Assessments - Encounter Diagnoses This section includes the primary and secondary diagnoses documented for the Encounter. Date/Time Primary/Secondary Diagnosis Diagnosis Name Provider Source May 23, 2024 10:26 AM PRIMARY Pain in right hip LAKEISHA MCCORD [facility] Plan of Treatment: Future Appointments (+ 6 months) and Future Tests (+/- 45 days) The Plan of Treatment section includes future care activities for the patient from all NH treatmentfacilities. This section includes future appointments and future orders which are active, pending or scheduled. Future Appointments This section includes appointments that were scheduled to occur 6 months from the date of the Encounter, up to a maximum of 20 appointments. The data comes from all NH treatment facilities. Appointment Date/Time Appointment Type Appointme nt Facility Name May 31, 2024 12:30 PM AMBULATORY - NONE [facility] May 31, 2024 02:00 PM AMBULATORY - SURGERY [facility] Jun 06, 2024 08:30 AM AMBULATORY - MEDICINE [facility] Jun 13, 2024 08:30 AM AMBULATORY - MEDICINE [facility] Jul 05, 2024 06:45 AM AMBULATORY - NONE [facility] Aug 30, 2024 02:00 PM AMBULATORY - SURGERY [facility] Nov 15, 2024 10:00 AM AMBULATORY - MEDICINE [facility] Active, Pending, and Scheduled Orders This section includes a listing of several types of active, pending, and scheduled orders, including clinic medications orders, diagnostic test orders, procedure orders and consult orders; where the start date of the order is 45 days before the date of the Encounter or 45 days after the date of theEncounter. The data comes from all [facility]. Test Date/Time Test Type Test Details Facility Name May 12, 2024 12:00 AM Laboratory - Chemistry Order VITAMIN D, 25-HYDROXY GOLD/RED SST SERUM [facility] May 12, 2024 12:00 AM Laboratory - Chemistry Order TSH W/ REFLEX FT4 (STL) GREEN LI-HEP PLASMA [facility] May 12, 2024 12:00 AM Laboratory - Chemistry Order COMPREHENSIVE METABOLIC PANEL GREEN LI/HEP BLD/PLAS PLASMA [facility] May 12, 2024 12:00 AM Laboratory - Chemistry Order LIPID PANEL (STL) GREEN LI/HEP BLD/PLAS PLASMA [facility] May 12, 2024 12:00 AM Laboratory - Chemistry Order CBC BLOOD [facility] May 12, 2024 12:00 AM Laboratory - Chemistry Order URINALYSIS (STL-PB) URINE [facility] May 12, 2024 12:00 AM Laboratory - Chemistry Order HGA1C BLOOD [facility] May 17, 2024 12:00 AM Laboratory - Chemistry Order URINALYSIS (STL-PB) URINE [facility] Jun 13, 2024 12:00 AM Laboratory - Chemistry Order COBALT (QUEST) BLOOD [facility] Jun 13, 2024 12:00 AM Laboratory - Chemistry Order CHROMIUM BLOOD PLASMA [facility] Lab Results: +/- 30 days of the encounter This section includes the Chemistry and Hematology Lab Results on record with NH for the patient. Radiology Reports and Pathology Reports are provided separately, in subsequent sections. Lab Results This section contains the Chemistry/Hematology Results that were resulted 30 days before or 30 daysafter the date of the Encounter. Date/Time Source Result Type Result - Unit Interpretation Reference Range Specimen Type Comment May 17, 2024 03:49 PM [facility] ESR ISED(STL) BLOOD Specimen Type: BLOOD No comment entered. Ordering Provider: LAKEISHA MCCORD Report Released Date/Time: May 17, 2024 03:17 PM Reporting Lab: [facility] [address] [address] Performing Lab: [facility] [address] [address] ESR ISED(STL) 8 mm/h 0-19 May 17, 2024 03:49 PM [facility] CRP PLASMA Specimen Type: PLASM A Comment: No hemolysis noted. Ordering Provider: LAKEISHA MCCORD Report Released Date/Time: May 17, 2024 03:17 PM Reporting Lab: [facility] [address] [address] Performing Lab: [facility] [address] [place] [phone] CRP 0.2 mg/dL 0-0.5 May 17, 2024 03:49 PM [facility] VITAMIN D, 25-HYDROXY SERUM Specimen Type: SE RUM No comment entered. Ordering Provider: LAKEISHA MCCORD Report Released Date/Time: May 17, 2024 03:17 PM Reporting Lab: [facility] [address] [address] Performing Lab: [facility] [address] [place] [phone] VITAMIN D, 25-HYDROXY 100.1 ng/mL H 30-96 May 17, 2024 03:49 PM [facility] TSH W/ REFLEX FT4 (STL) PLASMA Specimen Type: PLASMA No comment entered. Ordering Provider: LAKEISHA MCCORD Report Released Date/Time: May 17, 2024 03:17 PM Reporting Lab: [facility] [address] [address] Performing Lab: [facility] [address] [place] [phone] TSH 1.402 u[IU]/mL 0.47-5 May 17, 2024 03:49 PM [facility] LIPID PANEL (STL) PLASMA Specimen Type: PLASM A Comment: No hemolysis noted. Ordering Provider: LAKEISHA MCCORD Report Released Date/Time: May 17, 2024 03:17 PM Reporting Lab: [facility] [address] [place] [address] Performing Lab: [address] [address] CHOLESTEROL 144 mg/dL 0-200 TRIGLYCERIDE 146 mg/dL 0-150 CALCULATED LDL 58 mg/dL HDL(New) 57 mg/dL >40 May 17, 2024 03:49 PM [facility] COMPREHENSIVE METABOLIC PANEL PLASMA Specimen Type: PLASMA Comment: No hemolysis noted. Ordering Provider: LAKEISHA MCCORD Report Released Date/Time: May 17, 2024 03:17 PM Reporting Lab: [address] [address] Performing Lab: [address] [address] CREATININE 1.45 mg/dL H 0.7-1.3 UREA NITROGEN [...] 52.8 >60 May 17, 2024 03:49 PM [facility] CBC BLOOD Specimen Type: BLOOD No comment entered. Ordering Provider: LAKEISHA MCCORD Report Released Date/Time: May 17, 2024 03:17 PM Reporting Lab: [facility] [address] [place] [phone] Performing Lab: [address] [address] WBC 7.1 10*3/uL 3.6-11.2 RBC 5.61 10*6/uL [...] 0.60 BASOPHILS, ABSOLUTE 0.06 10*3/uL 0.00-0. 20 Social History: Smoking Status (Most current) and Tobacco Use (All prior to encounter date) This section includes the most current, and the historical, smoking and tobacco- related health factors from the NH facility where the Encounter took place. Current Smoking Status This section includes the most current smoking, or tobacco-related health factor, from the NH facility where the Encounter took place. Date/Time Current Smoking Status Comment Andreas zacarias May 17, 2024 03:00 PM VA-TOBACCO NEVER U SED CIGARETTES [facility] Tobacco Use History This section includes a history of the smoking, or tobacco-related health factors, that were collected on or before the date of the Encounter. The data comes from the NH facility where the Encounter took place. Date/Time Smoking Status/Tobacco Use Comment Coleen davidson May 17, 2024 03:00 PM VA-TOBACCO NEVER U SED OTHER TYPE [facility] August 05, 2021 09:00 AM VA-TOBACCO NEVER USED [facility] Advance Directives: All historical and current Section Date Range: From patient's date of to the date document was created. This section includes ALL of a patient's completed or amended [place] Advance and Rescinded Directives. The entries below indicate that a directive exists for the patient, but an actual copy is not included with this document. The data comes from all VA facilities. Date Advance Directives Provider Source May 14, 2018 ADVANCE DIRECTIVE DISCUSSION COURTNEY HAZEL [facility] Apr 24, 2015 ADVANCE DIRECTIVE DISCUSSION SHERRYOUMOUELIANA ANDRESSA Wooten [facility] Apr 21, 2012 ADVANCE DIRECTIVE EVERETT RODARTE [facility] Apr 21, 2012 ADVANCE DIRECTIVE DISCUSSION MERVAT FORTUNE [facility] Jul 03, 2011 ADVANCE DIRECTIVE DISCUSSION ELIU RICK [facility] Jun 28, 2010 ADMINISTRATIVE NOTE FLAKITA ZULETA [facility] Oct 03, 2008 ADVANCE DIRECTIVE CONNOR PAUL Garcia [facility] Radiology Reports: +/- 30 days of [...] the Encounter. The data comes from all [place] treatment facilities. Date/Time Radiology Report Provider Source May 31, 2024 11:[address] PELVIS W/O CONT : ADRIEL LOU [id number] -1955 M Exm Date: MAY 31, 2024@11:37 Req Phys: LAKEISHA MCCORD Loc: [facility] PACT B5 PCP (Req'g Img Loc: -CT IMAGING Service: Unknown [facility], [address] [address] (Case [id number] COMPLETE) CT PELVIS W/O CONT (CT Detailed) CPT:38596 Reason for Study: Right hip pain Clinical History: Responsible Attending: lindsay Attending Contact Number: [phone] Resident Contact Number: Mr. Lou is a [...] 31, 2024 Date Verified: MAY 31, 2024 Trade Analyst E-Sig:/ES/JORDAN CHAKRABORTY MD Report: Spiral axial imaging [...] Primary Interpreting Staff: JORDAN CHAKRABORTY MD, Radiologist (Trade Analyst) /JORDAN PLASENCIA [facility] May 17, 2024 04:34 PM HIP W/PELVIS 2-3 V IEWS RIGHT: ADRIEL LOU [id number] -1955 M Exm Date: MAY 17, 2024@16:34 Req Phys: LAKEISHA MCCORD Pat Loc: [facility] PACT B5 PCP (Req'g Loc) Img Loc: -[facility] RADIOLOGY SUITE Service: [address] [address] (Case [id number] COMPLETE) HIP W/PELVIS 2-3 VIEWS RIGHT (RAD Detailed) CPT:80473 Proc Modifiers : RIGHT, AP Pelvis, Frog Reason for Study: c/o right hip pain Clinical History: c/o right hip pain hx of Rt Hips surgery Report Status: Verified Date Reported: MAY 18, 2024 Date Verified: MAY 18, 2024 Trade Analyst E-Sig:/ES/ZAC JAEGER Report: Case [id number]. HIP W/PELVIS 2-3 VIEWS RIGHT. Comparison: Right [...] replacements. Primary Interpreting Staff: ZAC JAEGER MD (Trade Analyst) /ZAC JERONIMO [facility] Encounter Notes: All associated encounter notes This section contains the clinical notes associated to the Encounter. Date/Time Encounter Note(s) Provider Source May 23, 2024 10:12 AM TELEHEALTH NOTE: LOCAL TITLE: PRIMARY CARE VIDEO CONNECT STL STANDARD TITLE: TELEHEALTH NOTE DATE OF NOTE: MAY 23, 2024@10:12 ENTRY DATE: MAY 23, 2024@10:12:58 AUTHOR: LAKEISHA MCCORD EXP COSIGNER: URGENCY: STATUS: COMPLETED PRIMARY CARE VIDEO CONNECT STL Has ADDENDA Medicine Provider Note Modality of Care: Clinical Video Telehealth Visit conducted by Clinical Video Telehealth. Patient/surrogate provided verbal consent for video telehealth. Patient location confirmed. Emergency number confirmed. Patient Contact Details: Best contact number for backup communication with patient: Patient Chief Complaint: Worsening of right hip pain History of Present Illness: Mr Lou is a 69 year old male He was seen in the clinic May 17 With complaint of his right hip pain with history of multiple right hip surgeries as he felt he hadlose prosthetics Now over the weekend report get worse as he cliam he known when it issues with his hips may need revised surgery We have done the x-ray which reported I reviewed with him Findings: Postoperative changes related to right and left hip arthroplasty are noted. There are cerclage wires surrounding the left femoral stem. Surgical clips are noted superimposing the right lower pelvis. There is no evidence of fracture or dislocation. No bone destruction is present. Impression: No acute bone or joint process. Bilateral hip replacements. he fell need MRI or ct scan and need to see a specialist orthopedic He has chronic kidney disease and cannot take NSAIDs He will try acetaminophen but feels that does not help I discussed at length about physical therapy but he refused saying that he need to see orthopedic due to pain and walking with limp Lab results also discussed with him as below C-reactive protein within normal limit In the community for his lower back pain and hip pain seen outside pain management in the community as well as they were thinking about surgical intervention placing neurotransmitter for pain management which she declined due to concern of surgery No other complaint today Past Medical History: Problem List 1) Depression (SNOMED CT 76871075) 2) Osteoarthritis of right hip joint (SNOMED CT 998330968884684) 3) Inguinal hernia, without mention of obstruction or gangrene (ICD-9-CM 550.90) 4) Blood In Stool 5) Recurrent unilateral or unspecified inguinal hernia, without mention of obstruct 6) Obsessive-Compulsive Disorder 7) Proteinuria * (ICD-9-CM 791.0) 8) Hypertensive chronic kidney disease, unspecified, with chronic kidney disease St 9) Anemia due to chronic kidney disease stage 1 (SNOMED CT 119736827562056) 10) Chronic kidney disease (SNOMED CT 481867710) 11) Anxiety * (ICD-9-CM 300.00/300.09) 12) Benign essential hypertension 13) Gout 14) Erectile dysfunction 15) Migraine 16) Exposure to potentially hazardous substance ([facility] 810914326060625) Comment: Allergies/Adverse Drug Reactions: MORPHINE Active and Medication List: Active and Recently Outpatient Medications (excluding Supplies): [...] TABLET BY MOUTH ONCE A DAY ACTIVE Medication Reconciliation Completed: Most Recent Vital Signs: Measurement DT TEMP PULSE RESP BP HT WT F(C) IN(CM) LB(KG)[BMI] ---- ----- ---- -- ------ 05/17/2024 14:37 97.3(36.3) 76 18 127/85 168(76.2)[23] 08/19/2022 10:22 98.2(36.8) 75 18 114/67 171(77.7)[23] Measurement DT CVP POx CG CMH20(MMHG) (L/MIN)(%) IN(CM) ------ 05/17/2024 14:37 96 08/19/2022 10:22 99 Measurement DT Pain ---- 05/17/2024 14:37 4 08/19/2022 10:22 0 Physical Exam General: Well-appearing male sitting comfortably able to communicate in no acute distress Labs CMP: SODIUM 142 mEq/L 05/17/2024 15:49 POTASSIUM 4.4 mEq/L 05/17/2024 15:49 CHLORIDE 109 H mEq/L 05/17/2024 15:49 UREA NITROGEN 45.5 H mg/dL 05/17/2024 15:49 CREATININE 1.45 H mg/dL 05/17/2024 15:49 CALCIUM 9.8 mg/dL 05/17/2024 15:49 PROTEIN 7.1 g/dL 05/17/2024 15:49 ALBUMIN 4.0 g/dL 05/17/2024 15:49 ALKALINE PHOSPHATASE 85 U/L 05/17/2024 15:49 ALT/SGPT 42 H U/L 05/17/2024 15:49 AST/SGOT 47 H U/L 05/17/2024 15:49 TOTAL BILIRUBIN 0.4 mg/dL 05/17/2024 15:49 CARBON DIOXIDE 22 mEq/L 05/17/2024 15:49 GLUCOSE 98 mg/dL 05/17/2024 15:49 EGFR (CKD-EPI 2020) 52.8 05/17/2024 15:49 CBC: WBC 7.1 10*3/uL 05/17/2024 15:49 RBC 5.61 10*6/uL 05/17/2024 15:49 HGB 16.3 g/dL 05/17/2024 15:49 HCT 51.0 H % 05/17/2024 15:49 MCV 90.9 fL 05/17/2024 15:49 MCH 29.1 pg 05/17/2024 15:49 MCHC 32.0 L g/dL 05/17/2024 15:49 RDW 15.0 % 05/17/2024 15:49 PLT 265 10*3/uL 05/17/2024 15:49 MPV 9.3 fL 05/17/2024 15:49 NEUTROPHILS, AUTO % 63 % 05/17/2024 15:49 LYMPHOCYTES, AUTO % 23 % 05/17/2024 15:49 MONOCYTES, AUTO % 8 % 05/17/2024 15:49 EOSINOPHILS, AUTO % 5 % 05/17/2024 15:49 BASOPHILS, AUTO % 1 % 05/17/2024 15:49 NEUTROPHILS, ABSOLUTE 4.47 10*3/uL 05/17/2024 15:49 LYMPHOCYTES, ABSOLUTE 1.62 10*3/uL 05/17/2024 15:49 MONOCYTES, ABSOLUTE 0.55 10*3/uL 05/17/2024 15:49 EOSINOPHILS, ABSOLUTE 0.32 10*3/uL 05/17/2024 15:49 BASOPHILS, ABSOLUTE 0.06 10*3/uL 05/17/2024 15:49 CRP 0.2 mg/dL 0 - 0.5 Lipid Panel: TRIGLYCERIDE 146 mg/dL 05/17/2024 15:49 CHOLESTEROL 144 mg/dL 05/17/2024 15:49 HDL(New) 57 mg/dL 05/17/2024 15:49 CALCULATED LDL 58 mg/dL 05/17/2024 15:49 HIV: No HIV SCREENING EO data found Comment: Assessment/Plan: Right hip pain worsening with history of total right hip replacement X-ray as above C-reactive protein is within normal limit Will order CT scan of right hip with history ofProstheses This is not able to take NSAID will try Medrol pack dose to decrease inflammation and pain he acknowledged understanding and agreed Follow-Up: /es/ Lakeisha Mccord MD Staff Physician Signed: 05/23/2024 10:26 06/02/2024 ADDENDUM STATUS: COMPLETED CT scan pelvis right hip report Report: Spiral axial imaging through the pelvis [...] multicystic kidneys Impression: Bilateral total hip replacement Patient follow with Ortho construction reconstructive surgery /es/ Lakeisha Mccord MD Staff Physician Signed: 06/02/2024 11:05 LAKEISHA MCCORD [facility] May 23, 2024 09:37 AM TELEHEALTH NOTE: LOCAL TITLE: PCS PACT [place] VIDEO CONNECT STL STANDARD TITLE: TELEHEALTH NOTE DATE OF NOTE: MAY 23, 2024@09:37 ENTRY DATE: MAY 23, 2024@09:38:01 AUTHOR: AGUSTIN FLORES COSIGNER: URGENCY: STATUS: COMPLETED Patient Identifiers : Full Name Date of Visit conducted by Clinical Video Telehealth. V15 [facility] Video Connect/Video to Home VA Video Connect (VVC)/Video to home template v1.5 Visit conducted by synchronous telehealth. Location/emergency number confirmed. Environment surveyed and all participants identified. Virtual conference room locked. VVC/Video to home appointment information: The following items were reviewed: - The nature of telehealth, its benefits, and risks. - Confidentiality and its limits. - The importance of having a confidential location for the service. - The emergency plan. - The appointment should be treated like an in person appointment (no smoking or driving during session, showing up fully dressed, etc.) *The Virtual Medical Room was locked for this encounter. *A survey of the environment was conducted and it is appropriate to conduct a VVC appointment. *Confirmed [facility] Non-VA location for this appointment: [facility] [address] [place] [address] [address] [place] [phone] Address and phone number verified with . Address: Phone: [facility] does not have an emergency contact. *[facility] was notified of right to decline Telehealth services and eligibility for other options. consented to be seen via VVC. EMERGENCY PLAN In the event of an emergency, the or family will call emergency services, if capable. The Teleprovider will remain in the virtual medical room until emergency response arrives and handoff to emergency services is complete. If is unable to make emergency call, the Teleprovider is to call the national E911 service at [phone] and ask to be connected to emergency services for the [facility] location. 's Crisis Line: Dial 988 then press 1, or text [phone] Office of Connected [facility] Helpdesk (OCC): [phone] or [phone] Verified Provider's location and contact information for this appointment: [address] [address] x Provider Visit: Reason for Visit: Established Follow-Up: [facility] Allergy Review: MORPHINE Allergy list reviewed and [...] note titles PERSONAL HEALTH INVENTORY - MAP: 05/17/2024 Personal Health Plan [place], Aspiration, Purpose (MAP) SKYDIVING 08/05/2021 Personal Health Plan [place]ully, Aspiration, Purpose (MAP) SKYDIVING MAKES ME HAPPY. What matters most to you in your life right now? -- 's Response: BEING ABLE TO GET THROUGH THIS ELVIS DIVING SEASON WITHOUT SURGERY Would you like to discuss any personal problem, family problem, alcohol use, drug use, or a mental or emotional illness? No /es/ AGUSTIN FLORES LPN LICENSED PRACTICAL NURSE Signed: 05/23/2024 09:41 AGUSTIN FLORES [facility]
--- OUTSIDE RECORDS SUMMARY | 2024-05-26 03:02 | XMS_ITS | Encounter Summary ---
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 Name Role Phone LAKEISHA MCCORD Primary Care [...] Policy Mason's Name Patient's Relationship to Policy Masno [facility] (WNR) MEDICARE ADVANTAGE [facility] (WNR) Mar 30, 2022 [id number] [phone] JAKE LOU HN PATIENT [facility] (WNR) MEDICARE ADVANTAGE [facility] (WNR) Mar 30, 2022 [id number] JAKE LOU PATIENT MEDICARE PART D (WNR) MEDICARE (M) PART D Mar 30, 2022 PART D [id number] ADRIEL LOU II PATIENT OFFICE OF REGIONAL COUNS [id number] LENO MCCAIN R Jul 07, 2007 TORT JOSSOR [id number] JAKE LOU 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 Date/Time Encounter Type Encounter Description Reason Provider Source May 26, 2024 08:02 AM Outpatient Encounter GENERAL INTERNAL MEDICINE CARMEN CARVER Xu Encounter Template Text not used by CT Plan of Treatment: Future Appointments (+ 6 months) and Future Tests (+/- 45 days) The Plan of Treatment section includes future care activities for the patient from all CT treatmentfacilities. This section includes future appointments and future orders which are active, pending or scheduled. Future Appointments This section includes appointments that were scheduled to occur 6 months from the date of the Encounter, up to a maximum of 20 appointments. The data comes from all CT treatment facilities. Appointment Date/Time Appointment Type Appointme nt Facility Name May 31, 2024 12:30 PM AMBULATORY - NONE [facility] May 31, 2024 02:00 PM AMBULATORY - SURG[facility] Jun 06, 2024 08:30 AM AMBULATORY - MEDICINE [facility] Jun 13, 2024 08:30 AM AMBULATORY - MEDICINE [facility] Jul 05, 2024 06:45 AM AMBULATORY - NONE [facility] Aug 30, 2024 02:00 PM AMBULATORY - SUR[facility] Nov 15, 2024 10:00 AM AMBULATORY - MEDICINE [facility] Nov 22, 2024 08:00 AM AMBULATORY - SURGERY [facility] Active, Pending, and Scheduled Orders This section includes a listing of several types of active, pending, and scheduled orders, including clinic medications orders, diagnostic test orders, procedure orders and consult orders; where the start date of the order is 45 days before the date of the Encounter or 45 days after the date of theEncounter. The data comes from all [facility]. Test Date/Time Test Type Test Details Facility Name May 12, 2024 12:00 AM Laboratory - Chemistry Order VITAMIN D, 25-HYDROXY GOLD/RED SST SERUM [facility] May 12, 2024 12:00 AM Laboratory - Chemistry Order TSH W/ REFLEX FT4 (STL) GREEN LI-HEP PLASMA [facility] May 12, 2024 12:00 AM Laboratory - Chemistry Order LIPID PANEL (STL) GREEN LI/HEP BLD/PLAS PLASMA [facility] May 12, 2024 12:00 AM Laboratory - Chemistry Order CBC BLOOD [facility] May 12, 2024 12:00 AM Laboratory - Chemistry Order COMPREHENSIVE METABOLIC PANEL GREEN LI/HEP BLD/PLAS PLASMA [facility] May 12, 2024 12:00 AM Laboratory - Chemistry Order URINALYSIS (STL-PB) URINE [facility] May 12, 2024 12:00 AM Laboratory - Chemistry Order HGA1C BLOOD [facility] May 17, 2024 12:00 AM Laboratory - Chemistry Order URINALYSIS (STL-PB) URINE [facility] Jun 13, 2024 12:00 AM Laboratory - Chemistry Order COBALT (QUEST) BLOOD [facility] Jun 13, 2024 12:00 AM Laboratory - Chemistry Order CHROMIUM BLOOD PLASMA [facility] Lab Results: +/- 30 days of the encounter This section includes the Chemistry and Hematology Lab Results on record with CT for the patient. Radiology Reports and Pathology Reports are provided separately, in subsequent sections. Lab Results This section contains the Chemistry/Hematology Results that were resulted 30 days before or 30 daysafter the date of the Encounter. Date/Time Source Result Type Result - Unit Interpretation Reference Range Specimen Type Comment May 17, 2024 03:49 PM [facility] ESR ISED(STL) BLOOD Specimen Type: BLOOD No comment entered. Ordering Provider: LAKEISHA MCCORD Report Released Date/Time: May 17, 2024 03:17 PM Reporting Lab: [facility] [address] [facility] [address] Performing Lab: [facility] [address] [facility] [phone] ESR ISED(STL) 8 mm/h 0-19 May 17, 2024 03:49 PM [facility] CRP PLASMA Specimen Type: PLASM A Comment: No hemolysis noted. Ordering Provider: LAKEISHA MCCORD Report Released Date/Time: May 17, 2024 03:17 PM Reporting Lab: [facility] [address] [place] [phone] Performing Lab: [facility] [address] [place] [phone] CRP 0.2 mg/dL 0-0.5 May 17, 2024 03:49 PM [facility] VITAMIN D, 25-HYDROXY SERUM Specimen Type: SE RUM No comment entered. Ordering Provider: LAKEISHA MCCORD Report Released Date/Time: May 17, 2024 03:17 PM Reporting Lab: [address] [address] Performing Lab: [address] [address] VITAMIN D, 25-HYDROXY 100.1 ng/mL H 30-96 May 17, 2024 03:49 PM [facility] TSH W/ REFLEX FT4 (STL) PLASMA Specimen Type: PLASMA No comment entered. Ordering Provider: LAKEISHA MCCORD Report Released Date/Time: May 17, 2024 03:17 PM Reporting Lab: [facility] [address] [place] [phone] Performing Lab: [address] [address] TSH 1.402 u[IU]/mL 0.47-5 May 17, 2024 03:49 PM [facility] LIPID PANEL (STL) PLASMA Specimen Type: PLASM A Comment: No hemolysis noted. Ordering Provider: LAKEISHA MCCORD Report Released Date/Time: May 17, 2024 03:17 PM Reporting Lab: [facility] [address] [place] [phone] Performing Lab: [address] [address] CHOLESTEROL 144 mg/dL 0-200 TRIGLYCERIDE 146 mg/dL 0-150 CALCULATED LDL 58 mg/dL HDL(New) 57 mg/dL >40 May 17, 2024 03:49 PM [facility] COMPREHENSIVE METABOLIC PANEL PLASMA Specimen Type: PLASMA Comment: No hemolysis noted. Ordering Provider: LAKEISHA MCCORD Report Released Date/Time: May 17, 2024 03:17 PM Reporting Lab: [address] [address] Performing Lab: [address] [address] CREATININE 1.45 mg/dL H 0.7-1.3 UREA NITROGEN [...] 52.8 >60 May 17, 2024 03:49 PM [facility] CBC BLOOD Specimen Type: BLOOD No comment entered. Ordering Provider: LAKEISHA MCCORD Report Released Date/Time: May 17, 2024 03:17 PM Reporting Lab: [facility] [address] [place] [phone] Performing Lab: [address] [address] WBC 7.1 10*3/uL 3.6-11.2 RBC 5.61 10*6/uL [...] 0.60 BASOPHILS, ABSOLUTE 0.06 10*3/uL 0.00-0. 20 Advance Directives: All historical and current Section Date Range: From patient's date of to the date document was created. This section includes ALL of a patient's completed or amended CT Advance and Rescinded Directives. The entries below indicate that a directive exists for the patient, but an actual copy is not included with this document. The data comes from all [facility]. Date Advance Directives Provider Source May 14, 2018 ADVANCE DIRECTIVE DISCUSSION COURTNEY HAZEL [facility] Apr 24, 2015 ADVANCE DIRECTIVE DISCUSSION MISTY POWELL [facility] Apr 21, 2012 ADVANCE DIRECTIVE EVERETT RODARTE [facility] Apr 21, 2012 ADVANCE DIRECTIVE DISCUSSION MERVAT FORTUNE [facility] Jul 03, 2011 ADVANCE DIRECTIVE DISCUSSION ELIU RICK [facility] Jun 28, 2010 ADMINISTRATIVE NOTE FLAKITA [facility] Oct 03, 2008 ADVANCE DIRECTIVE CONNOR PAUL [facility] Radiology Reports: +/- 30 days [...] the Encounter. The data comes from all CT treatment facilities. Date/Time Radiology Report Provider Source May 31, 2024 11:[address] PELVIS W/O CONT : ADRIEL LOU [id number] -1955 M Exm Date: MAY 31, 2024@11:37 Req Phys: LAKEISHA MCCORD Loc: -[facility] PACT B5 PCP ([facility]annonq'g Img Loc: [facility] Service: Unknown [facility], [facility] [address] [place] [address] (Case [id number] COMPLETE) CT PELVIS W/O CONT (CT Detailed) CPT:43106 Reason for Study: Right hip pain Clinical History: Responsible Attending: lindsay Attending Contact Number: [id number] Resident Contact Number: Mr. Lou is a [...] 31, 2024 Date Verified: MAY 31, 2024 Secondary Connector Armature E-Sig:/ES/JORDAN CHAKRABORTY MD Report: Spiral axial imaging [...] Primary Interpreting Staff: JORDAN CHAKRABORTY MD, Radiologist (Secondary Connector Armature) /JORDAN PLASENCIA [facility] May 17, 2024 04:34 PM HIP W/PELVIS 2-3 V IEWS RIGHT: ADRIEL LOU [id number] -1955 M Exm Date: MAY 17, 2024@16:34 Req Phys: LAKEISHA MCCORD Pat Loc: [facility] PACT B5 PCP (Req'g Loc) Img Loc: -MAIN RADIOLOGY SUITE Service: Unknown [facility], [facility] [address] [place] [address] (Case [id number] COMPLETE) HIP W/PELVIS 2-3 VIEWS RIGHT (RAD Detailed) CPT:37722 Proc Modifiers : RIGHT, AP Pelvis, Frog Reason for Study: c/o right hip pain Clinical History: c/o right hip pain hx of Rt Hips surgery Report Status: Verified Date Reported: MAY 18, 2024 Date Verified: MAY 18, 2024 Secondary Connector Armature E-Sig:/ES/ZAC JAEGER Report: Case [id number]. HIP W/PELVIS 2-3 VIEWS RIGHT. Comparison: Right [...] replacements. Primary Interpreting Staff: ZAC JAEGER MD (Secondary Connector Armature) /ZAC JERONIMO [facility] Encounter Notes: All associated encounter notes This section contains the clinical notes associated to the Encounter. Date/Time Encounter Note(s) Provider Source May 24, 2024 08:02 AM NON[facility] NOTE: LOCAL TITLE: [facility] SELF PRESENTING CARE COORD PLAN STANDARD TITLE: NONVA NOTE DATE OF NOTE: MAY 24, 2024@08:02 ENTRY DATE: MAY 26, 2024@08:02:23 AUTHOR: BARBARA CARVER EXP COSIGNER: URGENCY: STATUS: COMPLETED [facility] SELF PRESENTING CARE COORD PLAN [address] ADDENDA Emergency Notification Intake Date Presenting to the Facility: Apr Method of Contact: Submitted to Centralized Call Center Notification ID: [id number] [facility] Referral #: [id number] Clinical Review Community [facility] Name: Hospital: [facility] Address: City: [place] State: [place] Zip Code: Phone : Community Facility Point of Contact: Name: Phone: Chief complaint: RIGHT HIP PAIN, LOWER BACK PAIN, BARELY ABLE TO WALK Primary Diagnosis: Disposition Unknown at time of intake note entry [place] [facility]. Records sent to [facility] for expedited upload. [facility] alerted via [employer] for eligibility review. No further records available. Alerting PCP team to this note for continuity of care. Discharge Summary Records:SHARED SECURELY WITH PACT RN AND SENT TO [facility] FOR SCANNING Hospital/discharge Summary (per discharge note): 69 year old presents to ER with c/o hippain on right side. Pt reports that he has been followed by the CT and reports that he has been having worsening pain in right hip. The patient feels as though his hardware is given issues, feels like this is similar to whenever he has had hip replaced in past. Pt given low dose anti-inflammatory in the ER and the patient will be D/C on low dose meloxicam as well as muscle relaxer. Important Medication Changes: Start - meloxicam 7.5 mg tablet 7.5 mg PO DAILY cyclobenzaprine 10 mg tablet 10 mg PO TID P Stop -N/A Change-N/A *Medication reconciliation needed* Post-Discharge Needs PACT: 1) [facility] follow up N/A PACT Please place the below consults:N/A (Community Care or CT internal consults needed for ALL follow up care) /kyle BREWSTERN RN REGISTERED NURSE Signed: 05/26/2024 08:28 Receipt Acknowledged By: 06/01/2024 14:55 /sung/ STEPHANIE MCDUFFIE RN REGISTERED NURSE 05/30/2024 17:41 /kyle Mccord MD Staff Physician 05/30/2024 ADDENDUM STATUS: COMPLETED Ortho consult was previously placed and he is scheduled to see them at the CT on May 31, 2024 /kyle Mccord MD Staff Physician Signed: 05/30/2024 17:42 BARBARA CARVER [facility]
--- OUTSIDE RECORDS SUMMARY | 2024-05-31 09:00 | XMS_ITS | Encounter Summary ---
Author Name [facility] [facility] [place] [facility] [place] [facility] [place] Address [address] [place] [address] Care Team Providers Care Basket Mender Name Role Phone LAKEISHA MCCORD Primary Care [...] Mason's Name Patient's Relationship to Policy Mason [facility] (WNR) MEDICARE ADVANTAGE [facility] (WNR) Mar 30, 2022 [id number] JAKE LOU HN PATIENT [facility] (WNR) MEDICARE ADVANTAGE [facility] (WNR) Mar 30, 2022 [id number] [phone] JAKE LOU PATIENT MEDICARE PART D (WNR) MEDICARE (M) PART D Mar 30, 2022 PART D [id number] [phone] ADRIEL LOU II PATIENT OFFICE OF REGIONAL COUNS [id number] TORT FELIPE COREASO R Jul 07, 2007 TORT FEASOR [id number] JAKE LOU PATIENT [employer] TORT FELIPE COREASO R Dec 09, 2013 TORT FEASOR [id number] JAKE LOU PATIENT [facility] MCR (WNR) MEDICARE ADVANTAGE [facility] (WNR) Mar 30, 2022 [id number] JAKE LOU PATIENT Selected Encounter This section includes the information on record at [place] for the Encounter. Date/Time Encounter Type Encounter Description Reason Provider Source May 31, 2024 02:00 PM OFFICE O/P NEW LOW 30 MIN ORTHO/JOINT SURG ICD-10-CM M25.551 Pain in right hip ALEJANDRO DESOUZA [facility] Encounter Template Text not used by [place] Assessments - Encounter Diagnoses This section includes the primary and secondary diagnoses documented for the Encounter. Date/Time Primary/Secondary Diagnosis Diagnosis Name Provider Source Jun 05, 2024 09:01 PM PRIMARY Pain in right hip SHERRY STEVENSON [facility] Plan of Treatment: Future Appointments (+ 6 months) and Future Tests (+/- 45 days) The Plan of Treatment section includes future care activities for the patient from all [place] treatmentfacilities. This section includes future appointments and future orders which are active, pending or scheduled. Future Appointments This section includes appointments that were scheduled to occur 6 months from the date of the Encounter, up to a maximum of 20 appointments. The data comes from all [place] treatment facilities. Appointment Date/Time Appointment Type Appointme nt Facility Name Jun 06, 2024 08:30 AM AMBULATORY - MEDICINE [facility] Jun 13, 2024 08:30 AM AMBULATORY - MEDICINE [facility] Jul 05, 2024 06:45 AM AMBULATORY - NONE [facility] Aug 30, 2024 02:00 PM AMBULATORY - SURGERY [facility] Nov 15, 2024 10:00 AM AMBULATORY - MEDICINE [facility] Nov 22, 2024 08:00 AM AMBULATORY - SURGERY [facility] Active, Pending, and Scheduled Orders This section includes a listing of several types of active, pending, and scheduled orders, including clinic medications orders, diagnostic test orders, procedure orders and consult orders; where the start date of the order is 45 days before the date of the Encounter or 45 days after the date of theEncounter. The data comes from all [facility]. Test Date/Time Test Type Test Details Facility Name May 12, 2024 12:00 AM Laboratory - Chemistry Order VITAMIN D, 25-HYDROXY GOLD/RED SST SERUM [facility] May 12, 2024 12:00 AM Laboratory - Chemistry Order TSH W/ REFLEX FT4 (STL) GREEN LI-HEP PLASMA [facility] May 12, 2024 12:00 AM Laboratory - Chemistry Order COMPREHENSIVE METABOLIC PANEL GREEN LI/HEP BLD/PLAS PLASMA [facility] May 12, 2024 12:00 AM Laboratory - Chemistry Order LIPID PANEL (STL) GREEN LI/HEP BLD/PLAS PLASMA [facility] May 12, 2024 12:00 AM Laboratory - Chemistry Order CBC BLOOD [facility] May 12, 2024 12:00 AM Laboratory - Chemistry Order HGA1C BLOOD [facility] May 12, 2024 12:00 AM Laboratory - Chemistry Order URINALYSIS (STL-PB) URINE [facility] May 17, 2024 12:00 AM Laboratory - Chemistry Order URINALYSIS (STL-PB) URINE [facility] Jun 13, 2024 12:00 AM Laboratory - Chemistry Order COBALT (QUEST) BLOOD [facility] Jun 13, 2024 12:00 AM Laboratory - Chemistry Order CHROMIUM BLOOD PLASMA [facility] Lab Results: +/- 30 days of the encounter This section includes the Chemistry and Hematology Lab Results on record with [place] for the patient. Radiology Reports and Pathology Reports are provided separately, in subsequent sections. Lab Results This section contains the Chemistry/Hematology Results that were resulted 30 days before or 30 daysafter the date of the Encounter. Date/Time Source Result Type Result - Unit Interpretation Reference Range Specimen Type Comment May 17, 2024 03:49 PM [facility] ESR ISED(STL) BLOOD Specimen Type: BLOOD No comment entered. Ordering Provider: LAKEISHA MCCORD Report Released Date/Time: May 17, 2024 03:17 PM Reporting Lab: [facility] [address] [facility] [address] Performing Lab: [facility] [address] [facility] [address] ESR ISED(STL) 8 mm/h 0-19 May 17, 2024 03:49 PM [facility] CRP PLASMA Specimen Type: PLASM A Comment: No hemolysis noted. Ordering Provider: LAKEISHA MCCORD Report Released Date/Time: May 17, 2024 03:17 PM Reporting Lab: [facility] [address] [facility] [address] Performing Lab: [facility] [address] [address] CRP 0.2 mg/dL 0-0.5 May 17, 2024 03:49 PM [facility] VITAMIN D, 25-HYDROXY SERUM Specimen Type: SE RUM No comment entered. Ordering Provider: LAKEISHA MCOCRD Report Released Date/Time: May 17, 2024 03:17 PM Reporting Lab: [facility] [address] [address] Performing Lab: [facility] [address] [address] VITAMIN D, 25-HYDROXY 100.1 ng/mL H 30-96 May 17, 2024 03:49 PM [facility] TSH W/ REFLEX FT4 (STL) PLASMA Specimen Type: PLASMA No comment entered. Ordering Provider: LAKEISHA MCCORD Report Released Date/Time: May 17, 2024 03:17 PM Reporting Lab: [facility] [address] [address] Performing Lab: [facility] [address] [address] TSH 1.402 u[IU]/mL 0.47-5 May 17, 2024 03:49 PM [facility] LIPID PANEL (STL) PLASMA Specimen Type: PLASM A Comment: No hemolysis noted. Ordering Provider: LAKEISHA MCCORD Report Released Date/Time: May 17, 2024 03:17 PM Reporting Lab: [facility] [address] [facility] [address] Performing Lab: [facility] [address] [address] CHOLESTEROL 144 mg/dL 0-200 TRIGLYCERIDE 146 mg/dL 0-150 CALCULATED LDL 58 mg/dL HDL(New) 57 mg/dL >40 May 17, 2024 03:49 PM [facility] COMPREHENSIVE METABOLIC PANEL PLASMA Specimen Type: PLASMA Comment: No hemolysis noted. Ordering Provider: LAKEISHA MCCORD Report Released Date/Time: May 17, 2024 03:17 PM Reporting Lab: [facility] [address] [address] Performing Lab: [facility] [address] [address] CREATININE 1.45 mg/dL H 0.7-1.3 UREA NITROGEN [...] 52.8 >60 May 17, 2024 03:49 PM [facility] CBC BLOOD Specimen Type: BLOOD No comment entered. Ordering Provider: LAKEISHA MCCORD Report Released Date/Time: May 17, 2024 03:17 PM Reporting Lab: [facility] [address] [address] Performing Lab: [facility] [address] [place] [phone] WBC 7.1 10*3/uL 3.6-11.2 RBC 5.61 10*6/uL [...] ALL of a patient's completed or amended [place] Advance and Rescinded Directives. The entries below indicate that a directive exists for the patient, but an actual copy is not included with this document. The data comes from all [place] facilities. Date Advance Directives Provider Source May 14, 2018 ADVANCE DIRECTIVE DISCUSSION COURTNEY HAZEL [facility] Apr 24, 2015 ADVANCE DIRECTIVE DISCUSSION MISTY POWELL [facility] Apr 21, 2012 ADVANCE DIRECTIVE EVERETT RODARTE [facility] Apr 21, 2012 ADVANCE DIRECTIVE DISCUSSION MERVAT FORTUNE [facility] Jul 03, 2011 ADVANCE DIRECTIVE DISCUSSION ELIU RICK [facility] Jun 28, 2010 ADMINISTRATIVE NOTE FLAKITA ZULETA [facility] Oct 03, 2008 ADVANCE DIRECTIVE CONNOR PAUL [facility] Radiology Reports: +/- 30 days [...] the Encounter. The data comes from all [place] treatment facilities. Date/Time Radiology Report Provider Source May 31, 2024 11:[address] PELVIS W/O CONT : ADRIEL LOU [id number] -[id number] M Exm Date: MAY 31, 2024@11:37 Req Phys: LAKEISHA MCCORD Loc: -[facility] PACT B5 PCP (Req'g Img Loc: [facility]ING [facility] Service: Unknown [facility], [address] [place] [address] (Case [id number] COMPLETE) CT PELVIS W/O CONT (CT Detailed) CPT:51310 Reason for Study: Right hip pain Clinical History: Responsible Attending: lindsay Attending Contact Number: [id number] Resident Contact Number: Mr. Lou is a [...] 31, 2024 Date Verified: MAY 31, 2024 Manager Neonatal E-Sig:/ES/JORDAN CHAKRABORTY MD Report: Spiral axial imaging [...] Primary Interpreting Staff: JORDAN CHAKRABORTY MD, Radiologist (Manager Neonatal) /[facility] JORDAN CHAKRABORTY [facility] May 17, 2024 04:34 PM HIP W/PELVIS 2-3 V IEWS RIGHT: ADRIEL LOU [id number] -1955 M Exm Date: MAY 17, 2024@16:34 Req Phys: SURILAKEISHA Mai Loc: -[facility] PACT B5 PCP (Req'g Loc) Img Loc: -MAIN RADIOLOGY SUITE Service: Unknown [facility], [address] [place] [address] (Case [id number] COMPLETE) HIP W/PELVIS 2-3 VIEWS RIGHT (RAD Detailed) CPT:91740 Proc Modifiers : RIGHT, AP Pelvis, Frog Reason for Study: c/o right hip pain Clinical History: c/o right hip pain hx of Rt Hips surgery Report Status: Verified Date Reported: MAY 18, 2024 Date Verified: MAY 18, 2024 Manager Neonatal E-Sig:/SUNG/ZAC JAEGER Report: Case [id number]. HIP W/PELVIS 2-3 VIEWS RIGHT. Comparison: Right [...] replacements. Primary Interpreting Staff: ZAC JAEGER MD (Manager Neonatal) /[facility] JERONIMO [facility] Encounter Notes: All associated encounter notes This section contains the clinical notes associated to the Encounter. Date/Time Encounter Note(s) Provider Source August 08, 2024 01:30 PM ADDENDUM: LOCAL TITLE: Addendum STANDARD TITLE: ADDENDUM DATE OF NOTE: AUGUST 08, 2024@13:30:28 ENTRY DATE: AUGUST 08, 2024@13:30:30 AUTHOR: YANCI CORDOVA EXP COSIGNER: URGENCY: STATUS: COMPLETED MRI on disc of pts right and left hip, with reports, were received from the pt today. Both the pts disc with reports were taken to radiology for uploading to PACS. Pt scheduled for RECON f/u on 08/30/24. Alerting Dr. Church for review. /sung/ NEY LAMN, RN Registered Nurse Signed: 08/08/2024 13:36 Receipt Acknowledged By: 08/09/2024 13:13 /es/ KIRAN CHURCH MD Staff Physician, Orthopedics --- Original Document --- 05/31/24 ORTHOPEDIC CONSULT STL: CC: Right lateral hip pain HPI: 69 yo M with right lateral hip pain worst when he stands or lays on it. 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 Left revised for metal on metal and subseequent infection. 1 dislocation on the left but no instability or infection history on the right. All revisions done in [place] and he is unsure which hospital. He would like to start skydiving again and wants to make sure this is not going to harm his leg. Also known back issues and was due to get a stimulator placed but did not undergo this given his poor course from his hips. Has not had hip surgery since 2014 (right hip revision). PMH: 1) Depression (SNOMED CT 99461227) 2) Osteoarthritis of right hip joint (SNOMED CT 149181498249291) 3) Inguinal hernia, without mention of obstruction or gangrene (ICD-9-CM 550.90) 4) Blood In Stool 5) Recurrent unilateral or unspecified inguinal hernia, without mention of obstruct 6) Obsessive-Compulsive Disorder 7) Proteinuria * (ICD-9-CM 791.0) 8) Hypertensive chronic kidney disease, unspecified, with chronic kidney disease St 9) Anemia due to chronic kidney disease stage 1 (SNOMED CT 856818575003502) 10) Chronic kidney disease (SNOMED CT 336637150) 11) Anxiety * (ICD-9-CM 300.00/300.09) 12) Benign essential hypertension 13) Gout 14) Erectile dysfunction 15) Migraine 16) Exposure to potentially hazardous substance ([facility] 901908924279606) Active Outpatient Medications (including Supplies): Active Outpatient Medications Status = 1) METHYLPREDNISOLONE 4MG TAB DOSEPAK,21 TAKE TABLETS BY MOUTH ACTIVE DIRECTED TAKE 6 TABLETS BY MOUTH ON DAY ONE, THEN DECREASE BY ONE TABLET DAILY UNTIL GONE. TAKE WITH FOOD. (TAKE WITH FOOD) Active Non-VA Medications Status = 1) Non-VA ASCORBIC ACID 500MG TAB 500MG BY MOUTH ONCE A DAY ACTIVE 2) Non-VA DULOXETINE HCL 60MG EC CAP 60MG BY MOUTH ONCE A DAY ACTIVE 3) Non-VA GARLIC OIL EC TAB 1 TABLET BY MOUTH ONCE A DAY ACTIVE 4) Non-VA MULTIVITAMIN CAP/TAB 1 TABLET BY MOUTH ONCE A DAY ACTIVE 5 Total Medications Allergies: MORPHINE SH: Tob: EtOH: Drugs: none FH: non-contributory PE: NAD, A&Ox3 LE: SILT SP/DP/T EHL/TA/GSC intact DP/PT 2+ UE: - TTP - EDC/FDP/FDS/IO/FPL/EPL intact - SILT M/R/U - Radial pulse 2+ WBC 7.1 10*3/uL 05/17/2024 15:49 RBC 5.61 [...] 15:49 BASOPHILS, ABSOLUTE 0.06 10*3/uL 05/17/2024 15:49 SODIUM 142 mEq/L 05/17/2024 15:49 POTASSIUM 4.4 mEq/L 05/17/2024 15:49 CHLORIDE 109 H mEq/L 05/17/2024 15:49 UREA NITROGEN 45.5 H mg/dL 05/17/2024 15:49 CREATININE 1.45 H mg/dL 05/17/2024 15:49 CALCIUM 9.8 mg/dL 05/17/2024 15:49 CARBON DIOXIDE 22 mEq/L 05/17/2024 15:49 GLUCOSE 98 mg/dL 05/17/2024 15:49 EGFR (CKD-EPI 2020) 52.8 05/17/2024 15:49 INR: No INR EO data found ____ PTT: No PTT EO data found Radiographs: A/P: Right trochanteric bursitis, 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 I offered him PT but he was uninterested in this. -If symptoms persist I would recommend a formal 6 week course of PT. If that then fails he may consider MARS MRI bilateral hips /es/ JERMAINE DESOUZA MD Staff Physician, Orthopedics Signed: 06/06/2024 08:27 06/14/2024 ADDENDUM STATUS: COMPLETED Tagged in PCP note from June 13 stating patient insistent on MRI and will not do home exercise regimen or PT until MRI completed. MRI ordered by PCP. I had discussed specifically in clinic with this patient that a standard MRI will be of no utility given metal artifact from bilateral NIDIA and that I recommend against standard MRI given it will provide no meaningful information. He has already had a CT scan, ESR, CRP without concerning findings. 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 He currently has no signs of PJI or instability. He does have chronic abductor weakness worse on the right side than the left, likely secondary to prior metallosis with resultant lateral based right hip pain. He does not bring operative reports and cannot recall where in [place] his most recent right hip revision was which he reports was in 2014. I would presume that in 2015 his head would be oxinium or ceramic based on timing of surgery (but cannot verify this as he is unsure where his surgery was done) and that he has no remaining metal on metal articulations in his hip. But certainly his abductors may be chronically damaged from prior known metallosis issues. I recommended stregthening of these to assist with his lateral based hip pain or formal therapy. Given his insistence on MRI I have discontinued the MRI that will have too much artifact to be informative and have ordered a MARS-MRI which will have to be done in the community. He may follow up in clinic after the MARS-MRI is done and [place] Chromium levels are resulted. It is unlikely even if there is pseudotumor that I would recommend any intervention outside of what has already been recommended (PT and strengthening) as his metal on metal hips have already been revised elsewhere. He may follow up in [facility] clinic (thursday only) once the MARS-MRI and metal levels are done to review. If he could work on getting his most recent op notes from each side that would be useful. /sung/ JERMAINE DESOUZA MD Staff Physician, Orthopedics Signed: 06/14/2024 08:35 YANCI CORDOVA [facility] May 31, 2024 02:15 PM ORTHOPEDIC SURGERY CONSULT: LOCAL TITLE: ORTHOPEDIC CONSULT ST STANDARD TITLE: ORTHOPEDIC SURGERY CONSULT DATE OF NOTE: MAY 31, 2024@14:15 ENTRY DATE: MAY 31, 2024@14:15:52 AUTHOR: JERMAINE DESOUZA EXP COSIGNER: URGENCY: STATUS: COMPLETED ORTHOPEDIC CONSULT STL Has ADDENDA CC: Right lateral hip pain HPI: 69 yo M with right lateral hip pain worst when he stands or lays on it. 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 Left revised for metal on metal and subseequent infection. 1 dislocation on the left but no instability or infection history on the right. All revisions done in [place] and he is unsure which hospital. He would like to start skydiving again and wants to make sure this is not going to harm his leg. Also known back issues and was due to get a stimulator placed but did not undergo this given his poor course from his hips. Has not had hip surgery since 2014 (right hip revision). PMH: 1) Depression (SNOMED CT 67074832) 2) Osteoarthritis of right hip joint (SNOMED CT 406449832556450) 3) Inguinal hernia, without mention of obstruction or gangrene (ICD-9-CM 550.90) 4) Blood In Stool 5) Recurrent unilateral or unspecified inguinal hernia, without mention of obstruct 6) Obsessive-Compulsive Disorder 7) Proteinuria * (ICD-9-CM 791.0) 8) Hypertensive chronic kidney disease, unspecified, with chronic kidney disease St 9) Anemia due to chronic kidney disease stage 1 (SNOMED CT 311532907549697) 10) Chronic kidney disease (SNOMED CT 299957038) 11) Anxiety * (ICD-9-CM 300.00/300.09) 12) Benign essential hypertension 13) Gout 14) Erectile dysfunction 15) Migraine 16) Exposure to potentially hazardous substance ([facility] [id number]) Active Outpatient Medications (including Supplies): Active Outpatient Medications Status = 1) METHYLPREDNISOLONE 4MG TAB DOSEPAK,21 TAKE TABLETS BY MOUTH ACTIVE DIRECTED TAKE 6 TABLETS BY MOUTH ON DAY ONE, THEN DECREASE BY ONE TABLET DAILY UNTIL GONE. TAKE WITH FOOD. (TAKE WITH FOOD) Active Non-VA Medications Status = 1) Non-VA ASCORBIC ACID 500MG TAB 500MG BY MOUTH ONCE A DAY ACTIVE 2) Non-VA DULOXETINE HCL 60MG EC CAP 60MG BY MOUTH ONCE A DAY ACTIVE 3) Non-VA GARLIC OIL EC TAB 1 TABLET BY MOUTH ONCE A DAY ACTIVE 4) Non-VA MULTIVITAMIN CAP/TAB 1 TABLET BY MOUTH ONCE A DAY ACTIVE 5 Total Medications Allergies: MORPHINE SH: Tob: EtOH: Drugs: none FH: non-contributory PE: NAD, A&Ox3 LE: SILT SP/DP/T EHL/TA/GSC intact DP/PT 2+ UE: - TTP - EDC/FDP/FDS/IO/FPL/EPL intact - SILT M/R/U - Radial pulse 2+ WBC 7.1 10*3/uL 05/17/2024 15:49 RBC 5.61 [...] 15:49 BASOPHILS, ABSOLUTE 0.06 10*3/uL 05/17/2024 15:49 SODIUM 142 mEq/L 05/17/2024 15:49 POTASSIUM 4.4 mEq/L 05/17/2024 15:49 CHLORIDE 109 H mEq/L 05/17/2024 15:49 UREA NITROGEN 45.5 H mg/dL 05/17/2024 15:49 CREATININE 1.45 H mg/dL 05/17/2024 15:49 CALCIUM 9.8 mg/dL 05/17/2024 15:49 CARBON DIOXIDE 22 mEq/L 05/17/2024 15:49 GLUCOSE 98 mg/dL 05/17/2024 15:49 EGFR (CKD-EPI 2020) 52.8 05/17/2024 15:49 INR: No INR EO data found ____ PTT: No PTT EO data found Radiographs: A/P: Right trochanteric bursitis, 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 I offered him PT but he was uninterested in this. -If symptoms persist I would recommend a formal 6 week course of PT. If that then fails he may consider MARS MRI bilateral hips /es/ JERMAINE DESOUZA MD Staff Physician, Orthopedics Signed: 06/06/2024 08:27 06/14/2024 ADDENDUM STATUS: COMPLETED Tagged in PCP note from June 13 stating patient insistent on MRI and will not do home exercise regimen or PT until MRI completed. MRI ordered by PCP. I had discussed specifically in clinic with this patient that a standard MRI will be of no utility given metal artifact from bilateral NIDIA and that I recommend against standard MRI given it will provide no meaningful information. He has already had a CT scan, ESR, CRP without concerning findings. 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 He currently has no signs of PJI or instability. He does have chronic abductor weakness worse on the right side than the left, likely secondary to prior metallosis with resultant lateral based right hip pain. He does not bring operative reports and cannot recall where in [place] his most recent right hip revision was which he reports was in 2014. I would presume that in 2015 his head would be oxinium or ceramic based on timing of surgery (but cannot verify this as he is unsure where his surgery was done) and that he has no remaining metal on metal articulations in his hip. But certainly his abductors may be chronically damaged from prior known metallosis issues. I recommended stregthening of these to assist with his lateral based hip pain or formal therapy. Given his insistence on MRI I have discontinued the MRI that will have too much artifact to be informative and have ordered a MARS-MRI which will have to be done in the community. He may follow up in clinic after the MARS-MRI is done and [place] Chromium levels are resulted. It is unlikely even if there is pseudotumor that I would recommend any intervention outside of what has already been recommended (PT and strengthening) as his metal on metal hips have already been revised elsewhere. He may follow up in Recon clinic (thursday only) once the MARS-MRI and metal levels are done to review. If he could work on getting his most recent op notes from each side that would be useful. /sung/ JERMAINE DESOUZA MD Staff Physician, Orthopedics Signed: 06/14/2024 08:35 08/08/2024 ADDENDUM STATUS: COMPLETED MRI on disc of pts right and left hip, with reports, were received from the pt today. Both the pts disc with reports were taken to radiology for uploading to PACS. Pt scheduled for RECON f/u on 08/30/24. Alerting Dr[address] Church for review. /sung/ FROY LAM, RN Registered Nurse Signed: 08/08/2024 13:36 Receipt Acknowledged By: * AWAITING SIGNATURE * KIRAN CHURCH KIMBERLY A [facility]
--- OUTSIDE RECORDS SUMMARY | 2024-07-21 05:42 | XMS_ITS | Encounter Summary ---
Author Name [facility] [place] [facility] [place] Address [address] [place] [address] Care Team Providers Care Code Clerk Name Role Phone LAKEISHA MCCORD Primary Care [...] Mason's Name Patient's Relationship to Policy Mason [facility] (WNR) MEDICARE ADVANTAGE [facility] (WNR) Mar 30, 2022 [id number] [phone] JAKE LOU HN PATIENT [facility] (WNR) MEDICARE ADVANTAGE [facility] (WNR) Mar 30, 2022 [id number] JAKE LOU PATIENT MEDICARE PART D (WNR) MEDICARE (M) PART D Mar 30, 2022 PART D [id number] ADRIEL LOU II PATIENT OFFICE OF REGIONAL COUNS [id number] LENO MCCAIN R Jul 07, 2007 TORT JOSSOR [id number] JAKE LOU 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 Date/Time Encounter Type Encounter Description Reason Pro vider Source Jul 21, 2024 10:42 AM Outpatient Encounter GENERAL INTERNAL MEDICINE IHE Encounter Template Text not used by [place] Plan of Treatment: Future Appointments (+ 6 months) and Future Tests (+/- 45 days) The Plan of Treatment section includes future care activities for the patient from all [place] treatmentfacilities. This section includes future appointments and future orders which are active, pending or scheduled. Future Appointments This section includes appointments that were scheduled to occur 6 months from the date of the Encounter, up to a maximum of 20 appointments. The data comes from all [place] treatment [facility]. Appointment Date/Time Appointment Type Appointme nt Facility Name Aug 30, 2024 02:00 PM AM[facility]ULATORY [facility] Nov 15, 2024 10:00 AM AMBULATORY - MEDICINE [facility] Nov 22, 2024 08:00 AM AMBULATORY - SURGERY [facility] Dec 05, 2024 08:30 AM AMBULATORY - MEDICINE [facility] Jan 03, 2025 08:00 AM AMBULATORY - SURGERY [facility] Active, Pending, and Scheduled Orders This section includes a listing of several types of active, pending, and scheduled orders, including clinic medications orders, diagnostic test orders, procedure orders and consult orders; where the start date of the order is 45 days before the date of the Encounter or 45 days after the date of theEncounter. The data comes from all [place] treatment [facility]. Test Date/Time Test Type Test Details Facility Name Jun 13, 2024 12:00 AM Laboratory - Chemi stry Order COBALT (QUEST) BLOOD [facility] Jun 13, 2024 12:00 AM Laboratory - Chemi stry Order CHROMIUM BLOOD PLASMA [facility] Advance Directives: All historical and current Section Date Range: From patient's date of to the date document was created. This section includes ALL of a patient's completed or amended [place] Advance and Rescinded Directives. The entries below indicate that a directive exists for the patient, but an actual copy is not included with this document. The data comes from all [place] facilities. Date Advance Directives Provider Source May 14, 2018 ADVANCE DIRECTIVE DISCUSSION COURTNEY HAZEL [facility] Apr 24, 2015 ADVANCE DIRECTIVE DISCUSSION MISTY POWELL [facility] Apr 21, 2012 ADVANCE DIRECTIVE EVERETT RODARTE [facility] Apr 21, 2012 ADVANCE DIRECTIVE DISCUSSION MERVAT FORTUNE [facility] Jul 03, 2011 ADVANCE DIRECTIVE DISCUSSION ELIU RICK [facility] Jun 28, 2010 ADMINISTRATIVE NOTE FLAKITA ZULETA [facility] Oct 03, 2008 ADVANCE DIRECTIVE CONNOR PAUL [facility] Radiology Reports: +/- 30 [...] the Encounter. The data comes from all [place] treatment facilities. Date/Time Radiology Report Provider Source Jul 05, 2024 06:01 AM MRI HIP LEFT: ADRIEL LOU [id number] -1955 M Exm Date: JUL 05, 2024@06:01 Req Phys: JERMAINE DOTSON Loc: [facility] PACT PHONE B5 PCP 1 (Re Img Loc: [facility] Service: Unknown (Case [id number] COMPLETE) MRI HIP LEFT (MRI Detailed) CPT:31389 Reason for Study: OUTSIDE STUDY Clinical History: Report Status: Electronically Filed Date Reported: AUGUST 09, 2024 Report: This study was performed outside the [place] in another facility and images were uploaded into [employer]. The report has been scanned into [employer]. In order to upload images a case number was needed, therefore this is an administrative report. Impression: This study was performed outside the [place] in another facility and images were uploaded into [employer]. The report has been scanned into [employer]. In order to upload images a case number was needed, therefore this is an administrative report VERIFIED BY: / *ELECTRONICALLY FILED* [facility] Jul 05, 2024 06:00 AM MRI HIP RIGHT: ADRIEL LOU [id number] -1955 M Exm Date: JUL 05, 2024@06:00 Req Phys: JERMAINE DOTSON Loc: [facility] PACT PHONE B5 PCP 1 (Re Im[facility]: Unknown (Case [id number] COMPLETE) MRI HIP RIGHT (MRI Detailed) CPT:22953 Reason for Study: OUTSIDE STUDY Clinical History: Report Status: Electronically Filed Date Reported: AUGUST 09, 2024 Report: This study was performed outside the [place] in another facility and images were uploaded into [employer]. The report has been scanned into [employer]. In order to upload images a case number was needed, therefore this is an administrative report. Impression: This study was performed outside the [place] in another facility and images were uploaded into [employer]. The report has been scanned into [employer]. In order to upload images a case number was needed, therefore this is an administrative report VERIFIED BY: / *ELECTRONICALLY FILED* [facility] Encounter Notes: All associated encounter notes This section contains the clinical notes associated to the Encounter. Date/Time Encounter Note(s) Provider Source Jul 26, 2024 12:31 PM ADDENDUM: LOCAL TITLE: Addendum STANDARD TITLE: ADDENDUM DATE OF NOTE: JUL 26, 2024@12:31:52 ENTRY DATE: JUL 26, 2024@12:31:53 AUTHOR: KIRAN GO EXP COSIGNER: URGENCY: STATUS: COMPLETED Images will need to be uploaded for review prior to Ortho appt scheduled on 08/30/24. /es/ KIRAN GO MD Staff Physician, Orthopedics Signed: 07/26/2024 12:32 Receipt Acknowledged By: 07/28/2024 09:18 /sung/ NEY LAMN, RN Registered Nurse --- Original Document --- 07/21/24 ADMINISTRATIVE [facility] REQUEST STL: MRI FINDINGS: In the partially imaged upper pelvis, T2 hyperintense lesions of the bilateral retroperitoneum. On the left this measures up to 9.7 cm. Possibly renal cysts. Malignancy not excluded. Abscess, lymphatic collection, or other etiology possible as well. No prior imaging for comparison. Limited evaluation of lower lumbar spine demonstrates degenerative disease. Hamstring origins demonstrate no evidence of tear. 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 No abnormal fluid collection. Iliopsoas insertion within normal limits. Gluteus medius and minimus insertions intact. Surrounding peritendinitis. No significant muscular atrophy. No clear marrow signal abnormality. IMPRESSION: 1. 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 2. No abnormal fluid collection. 3. Gluteus medius and minimus insertions intact. Surrounding peritendinitis. No significant muscular atrophy. 4. No clear marrow signal abnormality. 5. In the partially imaged upper pelvis, T2 hyperintense lesions of the bilateral retroperitoneum. On the left this measures up to 9.7 cm. Possibly renal cysts. Malignancy not excluded. Abscess, lymphatic collection, or other etiology possible as well. No prior imaging for comparison. Follow-up CT abdomen pelvis with and without contrast renal mass protocol recommended. Report upoaded to [facility]. Request for images faxed to [phone]. Alerting Dr. Dotson. /es/ PITA QUEEN Registered Nurse Signed: 07/21/2024 10:53 Receipt Acknowledged By: 07/26/2024 12:33 /es/ KIRAN GO MD Staff Physician, Orthopedics for JERMAINE Chu DEO 07/28/2024 ADDENDUM STATUS: COMPLETED Spoke with pt, pt will obtain imaging on disc and bring to me in clinic for uploading. Pt can contact me at ext. [phone] for any questions/concerns. /sung/ FROY LAM, RN Registered Nurse Signed: 07/28/2024 09:17 KIRAN GO [facility] Jul 21, 2024 10:42 AM ADMINISTRATIVE NOT E: LOCAL TITLE: ADMINISTRATIVE COMMUNITY CARE REQUEST [facility] STANDARD TITLE: ADMINISTRATIVE NOTE DATE OF NOTE: JUL 21, 2024@10:42 ENTRY DATE: JUL 21, 2024@10:42:42 AUTHOR: PITA QUEEN COSIGNER: URGENCY: STATUS: COMPLETED ADMINISTRATIVE COMMUNITY CARE REQUEST [facility] Has ADDENDA MRI FINDINGS: In the partially imaged upper pelvis, T2 hyperintense lesions of the bilateral retroperitoneum. On the left this measures up to 9.7 cm. Possibly renal cysts. Malignancy not excluded. Abscess, lymphatic collection, or other etiology possible as well. No prior imaging for comparison. Limited evaluation of lower lumbar spine demonstrates degenerative disease. Hamstring origins demonstrate no evidence of tear. 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 No abnormal fluid collection. Iliopsoas insertion within normal limits. Gluteus medius and minimus insertions intact. Surrounding peritendinitis. No significant muscular atrophy. No clear marrow signal abnormality. IMPRESSION: 1. 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 2. No abnormal fluid collection. 3. Gluteus medius and minimus insertions intact. Surrounding peritendinitis. No significant muscular atrophy. 4. No clear marrow signal abnormality. 5. In the partially imaged upper pelvis, T2 hyperintense lesions of the bilateral retroperitoneum. On the left this measures up to 9.7 cm. Possibly renal cysts. Malignancy not excluded. Abscess, lymphatic collection, or other etiology possible as well. No prior imaging for comparison. Follow-up CT abdomen pelvis with and without contrast renal mass protocol recommended. Report upoaded to [facility]. Request for images faxed to [phone]. Alert[address] Dr[address] Dotson. /es/ PITA QUEEN Registered Nurse Signed: 07/21/2024 10:53 Receipt Acknowledged By: 07/26/2024 12:33 /es/ KIRAN GO MD Staff Physician, Orthopedics for JERMAINE BURNETTSAMUEL 07/26/2024 ADDENDUM STATUS: COMPLETED Images will need to be uploaded for review prior to Ortho appt scheduled on 08/30/24. /es/ KIRAN GO MD Staff Physician, Orthopedics Signed: 07/26/2024 12:32 Receipt Acknowledged By: 07/28/2024 09:18 /sung/ FROY LAM, RN Registered Nurse 07/28/2024 ADDENDUM STATUS: COMPLETED Spoke with pt, pt will obtain imaging on disc and bring to me in clinic for uploading. Pt can contact me at ext. [phone] for any questions/concerns. /sung/ FROY LAM, RN Registered Nurse Signed: 07/28/2024 09:17 PITA QUEEN [facility]
--- OUTSIDE RECORDS SUMMARY | 2024-08-30 09:00 | XMS_ITS | Encounter Summary ---
Author Name [facility] [place] Address [address] [place] [address] Care Team Providers Care Dry Clipper Tender Name Role Phone LAKEISHA MCCORD Primary Care [...] Mason's Name Patient's Relationship to Policy Mason [facility] (WNR) MEDICARE ADVANTAGE [facility] (WNR) Mar 30, 2022 [id number] JAKE LOU HN PATIENT [facility] (WNR) MEDICARE ADVANTAGE [facility] (WNR) Mar 30, 2022 [id number] [phone] JAKE LOU PATIENT MEDICARE PART D (WNR) MEDICARE (M) PART D Mar 30, 2022 PART D [id number] ADRIEL LOU II PATIENT OFFICE OF REGIONAL COUNS [id number] TORT FELIPE COREASO R Jul 07, 2007 TORT FEASOR [id number] 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 (WNR) MEDICARE ADVANTAGE [facility] (WNR) Mar 30, 2022 [id number] JAKE LOU PATIENT Selected Encounter This section includes the information on record at [place] for the Encounter. Date/Time Encounter Type Encounter Description Reason Provider Source Aug 30, 2024 02:00 PM OFFICE O/P EST LOW 20 MIN ORTHO/JOINT SURG ICD-10-CM Z96.641 Presence of right artificial hip joint KIRAN GO Xu Encounter Template Text not used by [place] Assessments - Encounter Diagnoses This section includes the primary and secondary diagnoses documented for the Encounter. Date/Time Primary/Secondary Diagnosis Diagnosis Name Provider Source Aug 30, 2024 04:04 PM PRIMARY Presence of right artificial hip joint KIRAN GO [facility] Aug 30, 2024 04:04 PM SECONDARY Presence of left artificial hip joint KIRAN GO [facility]ETHANY [facility] Aug 30, 2024 04:04 PM SECONDARY Unsp comp of internal orthopedic prosth dev/grft, subs [facility] Plan of Treatment: Future Appointments (+ [...] Date/Time Appointment Type Appointme nt Facility Name Nov 15, 2024 10:00 AM AMBULATORY - MEDICINE [facility] Nov 22, 2024 08:00 AM AMBULATORY - SURGERY [facility] Dec 05, 2024 08:30 AM AMBULATORY - MEDICINE [facility] Jan 03, 2025 08:00 AM AMBULATORY - SURG[facility] Advance Directives: All historical and current [...] 14, 2018 ADVANCE DIRECTIVE DISCUSSION COURTNEY HAZEL [facility] Apr 24, 2015 ADVANCE DIRECTIVE DISCUSSION MISTY POWELL [facility] Apr 21, 2012 ADVANCE DIRECTIVE EVERETT RODARTE [facility] Apr 21, 2012 ADVANCE DIRECTIVE DISCUSSION MERVAT FORTUNE [facility] Jul 03, 2011 ADVANCE DIRECTIVE DISCUSSION ELIU RICK [facility] Jun 28, 2010 ADMINISTRATIVE NOTE FLAKITA ZULETA [facility] Oct 03, 2008 ADVANCE DIRECTIVE CONNOR PAUL [facility] Encounter Notes: All associated encounter notes This section contains the clinical notes associated to the Encounter. Date/Time Encounter Note(s) Provider Source Aug 30, 2024 02:29 PM ORTHOPEDIC SURGERY NOTE: LOCAL TITLE: ORTHOPEDIC ST STANDARD TITLE: ORTHOPEDIC SURGERY NOTE DATE OF NOTE: AUG 30, 2024@14:29 ENTRY DATE: AUG 30, 2024@14:29:26 AUTHOR: KIRAN GO EXP COSIGNER: URGENCY: STATUS: COMPLETED INTERIM HISTORY: Mr. Lou is a 69 year-old man who presents for follow-up of his bilateral hips and review of the MRIs completed since his last visit with Dr. Dotson. He does state that the hips are much improved. He has gone back to [employer]. He is doing strength training at the gym on his own. He has some soreness in his right hip if he goes to lie on his right side in bed, but otherwise it doesn't bother him. No fevers, chills, or recent illness. = VITAL SIGNS: Temp: 97 F [36.1 C] (08/30/2024 13:13) Pulse: 72 (08/30/2024 13:13) BP: 105/73 (08/30/2024 13:13) RESP: 18 (08/30/2024 13:13) Pain: 0 (08/30/2024 13:13) Height: 70 in [177.8 cm] (05/31/2024 13:32) Weight: 158.5 lb [71.89 kg] (08/30/2024 13:13) BMI:22.8 CRE:CREATININE 1.45 H mg/dL 05/17/2024 15:49 HBA1C: No HEMOGLOBIN A1C EO data found = CONSTITUTIONAL: A&O X 3, well-developed, well-nourished and in no acute distress. mood is pleasant and appropriate ambulation: mildly antalgic gait without assistive device respirations: even and unlabored hearing: intact skin intact MUSCULOSKELETAL EXAMINATION: Bilateral hips with no tenderness to palpation. No pain with hip range of motion. Bilateral knees with full pain free range of motion. Sensation inact to light touch. No focal motor deficits. = RADIOGRAPH: MRIs of the bilateral hips: Hardware artifact obscores examaination of bilateral total hip arthroplasties. Gluteus medius and minimus insertions intact bilaterally. Surrounding peritendinitis/bursitis on right. Otherwise unremarkable in regards to bilateral hips. 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 Lou. I discussed that I agree with Dr. Dotson's prior assessment of his hip replacements. I see no complication in regards to the implants themselves. The MRI did show some tendonitis of the gluteal muscle with mild bursitis. His symptoms have improved dramatically since May. I encouraged him to continue working on the IT band stretching and glute strengthening exercises. I offered him PT but he was not interested in this. He will follow-up as needed. = /es/ KIRAN GO MD Staff Physician, Orthopedics Signed: 08/30/2024 16:04 KIRAN GO [facility]
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
--- OUTSIDE RECORDS SUMMARY | 2024-11-15 05:00 | XMS_ITS | Encounter Summary ---
Author Name [facility] Organization [facility] [place] Address [address] [place] [address] Care Team Providers Care Lining Maker Hand Name Role Phone LAKEISHA MCCORD Primary Care [...] Policy Mason's Name Patient's Relationship to Policy Msaon [facility] (WNR) MEDICARE ADVANTAGE [facility] (WNR) Mar 30, 2022 [id number] JAKE LOU HN PATIENT 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 Date/Time Encounter Type Encounter Description Reason Provider Source Nov 15, 2024 10:00 AM OFFICE O/P EST MOD 30 MIN PRIMARY CARE/MEDICINE ICD-10-CM R05.3 Chronic cough LAKEISHA MCCORD Xu Encounter Template Text not used by OR Assessments - Encounter Diagnoses This section includes the primary and secondary diagnoses documented for the Encounter. Date/Time Primary/Secondary Diagnosis Diagnosis Name Provider Source Nov 15, 2024 10:53 AM PRIMARY [facility] Nov 15, 2024 10:53 AM SECONDARY Benign prostatic hyperplasia with lower urinary tract symp [facility] Nov 15, 2024 10:53 AM SECONDARY Essential (primary) hypertension [facility] Nov 15, 2024 10:53 AM SECONDARY Gout, unspecified [facility]URI[facility] Nov 15, 2024 10:53 AM SECONDARY Migraine w/o aura, not intractable, w/o status migrainosus [facility] Plan of Treatment: Future Appointments (+ 6 months) and Future Tests (+/- 45 days) The Plan of Treatment section includes future care activities for the patient from all OR treatmentfacilities. This section includes future appointments and future orders which are active, pending or scheduled. Future Appointments This section includes appointments that were scheduled to occur 6 months from the date of the Encounter, up to a maximum of 20 appointments. The data comes from all OR treatment facilities. Appointment Date/Time Appointment Type Appointme nt Facility Name Nov 22, 2024 08:00 AM AMBULATORY - SURGERY [facility]ICK [facility] Dec 05, 2024 08:30 AM AMBULATORY - MEDICINE [facility] Jan 03, 2025 08:00 AM AMBULATORY - SURGERY [facility]OPEZ [facility] Mar 13, 2025 11:00 AM AMBULATORY - [facility]IC[facility] Vital Signs: All taken on the encounter date This section contains inpatient and outpatient Vital Signs collected on the date of the Encounter. Date/Time Temperature Pulse Blood Pressure Respiratory Rate SP02 Pain Height Weight Body Mass Index Source Nov 15, 2024 09:49 AM 97.6 F 59 /min 113/77 mm[Hg] 20 /min 97 % 2 163 lb 23 [facility] Social History: Smoking Status (Most current) and Tobacco Use (All prior to encounter date) This section includes the most current, and the historical, smoking and tobacco- related health factors from the OR facility where the Encounter took place. Current Smoking Status This section includes the most current smoking, or tobacco-related health factor, from the OR facility where the Encounter took place. Date/Time Current Smoking Status Comment Andreas ity May 17, 2024 03:00 PM OR-TOBACCO NEVER U SED CIGARETTES [facility] Tobacco Use History This section includes a history of the smoking, or tobacco-related health factors, that were collected on or before the date of the Encounter. The data comes from the OR facility where the Encounter took place. Date/Time Smoking Status/Tobacco Use Comment F acvida May 17, 2024 03:00 PM OR-TOBACCO NEVER U SED OTHER TYPE [facility] August 05, 2021 09:00 AM VA-TOBACCO NEVER USED [facility] Advance Directives: All historical and current Section Date Range: From patient's date of to the date document was created. This section includes ALL of a patient's completed or amended OR Advance and Rescinded Directives. The entries below indicate that a directive exists for the patient, but an actual copy is not included with this document. The data comes from all OR facilities. Date Advance Directives Provider Source May 14, 2018 ADVANCE DIRECTIVE DISCUSSION COURTENY HAZEL [facility] Apr 24, 2015 ADVANCE DIRECTIVE DISCUSSION MISTY POWELL [facility] Apr 21, 2012 ADVANCE DIRECTIVE EVERETT RODARTE [facility] Apr 21, 2012 ADVANCE DIRECTIVE DISCUSSION MERVAT FORTUNE [facility] Jul 03, 2011 ADVANCE DIRECTIVE DISCUSSION ELIU RICK [facility] Jun 28, 2010 ADMINISTRATIVE NOTE FLAKITA ZULETA [facility] Oct 03, 2008 ADVANCE DIRECTIVE CONNOR PAUL [facility] Radiology Reports: +/- 30 days of [...] the Encounter. The data comes from all OR treatment facilities. Date/Time Radiology Report Provider Source Nov 22, 2024 07:31 AM ORTHO FOOT,RIGHT: ADRIEL LOU Valeria [id number] -1955 M Exm Date: NOV 22, 2024@07:31 Req Phys: TRUDY ALLRED Loc: -ORTHO TRAUMA (Req'g Loc) Img Loc: -MAIN RADIOLOGY SUITE Service: [facility], [facility] [address] [place] [address] (Case [id number] COMPLETE) ORTHO FOOT,RIGHT (RAD Detailed) CPT:21579 Proc Modifiers : RIGHT, LATERAL, OBLIQUE, Stand AP, Stand LAT Reason for Study: rigth foot fx Clinical History: Report Status: Verified Date Reported: NOV 22, 2024 Date Verified: NOV 22, 2024 Liquid Sugar Melter E-Sig:/ES/ZAC MORSE Report: EXAM: ORTHO FOOT,RIGHT HISTORY: rigth foot fx FINDINGS: 3 views obtained. Comparison 11/15/2024. There is a displaced transverse fracture involving the base of fifth metatarsal. No Change in alignment since the prior study. Mild arthritic changes particularly within the first metatarsophalangeal joint. No soft tissue abnormality is seen. Impression: Stable displaced transverse fracture base of fifth metatarsal RR Primary Interpreting Staff: ZAC MORSE, Staff Physician (Liquid Sugar Melter) /ZAC MILLS [facility] Nov 15, 2024 10:52 AM FOOT,RIGHT,3 VIEWS OR MORE: ADRIEL LOU Valeria [id number] -1955 M Exm Date: NOV 15, 2024@10:52 Req Phys: SURI,MOHAMMAD T Pat Loc: [facility] PACT B5 PCP (Req'g Loc) Img Loc: -MAIN RADIOLOGY SUITE Service: Unknown [facility], [facility] [address] [place] [address] (Case [id number] COMPLETE) FOOT,RIGHT,3 VIEWS OR MORE (RAD Detailed) CPT:65946 Proc Modifiers : RIGHT Reason for Study: [...] 18, 2024 Date Verified: NOV 18, 2024 Liquid Sugar Melter E-Sig:/ES/MAGGY RIVERA MD Report: Case #[id number]. Right [...] MAGGY RIVERA MD, Staff Physician - Radiologist (Liquid Sugar Melter) /ANDREW VARGAS [facility] Encounter Notes: All associated encounter notes This section contains the clinical notes associated to the Encounter. Date/Time Encounter Note(s) Provider Source Nov 15, 2024 10:19 AM PRIMARY CARE NOTE: LOCAL TITLE: PRIMARY CARE PROVIDER ESTABLISHED VISIT ST STANDARD TITLE: PRIMARY CARE NOTE DATE OF NOTE: NOV 15, 2024@10:19 ENTRY DATE: NOV 15, 2024@10:20:02 AUTHOR: LAKEISHA MCCORD EXP COSIGNER: URGENCY: STATUS: COMPLETED Patient is 69 and WHITE Self Identified Gender - Man Reason for visit:Scheduled follow-up Chief Complaint: c/o cough with whitis /yellow phlegm History of Present Illness: Mr Lou is a 69 year old male Here as follow-up visit after he had injured his right foot secondary to skydiving 08/2024 had an x-ray report at that time possible distal fibular injury along with 1/5 metatarsal injury seen in community orth and place on un boots he is not doing better off Unna boot Wearing sneakers shoes today when he removed his right foot dark red color as compared to left foot has good DP pulse Will continue get x-ray of the right foot for follow-up Today he also complaining of constant cough nagging 2-3 times per hour And visit sometimes spit out a glob of phlegm whitish to yellow color denies any chest pain shortness of breath denies cigarette smoking ever only when he was younger 81-49-ctsj-old dried cigarette No other complaint He is followed by orthopedic for his back and hip pain see their note on CPRS Problem List: 1) Depression (SNOMED CT 09903049) 2) Osteoarthritis of right hip joint (SNOMED CT 052200569687157) 3) Inguinal hernia, without mention of obstruction or gangrene (ICD-9-CM 550.90) 4) Blood In Stool 5) Recurrent unilateral or unspecified inguinal hernia, without mention of obstruct 6) Obsessive-Compulsive Disorder 7) Proteinuria * (ICD-9-CM 791.0) 8) Hypertensive chronic kidney disease, unspecified, with chronic kidney disease St 9) Anemia due to chronic kidney disease stage 1 (SNOMED CT 244788754765406) 10) Chronic kidney disease (SNOMED CT 808638140) 11) Anxiety * (ICD-9-CM 300.00/300.09) 12) Benign essential hypertension 13) Gout 14) Erectile dysfunction 15) Migraine 16) Exposure to potentially hazardous substance ([facility] [id number]) Social History: History: Service Connected: NO Rated Disabilities: NONE STATED Period of Service: [employer] Status Indicated? NO BRANCH(ES) OF SERVICE: [employer] SPECIFIC YEARS OF SERVICE: [id number] LOCATION OF SERVICE: ENVIRONMENTAL EXPOSURE: Medication Review: The essential med list for [...] as listed in the electronic record): B/P: 113/77 (11/15/2024 09:49) Pulse: 59 (11/15/2024 09:49) Temperature: 97.6 F [36.4 C] (11/15/2024 09:49) Weight: 163 lb [73.94 kg] (11/15/2024 09:49) Height: 70 in [177.8 cm] (05/31/2024 13:32) BMI: 23.4 Pain: 2 (11/15/2024 09:49) (0-10 scale) Physical findings: Averge built male walk w/o gait dist in NAD HEENT:nc, at [place] ,[place] , Scler/conj clear ,OP clear Neck:Supple no jvd, no bruit Heart:S1 S2 , No S3 S4, RRR , No m/g/r appreciated Lungs:clear to auscultate no wheezing or rale , good air entry lidia Abdomen:soft nt no HSM BS+ Ext:no leg edema DP 2+ lidia right foot slight erythematous color as compared to left foot able to move around with good flexion extension Neuro:A & O x3 , no focal deficit Data Review: No HEMOGLOBIN A1C EO data found Lipid Panel: TRIGLYCERIDE 146 mg/dL 05/17/2024 15:49 CHOLESTEROL 144 mg/dL 05/17/2024 15:49 HDL(New) 57 mg/dL 05/17/2024 15:49 CALCULATED LDL 58 mg/dL 05/17/2024 15:49 CMP: SODIUM 142 mEq/L 05/17/2024 15:49 POTASSIUM [...] 15:49 BASOPHILS, ABSOLUTE 0.06 10*3/uL 05/17/2024 15:49 PSA: No PSA EO data found TSH: TSH 1.402 uIU/mL 05/17/2024 15:49 UA: No URINALYSIS EO data found Vitamin D: VITAMIN D, 25-HYDROXY 100.1 H ng/mL 05/17/2024 15:49 Micral/Creat Profile: No data available Result: Follow-up Action: Assessment/Plan: 1) chronic cough with phlegm will get chest x-ray benzonatate cough medicine ordered Zyrtec 10 mg question of allergies 2) s/p right foot injury secondary to skydiving seen and treated by orthopedic in the community Will get x-ray for follow-up 30right hip pain s/p multiple right hip surgery last more than 15 years ago with prosthetic joint complain of increased pain and limping walking Followed by Ortho at OR 4) hypertension stable on lisinopril managed by PMD Avoid salt and salty food like underlying processed meat 5) history of chronic kidney disease, polycystic kidney Avoid NSAIDs nephrotoxic drug get chemistry and renal function Managed by outside 6) gout stable on allopurinol 100 mg a day managed by PMD Avoid diet high in purine and alcohol, red meat 7) migraine headaches stable on Topiramate managed by PMD 8) BPH with lower urinary symptoms Flomax 4 0.4 mg a day Finasteride 5 mg a day Managed by outside urologist Dr. Ramos 9)depression with multiple medication managed by primary psychiatrist RTC: 6 months Time spent on date of visit including face to face time, data review, and chartin minutes n CLINICAL REMINDERS COMPLETED Sexual Orientation - CP,L,N,P,PH,PS,S,U: The patient thinks of their sexual orientation as: Straight or Heterosexual Refuse ALL Vaccination as he claim he getsoick when take any vaccine Td/Tdap Immunization - L,N,P,PH,U: See orders Pneumococcal Conjugate Vaccine (PCV15/PCV20/PCV21) - L,N,P,PH,U: Refuses PCV vaccine Immunization: PNEUMOCOCCAL CONJUGATE, UNSPECIFIED FORMULATION Refusal Reason: PATIENT DECISION Patient refuses all immunization(s) in the PneumoPCV group Date Documented: 11/15/24 10:25 Td/Tdap Immunization - L,N,P,PH,U: The patient declines to receive the recommended dose of Td/Tdap vaccine. Immunization: TD(ADULT) UNSPECIFIED FORMULATION Refusal Reason: PATIENT DECISION Patient refuses all immunization(s) in the Td group Date Documented: 11/15/24 10:25 Herpes Zoster (Shingles) Vaccine - L,N,P,PH,U: The patient declines to receive the recommended dose of zoster (shingles) vaccine. Immunization: ZOSTER RECOMBINANT Refusal Reason: PATIENT DECISION Patient refuses all immunization(s) in the ZOSTER group Date Documented: 11/15/24 10:25 /sung/ Lakeisha Mccord MD Staff Physician Signed: 11/15/2024 10:54 LAKEISHA MCCORD [facility] Nov 15, 2024 09:54 AM NURSING NOTE: LOCAL TITLE: V15 PACT FACE TO FACE NOTE STL STANDARD TITLE: NURSING NOTE DATE OF NOTE: NOV 15, 2024@09:54 ENTRY DATE: NOV 15, 2024@09:54:58 AUTHOR: AGUSTIN FLORES EXP COSIGNER: URGENCY: STATUS: COMPLETED Provider Visit: Patient Identifiers : Full Name Date of Reason for visit: Established Follow-Up Mode of Arrival: Ambulatory Allergy Review: MORPHINE AUGUST 05, 2021 (HISTORICAL) Symptoms: HALLUCINATIONS Allergy list reviewed and remains current. Recent Vital Signs: Temperature: 97.6 F [36.4 C] (11/15/2024 09:49) Pulse: 59 (11/15/2024 09:49) Respiration: 20 (11/15/2024 09:49) B/P: 113/77 (11/15/2024 09:49) Pain: 2 (11/15/2024 09:49) Wt: 163 lb [73.94 kg] (11/15/2024 09:49) Ht: 70 in [177.8 cm] (05/31/2024 13:32) BMI: 23.4 POX: 97% (11/15/2024 09:49) Blood sugar glucometer reading: N/A PERSONAL HEALTH INVENTORY Notes: No data available for PHI note titles PERSONAL HEALTH INVENTORY - MAP: 05/23/2024 Personal Health Plan [place], Aspiration, Purpose (MAP) BEING ABLE TO GET THROUGH THIS COTY DIVING SEASON WITHOUT SURGERY 05/17/2024 Personal Health Plan [place], Aspiration, Purpose (MAP) SKYDIVING 08/05/2021 Personal Health Plan [place], Aspiration, Purpose (MAP) SKYDIVING MAKES ME HAPPY. What matters most to you in your life right now? --- 's Response: MY DOG Would you like to discuss any personal problem, family problem, alcohol use, drug use, or a mental or emotional illness? No Contact provided Primary Care phone number and encouraged to call if any questions or concerns. Review that after hours nurse line [phone] and emergency room are available 20/10 for patient use. Contact verbalized good understanding. No notification required for this note. /sung/ AGUSTIN FOLRES LPN LICENSED PRACTICAL NURSE Signed: 11/15/2024 09:58 AGUSTIN FLORES [facility]
--- OUTSIDE RECORDS SUMMARY | 2024-11-22 03:00 | XMS_ITS | Encounter Summary ---
Author Name [facility] [place] [facility] [place] [facility] [place] [facility] [place] Address [address] [place] [address] Care Team Providers Care Experience Planning Strategist Name Role Phone LAKEISHA MCCORD Primary Care [...] Mason's Name Patient's Relationship to Policy Mason [facility] (WNR) MEDICARE ADVANTAGE [facility] (WNR) Mar 30, 2022 [id number] JAKE LOU HN PATIENT [facility] (WNR) MEDICARE ADVANTAGE [facility] (WNR) Mar 30, 2022 [id number] JAKE LOU PATIENT MEDICARE PART D (WNR) MEDICARE (M) PART D Mar 30, 2022 PART D [id number] ADRIEL LOU II PATIENT OFFICE OF REGIONAL COUNS [id number] LENO MCCAIN R Jul 07, 2007 TORT FEASOR [id number] 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 Date/Time Encounter Type Encounter Description Reason Provider Source Nov 22, 2024 08:00 AM OFFICE O/P NEW MOD 45 MIN ORTHO/JOINT SURG ICD-10-CM S92.351A Disp fx of fifth metatarsal bone, right foot, inYVES Lang [facility] Encounter Template Text not used by [facility] Assessments - Encounter Diagnoses This section includes the primary and secondary diagnoses documented for the Encounter. Date/Time Primary/Secondary Diagnosis Diagnosis Name Provider Source Nov 22, 2024 08:17 AM PRIMARY Disp fx of fifth metatarsal bone, right foot, TRUDY Chapin [facility] Plan of Treatment: Future Appointments (+ 6 months) and Future Tests (+/- 45 days) The Plan of Treatment section includes future care activities for the patient from all [place] treatmentfacilities. This section includes future appointments and future orders which are active, pending or scheduled. Future Appointments This section includes appointments that were scheduled to occur 6 months from the date of the Encounter, up to a maximum of 20 appointments. The data comes from all [place] treatment facilities. Appointment Date/Time Appointment Type Appointme nt Facility Name Dec 05, 2024 08:30 AM AMBULATORY - MEDICINE [facility] Jan 03, 2025 08:00 AM AMBULATORY - SURGERY [facility] Mar 13, 2025 11:00 AM AMBULATORY - MEDICINE [facility] Vital Signs: All taken on the encounter date This section contains inpatient and outpatient Vital Signs collected on the date of the Encounter. Date/Time Temperature Pulse Blood Pressure Respiratory Rate SP02 Pain Height Weight Body Mass Index Source Nov 22, 2024 08:09 AM 98.1 F 63 /min 106/72 mm[Hg] 18 /min 99 % 3 70 in 161.7 lb [address] [facility] N Advance Directives: All historical and current Section Date Range: From patient's date of to the date document was created. This section includes ALL of a patient's completed or amended [place] Advance and Rescinded Directives. The entries below indicate that a directive exists for the patient, but an actual copy is not included with this document. The data comes from all [place] facilities. Date Advance Directives Provider Source May 14, 2018 ADVANCE DIRECTIVE DISCUSSION COURTNEY HAZEL [facility] Apr 24, 2015 ADVANCE DIRECTIVE DISCUSSION MISTY POWELL [facility] Apr 21, 2012 ADVANCE DIRECTIVE EVERETT RODARTE [facility] Apr 21, 2012 ADVANCE DIRECTIVE DISCUSSION MERVAT FORTUNE [facility] Jul 03, 2011 ADVANCE DIRECTIVE DISCUSSION ELIU RICK [facility] Jun 28, 2010 ADMINISTRATIVE NOTE FLAKITA ZULETA [facility] Oct 03, 2008 ADVANCE DIRECTIVE CONNOR PAUL [facility] Radiology Reports: +/- 30 [...] the Encounter. The data comes from all [place] treatment facilities. Date/Time Radiology Report Provider Source Nov 22, 2024 07:31 AM ORTHO FOOT,RIGHT: ADRIEL LOU Valeria [id number] -1955 M Exm Date: NOV 22, 2024@07:31 Req Phys: TRUDY ALLRED Pat Loc: [facility] (Req'g Loc) Img Loc: -MAIN RADIOLOGY SUITE Service: [facility], [facility] [address] [place] [address] (Case [id number] COMPLETE) ORTHO FOOT,RIGHT (RAD Detailed) CPT:59290 Proc Modifiers : RIGHT, LATERAL, OBLIQUE, Stand AP, Stand LAT Reason for Study: rigth foot fx Clinical History: Report Status: Verified Date Reported: NOV 22, 2024 Date Verified: NOV 22, 2024 Powder Worker E-Sig:/ES/ZAC MORSE Report: EXAM: ORTHO FOOT,RIGHT HISTORY: [...] Primary Interpreting Staff: ZAC MORSE, Staff Physician (Powder Worker) /ZAC MILLS [facility] Nov 15, 2024 10:52 AM FOOT,RIGHT,3 VIEWS OR MORE: ADRIEL LOU I [id number] -1955 M Exm Date: NOV 15, 2024@10:52 Req Phys: LAKEISHA MCCORD Pat Loc: [facility] PACT B5 PCP (Req'g Loc) Img Loc: -MAIN RADIOLOGY SUITE Service: [facility], [facility] [address] [place] [address] (Case [id number] COMPLETE) FOOT,RIGHT,3 VIEWS OR MORE (RAD Detailed) CPT:86786 Proc Modifiers : RIGHT Reason for Study: [...] 18, 2024 Date Verified: NOV 18, 2024 Powder Worker E-Sig:/ES/MAGGY RIVERA MD Report: Case #[id number]. Right [...] MAGGY RIVERA MD, Staff Physician - Radiologist (Powder Worker) /ANDREW VARGAS [facility] Encounter Notes: All associated encounter notes This section contains the clinical notes associated to the Encounter. Date/Time Encounter Note(s) Provider Source Nov 22, 2024 07:58 AM ORTHOPEDIC SURGERY CONSULT: LOCAL TITLE: ORTHOPEDIC CONSULT ST STANDARD TITLE: ORTHOPEDIC SURGERY CONSULT DATE OF NOTE: NOV 22, 2024@07:58 ENTRY DATE: NOV 22, 2024@07:58:16 AUTHOR: TRUDY ALLRED EXP COSIGNER: JERMAINE DESOUZA URGENCY: STATUS: COMPLETED CC: Right base of 5th metatarsal fracture HPI: 69y/o M presenting for evaluation of his right foot. He sustained a twisting injury on a land while skydiving on 10/01/2024. He had pain at the lateral aspect of his foot however was able to ambulate immediately after without issue. He was in a CAM walker boot for about 4 weeks and has since weaned out into supportive sneakers. Today he has minimal to no pain. He will occasionally have some dull ache at the lateral aspect of his foot on his first few steps after sitting for prolonged periods of time, however is not limited in his activities. He has continued to go to the gym and lift without any concerns. He presents today walking without assistive devices in regular sneakers without pain. PMH: 1) Depression (SNOMED CT 29594290) 2) Osteoarthritis of right hip joint (SNOMED CT 518708026172955) 3) Inguinal hernia, without mention of obstruction or gangrene (ICD-9-CM 550.90) 4) Blood In Stool 5) Recurrent unilateral or unspecified inguinal hernia, without mention of obstruct 6) Obsessive-Compulsive Disorder 7) Proteinuria * (ICD-9-CM 791.0) 8) Hypertensive chronic kidney disease, unspecified, with chronic kidney disease St 9) Anemia due to chronic kidney disease stage 1 (SNOM[address] 599029573905280) 10) Chronic kidney disease (SNOMED CT 053977366) 11) Anxiety * (ICD-9-CM 300.00/300.09) 12) Benign essential hypertension 13) Gout 14) Erectile dysfunction 15) Migraine 16) Exposure to potentially hazardous substance ([facility] 938686239096618) 17) Benign prostatic hyperplasia Active Outpatient Medications (including Supplies): Active Outpatient Medications Status 1) BENZONATATE 100MG CAP TAKE ONE CAPSULE BY MOUTH THREE TIMES ACTIVE A DAY NEEDED Indication: FOR COUGH 2) CETIRIZINE HCL 10MG TAB TAKE ONE TABLET BY MOUTH ONCE A DAY ACTIVE Indication: FOR ALLERGY SYMPTOMS Active Non-VA Medications Status 1) Non-VA ASCORBIC ACID 500MG TAB 500MG BY MOUTH ONCE A DAY ACTIVE 2) Non-VA DULOXETINE HCL 60MG EC CAP 60MG BY MOUTH ONCE A DAY ACTIVE 3) Non-VA GARLIC OIL EC TAB 1 TABLET BY MOUTH ONCE A DAY ACTIVE 4) Non-VA MULTIVITAMIN CAP/TAB 1 TABLET BY MOUTH ONCE A DAY ACTIVE 6 Total Medications Allergies: MORPHINE FH: non-contributory PE: NAD, A&Ox3 Right lower extremity: Mild tenderness palpation over the lateral ligaments. No significant tenderness ovation of the base of the fifth metatarsal. 5/5 strength with resisted foot eversion without pain 5 out of 5 strength with resisted inversion, dorsiflexion and plantarflexion SILT SP/DP/T EHL/TA/GSC intact DP/PT 2+ WBC 7.1 10*3/uL 05/17/2024 15:49 RBC [...] PTT: No PTT EO data found Radiographs: Weightbearing radiographs of the right foot were ordered, independently interpreted reviewed. These redemonstrate a displaced zone 1 base of the fifth metatarsal fracture. It does not extend into the metaphyseal aspect. There is no significant step-off at the articular surface, however there is displacement of the fracture without significant callus formation. A/P: 69-year-old male now 6 weeks status post skydiving injury resulting in a right zone 1 base of fifth metatarsal fracture. Patient is now 6 weeks out from this injury with minimal to no pain. He is ambulating in regular shoes and does not feel limited in his activities. We will plan to continue to treat this nonoperatively. I am reassured today by his lack of pain and preserved strength in eversion without pain. We discussed that this may go on to a nonunion or fibrous union, however as long as he remains asymptomatic this would not require intervention. -Continue weightbearing as tolerated in supportive shoe -Avoid activities that may reinjure the foot, avoid uneven surfaces and unsupportive shoe -Follow-up in 6 weeks with repeat weightbearing radiographs of the right foot /sung/ TRUDY ALLRED Resident Physician, Orthopedics Signed: 11/22/2024 08:18 /sung/ JERMAINE DESOUZA MD Staff Physician, Orthopedics Cosigned: 11/22/2024 08:22 TRUDY ALLRED [facility]
[2024-11-27] VITALS (22 sets, daily range): BP systolic 98–140; BP diastolic 71–92; PULSE 60–92; RESP 8–24; TEMP 36.6–36.7; O2SAT 91–100
--- NOTE | ~2024-11-27 | CT_ITS ---
EXAMINATION: CT abdomen pelvis w con DATE: 11/27/2024 21:39 INDICATION: Abdominal pain, rectal pain and constipation TECHNIQUE: Computed tomography (CT) of the abdomen and pelvis was performed with 100 mL Omnipaque-350 intravenous contrast. Automated exposure control and iterative reconstruction technique were employed. The dose-length product was 525.48 mGy-cm. COMPARISON: None FINDINGS: Discoid atelectasis in the bilateral lower lobes with interspersed patchy groundglass opacity and favor additional atelectasis over pneumonia or pulmonary edema. Heart size is normal. No pericardial effusion. Hiatal hernia with likely wrap of a Maurisio fundoplication positioned above the level of the diaphragm. There are few small calcified gallstones in the dependent aspect of the normal- appearing gallbladder. Liver, spleen, pancreas and bilateral adrenal glands are normal. Again seen are multiple bilateral renal cysts, the largest on the left measuring up to 10.8 cm consistent with polycystic kidney disease. There are some peripheral calcification associated with a few of the cysts. No evident my id soft tissue components. Normal appendix. There are few scattered clonic diverticula without adjacent from trace stranding to suggest diverticulitis. Large ball of stool at the rectum measuring up to 7.8 x 7.3 cm in diameter consistent with constipation and fecal impaction. There is mild rectal wall thickening was amount of surrounding from positioning suggests a secondary stercoral colitis. Small bowel and appendix are normal. Visualized portion of the bladder is unremarkable. Portions of the bladder and prostate are obscured by dense metallic streak artifact from bilateral total hip arthroplasties. Postoperative change of prior right inguinal hernia repair. No free intraperitoneal gas or fluid. No pathologically enlarged abdominal or pelvic lymphadenopathy. Severe lumbar and lower thoracic spondylosis. A couple old healed posterior right rib fractures. IMPRESSION: 1. 7.8 cm ball of stool at the rectum consistent with constipation with fecal impaction. Mild surrounding rectal wall thickening and minimal perirectal stranding consistent with likely secondary stercoral colitis. 2. Cholelithiasis. 3. Polycystic kidney disease. 4. Sliding-type hiatal hernia containing the wrap of a Maurisio fundoplication which is positioned above the diaphragm. Reviewed, dictated and finalized at location A. IMPRESSION: 1. 7.8 cm ball of stool at the rectum consistent with constipation with fecal i mpaction. Mild surrounding rectal wall thickening and minimal perirectal strand ing consistent with likely secondary stercoral colitis. 2. Cholelithiasis. 3. Polycystic kidney disease. 4. Sliding-type hiatal hernia containing the wrap of a Maurisio fundoplication wh ich is positioned above the diaphragm.
--- OUTSIDE RECORDS SUMMARY | 2024-11-27 13:27 | XMS_ITS | Continuity of Care Document ---
Author Name [facility] Organization [facility] Care Team Providers Care Product Blending Supervisor Name Role Phone [facility] Unavailable Unavailable Problems Combined list of problems from Department of Defense and [facility] Affairs facilities. It does not include entries that were removed or entered in error. Problem Status Onset Date Problem Type Date of Resolution Comments Source Adjustment disorder with anxious mood Active Condition [facility] Anemia due to chronic kidney disease stage 1 (SNOMED CT 742127435669025) Active Condition [facility] Anxiety * (ICD-9-CM 300.00/300.09) Active Condition [facility] Autosomal dominant polycystic kidney disease (SNOMED CT 913893891) Active Condition [facility] Benign essential hypertension Active Condition [facility] Benign hypertension (SNOMED CT 95047673) Active Condition [facility] Benign prostatic hyperplasia Active Condition [facility] Blood In Stool Active Condition [facility] Chronic kidney disease (SNOMED CT 547628189) Active Condition [facility] Depression (SNOMED CT 80262802) Active Condition [facility] Erectile dysfunction Active Condition [facility] Exposure to potentially hazardous substance (SCT 399154635322896) Active Condition May 18 5 Entered By: NIDHI FREITAS Comment: Entered automatically through SRINIV[employer] Problem List documentation program [facility] Gout Active Condition [facility] Headache Active Condition [facility] Hernia of abdominal cavity Active Condition [facility] Hypertensive chronic kidney disease, unspecified, with chronic kidney disease St Active Condition [facility] Inguinal hernia, without mention of obstruction or gangrene (ICD-9-CM 550.90) Active Condition [facility] Major depression in full remission Active Condition [facility] Migraine Active Condition [facility] Obsessive-Compuls wesley Disorder Active Condition [facility] Obsessive-compuls wesley disorder (SNOMED CT 809799586) Active Condition [facility] Obsessive-Compuls wesley Disorder * (ICD-9-CM 300.3) Active Condition [facility] Osteoarthritis of right hip joint (SNOMED CT 953608659189983) Active Condition [facility] Other and unspecified alcohol dependence, in remission (ICD-9-CM 303.93) Active Condition [facility] Proteinuria * (ICD-9-CM 791.0) Active Condition [facility] Recurrent unilateral or unspecified inguinal hernia, without mention of obstruct Active Condition [facility] Alcohol Dependence Inactive Condition 12/21/2014 May 10, 2010 Entered By: KYLE CHAVES Comment: in remission [facility] Blood in Stool (ICD-9-CM 578.1) Inactive Condition 12/21/2014 [facility] Chest pain Inactive Condition 12/21/2014 [facility] Elevated blood pressure reading without diagnosis of hypertension (ICD-9-CM 796. Inactive Condition 12/21/2014 [facility] Health Maint (ICD-9-CM V65.9) Inactive Condition 12/21/2014 [facility] Renal Cyst (ICD-9-CM 753.10) Inactive Condition 04/17/2015 [facility] Diagnosis: ICD-10-CM S92.351A Disp fx of fifth metatarsal bone, right foot, init Active Diagnosis [facility] Diagnosis: ICD-10-CM R05.3 Chronic cough Active Diagnosis [facility] Diagnosis: ICD-10-CM Z96.641 Presence of right artificial hip joint Active Diagnosis [facility] Diagnosis: ICD-10-CM M16.9 Osteoarthritis of hip, unspecified Active Diagnosis [facility] Diagnosis: ICD-10-CM M70.71 Other bursitis of hip, right hip Active Diagnosis [facility] Diagnosis: ICD-10-CM M25.551 Pain in right hip Active Diagnosis [facility] Medications Combined list of outpatient medications from [...] DAY NEEDED ORAL ACTIVE Xu REA 2018 [facility] ASCORBIC ACID 500MG TAB TAKE ONE TABLET BY MOUTH ONCE A DAY ORAL ACTIVE ANDREW GARCIA 2008 [facility] RICK Almeida ASPIRIN 81MG TAB,EC TAKE ONE TABLET BY MOUTH EVERY MORNING ORAL ACTIVE Xu REA 2018 [facility] BENZONATATE 100MG CAP TAKE ONE CAPSULE BY MOUTH THREE TIMES A DAY NEEDED FOR COUGH ORAL ACTIVE 12/15/2024 [id number] SURIKAYLA DUPREE T 2024 90 [facility] CETIRIZINE HCL 10MG TAB TAKE ONE TABLET BY MOUTH ONCE A DAY ORAL ACTIVE 12/15/2024 [id number] 5 KAYLA MCCORD T 2024 30 [facility] DULOXETINE HCL 60MG CAP,EC TAKE 1 CAPSULE BY MOUTH ONCE A DAY ORAL ACTIVE ANDREW GARCIA [address] [facility] RICK Almeida GARLIC OIL TAB,EC TAKE ONE TABLET BY MOUTH ONCE A DAY ORAL ACTIVE ANDREW GARCIA [address] [facility] RICK Almeida METHYLPREDN ISOLONE 4MG TAB DOSEPAK,21 TAKE TABLETS BY MOUTH DIRECTED TAKE 6 TABLETS BY MOUTH ON DAY ONE, THEN DECREASE BY ONE TABLET DAILY UNTIL GONE. TAKE WITH FOOD. (TAKE WITH FOOD) TAKE 6 TABLETS BY MOUTH ON DAY ONE, THEN DECREASE BY ONE TABLET DAILY UNTIL GONE. TAKE WITH FOOD. (TAKE WITH FOOD) ORAL 06/22/2024 [id number] 5 KAYLA MCCORD T 2024 1 [facility] MULTIVITAMI NS CAP/TAB TAKE ONE TABLET BY MOUTH ONCE A DAY ORAL ACTIVE ANDREW GARCIA [address] [facility] RICK Almeida Allergies, Adverse Reactions, Alerts Combined list of allergies from Department of Defense and Veterans Affairs facilities. It does not include entries that were removed or entered in error. Substance Category Reaction Severity Reaction type Status Date Reported Comments Source AMLODIPINE Propensity to adverse reactions to drug (finding) Swelling active 5 [facility] HYDRALAZINE Propensity to adverse reactions to drug (finding) Tachycardia , Palpitation s active 8 [facility] MORPHINE Propensity to adverse reactions to drug (finding) Anxiety active 9 [facility] MORPHINE Propensity to adverse reactions to drug (finding) Hallucinati ons active 2 [facility] Immunizations Combined list of available immunizations from the [facility] and [facility] facilities. Immunization Series Date Given Administered By Site Reaction Lot Number CVX Code Drug Intermediate Card Tender Status Comments Source INFLUENZA, UNSPECIFIED FORMULATION 2011 88 [facility] FLU VACCINE NO PRESERV 3 & > (HISTORICAL) 2009 complet [facility] INFLUENZA, UNSPECIFIED FORMULATION 2009 NONE 88 [facility] DTAP, UNSPECIFIED FORMULATION 2009 DENI CASTANEDA 107 [facility] TD(ADULT) UNSPECIFIED FORMULATION 2009 ISATU PALMER 139 complet [facility] TDAP 2009 115 [facility] INFLUENZA, UNSPECIFIED FORMULATION [address] [facility] TDAP [address] [facility] TETANUS TOXOID, UNSPECIFIED FORMULATION 2004 112 [facility] ed [facility] SPINAL CORD OUTCOME S Results Combined list of recent chemistry, hematology and other laboratory results from [facility] and [facility], ranging from 15 months to all on record, depending upon the facility. Order Name Results Value Reference Range Date Interpretation Specimen Comments Source ESR ISED(STL) ERYTHROCYT E SEDIMENTAT ION RATE 8 mm/h 0 - 19 05/17 Specimen Type: BLOOD No comment entered. Ordering Provider: WALTER MCCORD MMAD Report Released Date/Time: May 17, 2024 03:17 PM Reporting Lab: [facility] [address] [facility] [phone] Performing Lab: [facility] [address] [place], [place] [phone] [address] CRP C REACTIVE PROTEIN [MASS/VOLU ME] IN SERUM OR PLASMA BY HIGH SENSITIVIT Y METHOD 0.2 mg/dL 0 - 0.5 05/17 Specimen Type: PLASMA Comment: No hemolysis noted. Ordering Provider: WALTER MCCORD MMAD Report Released Date/Time: May 17, 2024 03:17 PM Reporting Lab: [place] [address] Performing Lab: [address] VITAMIN D, 25-HYDROX Y 25-HYDROXY VITAMIN D3 [MASS/VOLU ME] IN SERUM OR PLASMA 100.1 ng/mL 30 - 96 05/17 H Specimen Type: SERUM No comment entered. Ordering Provider: WALTER MCCORD MMAD Report Released Date/Time: May 17, 2024 03:17 PM Reporting Lab: [facility] [address] [place], [place] [phone] Performing Lab: [address] TSH W/ REFLEX FT4 (STL) THYROTROPI N [UNITS/VOL UME] IN SERUM OR PLASMA 1.402 u[IU]/mL 0.47 - 5 05/17 Specimen Type: PLASMA No comment entered. Ordering Provider: WALTER MCCORD MMAD Report Released Date/Time: May 17, 2024 03:17 PM Reporting Lab: [facility] [address] [place] [phone] Performing Lab: [address] LIPID PANEL (STL) CHOLESTERO L [MASS/VOLU ME] IN SERUM OR PLASMA 144 mg/dL 0 - 200 05/17 Specimen Type: PLASMA Comment: No hemolysis noted. Ordering Provider: WALTER MCCORD MMAD Report Released Date/Time: May 17, 2024 03:17 PM Reporting Lab: [facility] [address] [facility] [place] [address] Performing Lab: [facility] [address] [facility] [address] [facility] LIPID PANEL (STL) TRIGLYCERI DE [MASS/VOLU ME] IN SERUM OR PLASMA 146 mg/dL 0 - 150 05/17 Specimen Type: PLASMA Comment: No hemolysis noted. Ordering Provider: WALTER MCCORD MMAD Report Released Date/Time: May 17, 2024 03:17 PM Reporting Lab: [facility] [address] [place] [phone] Performing Lab: [facility] [address] [facility] [place] [address] [facility] LIPID PANEL (STL) CHOLESTERO L IN LDL [MASS/VOLU ME] IN SERUM OR PLASMA BY CALCLUIS N 58 mg/dL 05/17 Specimen Type: PLASMA Comment: No hemolysis noted. Ordering Provider: WALTER MCCORD MMAD Report Released Date/Time: May 17, 2024 03:17 PM Reporting Lab: [facility] [address] [place] [phone] Performing Lab: [address] [address] [facility] LIPID PANEL (STL) CHOLESTERO L IN HDL [MASS/VOLU ME] IN SERUM OR PLASMA 57 mg/dL 40 05/17 Specimen Type: PLASMA Comment: No hemolysis noted. Ordering Provider: WALTER MCCORD MMAD Report Released Date/Time: May 17, 2024 03:17 PM Reporting Lab: [facility] [address] [place] [phone] Performing Lab: [facility] [address] [place] [phone] [facility] COMPREHEN SIVE METABOLIC PANEL CREATININE [MASS/VOLU ME] IN SERUM OR PLASMA 1.45 mg/dL 0.7 - 1.3 05/17 H Specimen Type: PLASMA Comment: No hemolysis noted. Ordering Provider: WALTER MCCORD MMAD Report Released Date/Time: May 17, 2024 03:17 PM Reporting Lab: [facility] [address] [facility] [address] Performing Lab: [facility] [address] [place] [phone] [facility] COMPREHEN SIVE METABOLIC PANEL UREA NITROGEN [MASS/VOLU ME] IN SERUM OR PLASMA 45.5 mg/dL 9.0 - 25.0 05/17 H Specimen Type: PLASMA Comment: No hemolysis noted. Ordering Provider: WALTER MCCORD MMAD Report Released Date/Time: May 17, 2024 03:17 PM Reporting Lab: [facility] [address] [place] [phone] Performing Lab: [address] [address] [facility] COMPREHEN SIVE METABOLIC PANEL GLUCOSE [MASS/VOLU ME] IN SERUM OR PLASMA 98 mg/dL 72 - 99 05/17 Specimen Type: PLASMA Comment: No hemolysis noted. Ordering Provider: WALTER MCCORD MMAD Report Released Date/Time: May 17, 2024 03:17 PM Reporting Lab: [facility] [address] [place] [phone] Performing Lab: [facility] [address] [place] [phone] [facility] COMPREHEN SIVE METABOLIC PANEL SODIUM [MOLES/VOL UME] IN SERUM OR PLASMA 142 meq/L 136 - 145 05/17 Specimen Type: PLASMA Comment: No hemolysis noted. Ordering Provider: WALTER MCCORD MMAD Report Released Date/Time: May 17, 2024 03:17 PM Reporting Lab: [facility] [address] [place] [phone] Performing Lab: [facility] [address] [place] [phone] [facility] COMPREHEN SIVE METABOLIC PANEL POTASSIUM [MOLES/VOL UME] IN SERUM OR PLASMA 4.4 meq/L 3.5 - 5 05/17 Specimen Type: PLASMA Comment: No hemolysis noted. Ordering Provider: WALTER MCCORD MMAD Report Released Date/Time: May 17, 2024 03:17 PM Reporting Lab: [address] [address] Performing Lab: [address] [address] [facility] COMPREHEN SIVE METABOLIC PANEL CHLORIDE [MOLES/VOL UME] IN SERUM OR PLASMA 109 meq/L 98 - 107 05/17 H Specimen Type: PLASMA Comment: No hemolysis noted. Ordering Provider: WALTER MCCORD MMAD Report Released Date/Time: May 17, 2024 03:17 PM Reporting Lab: [address] [address] Performing Lab: [facility] [place] [phone] [facility] COMPREHEN SIVE METABOLIC PANEL CARBON DIOXIDE, TOTAL [MOLES/VOL UME] IN SERUM OR PLASMA 22 meq/L 22 - 31 05/17 Specimen Type: PLASMA Comment: No hemolysis noted. Ordering Provider: WALTER MCCORD MMAD Report Released Date/Time: May 17, 2024 03:17 PM Reporting Lab: [address] [phone] Performing Lab: [facility] [address] [place] [phone] [facility] COMPREHEN SIVE METABOLIC PANEL CALCIUM [MASS/VOLU ME] IN SERUM OR PLASMA 9.8 mg/dL 8.4 - 10.4 05/17 Specimen Type: PLASMA Comment: No hemolysis noted. Ordering Provider: WALTER MCCORD MMAD Report Released Date/Time: May 17, 2024 03:17 PM Reporting Lab: [facility] [address] [facility] [address] Performing Lab: [facility] [address] [facility] [phone] [facility] COMPREHEN SIVE METABOLIC PANEL PROTEIN [MASS/VOLU ME] IN SERUM OR PLASMA 7.1 g/dL 6 - 8.6 05/17 Specimen Type: PLASMA Comment: No hemolysis noted. Ordering Provider: WALTER MCCORD MMAD Report Released Date/Time: May 17, 2024 03:17 PM Reporting Lab: [facility] [address] [facility] [address] Performing Lab: [facility] [address] [facility] [phone] [facility] COMPREHEN SIVE METABOLIC PANEL ALBUMIN [MASS/VOLU ME] IN SERUM OR PLASMA 4.0 g/dL 3.4 - 5 05/17 Specimen Type: PLASMA Comment: No hemolysis noted. Ordering Provider: WALTER MCCORD MMAD Report Released Date/Time: May 17, 2024 03:17 PM Reporting Lab: [facility] [address] [facility] [address] Performing Lab: [facility] [address] [facility] [phone] [facility] COMPREHEN SIVE METABOLIC PANEL BILIRUBIN. TOTAL [MASS/VOLU ME] IN SERUM OR PLASMA 0.4 mg/dL 0.2 - 1.2 05/17 Specimen Type: PLASMA Comment: No hemolysis noted. Ordering Provider: WALTER MCCORD MMAD Report Released Date/Time: May 17, 2024 03:17 PM Reporting Lab: [facility] [address] [facility] [address] Performing Lab: [facility] [address] [facility] [address] [facility] COMPREHEN SIVE METABOLIC PANEL ALKALINE PHOSPHATAS E [ENZYMATIC ACTIVITY/V OLUME] IN SERUM OR PLASMA 85 U/L 40 - 150 05/17 Specimen Type: PLASMA Comment: No hemolysis noted. Ordering Provider: WALTER MCCORD MMAD Report Released Date/Time: May 17, 2024 03:17 PM Reporting Lab: [facility] [address] [facility] [phone] Performing Lab: [facility] [address] [facility] [address] [facility] COMPREHEN SIVE METABOLIC PANEL ASPARTATE AMINOTRANS FERASE [ENZYMATIC ACTIVITY/V OLUME] IN SERUM OR PLASMA 47 U/L 5 - 34 05/17 H Specimen Type: PLASMA Comment: No hemolysis noted. Ordering Provider: WALTER MCCORD MMAD Report Released Date/Time: May 17, 2024 03:17 PM Reporting Lab: [facility] [address] [place] [phone] Performing Lab: [facility] [address] [place] [phone] [facility] COMPREHEN SIVE METABOLIC PANEL ALANINE AMINOTRANS FERASE [ENZYMATIC ACTIVITY/V OLUME] IN SERUM OR PLASMA 42 U/L 8 - 40 05/17 H Specimen Type: PLASMA Comment: No hemolysis noted. Ordering Provider: WALTER MCCORD MMAD Report Released Date/Time: May 17, 2024 03:17 PM Reporting Lab: [facility] [address] [place] [phone] Performing Lab: [facility] [address] [facility] [address] [facility] COMPREHEN SIVE METABOLIC PANEL GLOMERULAR FILTRATION RATE/1.73 SQ M.PREDICTE D [VOLUME RATE/AREA] IN SERUM, PLASMA OR BLOOD BY CREATININE -BASED FORMULA (CKD-EPI 2020) 52.8 60 05/17 Specimen Type: PLASMA Comment: No hemolysis noted. Ordering Provider: WALTER MCCORD MMAD Report Released Date/Time: May 17, 2024 03:17 PM Reporting Lab: [facility] [address] [facility] [address] Performing Lab: [facility] [address] [place] [phone] [facility] CBC LEUKOCYTES [#/VOLUME] IN BLOOD BY AUTOMATED COUNT 7.1 10*3/uL 3.6 - 11.2 05/17 Specimen Type: BLOOD No comment entered. Ordering Provider: WALTER MCCORD MMAD Report Released Date/Time: May 17, 2024 03:17 PM Reporting Lab: [address] [address] Performing Lab: [address] [phone] [place] [address] CBC ERYTHROCYT ES [#/VOLUME] IN BLOOD BY AUTOMATED COUNT 5.61 10*6/uL 4.10 - 5.70 05/17 Specimen Type: BLOOD No comment entered. Ordering Provider: WALTER MCCORD MMAD Report Released Date/Time: May 17, 2024 03:17 PM Reporting Lab: [address] [address] Performing Lab: [address] [address] [facility] CBC HEMOGLOBIN [MASS/VOLU ME] IN BLOOD 16.3 g/dL 13.1 - 16.8 05/17 Specimen Type: BLOOD No comment entered. Ordering Provider: WALTER MCCORD MMAD Report Released Date/Time: May 17, 2024 03:17 PM Reporting Lab: [address] [address] Performing Lab: [address] [address] [facility] CBC HEMATOCRIT [VOLUME FRACTION] OF BLOOD 51.0 38.2 - 48.4 05/17 H Specimen Type: BLOOD No comment entered. Ordering Provider: WALTER MCCORD MMAD Report Released Date/Time: May 17, 2024 03:17 PM Reporting Lab: [address] [address] Performing Lab: [address] [address] [facility] CBC MCV [ENTITIC VOLUME] BY AUTOMATED COUNT 90.9 fL 80.0 - 100.0 05/17 Specimen Type: BLOOD No comment entered. Ordering Provider: WALTER MCOCRD MMAD Report Released Date/Time: May 17, 2024 03:17 PM Reporting Lab: [address] [address] Performing Lab: [address] [address] [facility] CBC MCH [ENTITIC MASS] BY AUTOMATED COUNT 29.1 pg 27.0 - 34.0 05/17 Specimen Type: BLOOD No comment entered. Ordering Provider: WALTER MCCORD MMAD Report Released Date/Time: May 17, 2024 03:17 PM Reporting Lab: [address] [address] Performing Lab: [address] [phone] [place] [address] CBC MCHC [MASS/VOLU ME] BY AUTOMATED COUNT 32.0 g/dL 33.0 - 36.0 05/17 L Specimen Type: BLOOD No comment entered. Ordering Provider: WALTER MCCORD MMAD Report Released Date/Time: May 17, 2024 03:17 PM Reporting Lab: [address] [address] Performing Lab: [address] [address] [facility] CBC PLATELETS [#/VOLUME] IN BLOOD BY AUTOMATED COUNT 265 10*3/uL 150 - 400 05/17 Specimen Type: BLOOD No comment entered. Ordering Provider: WALTER MCCORD MMAD Report Released Date/Time: May 17, 2024 03:17 PM Reporting Lab: [address] [address] Performing Lab: [address] [address] [facility] CBC PLATELET MEAN VOLUME [ENTITIC VOLUME] IN BLOOD BY AUTOMATED COUNT 9.3 fL 7.5 - 11.2 05/17 Specimen Type: BLOOD No comment entered. Ordering Provider: WALTER MCCORD MMAD Report Released Date/Time: May 17, 2024 03:17 PM Reporting Lab: [facility] [address] [place] [phone] Performing Lab: [address] [address] [facility] CBC ERYTHROCYT E DISTRIBUTI ON WIDTH [RATIO] BY AUTOMATED COUNT 15.0 11.8 - 15.1 05/17 Specimen Type: BLOOD No comment entered. Ordering Provider: WALTER MCCORD MMAD Report Released Date/Time: May 17, 2024 03:17 PM Reporting Lab: [address] [address] Performing Lab: [address] [address] [facility] CBC LYMPHOCYTE S/100 LEUKOCYTES IN BLOOD BY AUTOMATED COUNT 23 05/17 Specimen Type: BLOOD No comment entered. Ordering Provider: WALTER MCCORD MMAD Report Released Date/Time: May 17, 2024 03:17 PM Reporting Lab: [address] [address] Performing Lab: [address] [address] [facility] CBC MONOCYTES/ 100 LEUKOCYTES IN BLOOD BY AUTOMATED COUNT 8 05/17 Specimen Type: BLOOD No comment entered. Ordering Provider: WALTER MCCORD MMAD Report Released Date/Time: May 17, 2024 03:17 PM Reporting Lab: [address] [address] Performing Lab: [address] [address] [facility] CBC NEUTROPHIL S/100 LEUKOCYTES IN BLOOD BY AUTOMATED COUNT 63 05/17 Specimen Type: BLOOD No comment entered. Ordering Provider: WALTER MCCORD MMAD Report Released Date/Time: May 17, 2024 03:17 PM Reporting Lab: [facility] [address] [place], [place] [phone] Performing Lab: [facility] [address] [place] [phone] [facility] CBC EOSINOPHIL S/100 LEUKOCYTES IN BLOOD BY AUTOMATED COUNT 5 05/17 Specimen Type: BLOOD No comment entered. Ordering Provider: WALTER MCCORD MMAD Report Released Date/Time: May 17, 2024 03:17 PM Reporting Lab: [facility] [address] [place] [address] Performing Lab: [facility] [address] [place] [phone] [address] CBC BASOPHILS/ 100 LEUKOCYTES IN BLOOD BY AUTOMATED COUNT 1 05/17 Specimen Type: BLOOD No comment entered. Ordering Provider: WALTER MCCORD MMAD Report Released Date/Time: May 17, 2024 03:17 PM Reporting Lab: [facility] [address] [place], [place] [phone] Performing Lab: [facility] [address] [place], [place] [phone] [address] CBC LYMPHOCYTE S [#/VOLUME] IN BLOOD BY AUTOMATED COUNT 1.62 10*3/uL 0.77 - 4.50 05/17 Specimen Type: BLOOD No comment entered. Ordering Provider: WALTER MCCORD MMAD Report Released Date/Time: May 17, 2024 03:17 PM Reporting Lab: [facility] [address] [place], [place] [phone] Performing Lab: [facility] [address] [place] [phone] [address] CBC MONOCYTES [#/VOLUME] IN BLOOD BY AUTOMATED COUNT 0.55 10*3/uL 0.19 - 0.80 05/17 Specimen Type: BLOOD No comment entered. Ordering Provider: WALTER MCCORD MMAD Report Released Date/Time: May 17, 2024 03:17 PM Reporting Lab: [facility] [address] [place], [place] [phone] Performing Lab: [place] [id number] CBC NEUTROPHIL S [#/VOLUME] IN BLOOD BY AUTOMATED COUNT 4.47 10*3/uL 2.10 - 8.00 05/17 Specimen Type: BLOOD No comment entered. Ordering Provider: WALTER MCCORD MMAD Report Released Date/Time: May 17, 2024 03:17 PM Reporting Lab: [place] [address] Performing Lab: [place] [id number] [place] [address] CBC EOSINOPHIL S [#/VOLUME] IN BLOOD BY AUTOMATED COUNT 0.32 10*3/uL 0.00 - 0.60 05/17 Specimen Type: BLOOD No comment entered. Ordering Provider: WALTER MCCORD MMAD Report Released Date/Time: May 17, 2024 03:17 PM Reporting Lab: [address] [address] Performing Lab: [id number] [place] [address] CBC BASOPHILS [#/VOLUME] IN BLOOD BY AUTOMATED COUNT 0.06 10*3/uL 0.00 - 0.20 05/17 Specimen Type: BLOOD No comment entered. Ordering Provider: WALTER MCCORD MMAD Report Released Date/Time: May 17, 2024 03:17 PM Reporting Lab: [place] [id number] Performing Lab: [id number] [place] [address] OCCULT BLOOD FIT X1 SCREEN (MFP ONLY) HEMOGLOBIN .GASTROINT ESTINAL.LO WER [PRESENCE] IN STOOL BY IMMUNOASSA Y Negative 04/23 Specimen Type: FECES No comment entered. Ordering Provider: WALTER MCCORD MMAD Report Released Date/Time: Mar 17, 2024 09:54 AM Reporting Lab: [facility] [address] [facility] [address] Performing Lab: [facility] [address] [address] [facility] [facility] Vital Signs Combined list of inpatient and outpatient Vital Signs from Department of Defense and Veterans Affairs, ranging from 12 months to all on record, depending upon the facility. Vital Sign Value Date Comments Source SYSTOLIC BLOOD PRESSURE 106 11/23/19 08:09:36 [facility] DIASTOLIC BLOOD PRESSURE 72 025 08:09:36 [facility] PULSE OXIMETRY 99 % 11/22/2024 08:09:36 [facility] WEIGHT 161.7 11/22/2024 08:09:36 [facility] BMI 23 kg/m2 11/22/2024 08:09:36 [facility] PAIN 3 11/22/2024 08:09:36 [facility] HEIGHT 70 11/22/2024 08:09:36 [facility] TEMPERATURE 98.1 11/22/2024 08:09:36 [facility] PULSE 63 11/22/2024 08:09:36 [facility] RESPIRATION 18 11/22/2024 08:09:36 [facility] SYSTOLIC BLOOD PRESSURE 113 11/16/19 25 09:49:33 [facility] DIASTOLIC BLOOD PRESSURE 77 025 09:49:33 [facility] PULSE OXIMETRY 97 % 11/15/2024 09:49:33 [facility] WEIGHT 163 11/15/2024 09:49:33 [facility] BMI 23 kg/m2 11/15/2024 09:49:33 [facility] PAIN 2 11/15/2024 09:49:33 [facility] TEMPERATURE 97.6 11/15/2024 09:49:33 [facility] PULSE 59 11/15/2024 09:49:33 [facility] RESPIRATION 20 11/15/2024 09:49:33 [facility] SYSTOLIC BLOOD PRESSURE 105 08/31/19 25 13:13:45 [facility] DIASTOLIC BLOOD PRESSURE 73 025 13:13:45 [facility] PULSE OXIMETRY 97 08/30/2024 13:13:45 [facility] WEIGHT 158.5 08/30/2024 13:13:45 [facility] BMI 23 kg/m2 08/30/2024 13:13:45 [facility] PAIN 0 08/30/2024 13:13:45 [facility] TEMPERATURE 97 08/30/2024 13:13:45 [facility] PULSE 72 08/30/2024 13:13:45 [facility] RESPIRATION 18 08/30/2024 13:13:45 [facility] SYSTOLIC BLOOD PRESSURE 129 06/01/19 25 13:32:47 [facility] DIASTOLIC BLOOD PRESSURE 83 025 13:32:47 [facility] PULSE OXIMETRY 97 05/31/2024 13:32:47 [facility] WEIGHT 168.2 05/31/2024 13:32:47 [facility] BMI 24 kg/m2 05/31/2024 13:32:47 [facility] PAIN 7 05/31/2024 13:32:47 [facility] HEIGHT 70 05/31/2024 13:32:47 [facility] TEMPERATURE 98.2 05/31/2024 13:32:47 [facility] PULSE 81 05/31/2024 13:32:47 [facility] RESPIRATION 16 05/31/2024 13:32:47 [facility] SYSTOLIC BLOOD PRESSURE 127 05/17/19 25 14:37:02 [facility] DIASTOLIC BLOOD PRESSURE 85 025 14:37:02 [facility] PULSE OXIMETRY 96 05/17/2024 14:37:02 [facility] WEIGHT 168 05/17/2024 14:37:02 [facility] BMI 23 kg/m2 05/17/2024 14:37:02 [facility] PAIN 4 05/17/2024 14:37:02 [facility] TEMPERATURE 97.3 05/17/2024 14:37:02 [facility] PULSE 76 05/17/2024 14:37:02 [facility] RESPIRATION 18 05/17/2024 14:37:02 [facility] Encounters Combined list of: 1) Encounters from Department of Veterans Affairs facilities going backup to the last 18 months, not all [place] inpatient encounters are included; 2) Encounters from the Department of [facility] facilities going backup to 280 months. Location Location Details Encounter Type Encounter Number Reason For Visit Attending Provider ADM Date DC Date Status Disposition Source [facility] Outpatient Encounter [id number] WALTER MCCORD MMAD T 11/26 [facility] Outpatient Encounter [id number] WALTER MCCORD MMAD T 11/28 [facility] Outpatient Encounter [id number] 01/03 [facility] Outpatient Encounter [id number] WALTER MCCORD MMAD T 01/13 [facility] Outpatient Encounter [id number] DANIEL GUARDADO 01/13 [facility] OFFICE O/P EST MOD 30 MIN [id number] Diagnos is: ICD-10- CM M16.9 Osteoar thritis of hip, unspeci fied MARIS FLORES L 05/17 [facility] Outpatient Encounter [id number] WALTER MCCORDD T 05/18 [facility] Encounter [id number] WALTER MCCORD MMAD T 05/23 [facility] OFFICE O/P EST LOW 20 MIN [id number] Diagnos is: ICD-10- CM M25.551 Pain in right hip WALTER MCCORDD T 05/23 [facility] Outpatient Encounter [id number] BARBARA CARVER N 05/26 [facility] OFFICE O/P NEW LOW 30 MIN [id number] Diagnos is: ICD-10- CM M25.551 Pain in right hip JERMAINE DESOUZA A 05/31 [facility] SYNCH AUDIO-ONLY EST MOD 30 [id number] Diagnos is: ICD-10- CM M70.71 Other bursiti s of hip, right hip WALTER MCCORDD T 06/06 [facility] SYNCH AUDIO-ONLY EST MOD 30 [id number] Diagnos is: ICD-10- CM M16.9 Osteoar thritis of hip, unspeci fied WALTER MCCORD MMAD T 06/13 [facility] Outpatient Encounter [id number] 07/05 [facility] Outpatient Encounter [id number] 07/21 [facility] OFF[facility] O/P EST LOW 20 MIN [id number] Diagnos is: ICD-10- CM Z96.641 Presenc e of right artific ial hip joint COREEN GO 08/30 [facility] Outpatient Encounter [id number] WALTER MCCORD MMAD T 10/05 [facility] Outpatient Encounter [id number] RITOYVES DAIGLE A 10/19 [facility] Outpatient Encounter [id number] MARIS FLORES L 11/07 [facility] [facility] OFFICE O/P EST MOD 30 MIN [id number] Diagnos is: ICD-10- CM R05.3 Chronic cough WALTER MCCORD MMAD T 11/15 [facility] Outpatient Encounter [id number] WALTER MCCORD MMAD T 11/20 [facility] OFFICE O/P NEW MOD 45 MIN [id number] Diagnos is: ICD-10- CM S92.351 A Disp fx of fifth metatar ant bone, right foot, init BHARATIAKKRYSTALY A 11/22 [facility] Social History Combined list of available smoking, tobacco, and other social history from Department of Defense and Veterans Affairs facilities. Social History Type Response Date Comment Sourc e Tobacco smoking status [facility]-TOBACCO NEVER USED CIGARETTES 05/17/2024 [facility] History of tobacco use [facility]-TOBACCO NEVER USED OTHER TYPE 05/17/2024 [facility] History of tobacco use VA-TOBACCO NEVER USED 08/05/2021 [facility] History of tobacco use VA-TOBACCO QUIT 15 YRS OR MORE 01/11/2021 [facility] History of tobacco use VA-TOBACCO FORMER USER 12/20/2019 [facility] History of tobacco use VA-TOBACCO QUIT 15 YRS OR MORE 07/08/2018 [facility] History of tobacco use LIFETIME NON-USER OF TOBACCO INPT 05/13/2018 [facility] History of tobacco use VA-TOBACCO NEVER USED 12/25/2017 [facility] History of tobacco use QUIT TOBACCO >7 YEARS AGO 03/24/2017 [facility] History of tobacco use LIFETIME NON-TOBACCO USER 02/28/2016 [facility] History of tobacco use QUIT TOBACCO >7 YEARS AGO INPT 11/02/2014 [facility] History of tobacco use QUIT TOBACCO >7 YEARS AGO 06/07/2014 [facility] History of tobacco use QUIT TOBACCO >7 YEARS AGO 12/10/2012 [facility] History of tobacco use LIFETIME NON-USER OF TOBACCO 03/03/2012 [facility] History of tobacco use QUIT TOBACCO >7 YEARS AGO 10/21/2010 [facility] History of tobacco use TOBACCO OFFERED PT MEDS (PROVIDER) 12/06/2009 [facility] History of tobacco use CURRENT TOBACCO USER 08/23/[address] [facility] Plan of Care List of future care activities from [facility] facilities. Additional future care activities may be listed in the Assessment and Plan section. Date/Time Care Activity Care Activity Detail Facili ty 12/05/2024 AMBULATORY - MEDICINE AMBULATORY - MEDICI NE [facility] Advance Directives List of completed, amended, or rescinded Advance Directives on record at [facility] facilities. An actual copy of the Directive is not included. Date Advance Directive Provider Source 05/14/2018 ADVANCE DIRECTIVE DISCUSSION COURTNEY HAZEL [facility] 04/24/2015 ADVANCE DIRECTIVE DISCUSSION MISTY POWELL [facility] 04/21/2012 ADVANCE DIRECTIVE EVERETT RODARTE [facility] 04/21/2012 ADVANCE DIRECTIVE DISCUSSION MERVAT FORTUNE [facility] 07/03/2011 ADVANCE DIRECTIVE DISCUSSION ELIU RICK [facility] 06/28/2010 ADMINISTRATIVE NOTE FLAKITA ZULETA [facility] 10/03/2008 ADVANCE DIRECTIVE [facility]
--- OUTSIDE RECORDS SUMMARY | 2024-11-27 18:28 | XMS_ITS | Clinical Summary ---
Author Organization [facility] Address [address] [place] [address] Care Team Providers Care Drafting Instructor Name Role Phone Unavailable Primary Care Provider Unavailabl e Source Comments [facility],non-owned Affiliates and Associated Physician Practices is amultiple site organization consisting of ambulatory clinics and hospital sitesin [place], [place], [place] and [place]. This disclosure is being madepursuant to the Care Everywhere program and may not contain all information available regarding this patient. 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
--- OUTSIDE RECORDS SUMMARY | 2024-11-27 18:30 | XMS_ITS | Patient Health Record ---
Author Organization [facility] [employer] [facility] Address [address] [place] [address] Care Team Providers Care Director Of Residence Life Name Role Phone Boone RILEY, Tee Primary Care Provider Unavailab Rona Zaidi Unavailable [phone] Allergies Allergen (clinical drug ingredient) Drug/Non Drug Allergy documented on EMR Reaction Allergy Type Onset Date Status Information temporarily unavailable Morphine Unknown Drug Allergy 06/12/2023 Active Results Component Value Reference Range Flag Notes DRUG MONITOR,BARBITURATE, QN , URINE ([id number]) Reviewed date:10/04/2024 12:58:15 PM Interpretation: Performing Lab:[facility], [id number] Eulalio Rosas Notes/Report: FASTING: NO Amobarbital NEGATIVE <100 ng/mL Butalbital NEGATIVE <100 ng/mL Pentobarbital NEGATIVE <100 ng/mL Phenobarbital NEGATIVE <100 ng/mL Secobarbital NEGATIVE <100 ng/mL Barbiturates Comments See LDT Notes PRESCRIBED DRUGS, medMATCH(R ) ([id number]) Reviewed date:10/04/2024 12:58:15 PM Interpretation: Performing Lab:[place], [facility]ieves, W[place] Shaq Guillory MD Notes/Report: FASTING: NO medMATCH Summary Prescribed Prescribed Not Prescribed Consistent Inconsistent Inconsistent Aminoclonazepam DRUG MONITOR, BENZO, QN, [place] ([id number]) Reviewed date:10/04/2024 12:58:15 PM Interpretation: Performing Lab:CB, [facility] [facility] bruceKdgiHS[address] Eulalio Rosas, Director - [address] [facility] Notes/Report: FASTING: NO Alphahydroxyalprazolam NEGATIVE <25 ng/mL Alphahydroxymidazolam NEGATIVE <50 ng/mL Alphahydroxytriazolam NEGATIVE <50 ng/mL Aminoclonazepam 340 <25 ng/mL H medMATCH Aminoclonazepam INCONSISTENT A Hydroxyethylflurazepam NEGATIVE <50 ng/mL Lorazepam NEGATIVE <50 ng/mL Nordiazepam NEGATIVE <50 ng/mL Oxazepam NEGATIVE <50 ng/mL Temazepam NEGATIVE <50 ng/mL Benzodiazepines Comments See Benzodiazepines Notes, LDT Notes Notes and Comments This drug testing is for medical treatment only. Analysis was performed as non-forensic testing and these results should be used only by healthcare providers to render diagnosis or treatment, or to monitor progress of medical conditions. Benzodiazepines Notes: Aminoclonazepam detected is consistent with the use of the drug Clonazepam. LDT Notes: Confirmation tests were developed and their analytical performance characteristics have been determined by [employer]. It has not been cleared or approved by the FDA. This assay has been validated pursuant to the CLIA regulations and is used for clinical purposes. medMATCH(R) enables providers to identify if drug use is consistent or inconsistent with a corresponding prescribed medication(s) list. Healthcare Providers needing Interpretation assistance, please contact us at [phone] ( ) M-F, 8am to 10pm EST UDT Reviewed date:09/20/2024 11:48:48 AM Interpretation: Performing Lab: Notes/Report: THC n 0 - 50 ng/ml Cocaine n 0 - 300 ng/ml Amphetamine n 0 - 1000 ng/ml Buprenorphine (BUP) n 0 - 10 ng/ml Secobarbital (Bar) n 0 - 300 ng/ml Oxazepam (BZO) p 0 - 300 ng/ml 5-lrqtmvoqxf-9,9-epozxvhu-5, 3-diph enylpyrrolidine (EDDP) n 0 - 300 ng/ml Methamphetamine (MET) n 0 - 1000 ng/ml Methylenedioxymethamphetamin e (MDMA) n 0 - 500 ng/ml Morphine (MOP 300/[id number]) n 0 - 300 ng/ml Methadone (MTD) n 0 - 300 ng/ml Phencyclidine (PCP) n 0 - 25 ng/ml Nortriptyline (TCA) n 0 - 1000 ng/ml Oxycodone n 0 - 300 ng/ml x n 0 - 300 ng/ml Reason For Referral No Information Medications Medication SIG (Take, Route, Frequency, Duration) Notes Start Date End Date Status Topiramate 25 MG Tablet Oral 06/12/2023 Active FLUoxetine HCl 20 MG Capsule TAKE 6 CAPSULES BY MOUTH EVERY DAY; Duration: 90 Active Allopurinol 100 MG Tablet Oral 06/12/2023 Active Gabapentin 300 MG Capsule Oral 06/12/2023 Active Lisinopril 10 MG Tablet Oral 06/12/2023 Active Tamsulosin HCl 0.4 MG Capsule Oral 06/12/2023 Active busPIRone HCl 7.5 MG Tablet TAKE 1 TABLE T BY MOUTH TWICE DAILY; Duration: 90 Active Finasteride 5 MG Tablet Oral; Duration: 90 Days Active clonazePAM 1 MG Tablet TAKE 1 TABLET BY MOUTH DAILY NEEDED; Duration: 30 11/18/2024 Active Social History Tobacco Use: Social History Observation Description Date Details (start date - stop date) Never Smoker NA - NA Sex Assigned At : Social History Observation Description Sex Assigned At Male Social History Miscellaneous: Social Info Question Answer Notes Advance Care Planning Are you your own decision-maker Yes Do you have Power of Attorne y for Health or Medical? 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) Active confirmed Problem Information temporarily unavailable Generalized anxiety disorder (F41.1) Active confirmed Problem Information temporarily unavailable Obsessive-compu lsive disorder, unspecified (F42.9) Active confirmed Vital Signs Heart Rate 87 /min 09/20/2024 Height-cm 182.88 cm 09/20/2024 Blood pressure diastolic 68 mm Hg 09/20/2024 Weight-kg 73.48 kg 09/20/2024 Height 72.00 in 09/20/2024 Blood pressure systolic 97 mm Hg 09/20/2024 Weight 162 lbs 09/20/2024 BMI 21.97 kg/m2 09/20/2024 Encounters Encounter [facility] Date [facility] [place] [address] [facility] [address] [place] [address] 02/18/2024 Rona Kurilla Generalized anxiety disorder F41.1 ; Obsessive-compulsive disorder, unspecified F42.9 and Major depressive disorder, recurrent severe without psychotic features F33.2 [place] [address] [address] 06/21/2024 Rona Kurilla Generalized anxiety disorder F41.1 ; Obsessive-compulsive disorder, unspecified F42.9 ; Major depressive disorder, recurrent severe without psychotic features F33.2 ; Encounter for screening for depression Z13.31 and Encounter for screening for cardiovascular disorders Z13.6 [place] [address] [address] 09/20/2024 Rona Kurilla Generalized anxiety disorder F41.1 ; Obsessive-compulsive disorder, unspecified F42.9 ; Major depressive disorder, recurrent severe without psychotic features F33.2 ; Encounter for screening for depression Z13.31 and Encounter for screening for cardiovascular disorders Z13.6 [place] [address] [address] 01/20/2024 Ronalindy Elliott [place] [address] [address] 02/04/2024 Ronalindy Elliott [address] [address] 02/18/2024 Rona Elliott [place] [address] [address] 06/17/2024 Rona Kurjudy Generalized anxiety disorder F41.1 [place] [address] [address] 06/27/2024 Rona Elliott Generalized anxiety disorder F41.1 Assessments Encounter Date [...] exercising, increasing social activity, isolating less often. 06/17/2024 Generalized anxiety disorder (ICD-10 - F41.1) 06/21/2024 Generalized anxiety disorder (ICD-10 - F41.1) 06/27/2024 Generalized anxiety disorder (ICD-10 - F41.1) 09/20/2024 Generalized anxiety disorder (ICD-10 - F41.1) [...] these symptoms, seek emergency care right away. 09/20/2024 Major depressive disorder, recurrent severe without psychotic features (ICD-10 - F33.2) 06/21/2024 Obsessive-compuls wesley disorder, unspecified (ICD-10 - [...] increasing social activity, isolating less often. 06/21/2024 Major depressive disorder, recurrent severe without psychotic features (ICD-10 - F33.2) 09/20/2024 Encounter for screening for depression (ICD-10 - Z13.31) 09/20/2024 Encounter for screening for cardiovascular disorders (ICD-10 - Z13.6) 06/21/2024 Encounter for screening for depression (ICD-10 - Z13.31) 06/21/2024 Encounter for screening for cardiovascular disorders (ICD-10 - Z13.6) 02/18/2024 Other Discontinue Wellbutrin due to side [...] Of Treatment Next Appt Details Provider Name:Rona hendricks, 12/20/2024 08:30:00 AM, [address], [address], [place], [address], Insurance Providers Payer Name Payer Address Payer Phone Subscriber Number Group Number Insured Name Patient Relationship to Insured Coverage Start Date Coverage End Date [employer] Medicare Replacement/ Advantage - Ppo [address] [address] [place] [address] [id number] ADRIEL LOU Self - patient is the insured Medical (General) History Medical History History ICD Code Problems: Generalized anxiety disorder Obsessive-compulsive disorder Severe recurrent major depression withou t psychotic features HTN Chronic back pain Surgical History Surgery Date(Month/Year) Any surgical history 05/29/2019
[2024-11-27 18:41] LABS: Hematocrit 46.8 % (42.0-52.0); Hemoglobin 14.9 g/dL (14.0-18.0); Immature Granulocyte Percent A 0.6 % (0-0.5); Lymphocytes Absolute Auto 1.82 K/mm3 (0.9-3.2); Mean Corpuscular HGB Conc 31.8 g/dl (32-36); Mean Corpuscular Hemoglobin 29.1 pg (26-34); Mean Corpuscular Volume 91.4 fl (80-100); Nucleated Red Blood Cells Absolute Auto 0.000 K/mm3 (0.0-0.012); Nucleated Red Blood Cells Perc 0.0 % (0.0-0.2); Platelet Count Result 237 k/mm3 (150-375); Red Blood Count 5.12 M/mm3 (4.6-6.20); White Blood Count 14.4 K/mm3 (4.5-10.0)
[2024-11-27 18:54] LABS: Alanine Aminotransferase 30 U/L (6-50); Albumin Level 3.8 g/dL (3.5-5.1); Alkaline Phosphatase 56 U/L (38-126); Anion Gap 7 mmol/L (4-12); Aspartate Amino Transferase 33 U/L (17-59); Bilirubin,Total 0.9 mg/dL (0.2-1.3); Blood Urea Nitrogen 38 mg/dL (9-20); Calcium 9.4 mg/dL (8.4-10.2); Carbon Dioxide 23 mmol/L (22-30); Chloride 106 mmol/L (98-107); Estimated CRCL calculation 41 ml/min; Estimated Glomerular Filt Rate 44; Glucose 84 mg/dL (65-110); Lipase 23 U/L (23-300); Potassium 4.7 mmol/L (3.4-5.0); Sodium 136 mmol/L (137-145); Total Protein 6.5 g/dL (6.3-8.2)
[2024-11-27 19:41] LABS: Add Urine Microscopic? YES; Appearance Urine Clear (Clear); Glucose Urine UA Negative (Negative); Leukocyte Esterase Ur 1+ LEU/UL (Negative); Need Manual Microscopic Reviewed; Nitrate Urine Negative (Negative); Specific Grav Ur 1.023 (1.001-1.035)
[2024-11-27] MEDS: SODIUM CHLORIDE 0.9% IV 1,000 ML 999 ML IV CONT (20:56)
[2024-11-27] MEDS: ONDANSETRON INJ 4 MG/2 ML VIAL IV PUSH (20:56)
[2024-11-27] MEDS: HYDROmorphone HCL INJ (*CRX) 1 MG/ML SYR 0.5 MG IV PUSH (20:57)
--- NOTE | 2024-11-27 21:41 | ED_ITS ---
HPI - Abdominal Pain General Chief Complaint: Abdominal Pain Stated Complaint: colon or bowel blockage Time Seen by Provider: 11/27/24 18:15 Source: patient Mode of arrival: ambulatory Limitations: no limitations History of Present Illness HPI narrative: Patient is a 69-year-old male who presents the ED with report of constipation. Patient reports he has been intermittently constipated for the past several months. He has seen his primary care doctor for this and has been taking MiraLax without improvement. He reports he felt the urge to have a bowel movement yesterday but was only able to pass a small amount of solid stool. States throughout the day yesterday he was continuously leaking fluid from his rectum. He complains of diffuse abdominal pain, rectal pain, nausea. Denies fevers, rectal bleeding, melena. Denies difficulty urinating. Related Data Allergies Allergy/AdvReac Type Severity Reaction Status Date / Time morphine Allergy Hallucinati Verified 11/27/24 14:56 ng Review of Systems 2 Review of Systems: All systems reviewed & are unremarkable except as noted in HPI. 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 History of shoulder surgery Rotator cuff repair H/O knee surgery bursal sack removal Family History Family History Father Hypertension Heart disease Unknown Hypertension Depression Heart disease Kidney disorder Social History Social History Smoking status: Former smoker Additional smoking assessment comments: Patient stated he smoked between the ages of 14 and 18 Alcohol intake: never Substance use: never Substance use type: does not use Do You Feel Safe in your Home?: Yes Lack of Transportation: No Lack of Food: Never True Current Housing: I Have Housing Concerned About Future Housing: No Difficulty Paying Gas/Electric Bills: No Difficulty Paying for Meds: No Currently Unemployed: No Education: Bachelor's Degree Difficulty w/ Childcare or Family Care: No Occupation/Education: retired 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 HEAD: Normocephalic, atraumatic. RESPIRATORY: Airway patent, respirations nonlabored. Clear to auscultation bilaterally, no rales, rhonchi, wheezing. CARDIOVASCULAR: Regular rate and rhythm without murmurs, rubs, or gallops. ABDOMINAL: Soft, mild diffuse tenderness throughout abdomen, nondistended. Normoactive BS. MUSCULOSKELETAL: Moves all extremities. No gross deformities. SKIN: Warm, dry, normal color. NEURO: A&O X3. Speech clear. Cranial nerves II-XII grossly intact. Steady gait. No ataxic movements. PSYCHIATRIC: Appropriate mood and affect. Normal interaction. Course Vital Signs Vital signs: Vital Signs Temperature 98.1 F 11/27/24 14:51 Pulse Rate 92 11/27/24 14:51 Respiratory Rate 20 11/27/24 14:51 Blood Pressure 113/75 11/27/24 14:51 Pulse Oximetry 100 11/27/24 14:51 Oxygen Delivery Room Air 11/27/24 14:51 Temperature 97.8 F 11/27/24 17:32 Pulse Rate 68 11/28/24 02:31 Respiratory Rate 19 11/28/24 02:31 Blood Pressure 127/83 11/28/24 02:31 Pulse Oximetry 94 11/28/24 02:31 Oxygen Delivery Room Air 11/27/24 14:51 MDM - Abdominal Pain MDM Narrative Medical decision making narrative: Patient presented to ED with constipation, rectal leakage, abdominal pain, nausea. Vital signs are stable upon arrival. Patient is in no acute distress. Cbc with blood cell count of 14.4. Neutrophil predominance. No bandemia. CMP fairly unremarkable. CKD, appears consistent with previous records. Normal LFTs and lipase. Lactic acid within normal range at 1.0. UA without significant signs of infection. CT scan of abdomen/pelvis was obtained and showing evidence of fecal impaction/constipation. No other significant findings. No obstruction. Discussed imaging findings with patient. Discussed performing LISA, enema. Patient in agreement with plan. Attempted LISA, however stool slightly higher up than can be reached with finger. Was able to break up a small piece of the stool ball. Patient would like to proceed with enema. Soap suds performed. Patient had large BM afterwards and feeling significantly better on reeval. Feels comfortable going home. Discussed further constipation management at home, advised close follow-up with PCP for further evaluation. Given strict return precautions. Patient in agreement plan. Discharged in stable condition. Medical Records Attestation: I reviewed the patient's medical records. Lab Data Attestation: I reviewed the patient's lab results. 11/27/24 18:34 11/27/24 18:34 Labs: Lab Results 11/27/24 11/27/24 Range/Units 18:34 19:14 WBC 14.4 H (4.5-10.0) K/mm3 RBC 5.12 (4.6-6.20) M/mm3 Hgb 14.9 (14.0-18.0) g/dL Hct 46.8 (42.0-52.0) % MCV 91.4 (80-100) fl MCH 29.1 (26-34) pg MCHC 31.8 L (32-36) g/dl RDW 14.7 H (11.5-14.5) % Plt Count 237 (150-375) k/mm3 MPV 9.4 (7.4-10.4) fl Immature Gran % (Auto) 0.6 H (0-0.5) % Neut % (Auto) 77.1 H (45.5-73.1) % Lymph % (Auto) 12.6 L (18.3-44.2) % [place] % (Auto) 8.7 H (2.6-8.5) % Eos % (Auto) 0.6 (0-4.4) % Baso % (Auto) 0.4 (0.2-1.2) % Lymph # (Auto) 1.82 (0.9-3.2) K/mm3 [place] # (Auto) 1.3 H (0.1-0.6) K/mm3 Eos # (Auto) 0.1 (0-0.3) K/mm3 Baso # (Auto) 0.1 (0.0-0.1) K/mm3 Abs Immat Gran (auto) 0.08 H (0.00-0.031) K/mm3 Absolute Neuts (auto) 11.1 H (1.3-6.7) K/mm3 Absolute Nucleated RBC 0.000 (0.0-0.012) K/mm3 Nucleated RBC % 0.0 (0.0-0.2) % Sodium 136 L (137-145) mmol/L Potassium 4.7 (3.4-5.0) mmol/L Chloride 106 (98-107) mmol/L Carbon Dioxide 23 (22-30) mmol/L Anion Gap 7 (4-12) mmol/L BUN 38 H (9-20) mg/dL Creatinine 1.59 H (0.7-1.3) mg/dL Estim Creat Clear Calc 41 ml/min Estimated GFR 44 L (59 - ) Glucose 84 (65-110) mg/dL Lactic Acid 1.0 (0.7-2.0) mmol/L Calcium 9.4 (8.4-10.2) mg/dL Total Bilirubin 0.9 (0.2-1.3) mg/dL AST 33 (17-59) U/L ALT 30 (6-50) U/L Alkaline Phosphatase 56 (38-126) U/L Total Protein 6.5 (6.3-8.2) g/dL Albumin 3.8 (3.5-5.1) g/dL Lipase 23 (23-300) U/L Urine Color Dark yellow (Yellow) Urine Appearance Clear (Clear) Urine pH 5.5 (5.0-9.0) Ur Specific [place] 1.023 (1.001-1.035) Urine Protein Negative (Negative) mg/dL Urine Glucose (UA) Negative (Negative) mg/dL Urine Ketones Trace H (Negative) mg/dL Ur Blood (Man) Negative (Negative) Urine Nitrate Negative (Negative) Urine Bilirubin Negative (Negative) Urine Urobilinogen 1.0 (<2.0) mg/dL Add Ur Microanalysis Reviewed Leukocyte Esterase Rfl 1+ H (Negative) DEL/UL Urine RBC 0-2 (0-2) /hpf Urine WBC 0-5 (0-3) /hpf Ur Squamous Epith Cells None seen (Few) /hpf Urine Bacteria None seen /hpf Urine Casts 3-5 Imaging Data Attestation: I personally reviewed and interpreted this imaging study as follows: Radiologist's impression: ITS Impressions Abdomen/Pelvis CT 11/28/24 16:17 IMPRESSION: 1. 7.8 cm ball of stool at the rectum consistent with constipation with fecal impaction. Mild surrounding rectal wall thickening and minimal perirectal stranding consistent with likely secondary stercoral colitis. 2. Cholelithiasis. 3. Polycystic kidney disease. 4. Sliding-type hiatal hernia containing the wrap of a Maurisio fundoplication which is positioned above the diaphragm. STAT RAD CT abd/pelvis: Impression: Gallstones. Polycystic kidneys with both kidneys containing numerous cysts. Rectum is distended with stool up to a day Imdur of at least 7.5 cm. Bilateral hip replacements. Mild areas of infiltration and/or infiltration in the lower lobes. Discharge Plan Discharge Clinical Impression: Fecal impaction, Abdominal cramping Constipation Qualifiers: Constipation type: unspecified constipation type Qualified Code(s): K59.00 - Constipation, unspecified Patient Disposition: Home Condition: Stable Instructions: Antibiotic Form, Constipation (ED), High Fiber Diet (ED) Additional Instructions: Recommend MiraLax and Dulcolax up to twice daily over the next 1 week for constipation. If you develop diarrhea, you may decrease this to once per day or every other day. Stay very well hydrated. Recommend plenty of fluids. Recommend high-fiber diet. Utilize Zofran as needed for nausea. Follow-up closely with your primary care doctor and/or GI for further evaluation. Return to the ED if you experience worsening or severe symptoms, severe constipation, severe pain, unable to keep down food or drink, fevers, rectal bleeding, dark black stool, or any other symptoms of concern. Patient Language: Lebanese Prescriptions: New polyethylene glycol 3350 [Miralax] 17 gram/dose powder 17 g PO BID PRN (Reason: constipation) Qty: 119 0RF bisacodyl [Dulcolax (bisacodyl)] 5 mg tablet,delayed release (DR/EC) 5 mg PO BID PRN (Reason: constipation) Qty: 30 0RF ondansetron 4 mg tablet,disintegrating 4 mg PO Q8H PRN (Reason: nausea and vomiting) Qty: 15 0RF No Action colchicine 0.6 mg tablet See Rx Instructions .ROUTE .COMPLEX Qty: 3 0RF Rx Instructions: take 2 tabs PO initially, then 1 tab 1 hr later as needed for acute gout topiramate 25 mg tablet 25 mg PO BID Qty: 200 1RF tadalafil [Cialis] 5 mg tablet 5 mg PO DAILY Qty: 100 1RF finasteride 5 mg tablet 5 mg PO DAILY Qty: 14 0RF clonazepam 1 mg tablet 1 mg PO QHS Qty: 90 0RF Rx Instructions: administer 30 minutes before bedtime lisinopril 10 mg tablet 10 mg PO DAILY Qty: 90 2RF fluoxetine 20 mg capsule 120 mg PO DAILY Qty: 540 1RF tamsulosin 0.4 mg capsule 0.4 mg PO BID Qty: 180 1RF cyclobenzaprine 10 mg tablet 10 mg PO TID PRN (Reason: muscle spasm) Qty: 90 1RF gabapentin 300 mg capsule See Rx Instructions .ROUTE .COMPLEX Qty: 270 0RF Dose Instruction: TAKE 3 CAPSULES BY MOUTH EVERY DAY AT BEDTIME Rx Instructions: TAKE 3 CAPSULES BY MOUTH EVERY DAY AT BEDTIME hydrocodone-acetaminophen 5-325 mg tablet 1 tablet PO Q8H PRN (Reason: pain) Qty: 30 0RF allopurinol 100 mg tablet See Rx Instructions .ROUTE .COMPLEX Qty: 90 0RF Dose Instruction: TAKE 1 TABLET BY MOUTH DAILY Rx Instructions: TAKE 1 TABLET BY MOUTH DAILY Follow-up/Referrals: Tee Shook MD [Primary Care Provider, Family Practice] Jose Marmolejo MD [Physician, Gastroenterology] Referral Note: GI
[2024-11-28 02:30] VITALS: BP 127/83; PULSE 68; RESP 19; O2SAT 94
[2024-11-28 02:31] VITALS: BP 127/83; PULSE 68; RESP 19; O2SAT 94
== END 2024-11-28 02:32 | disposition home or self-care (01) ==
PROVIDERS: Emergency Provider Physician Assistant; PCP Family Medicine
DX: K56.41 Fecal impaction (principal); I10 Essential (primary) hypertension; M81.0 Age-related osteoporosis without current pathological fracture; Q61.3 Polycystic kidney, unspecified; N40.3 Nodular prostate with lower urinary tract symptoms; R39.11 Hesitancy of micturition; F41.1 Generalized anxiety disorder; F42.9 Obsessive-compulsive disorder, unspecified; Z96.643 Presence of artificial hip joint, bilateral; Z87.891 Personal history of nicotine dependence; Z79.899 Other long term (current) drug therapy; K80.20 Calculus of gallbladder without cholecystitis without obstruction; K44.9 Diaphragmatic hernia without obstruction or gangrene
CPT/HCPCS: 36415; 74177; 80053; 81001; 83605; 83690; 85025; 87086; 96361; 96374; 96375; 99284; J1171; J2405; J7030; Q9967

== ENCOUNTER 2024-12-26 09:54 | Outpatient (CLI) | payer MEDICARE, SELFPAY ==
--- NOTE | ~2024-12-26 | XR_ITS ---
EXAMINATION: XR hand BI arthritis min 3V, 12/26/2024 10:02 CDT HISTORY: CHRONIC NON TRAUMA /WORSENING PAIN COMPARISON: No comparisons available. Findings: No acute fracture or malalignment. Severe degenerative changes of the first metacarpal carpal joint, no erosions are identified Soft tissues unremarkable. Impression: No acute fracture or malalignment. Reviewed, dictated and finalized at location P. Impression: No acute fracture or malalignment.
--- OUTSIDE RECORDS SUMMARY | 2024-12-26 10:31 | XMS_ITS | Clinical Summary ---
Author Organization [facility] Address [facility] [place] [address] Care Team Providers Care Chemical Analyst Name Role Phone Non-Staff, Provider Primary Care [...] 01/26/2010, 12/28/2009, Additional history exists COVID-19 Vaccine (1 - season) 2024 RSV Immunization or 60+ Years (1 - 1-dose 75+ series) 2032 Meningococcal B Vaccine Aged Out No l onger eligible based on patient's age to complete this topic Meningococcal Vaccine Aged Out No tigist rayna eligible based on patient's age to complete this topic RSV Immunizations Under 20 Months Aged Out No longer eligible based on patient's age to complete this topic Insurance [address] [place] [address] [facility] OFFICE OF COMMUNITY CARE [facility] Advance Directives * Full Code (Latest Code Status on File) Date Activated Date Inactivated Comments 12/24/2020 9:06 PM 12/27/2020 4:28 PM Care Teams Chemical Analyst Relationship Specialty Start Date End Date Non-Staff, Provider PCP - General UNKNOWN PHYSICIAN SPECIALTY 07/05/24
--- OUTSIDE RECORDS SUMMARY | 2024-12-26 10:31 | XMS_ITS | Clinical Summary ---
Author Organization [facility] Address [address] [place] [address] Care Team Providers Care Supervisor [employer]il[employer]aking [employer] Name Role Phone Unavailable Primary Care Provider Unavailabl e Source Comments [facility],non-owned Affiliates and Associated Physician Practices is amultiple site organization consisting of ambulatory clinics and hospital sitesin [place], [place], [place] and [place]. This disclosure is being madepursuant to the Care Everywhere program and may not contain all information available regarding this patient. 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
== END 2024-12-26 09:55 | disposition home or self-care (01) ==
PROVIDERS: PCP Family Medicine; Visit Provider Plastic Surgery
DX: M18.9 Osteoarthritis of first carpometacarpal joint, unspecified (principal)
CPT/HCPCS: 73130

== ENCOUNTER 2025-02-20 11:01 | Outpatient (CLI) | payer MEDICARE, SELFPAY ==
[2025-02-20 12:08] LABS: Anion Gap 7 mmol/L (4-12); Blood Urea Nitrogen 36 mg/dL (9-20); Calcium 9.2 mg/dL (8.4-10.2); Carbon Dioxide 22 mmol/L (22-30); Chloride 109 mmol/L (98-107); Estimated Glomerular Filt Rate 50; Glucose 86 mg/dL (65-110); Potassium 4.3 mmol/L (3.4-5.0); Sodium 138 mmol/L (137-145)
--- OUTSIDE RECORDS SUMMARY | 2025-02-20 13:11 | XMS_ITS | Clinical Summary ---
Author Organization [facility] Address [address] [place] [address] Care Team Providers Care Handbag Frames Inspector Name Role Phone Unavailable Primary Care Provider Unavailabl e Source Comments [facility],non-owned Affiliates and Associated Physician Practices is amultiple site organization consisting of ambulatory clinics and hospital sitesin [place], [place], [place] and [place]. This disclosure is being madepursuant to the Care Everywhere program and may not contain all information available regarding this patient. 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
== END 2025-02-20 11:02 | disposition home or self-care (01) ==
LOC: ANHLAB 11:04
PROVIDERS: PCP Family Medicine; Visit Provider Anesthesiology
DX: Q61.3 Polycystic kidney, unspecified (principal)
CPT/HCPCS: 36415; 80048

== ENCOUNTER 2025-02-28 14:48 | Outpatient (CLI) | payer MEDICARE, SELFPAY ==
--- NOTE | 2025-02-28 | ECG_ITS ---
Test Date: 2025-02-28 15:20:12 Measurements Intervals [place] Rate: 48 P: 50 CA: 155 QRS: 18 QRSD: 86 T: 28 QT: 463 QTc: 416 Interpretive Statements SINUS BRADYCARDIA EARLY PRECORDIAL R/S TRANSITION BASELINE ARTIFACT- I, II, III, AVR, AVL, AVF ABNORMAL ECG No previous ECG available for comparison Electronically Signed On 02-28-2025 15:23:57 RAILROAD BRAKE OPERATOR by Freddy Rico D.O.
--- OUTSIDE RECORDS SUMMARY | 2025-02-28 16:14 | XMS_ITS | Clinical Summary ---
Author Organization [facility] Address [facility] [place] [address] Care Team Providers Care Forging Roll Operator Name Role Phone Non-Staff, Provider Primary Care [...] Additional history exists COVID-19 Vaccine ( - 2024- season) 2024 Influenza Adult (#1) 2024 01/29/2012, 02/14/2010, 01/29/2008 RSV Immunization or 60+ Years (1 - 1-dose 75+ series) 2032 Hepatitis A Vaccines Aged Out No long er eligible based on patient's age to complete this topic Meningococcal B Vaccine Aged Out No l onger eligible based on patient's age to complete this topic Meningococcal Vaccine Aged Out No tigist rayna eligible based on patient's age to complete this topic RSV Immunizations Under 20 Months Aged Out No longer eligible based on patient's age to complete this topic Insurance [address] [place] [id number] [facility] OFFICE OF COMMUNITY CARE [facility] Advance Directives * Full Code (Latest Code Status on File) Date Activated Date Inactivated Comments 12/24/2020 9:06 PM 12/27/2020 4:28 PM Care Teams Forging Roll Operator Relationship Specialty Start Date End Date Non-Staff, Provider PCP - General UNKNOWN PHYSICIAN SPECIALTY 07/05/24
--- OUTSIDE RECORDS SUMMARY | 2025-02-28 16:14 | XMS_ITS | Clinical Summary ---
Author Organization [facility] Address [address] [place] [address] Care Team Providers Care Dental Hygienist Name Role Phone Unavailable Primary Care Provider Unavailabl e Source Comments [facility],non-owned Affiliates and Associated Physician Practices is amultiple site organization consisting of ambulatory clinics and hospital sitesin [place], [place], [place] and [place]. This disclosure is being madepursuant to the Care Everywhere program and may not contain all information available regarding this patient. 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
== END 2025-02-28 14:49 | disposition home or self-care (01) ==
PROVIDERS: PCP Family Medicine; Visit Provider Anesthesiology
DX: Z01.818 Encounter for other preprocedural examination (principal); I10 Essential (primary) hypertension; N28.9 Disorder of kidney and ureter, unspecified; R94.31 Abnormal electrocardiogram [ECG] [EKG]
CPT/HCPCS: 93005

== ENCOUNTER 2025-03-22 10:12 | Outpatient (CLI) | payer MEDICARE, SELFPAY ==
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
--- OUTSIDE RECORDS SUMMARY | 2025-03-22 10:19 | XMS_ITS | Clinical Summary ---
Author Organization [facility] Address [address] [place] [address] Care Team Providers Care Plastics Repairer Name Role Phone Non-Staff, Provider Primary Care [...] age to complete this topic Insurance RD [address] [place] [id number] [facility] Advance Directives * Full Code (Latest Code Status on File) Date Activated Date Inactivated Comments 12/24/2020 9:06 PM 12/27/2020 4:28 PM Care Teams Plastics Repairer Relationship Specialty Start Date End Date Non-Staff, Provider PCP - General UNKNOWN PHYSICIAN SPECIALTY 07/05/24
--- OUTSIDE RECORDS SUMMARY | 2025-03-22 10:19 | XMS_ITS | Clinical Summary ---
Author Organization [facility] Address [address] [place] [address] Care Team Providers Care Machine Cutter Name Role Phone Unavailable Primary Care Provider Unavailabl e Source Comments [facility],non-owned Affiliates and Associated Physician Practices is amultiple site organization consisting of ambulatory clinics and hospital sitesin [place], [place], [place] and [place]. This disclosure is being madepursuant to the Care Everywhere program and may not contain all information available regarding this patient. 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
--- NOTE | 2025-03-22 10:24 | EST_ITS ---
Patient Info Name: Vikram Garcia Age: 69 years : 1955 Gender: Male Ht: 70 in Wt: 65 lbs BSA: 1.17 m2 HR: 70 bpm BP: 107 / 86 mmHg Exam Date: 03/22/2025 10:24 AM Patient Status: O Admit Date: 03/22/2025 Exam Type: CA stress test treadmill A treadmill exercise stress test was performed. Staff Attending Provider: Freddy Rico DO Exercise Technologist: Lawanad Hahn Exercise Physician: Freddy Rico DO Summary 1. 1. Negative Jason exercise stress test for ischemic ST changes by ECG criteria. 2. 2. Good functional capacity, achieving 10 METs of workload. 3. 3. Appropriate HR response to exercise. 4. 4. Appropriate HR recovery at 1 minute post exercise. 5. 5. No imaging with stress testing. 6. 6. Patient informed of the above results. Protocol: Jason Stress ECG Details Stage: REST Duration (min): 0 min : 51 sec Speed (mph): 0.0 Grade (%): 0 HR (bpm): 69 SBP (mmHg): 107 DBP (mmHg): 86 METS: --- Stage: REST Duration (min): 6 min : 20 sec Speed (mph): 0.0 Grade (%): 0 HR (bpm): 73 SBP (mmHg): 107 DBP (mmHg): 86 METS: --- Stage: STAGE 1 Duration (min): 1 min : 0 sec Speed (mph): 1.7 Grade (%): 10 HR (bpm): 90 SBP (mmHg): 107 DBP (mmHg): 86 METS: --- Stage: STAGE 1 Duration (min): 2 min : 0 sec Speed (mph): 1.7 Grade (%): 10 HR (bpm): 101 SBP (mmHg): 107 DBP (mmHg): 86 METS: --- Stage: STAGE 1 Duration (min): 3 min : 0 sec Speed (mph): 1.7 Grade (%): 10 HR (bpm): 101 SBP (mmHg): 143 DBP (mmHg): 76 METS: --- Stage: STAGE 2 Duration (min): 1 min : 0 sec Speed (mph): 2.5 Grade (%): 12 HR (bpm): 111 SBP (mmHg): 143 DBP (mmHg): 76 METS: --- Stage: STAGE 2 Duration (min): 2 min : 0 sec Speed (mph): 2.5 Grade (%): 12 HR (bpm): 117 SBP (mmHg): 148 DBP (mmHg): 83 METS: --- Stage: STAGE 2 Duration (min): 3 min : 0 sec Speed (mph): 2.5 Grade (%): 12 HR (bpm): 112 SBP (mmHg): 148 DBP (mmHg): 83 METS: --- Stage: STAGE 3 Duration (min): 1 min : 0 sec Speed (mph): 3.4 Grade (%): 14 HR (bpm): 120 SBP (mmHg): 162 DBP (mmHg): 104 METS: --- Stage: STAGE 3 Duration (min): 2 min : 0 sec Speed (mph): 3.4 Grade (%): 14 HR (bpm): 130 SBP (mmHg): 162 DBP (mmHg): 104 METS: --- Stage: STAGE 3 Duration (min): 2 min : 0 sec Speed (mph): 3.4 Grade (%): 14 HR (bpm): 130 SBP (mmHg): 162 DBP (mmHg): 104 METS: --- Stage: RECOVERY Duration (min): 0 min : 59 sec Speed (mph): 0.0 Grade (%): 0 HR (bpm): 113 SBP (mmHg): 160 DBP (mmHg): 94 METS: --- Stage: RECOVERY Duration (min): 1 min : 59 sec Speed (mph): 0.0 Grade (%): 0 HR (bpm): 86 SBP (mmHg): 160 DBP (mmHg): 94 METS: --- Stage: RECOVERY Duration (min): 2 min : 59 sec Speed (mph): 0.0 Grade (%): 0 HR (bpm): 79 SBP (mmHg): 138 DBP (mmHg): 78 METS: --- Stage: RECOVERY Duration (min): 3 min : 59 sec Speed (mph): 0.0 Grade (%): 0 HR (bpm): 76 SBP (mmHg): 138 DBP (mmHg): 78 METS: --- Stage: RECOVERY Duration (min): 4 min : 59 sec Speed (mph): 0.0 Grade (%): 0 HR (bpm): 73 SBP (mmHg): 117 DBP (mmHg): 75 METS: --- Stage: RECOVERY Duration (min): 5 min : 5 sec Speed (mph): 0.0 Grade (%): 0 HR (bpm): 73 SBP (mmHg): 117 DBP (mmHg): 75 METS: --- Rest HR: 73 bpm Peak HR: 132 bpm Rest Sys BP: 107 mmHg Peak Sys BP: 162 mmHg Max Pred HR: 153 bpm % Max Pred HR: 86 % Target HR: 130 bpm Max RPP: 21,384 bpm*mmHg De La Cruz Score: 3 Termination Reason: Reached target heart rate or workload Cardiac Symptoms: Shortness of breath Max ST Seg Deviation: 1.10 mm Total Time: 8 min : 0 sec Rest Smith BP: 86 mmHg Peak Smith BP: 104 mmHg Angina Score: None Total METS: 10.3 Resting ECG Sinus rhythm, borderline ST-T wave abnormality in inferior leads. Stress ECG No ST changes. Arrhythmias None. Report Signatures
== END 2025-03-22 10:13 | disposition home or self-care (01) ==
LOC: ANHCARD 10:17
PROVIDERS: PCP Family Medicine; Visit Provider Internal Medicine Cardiovascular Disease
DX: Z01.810 Encounter for preprocedural cardiovascular examination (principal)
CPT/HCPCS: 93017